=== PATIENT | female | born 1955 | race Caucasian/White ===

== ENCOUNTER → 2023-04-25 | Outpatient (CLI) | payer MEDICARE, SELFPAY | END | disposition home or self-care (01) | PROVIDERS: Visit Provider Student in an Organized Health Care Education/Training Program | DX: L97.512 Non-pressure chronic ulcer of other part of right foot with fat layer exposed (principal); L03.115 Cellulitis of right lower limb | CPT/HCPCS: 87070; 87077; 87186; 87205 ==

== ENCOUNTER 2023-06-22 15:02 | Inpatient (IN) | payer MEDICARE, SELFPAY ==
[2023-06-22 15:44] VITALS: BP 158/79; PULSE 65; RESP 16; TEMP 36.3; O2SAT 99; BMI 45.2
[2023-06-22 15:57] VITALS: O2SAT 99
--- NOTE | 2023-06-22 16:08 | HP.PCM_ITS ---
HPI - General General Date of Admission: 06/22/23 Date of Service: 06/22/23 Chief Complaint: Here for rehabilitation. HPI Narrative TONG PHIPPS, is a 67 Female who presents with followin05/02/2023 - 05/18/2023 Hospitalized for right diabetic foot osteomyelitis, right transmetatarsal amputation, MSSA treated with Vancomycin IV, Ceftriaxone IV, discharged on Keflex. 05/18/2023 - 06/08/2023 Rehab at [facility], then discharged home. 06/20/2023 Admit to [facility]. Worsening weakness, family unable to care for at home. More confused, feels loopy. Recent Shingles diagnosis, on treatment with Valtrex, Tramadol. Urinalysis negative, covid/flu/rsv negative. Blood sugar 650, CT brain negative. PT/OT for debility. Hold Tramadol. Control blood sugar with insulin. LR iv for acute kidney injury, metabolic acidosis. Cycle troponin for elevated troponin. 06/20/2023 Podiatry sharply debrided right foot ulcer. 06/20/2023 Right flank shingles treated with Valtrex. IV antibiotics for urinary tract infection. Increase Lasix for edema. 06/21/2023 Finish Valtrex, Lidoderm gel for shingles, neuralgia. PT/OT SNF. 06/22/2023 Admit to TCU with debility, here for rehabilitation, strengthening, wound care, prior to discharge home with . [facility] Medical History (Updated 06/22/23 @ 16:[address] Juan Casanoav MD) Bilateral carotid artery stenosis Chronic heart failure with preserved ejection fraction (HFpEF) Chronic kidney disease, stage 3a Coronary artery disease Debility Elevated troponin Encephalopathy Herpes zoster Hyperlipidemia Hypertension Morbid obesity Overactive bladder Stroke Ulcer of right foot due to type 2 diabetes mellitus 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 Urinary tract infection Weakness Home Medications albuterol sulfate 90 mcg/actuation aerosol inhaler (ProAir HFA) 2 inh inhalation Q4H PRN wheezing/shortness of breath 06/22/23 [History Last Taken Unknown] aspirin 81 mg chewable tablet 2 tab PO DAILY blood thinner 06/22/23 [History Last Taken Unknown] atorvastatin 80 mg tablet 80 mg PO QHS cholesterol 06/22/23 [History Last Taken Unknown] cholecalciferol (vitamin D3) 50 mcg (2,000 unit) capsule 2,000 unit PO DAILY supplement 06/22/23 [History Last Taken Unknown] clopidogrel 75 mg tablet 75 mg PO DAILY blood thinner 06/22/23 [History Last Taken Unknown] ferrous sulfate 325 mg (65 mg iron) tablet (Feosol) 325 mg PO DAILY supplement 06/22/23 [History Last Taken Unknown] furosemide 40 mg tablet 60 mg PO DAILY fluid pill 06/22/23 [History Last Taken Unknown] hydrocortisone 2.5 % topical cream applic topical BID itching 06/22/23 [History Last Taken Unknown] insulin glargine 100 unit/mL (3 mL) subcutaneous pen (Lantus Solostar U-100 Insulin) 36 unit subcut QHS diabetes 06/22/23 [History Last Taken Unknown] insulin lispro 100 unit/mL subcutaneous pen 12 unit subcut .AC diabetes 06/22/23 [History Last Taken Unknown] metoprolol succinate 25 mg tablet,extended release 24 hr 25 mg PO DAILY BP/pulse 06/22/23 [History Last Taken Unknown] multivitamin (Daily Multi-Vitamin tablet) 1 tab PO DAILY supplement 06/22/23 [History Last Taken Unknown] nitrofurantoin monohydrate/macrocrystals 100 mg capsule 100 mg PO BID antibiotic 06/22/23 [History Last Taken Unknown] nitroglycerin 0.4 mg sublingual tablet 0.4 mg sublingual Q5M chest pain 06/22/23 [History Last Taken Unknown] ondansetron 4 mg disintegrating tablet 4 mg PO Q6H PRN nausea 06/22/23 [History Last Taken Unknown] oxybutynin chloride 5 mg tablet,extended release 24 hr 5 mg PO DAILY bladder 06/22/23 [History Last Taken Unknown] pantoprazole 40 mg tablet,delayed release 40 mg PO DAILY reflux 06/22/23 [History Last Taken Unknown] ranolazine 1,000 mg tablet,extended release,12 hr 1,000 mg PO Q12H angina 06/22/23 [History Last Taken Unknown] sertraline 100 mg tablet 100 mg PO DAILY mood 06/22/23 [History Last Taken Unknown] valacyclovir 1 gram tablet 1,000 mg PO Q12H shingles 06/22/23 [History Last Taken Unknown] Family History (Updated 06/22/23 @ 16:[address] Juan Casanova MD) Mother CVA (cerebral vascular accident) Hyperlipidemia Glaucoma Father CAD (coronary artery disease) Hypertension Hyperlipidemia Renal artery stenosis Aortic aneurysm Brother Glaucoma Daughter Psoriasis Surgical History (Updated 06/22/23 @ 16:[address] Juan Casanova MD) History of bilateral cataract extraction History of cholecystectomy History of coronary artery bypass graft History of coronary artery stent placement History of dental surgery History of hernia surgery History of hysterectomy Social History (Updated 06/22/23 @ 16:[address] Juan Casanova MD) household members: spouse Smoking Status: Former smoker alcohol intake: never substance use type: does not use ROS Constitutional Constitutional: Denies chills, fever(s) or weight gain ENT HEENT: Denies headache(s), nasal congestion or nasal discharge Cardiovascular Cardiovascular: Denies chest pain or palpitations Respiratory/Chest Respiratory/Chest: Denies cough, excessive phlegm production or shortness of breath with exertion Gastrointestinal Gastrointestinal: Denies abdominal pain, nausea or vomiting Genitourinary Genitourinary: Denies dysuria Musculoskeletal Musculoskeletal: Denies joint pain or joint swelling Integumentary Integumentary: Denies rash or wounds Neurologic Neurologic: Denies focal weakness, numbness or tingling Psychiatric Psychiatric: Denies anxiety, auditory hallucinations, depression, homicidal ideation or suicidal ideation Physical Exam Const alert General Appearance: cooperative HEENT normocephalic Eyes PERRL and EOMs intact bilaterally Neck supple, no JVD and no carotid bruits Resp normal respiratory effort, normal air movement and clear to auscultation bilaterally Cardio regular rate and regular rhythm GI normal to inspection, nondistended, normoactive bowel sounds, non-tender and non-distended Extremity normal capillary refill Extremity Narrative: Right foot dressed. General Extremity: Negative for edema Skin no rashes or lesions noted Skin Narrative: Healing vesicular rash right flank/right lower abdomen. 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 * Debility - PT/OT. * Pain - Tylenol 1000mg q6 prn pain (1-10). * Bowel - senna/colace 1 tablet bid, Magnesium citrate 300ml daily prn. * Adult immunization - Administer pneumonia vaccine, covid vaccine, flu vaccine as appropriate. * DVT prophylaxis - Hold, on dual antiplatelet therapy. * Shortness of breath - Albuterol 2 puffs q4 prn. * Stroke - Aspirin 81mg daily, Plavix 75mg daily. * Hyperlipidemia - Atorvastatin 80mg qhs. * Vitamin D deficiency - D3 50mcg daily. * Coronary artery disease - Metoprolol succinate 25mg daily, Ranexa 1000mg q12, Plavix 75mg daily, Aspirin 81mg daily, NTG 0.4mg sl q5m prn. * Iron deficiency anemia - Ferrous sulfate 325mg daily. * HFpEF - Metoprolol succinate 25mg daily, Furosemide 60mg daily. * Rash - HC 2.5% topical bid. * Diabetes Mellitus II - Glargine 36 units qhs, Lispro 12 units tidac. * Nutrition - MVI daily. * Urinary tract infection - Nitrofurantoin 100mg bid thru 06/23/2023. * Depression - Sertraline 100mg daily, stable chronic senior living use, GDR not recommended. * Overactive bladder - Tolterodine 2mg daily. * Herpes Zoster - Valtrex 1000mg q12 thru today. * Right diabetic foot wound - Consult wound nurse.
[2023-06-22 16:13] VITALS: BMI 45.3
[2023-06-22 17:46] LABS: Bedside Glucose 94 mg/dL (74-106)
[2023-06-22 22:02] LABS: Bedside Glucose 148 mg/dL (74-106)
[2023-06-22] MEDS: Ranolazine 500 MG Tablet 1000 MG PO (22:08)
[2023-06-22] MEDS: Nitrofurantoin Macrocrystals 100 MG Capsule PO (22:08)
[2023-06-22] MEDS: Atorvastatin Calcium 80 MG Tablet PO (22:10)
[2023-06-22] MEDS: Acyclovir 200 MG Capsule 400 MG PO (22:10)
[2023-06-22] MEDS: Senna/Docusate Sodium 1 Tablet PO (22:11)
[2023-06-23 06:54] LABS: Bedside Glucose 141 mg/dL (74-106)
[2023-06-23 08:29] LABS: Absolute Lymphocyte Count 1.07 X10^3/uL (0.83-4.51); Basophil# 0.04 X10^3/uL; Basophil% 0.7 % (0-1); Eosinophil# 0.33 X10^3/uL; Eosinophils% 5.6 % (0-5); Hematocrit 31.7 % (37-47); Lymphocyte # 1.07 X10^3/ul (0.83-4.51); Mean Corp Hgb Conc 31.5 g/dL (32-36); Mean Corpuscular Hgb 29.6 pg (27.0-32.0); Mean Corpuscular Volume 93.8 fL (81-99); Mean Platelet Vol. 11.9 fl (6.2-12.0); Monocyte# 0.49 X10^3/uL; Monocyte% 8.3 % (0-10); NRBC Flagged by Analyzer 0 % (0-5); Neutrophil # 3.98 X10^3/uL (2.7-7.7); Neutrophil % 67.1 % (47-70); Platelet Count 159 K/mm3 (150-450); RBC Distribution Width CV 16.2 % (11.6-14.6); Red Blood Count 3.38 M/mm3 (4.2-5.4); White Blood Count 5.9 K/mm3 (4.4-11.0)
[2023-06-23] MEDS: Ferrous Sulfate 325 MG Tablet PO (08:45)
[2023-06-23] MEDS: Aspirin 81 MG TAB.CHEW PO (08:45)
[2023-06-23] MEDS: Multivitamins,Therapeutic Tablet 1 TABLET PO (08:46)
[2023-06-23] MEDS: Tolterodine Tartrate 2 MG CAP.SA PO (08:46)
[2023-06-23] MEDS: Hydrocortisone 2.5% Crm 1 APPLIC TOPICAL (08:46)
[2023-06-23] MEDS: Juven (unflavored) Packet 1 PACKET PO (08:46)
[2023-06-23] MEDS: Furosemide 40 MG Tablet 60 MG PO (08:47)
[2023-06-23] MEDS: Nitrofurantoin Macrocrystals 100 MG Capsule PO ×2 (08:48→21:58)
[2023-06-23] MEDS: Clopidogrel Bisulfate 75 MG Tablet PO (08:49)
[2023-06-23] MEDS: Ranolazine 500 MG Tablet 1000 MG PO ×2 (08:49→21:58)
[2023-06-23] MEDS: Pantoprazole Sodium 40 MG Tablet PO (08:49)
[2023-06-23] MEDS: Senna/Docusate Sodium 1 Tablet PO ×2 (08:49→21:58)
[2023-06-23] MEDS: Cholecalciferol (VIT D3) 25 MCG TABLET (1,000 UNITS) 50 MCG PO (08:50)
[2023-06-23 08:51] VITALS: BP 143/67; PULSE 68
[2023-06-23] MEDS: Sertraline 100 MG Tablet PO (08:51)
[2023-06-23] MEDS: Acyclovir 200 MG Capsule 400 MG PO ×2 (08:51→21:58)
[2023-06-23] MEDS: Metoprolol(XL)Succ 25 MG Tablet PO (08:51)
[2023-06-23 08:56] LABS: Anion Gap 4 (5-15); BUN 27 mg/dL (7-18); BUN/Creat Ratio 15.9 RATIO (10-20); Calcium,Total 8.7 mg/dL (8.5-10.1); Chloride 111 mmol/L (98-107); EST Glomerular Filtration Rate 32 mL/min (>60); Est Glom Filt Rate - Afr Amer 39 mL/min (>60); Estimated Creatinine Clearance 39.47 ml/min; Glucose 171 mg/dL (74-106); Potassium 4.1 mmol/L (3.5-5.1); Sodium Level 139 mmol/L (136-145)
--- NOTE | 2023-06-23 08:59 | NURSING ---
Shortly after taking morning medications pt. vomited. Visible pills in emesis.
[2023-06-23] MEDS: Insulin Lispro 100 UNIT/ML INSULN.PEN 12 UNIT SC ×3 (09:29→16:36)
[2023-06-23] MEDS: Tuberculin,Purif.prot.deriv. 50 TU/ML Vial 0.100000000000000006 ML ID (10:59)
[2023-06-23 11:28] LABS: Bedside Glucose 213 mg/dL (74-106)
[2023-06-23 13:29] VITALS: BP 134/65; PULSE 69; RESP 18; TEMP 36.6; O2SAT 98
[2023-06-23 16:46] LABS: Bedside Glucose 179 mg/dL (74-106)
[2023-06-23 20:25] VITALS: PULSE 66; RESP 16; O2SAT 97
[2023-06-23 21:32] LABS: Bedside Glucose 215 mg/dL (74-106)
[2023-06-23] MEDS: Insulin Glargine-YFGN 100 UNIT/ML Pen 36 UNIT SC (21:57)
[2023-06-23] MEDS: Atorvastatin Calcium 80 MG Tablet PO (21:58)
[2023-06-24] MEDS: Acetaminophen 500 MG Tablet 1000 MG PO ×2 (00:29→23:32)
[2023-06-24 05:10] LABS: Hematocrit 34.8 % (37-47); Hemoglobin 10.5 g/dL (12.0-15.0)
[2023-06-24 05:42] LABS: Anion Gap 5 (5-15); BUN 31 mg/dL (7-18); BUN/Creat Ratio 18.6 RATIO (10-20); Calcium,Total 8.7 mg/dL (8.5-10.1); Chloride 108 mmol/L (98-107); Creatinine, Serum 1.67 mg/dL (0.55-1.02); EST Glomerular Filtration Rate 33 mL/min (>60); Est Glom Filt Rate - Afr Amer 39 mL/min (>60); Estimated Creatinine Clearance 40.18 ml/min; Glucose 232 mg/dL (74-106); Potassium 4.2 mmol/L (3.5-5.1); Sodium Level 132 mmol/L (136-145)
[2023-06-24 06:31] LABS: Bedside Glucose 239 mg/dL (74-106)
[2023-06-24] MEDS: Insulin Lispro 100 UNIT/ML INSULN.PEN 12 UNIT SC ×3 (08:55→17:45)
[2023-06-24] MEDS: Pantoprazole Sodium 40 MG Tablet PO (08:55)
[2023-06-24] MEDS: Furosemide 40 MG Tablet 60 MG PO (08:55)
[2023-06-24] MEDS: Ranolazine 500 MG Tablet 1000 MG PO ×2 (08:56→23:32)
[2023-06-24] MEDS: Cholecalciferol (VIT D3) 25 MCG TABLET (1,000 UNITS) 50 MCG PO (08:56)
[2023-06-24] MEDS: Aspirin 81 MG TAB.CHEW PO (08:56)
[2023-06-24] MEDS: Sertraline 100 MG Tablet PO (08:56)
[2023-06-24] MEDS: Clopidogrel Bisulfate 75 MG Tablet PO (08:56)
[2023-06-24 08:57] VITALS: PULSE 88
[2023-06-24] MEDS: Multivitamins,Therapeutic Tablet 1 TABLET PO (08:57)
[2023-06-24] MEDS: Juven (unflavored) Packet 1 PACKET PO ×2 (08:57→17:43)
[2023-06-24] MEDS: Metoprolol(XL)Succ 25 MG Tablet PO (08:57)
[2023-06-24] MEDS: Ferrous Sulfate 325 MG Tablet PO (08:57)
[2023-06-24] MEDS: Tolterodine Tartrate 2 MG CAP.SA PO (08:58)
[2023-06-24] MEDS: Senna/Docusate Sodium 1 Tablet PO ×2 (08:58→23:32)
[2023-06-24 11:24] VITALS: BP 148/57; PULSE 63; RESP 17; TEMP 36.6; O2SAT 98
[2023-06-24 11:30] LABS: Bedside Glucose 240 mg/dL (74-106)
[2023-06-24 11:35] LABS: Osmolality, Serum 309 mOsm/KG (280-301)
[2023-06-24] MEDS: Hydrocortisone 2.5% Crm 1 APPLIC TOPICAL ×2 (12:08→23:30)
[2023-06-24] MEDS: Ondansetron ODT 4 MG Tablet PO (14:35)
[2023-06-24 17:59] LABS: Bedside Glucose 266 mg/dL (74-106)
[2023-06-24 21:27] LABS: Bedside Glucose 264 mg/dL (74-106)
[2023-06-24] MEDS: Insulin Glargine-YFGN 100 UNIT/ML Pen 36 UNIT SC (23:30)
[2023-06-24] MEDS: Atorvastatin Calcium 80 MG Tablet PO (23:32)
[2023-06-24 23:59] VITALS: PULSE 72; RESP 16; O2SAT 97
[2023-06-25 01:31] LABS: Urine Sodium 77 mmol/L (Not Establ.)
[2023-06-25 01:38] LABS: Osmolality, Urine 339 mOsm/KG
[2023-06-25 06:26] LABS: Hematocrit 31.4 % (37-47)
[2023-06-25 06:44] LABS: Bedside Glucose 213 mg/dL (74-106)
[2023-06-25 07:05] LABS: Anion Gap 5 (5-15); BUN 40 mg/dL (7-18); BUN/Creat Ratio 22.2 RATIO (10-20); Calcium,Total 9.3 mg/dL (8.5-10.1); Chloride 108 mmol/L (98-107); EST Glomerular Filtration Rate 30 mL/min (>60); Est Glom Filt Rate - Afr Amer 36 mL/min (>60); Estimated Creatinine Clearance 37.27 ml/min; Glucose 254 mg/dL (74-106); Potassium 4.2 mmol/L (3.5-5.1); Sodium Level 136 mmol/L (136-145)
[2023-06-25] MEDS: Juven (unflavored) Packet 1 PACKET PO ×2 (08:02→18:19)
[2023-06-25] MEDS: Insulin Lispro 100 UNIT/ML INSULN.PEN 12 UNIT SC ×2 (08:02→11:52)
[2023-06-25] MEDS: Multivitamins,Therapeutic Tablet 1 TABLET PO (08:05)
[2023-06-25] MEDS: Aspirin 81 MG TAB.CHEW PO (08:05)
[2023-06-25] MEDS: Ferrous Sulfate 325 MG Tablet PO (08:05)
[2023-06-25 08:06] VITALS: PULSE 76
[2023-06-25] MEDS: Pantoprazole Sodium 40 MG Tablet PO (08:06)
[2023-06-25] MEDS: Cholecalciferol (VIT D3) 25 MCG TABLET (1,000 UNITS) 50 MCG PO (08:06)
[2023-06-25] MEDS: Metoprolol(XL)Succ 25 MG Tablet PO (08:06)
[2023-06-25] MEDS: Tolterodine Tartrate 2 MG CAP.SA PO (08:06)
[2023-06-25] MEDS: Senna/Docusate Sodium 1 Tablet PO ×2 (08:06→22:22)
[2023-06-25] MEDS: Ranolazine 500 MG Tablet 1000 MG PO ×2 (08:06→22:21)
[2023-06-25] MEDS: Sertraline 100 MG Tablet PO (08:07)
[2023-06-25] MEDS: Clopidogrel Bisulfate 75 MG Tablet PO (08:07)
[2023-06-25] MEDS: Furosemide 40 MG Tablet 60 MG PO (08:07)
[2023-06-25] MEDS: Hydrocortisone 2.5% Crm 1 APPLIC TOPICAL ×2 (08:10→22:18)
--- NOTE | 2023-06-25 09:40 | CASEMGMT ---
TCU Social Work Admit Note: SW met w/pt to complete initial assessment. SW introduced self and role. SW verified and updated contacts, added daughter and corrected phone number. Pt confirmed full code status w/SW. Educated pt to Medicare benefit, explained first insurance review will be 06/26/23, educated her that continued stay not guaranteed. SW explained once we know how long insurance authorizes, will let her know, pt states understanding. Pt's goal is to return home w/ and continuation of [facility] for PT/OT. Pt may be interested in completing LW/POA while here. SW will continue to follow along for any social service/discharge planning needs. ANGEL Mays
[2023-06-25 10:00] VITALS: PULSE 70; RESP 16; O2SAT 98
--- NOTE | 2023-06-25 10:32 | WOUNDNOTE ---
wound photo: right foot
--- NOTE | 2023-06-25 10:32 | WOUNDNOTE ---
wound photo: left heel
--- NOTE | 2023-06-25 10:52 | PCM.PN.DRR ---
Documented by User: Torsten Gomes 06/25/23 11:24 TCU RX Drug Regimen Review Subjective/Objective Subjective/Objective: Subjective: TCU admission note. 67 year old female with below past medical history hospitalized for weakness, encephalopathy secondary to urinary tract infection, herpes zoster, admitted to TCU with debility, here for rehabilitation, strengthening, prior to discharge home with . Objective: Allergies cefaclor [From Ceclor] Allergy (Unknown, Verified 06/22/23 16:43) Other patient unsure SPEEDY Inhibitors Allergy (Verified 06/22/23 16:43) Other patient unsure Beta-Blockers (Beta-Adrenergic Bloc Allergy (Verified 06/22/23 16:43) Other patient unsure ciprofloxacin Allergy (Verified 06/22/23 16:43) hives clindamycin Allergy (Verified 06/22/23 16:43) Rash isosorbide [From Imdur] Allergy (Verified 06/22/23 16:43) Other patient unsure Penicillins Allergy (Verified 06/22/23 16:43) Rash Current Medications Generic Name Dose Route Start Last Admin Trade Name Freq PRN Reason Stop Dose Admin Acetaminophen 1,000 mg 06/24/23 00:19 06/24/23 23:32 Acetaminophen 500 Mg Tablet PO 1,000 mg Q6H PRN PRN Administration Pain Score 1-10 Albuterol Sulfate 2 puff 06/22/23 16:59 Albuterol Ih (6.7 Gm) 1 Puff Inhaler INHALATION Q4H PRN wheezing/shortness of breath Aspirin 81 mg 06/23/23 08:00 06/25/23 08:05 Aspirin 81 Mg Tab.Chew PO 81 mg DAILYCM SAIGE Administration Atorvastatin Calcium 80 mg 06/22/23 22:00 06/24/23 23:32 Atorvastatin Calcium 80 Mg Tablet PO 80 mg QHS SAIGE Administration Cholecalciferol 50 mcg 06/23/23 10:00 06/25/23 08:06 Cholecalciferol (Vit D3) 25 Mcg Tablet (1,000 Units) PO 50 mcg DAILY SAIGE Administration Clopidogrel Bisulfate 75 mg 06/23/23 10:00 06/25/23 08:07 Clopidogrel Bisulfate 75 Mg Tablet PO 75 mg DAILY SAIGE Administration Ferrous Sulfate 325 mg 06/23/23 08:00 06/25/23 08:05 Ferrous Sulfate 325 Mg Tablet PO 325 mg DAILYCM SAIGE Administration Furosemide 60 mg 06/23/23 10:00 06/25/23 08:07 Furosemide 40 Mg Tablet PO 60 mg DAILY [facility] Administration Protocol Hydrocortisone 1 applic 06/22/23 22:00 06/25/23 08:10 Hydrocortisone 2.5% Crm TOPICAL 1 applic BID [facility] Administration Protocol Insulin Glargine 36 unit 06/22/23 22:00 06/24/23 23:30 Insulin Glargine-Yfgn 100 Unit/Ml Pen SC 36 unit QHS SAIGE Administration Insulin Human Lispro 12 unit 06/22/23 16:45 06/25/23 08:02 Insulin Lispro 100 Unit/Ml Insuln.Pen SC 12 unit TIDAC [facility] Administration L-Arginine/L-Glutamine/Calcium HMB 1 packet 06/23/23 08:00 06/25/23 08:02 Adryan (Unflavored) Packet PO 1 packet BIDCM [facility] Administration Magnesium Citrate 300 ml 06/22/23 16:36 Magnesium Citrate 300 Ml PO DAILY PRN CONSTIPATION Metoprolol Succinate 25 mg 06/23/23 10:00 06/25/23 08:06 Metoprolol(Xl)Succ 25 Mg Tablet PO 25 mg DAILY [facility] Administration Protocol Multivitamins 1 tablet 06/23/23 08:00 06/25/23 08:05 Multivitamins,Therapeutic Tablet PO 1 tablet DAILYCM [facility] Administration Nitroglycerin 0.4 mg 06/22/23 17:00 Nitroglycerin (Inpatient Use) 0.4 Mg Tab.Subl SL Q5M PRN CARDIAC/CHEST PAIN Ondansetron HCl 4 mg 06/22/23 16:00 06/24/23 14:35 Ondansetron Odt 4 Mg Tablet PO 4 mg Q6H PRN Administration nausea Pantoprazole Sodium 40 mg 06/23/23 10:00 06/25/23 08:06 Pantoprazole Sodium 40 Mg Tablet PO 40 mg DAILY [facility] Administration Ranolazine 1,000 mg 06/22/23 22:00 06/25/23 08:06 Ranolazine 500 Mg Tablet PO 1,000 mg Q12 SAIGE Administration Senna/Docusate Sodium 1 tablet 06/22/23 22:00 06/25/23 08:06 Senna/Docusate Sodium 1 Tablet PO 1 tablet BID SAIGE Administration Sertraline HCl 100 mg 06/23/23 10:00 06/25/23 08:07 Sertraline 100 Mg Tablet PO 100 mg DAILY SAIGE Administration Sodium Chloride 10 - 40 ml 06/22/23 16:00 0.9% Saline Lock 10 Ml Syringe IV UD PRN SALINE FLUSH Tolterodine Tartrate 2 mg 06/23/23 10:00 06/25/23 08:06 Tolterodine Tartrate 2 Mg Cap.Sa PO 2 mg DAILY SAIEG Administration Tuberculin PPD 0.1 ml 06/30/23 10:00 Tuberculin,Purif.Prot.Deriv. 50 Tu/Ml Vial ID 06/30/23 10:01 X1 ONE Problem List (Updated 06/22/23 @ 16:[address] Juan Casanova MD) Overactive bladder (Acute) Hyperlipidemia (Acute) Hypertension (Chronic) Chronic heart failure with preserved ejection fraction (HFpEF) (Acute) Chronic kidney disease, stage 3a (Chronic) Bilateral carotid artery stenosis (Acute) Morbid obesity (Acute) Stroke (Acute) Coronary artery disease (Acute) 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 (Acute) Urinary tract infection (Acute) Ulcer of right foot due to type 2 diabetes mellitus (Acute) Elevated troponin (Acute) Herpes zoster (Acute) Weakness (Acute) Encephalopathy (Acute) Debility (Acute) Vital Signs Temp Pulse Resp BP Pulse Ox O2 Del Method 97.9 F 76 16 148/57 H 97 Room Air 06/24/23 11:24 06/25/23 08:06 06/24/23 23:59 06/24/23 11:24 06/24/23 23:59 06/24/23 23:59 Oxygen Delivery Method Room Air Weight: 116.029 kg Body Mass Index (BMI) 45.3 Sodium 136 mmol/L (136-145) 06/25/23 05:30 Potassium 4.2 mmol/L (3.5-5.1) 06/25/23 05:30 Chloride 108 mmol/L (98-107) H 06/25/23 05:30 Carbon Dioxide 23.0 mmol/L (21.0-32.0) 06/25/23 05:30 Anion Gap 5 (5-15) 06/25/23 05:30 BUN 40 mg/dL (7-18) H 06/25/23 05:30 Creatinine 1.80 mg/dL (0.55-1.02) H 06/25/23 05:30 Est GFR (MDRD) Af Amer 36 mL/min (>60) L 06/25/23 05:30 Est GFR (MDRD) Non-Af 30 mL/min (>60) L 06/25/23 05:30 BUN/Creatinine Ratio 22.2 RATIO (10-20) H 06/25/23 05:30 Glucose 254 mg/dL (74-106) H 06/25/23 05:30 Assessment/Plan: 1. Pain: acetaminophen 1000 mg PO Q6H PRN pain. The patient has required 2 doses of PRN acetaminophen so far this admission. Please continue to monitor PRN acetaminophen administration, pain levels, and LFTs (no recent LFTs documented). 2. Bowel: senna/docusate 1 tablet PO BID, magnesium citrate 300 mL PO daily PRN constipation. The patient has not required any PRN doses of magnesium citrate, and the patient does not have a documented bowel movement so far this admission. Please continue to monitor for bowel movements, for PRN medication usage, for constipation and diarrhea. As the patient has not had a bowel movement so far this admission please consider administering magnesium citrate. 3. Shortness of breath: albuterol inhaler 2 puffs every 4 hours as needed for wheezing or shortness of breath. The patient has not required any PRN doses of albuterol so far this admission. Please continue to monitor for shortness of breath, PRN albuterol usage, and for palpitations with albuterol administration. 4. History of stroke: aspirin 81 mg PO daily, clopidogrel 75 mg PO daily. Please continue to monitor for s/s of stroke/stroke-like symptoms, for bleeding/excessive bruising, hemoglobin levels (Hgb = 10.0 g/dL on 06/25/23), platelet count (plt = 159 K/mm3 on 06/23/23), and for GI distress with aspirin administration. 5. Hyperlipidemia/HFpEF/CAD: aspirin 81 mg PO daily, atorvastatin 80 mg PO QHS, clopidogrel 75 mg PO daily, furosemide 60 mg PO daily, metoprolol succinate 25 mg PO daily, ranolazine 1000 mg PO Q12, nitroglycerin 0.4 mg SL Q5M PRN chest pain. Please continue to monitor for chest pain, shortness of breath, lower extremity edema, for bleeding/excessive bruising, for GI distress with aspirin administration, lipid levels (no recent lipid levels documented), LFTs (no recent LFTs documented), for myalgias, renal function (serum creatinine = 1.80 mg/dL with creatinine clearance ~ 37 mL/min on 06/25/23), sodium levels (Na - 136 mmol/L on 06/25/23), potassium levels (K = 4.2 mmol/L on 06/25/23), calcium levels (Ca = 9.3 mg/dL on 06/25/23), for s/s of dehydration, blood pressures (recent range = 134-158/57-79 mmHg), heart rates (recent range = 63-88 beats/min), and for fatigue. As the patient does not have recent lipid levels documented please consider ordering a lipid panel if clinically indicated. The patient's blood pressures have all been elevated while she has been admitted and she has a reported allergy to SPEEDY-inhibitors. As such please consider starting the patient on losartan 25 mg PO daily to help with blood pressures as well as for some cardiac benefit. 6. Diabetes Mellitus II: insulin glargine 36 units QHS, insulin lispro 12 units TID before meals. Please continue to monitor blood glucose levels (recent range = 94-266 mg/dL) as well as hemoglobin A1C levels (no recent hemoglobin A1C documented). As the patient's blood glucose levels over the past 2 days have been highly elevated please consider increasing her insulin glargine to 40 units QHS, and her insulin lispro to 13 units TID before meals. 7. Iron deficiency anemia: ferrous sulfate 325 mg PO daily with a meal. Please continue to monitor hemoglobin levels (Hgb =10 g/dL on 06/25/23) and iron levels (no recent iron levels documented), as well as for GI distress with iron administration. Please consider ordering iron levels to assess repletion status if clinically indicated. 8. Nausea: ondansetron 4 mg PO Q6H PRN nausea. The patient has used 1 PRN dose of ondansetron so far this admission. Please continue to monitor for PRN medication usage, for nausea, for constipation and for headache. 9. GI distress/GERD: pantoprazole 40 mg PO daily. Please continue to monitor for GI distress/GERD as well as for diarrhea that could indicate clostridium difficile infection, and s/s of bone resorption such as fractures. 10. Vitamin D deficiency: cholecalciferol 50 mcg PO daily. Please continue to monitor for s/s of vitamin D deficiency, as well as vitamin D levels (no recent vitamin D levels documented). Please consider ordering a vitamin D level to assess repletion status if clinically indicated. 11. Rash: hydrocortisone 2.5% 1 application topically BID. Please continue to monitor for resolution of rash, and for application site burning/irritation. 12. Nutrition: multivitamin Po daily, Adryan 1 packet PO BID with meals. Please continue to monitor nutritional status and for GI distress with multivitamin administration. 13. Overactive bladder: tolterodine 2 mg PO daily. Please continue to monitor for bladder spasms, for dry mouth, headache, and constipation. Assessment/Plan for indications treated with psychotropic medications: 1. Depression: sertraline 100 mg PO daily. Please see provider note regarding stable chronic long-term therapy GDR not recommended. Please continue to monitor for depression, for SI, sodium levels (Na - 136 mmol/L on 06/25/23), for s/s of serotonin syndrome, and for diarrhea. Medical chart and medication regimen reviewed. The following medication irregularities or issues were identified: 1. Hyperlipidemia/HFpEF/CAD: aspirin 81 mg PO daily, atorvastatin 80 mg PO QHS, clopidogrel 75 mg PO daily, furosemide 60 mg PO daily, metoprolol succinate 25 mg PO daily, ranolazine 1000 mg PO Q12, nitroglycerin 0.4 mg SL Q5M PRN chest pain. As the patient does not have recent lipid levels documented please consider ordering a lipid panel if clinically indicated. The patient's blood pressures have all been elevated while she has been admitted and she has a reported allergy to SPEEDY-inhibitors. As such please consider starting the patient on losartan 25 mg PO daily to help with blood pressures as well as for some cardiac benefit. 2. Diabetes Mellitus II: insulin glargine 36 units QHS, insulin lispro 12 units TID before meals. As the patient's blood glucose levels over the past 2 days have been highly elevated please consider increasing her insulin glargine to 40 units QHS, and her insulin lispro to 13 units TID before meals. 3. Iron deficiency anemia: ferrous sulfate 325 mg PO daily with a meal. Please consider ordering iron levels to assess repletion status if clinically indicated. 4. Vitamin D deficiency: cholecalciferol 50 mcg PO daily. Please consider ordering a vitamin D level to assess repletion status if clinically indicated. Date Date of Note:: 06/25/23 Documented by User: Dr. Juan Casanova MD 06/25/23 13:02 TCU RX Drug Regimen Review Provider Comments Provider responsibility Provider Comments to Recommendations by Pharmacy: Agree
--- NOTE | 2023-06-25 11:38 | NURSING ---
Patient c/o blurred vision. Upon assessment patient was a&ox3, no changes noted to speech and extremity strength. Patient denies any other symptoms. BS: 202, BP 125/69 HR: 67, RR:16, T:97.6, 97% room air. Patient noted to have hx of stroke, bilateral carotid stenosis. No abnormalities noted. States that eyesight has actually progressively been worsening overtime vs drastic acute change.
[2023-06-25 11:45] LABS: Bedside Glucose 202 mg/dL (74-106)
--- NOTE | 2023-06-25 12:13 | NURSING ---
Head Of Physics Note; Activity Asset: Abisai Tomlin is independent in her choice of daily activities. 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 She has a computer and smartphone she uses for games, and the internet. When not in therapy she will read her book, magazines, watch voodoo tv, work on word search puzzles and visit w/family and friends. Staff will remind her of weekly activities and respect her right to say no.
[2023-06-25 15:19] VITALS: BP 125/69; PULSE 67; RESP 16; TEMP 36.4; O2SAT 97
[2023-06-25] MEDS: Insulin Lispro 100 UNIT/ML INSULN.PEN 13 UNIT SC (18:18)
[2023-06-25 21:55] LABS: Bedside Glucose 205 mg/dL (74-106)
[2023-06-25 22:07] LABS: Bedside Glucose 188 mg/dL (74-106)
[2023-06-25] MEDS: Atorvastatin Calcium 80 MG Tablet PO (22:21)
[2023-06-25] MEDS: Insulin Glargine-YFGN 100 UNIT/ML Pen 40 UNIT SC (22:24)
[2023-06-25] MEDS: Acetaminophen 500 MG Tablet 1000 MG PO (22:26)
--- NOTE | 2023-06-26 03:13 | NURSING ---
ORTHOPEDIC PODIATRIST entered the room and noted patient to be sitting on side of bed. She stated that she was trying to get a drink of water. ORTHOPEDIC PODIATRIST reminded patient to use call light if needing assistance. Will continue to monitor.
[2023-06-26 06:01] LABS: Hematocrit 32.2 % (37-47); Hemoglobin 10.4 g/dL (12.0-15.0)
[2023-06-26] MEDS: Acetaminophen 500 MG Tablet 1000 MG PO ×2 (06:20→12:31)
[2023-06-26 06:25] LABS: Anion Gap 5 (5-15); BUN 43 mg/dL (7-18); BUN/Creat Ratio 23.9 RATIO (10-20); Calcium,Total 9.1 mg/dL (8.5-10.1); Chloride 104 mmol/L (98-107); EST Glomerular Filtration Rate 30 mL/min (>60); Est Glom Filt Rate - Afr Amer 36 mL/min (>60); Estimated Creatinine Clearance 37.27 ml/min; Glucose 153 mg/dL (74-106); Iron 41 ug/dL (50-170); Potassium 4.1 mmol/L (3.5-5.1); Sodium Level 134 mmol/L (136-145)
[2023-06-26 06:57] LABS: Bedside Glucose 141 mg/dL (74-106)
[2023-06-26] MEDS: Insulin Lispro 100 UNIT/ML INSULN.PEN 13 UNIT SC ×3 (08:19→17:52)
[2023-06-26] MEDS: Ferrous Sulfate 325 MG Tablet PO (08:20)
[2023-06-26] MEDS: Aspirin 81 MG TAB.CHEW PO (08:20)
[2023-06-26] MEDS: Tolterodine Tartrate 2 MG CAP.SA PO (08:21)
[2023-06-26] MEDS: Multivitamins,Therapeutic Tablet 1 TABLET PO (08:21)
[2023-06-26] MEDS: Losartan Potassium 25 MG Tablet PO (08:21)
[2023-06-26] MEDS: Hydrocortisone 2.5% Crm 1 APPLIC TOPICAL (08:22)
[2023-06-26] MEDS: Furosemide 40 MG Tablet 60 MG PO (08:23)
[2023-06-26] MEDS: Clopidogrel Bisulfate 75 MG Tablet PO (08:23)
[2023-06-26] MEDS: Sertraline 100 MG Tablet PO (08:24)
[2023-06-26] MEDS: Cholecalciferol (VIT D3) 25 MCG TABLET (1,000 UNITS) 50 MCG PO (08:24)
[2023-06-26] MEDS: Senna/Docusate Sodium 1 Tablet PO ×2 (08:24→21:47)
[2023-06-26] MEDS: Ranolazine 500 MG Tablet 1000 MG PO ×2 (08:24→21:47)
[2023-06-26] MEDS: Pantoprazole Sodium 40 MG Tablet PO (08:24)
[2023-06-26 08:28] VITALS: BP 125/50; PULSE 74
[2023-06-26] MEDS: Metoprolol(XL)Succ 25 MG Tablet PO (08:28)
[2023-06-26 09:29] LABS: Vitamin D,25 Hydroxy 39.7 ng/mL
[2023-06-26 10:37] VITALS: BP 153/64; PULSE 72; RESP 16; TEMP 36.8; O2SAT 98
--- NOTE | 2023-06-26 10:41 | NURSING ---
Discussed patient's podiatry appt scheduled for Sunday (06/29/23). She hoped to go by car but per therapy it wouldn't be a safe and feasible option d/t her mobility. Per patient she can't afford WC transport. Called podiatry office to discuss with them. Left VM, await return call.
[2023-06-26 12:10] LABS: Bedside Glucose 230 mg/dL (74-106)
[2023-06-26 16:00] VITALS: BMI 43.6
[2023-06-26 16:44] LABS: Bedside Glucose 213 mg/dL (74-106)
[2023-06-26] MEDS: Juven (unflavored) Packet 1 PACKET PO (17:52)
[2023-06-26 21:31] LABS: Bedside Glucose 132 mg/dL (74-106)
[2023-06-26] MEDS: Atorvastatin Calcium 80 MG Tablet PO (21:47)
[2023-06-27 06:41] LABS: Anion Gap 5 (5-15); BUN 50 mg/dL (7-18); BUN/Creat Ratio 23.7 RATIO (10-20); Calcium,Total 8.9 mg/dL (8.5-10.1); Chloride 106 mmol/L (98-107); Creatinine, Serum 2.11 mg/dL (0.55-1.02); EST Glomerular Filtration Rate 25 mL/min (>60); Est Glom Filt Rate - Afr Amer 30 mL/min (>60); Estimated Creatinine Clearance 31.07 ml/min; Glucose 144 mg/dL (74-106); Potassium 4.6 mmol/L (3.5-5.1); Sodium Level 132 mmol/L (136-145)
[2023-06-27 06:48] LABS: Bedside Glucose 157 mg/dL (74-106)
[2023-06-27] MEDS: Insulin Lispro 100 UNIT/ML INSULN.PEN 13 UNIT SC ×3 (08:32→17:36)
[2023-06-27] MEDS: Multivitamins,Therapeutic Tablet 1 TABLET PO (08:34)
[2023-06-27] MEDS: Aspirin 81 MG TAB.CHEW PO (08:34)
[2023-06-27] MEDS: Losartan Potassium 25 MG Tablet PO (08:34)
[2023-06-27] MEDS: Hydrocortisone 2.5% Crm 1 APPLIC TOPICAL ×2 (08:35→22:01)
[2023-06-27] MEDS: Tolterodine Tartrate 2 MG CAP.SA PO (08:35)
[2023-06-27] MEDS: Ranolazine 500 MG Tablet 1000 MG PO ×2 (08:37→22:00)
[2023-06-27] MEDS: Clopidogrel Bisulfate 75 MG Tablet PO (08:37)
[2023-06-27] MEDS: Pantoprazole Sodium 40 MG Tablet PO (08:37)
[2023-06-27 08:38] VITALS: BP 138/64; PULSE 68
[2023-06-27] MEDS: Metoprolol(XL)Succ 25 MG Tablet PO (08:38)
[2023-06-27] MEDS: Sertraline 100 MG Tablet PO (08:40)
[2023-06-27] MEDS: Cholecalciferol (VIT D3) 25 MCG TABLET (1,000 UNITS) 50 MCG PO (08:40)
[2023-06-27] MEDS: Furosemide 20 MG Tablet PO (10:30)
--- NOTE | 2023-06-27 10:48 | CASEMGMT ---
Addendum entered by Evelia Whitney 06/27/23 12:05: [facility] is not available for transport. SW left VM with and provided estimated pricing if transport is scheduled through [facility] and to contact nurse's station with preference. Original Note: Social Work IDT met with patient and for care plan meeting. Discussed patient's progress in PT/OT/SN. Educated to [facility] with NRD / and continued stay is not guaranteed with each review. Pt's goal is to return home with closer to [place]. Discussed possibly needing an alternative DC plan as pt is currently x2 assist. Pt has f/u appt with surgeon on 06/29. Scheduled a car tx with with therapy to determine transport for appt. expressed concern with finances for transport. SW offered to schedule with [facility] w/c transport, if available - at least can provide pricing to . appreciative. SW inquired about advanced directives. Pt requested to complete, naming and dtr as HCPOA. SW to complete prior to DC. SW updated INSURANCE COUNSELOR for scheduling. SW will continue to follow for DC planning. Evelia Whitney, GALI WOOTENW
[2023-06-27 11:34] LABS: Bedside Glucose 307 mg/dL (74-106)
[2023-06-27 15:28] VITALS: BP 118/44; PULSE 62; RESP 18; TEMP 36.8; O2SAT 96
[2023-06-27 16:36] LABS: Bedside Glucose 303 mg/dL (74-106)
[2023-06-27] MEDS: Juven (unflavored) Packet 1 PACKET PO (17:35)
[2023-06-27 21:41] LABS: Bedside Glucose 254 mg/dL (74-106)
[2023-06-27] MEDS: Insulin Glargine-YFGN 100 UNIT/ML Pen 40 UNIT SC (22:00)
[2023-06-27] MEDS: Senna/Docusate Sodium 1 Tablet PO (22:00)
[2023-06-27] MEDS: Atorvastatin Calcium 80 MG Tablet PO (22:01)
[2023-06-28 05:58] LABS: Hematocrit 32.9 % (37-47); Hemoglobin 10.5 g/dL (12.0-15.0)
[2023-06-28 06:11] LABS: Anion Gap 5 (5-15); BUN 51 mg/dL (7-18); BUN/Creat Ratio 25.4 RATIO (10-20); Chloride 106 mmol/L (98-107); Creatinine, Serum 2.01 mg/dL (0.55-1.02); EST Glomerular Filtration Rate 26 mL/min (>60); Est Glom Filt Rate - Afr Amer 32 mL/min (>60); Estimated Creatinine Clearance 32.62 ml/min; Glucose 247 mg/dL (74-106); Potassium 4.5 mmol/L (3.5-5.1); Sodium Level 134 mmol/L (136-145)
[2023-06-28 06:18] LABS: Bedside Glucose 242 mg/dL (74-106)
[2023-06-28] MEDS: Aspirin 81 MG TAB.CHEW PO (08:22)
[2023-06-28] MEDS: Multivitamins,Therapeutic Tablet 1 TABLET PO (08:23)
[2023-06-28] MEDS: Ferrous Sulfate 325 MG Tablet PO (08:23)
[2023-06-28] MEDS: Juven (unflavored) Packet 1 PACKET PO ×2 (08:23→17:20)
[2023-06-28] MEDS: Insulin Lispro 100 UNIT/ML INSULN.PEN 13 UNIT SC ×3 (08:37→17:19)
[2023-06-28] MEDS: Losartan Potassium 25 MG Tablet PO (10:48)
[2023-06-28] MEDS: Tolterodine Tartrate 2 MG CAP.SA PO (10:48)
[2023-06-28] MEDS: Clopidogrel Bisulfate 75 MG Tablet PO (10:49)
[2023-06-28] MEDS: Pantoprazole Sodium 40 MG Tablet PO (10:49)
[2023-06-28] MEDS: Furosemide 20 MG Tablet PO (10:49)
[2023-06-28] MEDS: Ranolazine 500 MG Tablet 1000 MG PO ×2 (10:49→21:50)
[2023-06-28 10:50] VITALS: PULSE 66
[2023-06-28] MEDS: Metoprolol(XL)Succ 25 MG Tablet PO (10:50)
[2023-06-28] MEDS: Cholecalciferol (VIT D3) 25 MCG TABLET (1,000 UNITS) 50 MCG PO (10:51)
[2023-06-28] MEDS: Sertraline 100 MG Tablet PO (10:51)
[2023-06-28 11:11] LABS: Bedside Glucose 372 mg/dL (74-106)
[2023-06-28] MEDS: Hydrocortisone 2.5% Crm 1 APPLIC TOPICAL ×2 (11:20→21:48)
[2023-06-28 12:17] VITALS: BP 132/45; PULSE 69; RESP 16; TEMP 36.9; O2SAT 96
--- NOTE | 2023-06-28 13:38 | MDS.RN ---
Pain interview for MDS completed.
--- NOTE | 2023-06-28 15:24 | CHAPLAIN ---
Type of Pastoral Visit _x__ Initial Visit ___ Follow-up Visit ___ On-call Visit ___ General Patient Visit ___ Spiritual Assessment ___ Family Conference ___ Bereavement ___ Rapid Response ___ Code Blue ___ Other (describe below) Pastoral Care Referral From _x__ Patient ___ Family ___ Nurse ___ Physician ___ Vascular Tech ___ Plumbing Installer ___ Other (describe below) Sacrament/Intervention _x__ Active listening ___ Anointing ___ Quaker ___ Bereavement ___ Communion _x__ Amira exploration ___ _x__ Life review _x__ Prayer ___ Reconciliation ___ Sacrament of Sick ___ Supportive presence ___ Wedding ___ Other (describe below) Pastoral Comments patient is welcoming and admits at the beginning that her issue is being so very tired and wanting to sleep; pt also indicates her goal is to get home soon; pt states that at first she was upset or even angry at having to be in the TCU but decided to do whatever they asked and now has seen how nice the people are and how good this has been for me ; pt talks about her and his support; pt is talkative about 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
[2023-06-28 17:07] LABS: Bedside Glucose 345 mg/dL (74-106)
[2023-06-28 21:39] LABS: Bedside Glucose 318 mg/dL (74-106)
[2023-06-28] MEDS: Insulin Glargine-YFGN 100 UNIT/ML Pen 40 UNIT SC (21:49)
[2023-06-28] MEDS: Atorvastatin Calcium 80 MG Tablet PO (21:50)
[2023-06-29 06:29] LABS: Anion Gap 7 (5-15); BUN 60 mg/dL (7-18); BUN/Creat Ratio 28.2 RATIO (10-20); Calcium,Total 8.8 mg/dL (8.5-10.1); Chloride 107 mmol/L (98-107); Creatinine, Serum 2.13 mg/dL (0.55-1.02); EST Glomerular Filtration Rate 25 mL/min (>60); Est Glom Filt Rate - Afr Amer 30 mL/min (>60); Estimated Creatinine Clearance 30.78 ml/min; Glucose 258 mg/dL (74-106); Potassium 4.5 mmol/L (3.5-5.1); Sodium Level 136 mmol/L (136-145)
[2023-06-29 07:02] LABS: Bedside Glucose 234 mg/dL (74-106)
[2023-06-29] MEDS: Aspirin 81 MG TAB.CHEW PO (08:02)
[2023-06-29] MEDS: Tolterodine Tartrate 2 MG CAP.SA PO (08:02)
[2023-06-29] MEDS: Ferrous Sulfate 325 MG Tablet PO (08:02)
[2023-06-29] MEDS: Losartan Potassium 25 MG Tablet PO (08:02)
[2023-06-29] MEDS: Multivitamins,Therapeutic Tablet 1 TABLET PO (08:02)
[2023-06-29] MEDS: Hydrocortisone 2.5% Crm 1 APPLIC TOPICAL ×2 (08:02→22:36)
[2023-06-29] MEDS: Furosemide 20 MG Tablet PO (08:03)
[2023-06-29] MEDS: Clopidogrel Bisulfate 75 MG Tablet PO (08:03)
[2023-06-29] MEDS: Ranolazine 500 MG Tablet 1000 MG PO ×2 (08:03→22:36)
[2023-06-29] MEDS: Pantoprazole Sodium 40 MG Tablet PO (08:03)
[2023-06-29] MEDS: Senna/Docusate Sodium 1 Tablet PO (08:04)
[2023-06-29] MEDS: Cholecalciferol (VIT D3) 25 MCG TABLET (1,000 UNITS) 50 MCG PO (08:06)
[2023-06-29] MEDS: Sertraline 100 MG Tablet PO (08:07)
[2023-06-29] MEDS: Insulin Lispro 100 UNIT/ML INSULN.PEN 13 UNIT SC ×2 (08:08→14:34)
--- NOTE | 2023-06-29 08:41 | NURSING ---
Crystal Cutter Note; MDS for 06/29/2023 Complete
--- NOTE | 2023-06-29 13:10 | NURSING ---
Return from wound clinic. New boot to left foot. To wear boots to bilateral feet at all times or offload heels in bed. New dressing orders placed in [facility]. F/U made for Jul 13, 2023
[2023-06-29 13:34] LABS: Bedside Glucose 301 mg/dL (74-106)
[2023-06-29 14:04] VITALS: BP 126/55; PULSE 71; RESP 18; TEMP 36.3; O2SAT 99
--- NOTE | 2023-06-29 14:24 | CASEMGMT ---
Social Work BIMS () and PHQ-2 () complete for MDS assessment. Evelia Whitney MSW FARM APPRAISER
--- NOTE | 2023-06-29 16:30 | CASEMGMT ---
Social Work Completed advanced directives with pt naming as primary and dtr as secondary. Original and copies provided to pt. Copies placed on chart. Evelia Whitney, ARTIFICIAL FLOWER MAKER PERSON INVESTIGATOR
[2023-06-29 16:43] LABS: Bedside Glucose 409 mg/dL (74-106)
[2023-06-29] MEDS: Juven (unflavored) Packet 1 PACKET PO (18:14)
[2023-06-29] MEDS: Insulin Lispro 100 UNIT/ML INSULN.PEN 17 UNIT SC (18:14)
[2023-06-29 20:20] VITALS: PULSE 66; O2SAT 98
[2023-06-29 21:52] LABS: Bedside Glucose 324 mg/dL (74-106)
[2023-06-29] MEDS: Atorvastatin Calcium 80 MG Tablet PO (22:36)
[2023-06-29] MEDS: Insulin Glargine-YFGN 100 UNIT/ML Pen 50 UNIT SC (22:39)
[2023-06-30] MEDS: Acetaminophen 500 MG Tablet 1000 MG PO (00:43)
[2023-06-30 06:40] LABS: Bedside Glucose 192 mg/dL (74-106)
[2023-06-30 07:03] LABS: Bedside Glucose 213 mg/dL (74-106)
[2023-06-30] MEDS: Insulin Lispro 100 UNIT/ML INSULN.PEN 17 UNIT SC ×3 (08:00→17:36)
[2023-06-30] MEDS: Ferrous Sulfate 325 MG Tablet PO (08:03)
[2023-06-30] MEDS: Aspirin 81 MG TAB.CHEW PO (08:03)
[2023-06-30] MEDS: Multivitamins,Therapeutic Tablet 1 TABLET PO (08:05)
[2023-06-30] MEDS: Losartan Potassium 25 MG Tablet PO (08:05)
[2023-06-30] MEDS: Tolterodine Tartrate 2 MG CAP.SA PO (08:06)
[2023-06-30] MEDS: Furosemide 20 MG Tablet PO (08:06)
[2023-06-30] MEDS: Pantoprazole Sodium 40 MG Tablet PO (08:07)
[2023-06-30] MEDS: Clopidogrel Bisulfate 75 MG Tablet PO (08:07)
[2023-06-30 08:08] VITALS: BP 136/70; PULSE 73
[2023-06-30] MEDS: Senna/Docusate Sodium 1 Tablet PO ×2 (08:08→22:07)
[2023-06-30] MEDS: Metoprolol(XL)Succ 25 MG Tablet PO (08:08)
[2023-06-30] MEDS: Ranolazine 500 MG Tablet 1000 MG PO ×2 (08:08→22:07)
[2023-06-30] MEDS: Cholecalciferol (VIT D3) 25 MCG TABLET (1,000 UNITS) 50 MCG PO (08:09)
[2023-06-30] MEDS: Sertraline 100 MG Tablet PO (08:09)
[2023-06-30 08:15] VITALS: BP 136/70; PULSE 73
[2023-06-30 08:16] LABS: Absolute Lymphocyte Count 1.11 X10^3/uL (0.83-4.51); Absolute Neutrophil Count 4.6 X10^3/uL (2.0-7.7); Basophil# 0.04 X10^3/uL; Basophil% 0.6 % (0-1); Eosinophils% 7.2 % (0-5); Hematocrit 30.7 % (37-47); Hemoglobin 9.7 g/dL (12.0-15.0); Lymphocyte # 1.11 X10^3/ul (0.83-4.51); Lymphocyte % 15.9 % (19-41); Mean Corp Hgb Conc 31.6 g/dL (32-36); Mean Corpuscular Hgb 29.5 pg (27.0-32.0); Mean Corpuscular Volume 93.3 fL (81-99); Mean Platelet Vol. 12.1 fl (6.2-12.0); Monocyte# 0.68 X10^3/uL; Monocyte% 9.7 % (0-10); NRBC Flagged by Analyzer 0 % (0-5); Neutrophil # 4.63 X10^3/uL (2.7-7.7); Neutrophil % 66.2 % (47-70); Platelet Count 233 K/mm3 (150-450); RBC Distribution Width CV 15.7 % (11.6-14.6); RBC Distribution Width SD 53.8 fl (35.1-43.9); Red Blood Count 3.29 M/mm3 (4.2-5.4)
[2023-06-30 08:27] LABS: Anion Gap 5 (5-15); BUN 56 mg/dL (7-18); BUN/Creat Ratio 29.6 RATIO (10-20); Calcium,Total 8.8 mg/dL (8.5-10.1); Chloride 112 mmol/L (98-107); Creatinine, Serum 1.89 mg/dL (0.55-1.02); EST Glomerular Filtration Rate 28 mL/min (>60); Est Glom Filt Rate - Afr Amer 34 mL/min (>60); Estimated Creatinine Clearance 34.69 ml/min; Glucose 231 mg/dL (74-106); Potassium 4.4 mmol/L (3.5-5.1); Sodium Level 138 mmol/L (136-145)
[2023-06-30] MEDS: Tuberculin,Purif.prot.deriv. 50 TU/ML Vial 0.100000000000000006 ML ID (11:42)
[2023-06-30 12:01] LABS: Bedside Glucose 176 mg/dL (74-106)
[2023-06-30 13:15] VITALS: PULSE 70; RESP 18; O2SAT 97
[2023-06-30 13:18] LABS: Anion Gap 4 (5-15); BUN 54 mg/dL (7-18); BUN/Creat Ratio 29.3 RATIO (10-20); Calcium,Total 8.8 mg/dL (8.5-10.1); Chloride 111 mmol/L (98-107); Creatinine, Serum 1.84 mg/dL (0.55-1.02); EST Glomerular Filtration Rate 29 mL/min (>60); Est Glom Filt Rate - Afr Amer 35 mL/min (>60); Estimated Creatinine Clearance 35.63 ml/min; Glucose 251 mg/dL (74-106); Potassium 4.5 mmol/L (3.5-5.1); Sodium Level 137 mmol/L (136-145)
[2023-06-30 15:33] VITALS: BP 134/51; PULSE 68; RESP 16; TEMP 36.2; O2SAT 96
[2023-06-30 17:28] LABS: Bedside Glucose 177 mg/dL (74-106)
[2023-06-30] MEDS: Juven (unflavored) Packet 1 PACKET PO (17:38)
[2023-06-30 21:35] LABS: Bedside Glucose 142 mg/dL (74-106)
[2023-06-30] MEDS: Insulin Glargine-YFGN 100 UNIT/ML Pen 50 UNIT SC (22:08)
[2023-06-30] MEDS: Atorvastatin Calcium 80 MG Tablet PO (22:08)
[2023-06-30] MEDS: Hydrocortisone 2.5% Crm 1 APPLIC TOPICAL (22:09)
[2023-06-30] MEDS: Nystatin Powder 15gm Bottle 1 APPLIC TOPICAL (22:12)
[2023-06-30] MEDS: Menthol/Lanolin/Calamine/Znox 113 GM Tube 1 APPLIC TOPICAL (22:12)
[2023-07-01 06:11] LABS: Anion Gap 6 (5-15); BUN 57 mg/dL (7-18); BUN/Creat Ratio 31.1 RATIO (10-20); Calcium,Total 8.8 mg/dL (8.5-10.1); Chloride 111 mmol/L (98-107); Creatinine, Serum 1.83 mg/dL (0.55-1.02); EST Glomerular Filtration Rate 29 mL/min (>60); Est Glom Filt Rate - Afr Amer 35 mL/min (>60); Estimated Creatinine Clearance 35.83 ml/min; Glucose 194 mg/dL (74-106); Potassium 4.5 mmol/L (3.5-5.1); Sodium Level 140 mmol/L (136-145)
[2023-07-01 06:48] LABS: Bedside Glucose 212 mg/dL (74-106)
[2023-07-01] MEDS: Insulin Lispro 100 UNIT/ML INSULN.PEN 17 UNIT SC ×3 (07:55→17:32)
[2023-07-01] MEDS: Aspirin 81 MG TAB.CHEW PO (07:56)
[2023-07-01] MEDS: Multivitamins,Therapeutic Tablet 1 TABLET PO (07:57)
[2023-07-01] MEDS: Ferrous Sulfate 325 MG Tablet PO (07:57)
[2023-07-01] MEDS: Tolterodine Tartrate 2 MG CAP.SA PO (07:59)
[2023-07-01] MEDS: Losartan Potassium 25 MG Tablet PO (07:59)
[2023-07-01] MEDS: Menthol/Lanolin/Calamine/Znox 113 GM Tube 1 APPLIC TOPICAL ×2 (07:59→21:51)
[2023-07-01] MEDS: Furosemide 20 MG Tablet PO (08:00)
[2023-07-01] MEDS: Clopidogrel Bisulfate 75 MG Tablet PO (08:01)
[2023-07-01] MEDS: Nystatin Powder 15gm Bottle 1 APPLIC TOPICAL ×2 (08:01→21:52)
[2023-07-01 08:02] VITALS: BP 144/54; PULSE 70
[2023-07-01] MEDS: Ranolazine 500 MG Tablet 1000 MG PO ×2 (08:02→21:54)
[2023-07-01] MEDS: Senna/Docusate Sodium 1 Tablet PO ×2 (08:02→21:55)
[2023-07-01] MEDS: Metoprolol(XL)Succ 25 MG Tablet PO (08:02)
[2023-07-01] MEDS: Pantoprazole Sodium 40 MG Tablet PO (08:02)
[2023-07-01] MEDS: Cholecalciferol (VIT D3) 25 MCG TABLET (1,000 UNITS) 50 MCG PO (08:03)
[2023-07-01] MEDS: Sertraline 100 MG Tablet PO (08:04)
[2023-07-01 08:08] VITALS: BP 144/54; PULSE 70
[2023-07-01 11:53] LABS: Bedside Glucose 194 mg/dL (74-106)
[2023-07-01 14:43] VITALS: BP 129/64; PULSE 65; RESP 16; TEMP 36.3; O2SAT 99
[2023-07-01] MEDS: Juven (unflavored) Packet 1 PACKET PO (16:36)
[2023-07-01 16:42] LABS: Bedside Glucose 153 mg/dL (74-106)
[2023-07-01 21:49] LABS: Bedside Glucose 77 mg/dL (74-106)
[2023-07-01] MEDS: Atorvastatin Calcium 80 MG Tablet PO (21:54)
[2023-07-01 22:04] VITALS: BP 139/58; PULSE 67
[2023-07-02 06:11] LABS: Hematocrit 32.1 % (37-47)
[2023-07-02 06:26] LABS: Bedside Glucose 188 mg/dL (74-106)
[2023-07-02] MEDS: Insulin Lispro 100 UNIT/ML INSULN.PEN 17 UNIT SC ×3 (09:15→17:53)
[2023-07-02 09:16] VITALS: BP 108/48; PULSE 69
[2023-07-02] MEDS: Aspirin 81 MG TAB.CHEW PO (09:16)
[2023-07-02] MEDS: Sertraline 100 MG Tablet PO (09:16)
[2023-07-02] MEDS: Ranolazine 500 MG Tablet 1000 MG PO ×2 (09:16→22:46)
[2023-07-02] MEDS: Metoprolol(XL)Succ 25 MG Tablet PO (09:16)
[2023-07-02] MEDS: Multivitamins,Therapeutic Tablet 1 TABLET PO (09:17)
[2023-07-02] MEDS: Tolterodine Tartrate 2 MG CAP.SA PO (09:17)
[2023-07-02] MEDS: Clopidogrel Bisulfate 75 MG Tablet PO (09:18)
[2023-07-02] MEDS: Pantoprazole Sodium 40 MG Tablet PO (09:18)
[2023-07-02] MEDS: Furosemide 20 MG Tablet PO (09:18)
[2023-07-02] MEDS: Cholecalciferol (VIT D3) 25 MCG TABLET (1,000 UNITS) 50 MCG PO (09:18)
[2023-07-02] MEDS: Losartan Potassium 25 MG Tablet PO (09:18)
[2023-07-02] MEDS: Iron Polysaccharide Complex 150 MG CAPSULE PO (09:19)
[2023-07-02] MEDS: Ascorbic Acid 500 MG Tablet PO (09:19)
[2023-07-02] MEDS: Menthol/Lanolin/Calamine/Znox 113 GM Tube 1 APPLIC TOPICAL ×2 (09:22→22:44)
[2023-07-02] MEDS: Nystatin Powder 15gm Bottle 1 APPLIC TOPICAL ×2 (09:22→22:45)
[2023-07-02 09:25] VITALS: BP 108/48; PULSE 69; RESP 16; O2SAT 97
--- NOTE | 2023-07-02 11:06 | WOUNDNOTE ---
wound photo: left heel
--- NOTE | 2023-07-02 11:06 | WOUNDNOTE ---
wound photo: right foot
[2023-07-02 11:27] LABS: Bedside Glucose 269 mg/dL (74-106)
[2023-07-02 13:27] VITALS: TEMP 36.2
[2023-07-02 16:45] LABS: Bedside Glucose 257 mg/dL (74-106)
[2023-07-02] MEDS: Juven (unflavored) Packet 1 PACKET PO (17:53)
--- NOTE | 2023-07-02 19:30 | NURSING ---
Pt had multiple loose bowel movements this morning, resolved by afternoon. Occult stool positive. Dr Casanova entered new order for consult with television parts tester. Pt in agreement, refuses offer to call/update family.
[2023-07-02 21:33] LABS: Bedside Glucose 213 mg/dL (74-106)
[2023-07-02 22:30] VITALS: O2SAT 99
[2023-07-02] MEDS: Atorvastatin Calcium 80 MG Tablet PO (22:45)
[2023-07-02] MEDS: Acetaminophen 500 MG Tablet 1000 MG PO (22:50)
[2023-07-02] MEDS: Insulin Glargine-YFGN 100 UNIT/ML Pen 50 UNIT SC (23:00)
[2023-07-03 01:46] LABS: Bedside Glucose 139 mg/dL (74-106)
[2023-07-03 02:50] VITALS: BP 123/54; PULSE 66; RESP 18; TEMP 36.5; O2SAT 98
--- NOTE | 2023-07-03 03:19 | NURSING ---
Pt woke up at 0245 and requested to speak to this nurse. Pt stated she felt off and that she was having burning/difficulty with urination. BS and Vitals taken and WNL. Strong smelling, dark urine noted upon brief change. Written communication left for Dr. Casanova. Pt repositioned and denies need for further intervention at this time.
[2023-07-03 06:19] LABS: Bedside Glucose 145 mg/dL (74-106)
[2023-07-03 07:48] LABS: Mucous, Urine 0 SEEN /hpf (<or=2+); Squamous Epithelial Cells - UA 0 SEEN /hpf (5-10)
[2023-07-03] MEDS: Insulin Lispro 100 UNIT/ML INSULN.PEN 17 UNIT SC ×3 (08:25→16:27)
[2023-07-03] MEDS: Multivitamins,Therapeutic Tablet 1 TABLET PO (08:26)
[2023-07-03] MEDS: Losartan Potassium 25 MG Tablet PO (08:26)
[2023-07-03] MEDS: Tolterodine Tartrate 2 MG CAP.SA PO (08:26)
[2023-07-03] MEDS: Iron Polysaccharide Complex 150 MG CAPSULE PO (08:26)
[2023-07-03] MEDS: Aspirin 81 MG TAB.CHEW PO (08:26)
[2023-07-03] MEDS: Clopidogrel Bisulfate 75 MG Tablet PO (08:27)
[2023-07-03] MEDS: Pantoprazole Sodium 40 MG Tablet PO (08:27)
[2023-07-03] MEDS: Furosemide 20 MG Tablet PO (08:27)
[2023-07-03] MEDS: Ranolazine 500 MG Tablet 1000 MG PO ×2 (08:28→22:11)
[2023-07-03] MEDS: Cholecalciferol (VIT D3) 25 MCG TABLET (1,000 UNITS) 50 MCG PO (08:28)
[2023-07-03] MEDS: Sertraline 100 MG Tablet PO (08:28)
[2023-07-03] MEDS: Ascorbic Acid 500 MG Tablet PO (08:28)
[2023-07-03 08:36] VITALS: BP 117/48; PULSE 65
[2023-07-03] MEDS: Metoprolol(XL)Succ 25 MG Tablet PO (08:36)
[2023-07-03] MEDS: Nystatin Powder 15gm Bottle 1 APPLIC TOPICAL ×2 (08:37→22:13)
[2023-07-03] MEDS: Menthol/Lanolin/Calamine/Znox 113 GM Tube 1 APPLIC TOPICAL ×2 (08:38→22:13)
--- NOTE | 2023-07-03 08:46 | NURSING ---
Discussed eye appt with patient yesterday (07/02/23). She has an eye doctor that she's seen before and wants to set an appt up with them after DC. She declined to have nurse set up appt for her.
[2023-07-03 08:53] LABS: Color, Urine Yellow (Yellow); Glucose, Dipstick Normal (Normal); Ketone-Dipstick Negative (Negative); Leukocyte Esterase-Dipstick 500 /ul (Negative); Nitrite-Dipstick Negative (Negative); Occult Blood-Urine 250 /ul (Negative); Protein-Dipstick 100 mg/dl (Negative); Specific Gravity, Urine 1.015 (1.002-1.030); Urine Bilirubin Dipstick Negative (Negative); Urine Clarity Sl. Cloudy (Clear); Urine Urobilinogen Normal (Normal)
[2023-07-03 09:29] LABS: Red Blood Cells-Urine 5-10 SEEN /hpf (0-5); White Blood Cells 5-10 SEEN /hpf (0-5)
[2023-07-03 09:30] LABS: Bacteria 2+ /hpf (None Seen)
[2023-07-03 11:13] LABS: Bedside Glucose 227 mg/dL (74-106)
[2023-07-03 13:08] VITALS: BP 156/72; PULSE 63; RESP 16; TEMP 36.7; O2SAT 100
--- NOTE | 2023-07-03 14:37 | PCM.CONS.R ---
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 Patient was discharged from [facility] to [facility] rehab, admitted back to [facility] for weakness and unable to take care of herself at home. She is now receiving therapy in TCU. Nephrology consulted as patient has a history of CKD. She has been seen by Dr. Null in [place] office, last seen November 2021. She has chronic kidney disease stage III/IV secondary to diabetic nephropathy, baseline creatinine had been around 1.8- 2mg/dL. In November 2021 patient's creatinine was 2.33 mg/dL with estimated GFR 23 ml/min. Reviewing serum creatinine trends during this hospitalization, patient's creatinine has been around her baseline. Last labs obtained on July 01, 2023 creatinine 1.83 mg/dL, at baseline. Overall renal function is stable, patient is nonoliguric, volume status appears near euvolemic, there is no acute indication for renal placement therapy. Potassium and acid-base are acceptable. Overall blood pressures are relatively stable, patient is on Toprol, losartan and furosemide. Will continue these medications as ordered. Patient does not need daily labs. We will continue to follow patient along with you. We will also arrange for CKD follow-up at time of discharge. 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 Nephrology consulted as patient has history of CKD. Patient has been seen by Dr. Null in [facility] office for CKD. She was last seen in November 2021. Patient reports appetite has been good. She denies any nausea, vomiting or diarrhea. Reports feeling better overall. [facility] Medical History (Updated 07/03/23 @ 14:42 by Germania Phillips, HAM-C) Bilateral carotid artery stenosis Chronic heart failure with preserved ejection fraction (HFpEF) Chronic kidney disease, stage 3a Coronary artery disease Debility Elevated troponin Encephalopathy Herpes zoster Hyperlipidemia Hypertension Morbid obesity Overactive bladder Stroke Ulcer of right foot due to type 2 diabetes mellitus 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 Urinary tract infection Weakness Home Medications albuterol sulfate 90 mcg/actuation aerosol inhaler (ProAir HFA) 2 inh inhalation Q4H PRN wheezing/shortness of breath 06/22/23 [History Last Taken Unknown] aspirin 81 mg chewable tablet 2 tab PO DAILY blood thinner 06/22/23 [History Last Taken Unknown] atorvastatin 80 mg tablet 80 mg PO QHS cholesterol 06/22/23 [History Last Taken Unknown] cholecalciferol (vitamin D3) 50 mcg (2,000 unit) capsule 2,000 unit PO DAILY supplement 06/22/23 [History Last Taken Unknown] clopidogrel 75 mg tablet 75 mg PO DAILY blood thinner 06/22/23 [History Last Taken Unknown] ferrous sulfate 325 mg (65 mg iron) tablet (Feosol) 325 mg PO DAILY supplement 06/22/23 [History Last Taken Unknown] furosemide 40 mg tablet 60 mg PO DAILY fluid pill 06/22/23 [History Last Taken Unknown] hydrocortisone 2.5 % topical cream applic topical BID itching 06/22/23 [History Last Taken Unknown] insulin glargine 100 unit/mL (3 mL) subcutaneous pen (Lantus Solostar U-100 Insulin) 36 unit subcut QHS diabetes 06/22/23 [History Last Taken Unknown] insulin lispro 100 unit/mL subcutaneous pen 12 unit subcut .AC diabetes 06/22/23 [History Last Taken Unknown] metoprolol succinate 25 mg tablet,extended release 24 hr 25 mg PO DAILY BP/pulse 06/22/23 [History Last Taken Unknown] multivitamin (Daily Multi-Vitamin tablet) 1 tab PO DAILY supplement 06/22/23 [History Last Taken Unknown] nitrofurantoin monohydrate/macrocrystals 100 mg capsule 100 mg PO BID antibiotic 06/22/23 [History Last Taken Unknown] nitroglycerin 0.4 mg sublingual tablet 0.4 mg sublingual Q5M chest pain 06/22/23 [History Last Taken Unknown] ondansetron 4 mg disintegrating tablet 4 mg PO Q6H PRN nausea 06/22/23 [History Last Taken Unknown] oxybutynin chloride 5 mg tablet,extended release 24 hr 5 mg PO DAILY bladder 06/22/23 [History Last Taken Unknown] pantoprazole 40 mg tablet,delayed release 40 mg PO DAILY reflux 06/22/23 [History Last Taken Unknown] ranolazine 1,000 mg tablet,extended release,12 hr 1,000 mg PO Q12H angina 06/22/23 [History Last Taken Unknown] sertraline 100 mg tablet 100 mg PO DAILY mood 06/22/23 [History Last Taken Unknown] valacyclovir 1 gram tablet 1,000 mg PO Q12H shingles 06/22/23 [History Last Taken Unknown] Allergy/AdvReac Type Severity Reaction Status Date / Time cefaclor [From Ceclor] Allergy Unknown Other Verified 06/22/23 16:43 SPEEDY Inhibitors Allergy Other Verified 06/22/23 16:43 Beta-Blockers Allergy Other Verified 06/22/23 16:43 (Beta-Adrenergic Bloc ciprofloxacin Allergy hives Verified 06/22/23 16:43 clindamycin Allergy Rash Verified 06/22/23 16:43 isosorbide [From Imdur] Allergy Other Verified 06/22/23 16:43 Penicillins Allergy Rash Verified 06/22/23 16:43 Family History (Updated 06/22/23 @ 16:[address] Juan Casanova MD) Mother CVA (cerebral vascular accident) Hyperlipidemia Glaucoma Father CAD (coronary artery disease) Hypertension Hyperlipidemia Renal artery stenosis Aortic aneurysm Brother Glaucoma Daughter Psoriasis Surgical History (Updated 06/22/23 @ 16:[address] Juan Casanova MD) History of bilateral cataract extraction History of cholecystectomy History of coronary artery bypass graft History of coronary artery stent placement History of dental surgery History of hernia surgery History of hysterectomy Social History (Updated 06/22/23 @ 16:[address] Juan Casanova MD) household members: spouse Smoking Status: Former smoker alcohol intake: never substance use type: does not use ROS ROS Narrative As in HPI and past medical history Physical Exam Narrative Alert and orient x 3, no apparent distress S1, S2, RRR Lung sounds clear anteriorly and posteriorly. No wheezes rhonchi rales noted Abdomen soft, nontender, positive bowel sounds No pitting edema noted bilateral lower legs. Dressings clean, dry and intact both feet Lab / Micro Data 07/02/23 05:26 07/01/23 05:03 Labs: Laboratory Results - last 24 hr 07/02/23 16:09: POC Glucose 257 H 07/02/23 21:02: POC Glucose 213 H 07/03/23 01:25: POC Glucose 139 H 07/03/23 02:55: Urine Color Yellow, Urine Clarity Sl. Cloudy, Urine pH 9.0, Ur Specific [place] 1.015, Urine Protein 100 H, Urine Glucose (UA) Normal, Urine Ketones Negative, Urine Occult Blood 250 H, Urine Nitrite Negative, Urine Bilirubin Negative, Urine Urobilinogen Normal, Ur Leukocyte Esterase 500 H, Urine RBC 5-10 SEEN, Urine WBC 5-10 SEEN, Ur Squamous Epith Cells 0 SEEN, Urine Bacteria 2+, Urine Mucus 0 SEEN 07/03/23 05:57: POC Glucose 145 H 07/03/23 10:46: POC Glucose 227 H Micro: Microbiology 07/02/23 12:20 Stool Stool Occult Blood (ERVIN) - Final Occult Blood Positive
[2023-07-03] MEDS: Juven (unflavored) Packet 1 PACKET PO (16:27)
[2023-07-03 16:32] VITALS: BMI 42.9
[2023-07-03 16:50] LABS: Bedside Glucose 111 mg/dL (74-106)
--- NOTE | 2023-07-03 18:21 | NURSING ---
To receive EGD on 07/04/23 at 0530. Patient aware and is to be NPO at midnight.
--- NOTE | 2023-07-03 21:39 | CON.PCM.GI_ITS ---
HPI Consult Data Date of Consult: 07/03/23 HPI Narrative Reason for Consultation: Anemia HPI Narrative: TONG PHIPPS, is a67 F with past medical history significant for diabetes mellitus type 2, CKD stage III, hypertension who [facility] after hospitalized from [facility] for right diabetic nelly t osteomyelitis status post right transmetatarsal amputation. She has a history of bilateral carotid stenosis and CAD on aspirin and Plavix. I was consulted to see her due to worsening anemia. She has never had an upper endoscopy. She has had a colonoscopy as of 2 years ago and she said it was normal. She has been having some worsening diarrhea over the last 3 days. [facility] Medical History (Updated 07/03/23 @ 14:42 by YUE Franco) Bilateral carotid artery stenosis Chronic heart failure with preserved ejection fraction (HFpEF) Chronic kidney disease, stage 3a Coronary artery disease Debility Elevated troponin Encephalopathy Herpes zoster Hyperlipidemia Hypertension Morbid obesity Overactive bladder Stroke Ulcer of right foot due to type 2 diabetes mellitus Uncontrolled diabetes mellitus type 2 with atherosclerosis of arteries of extre mities Urinary tract infection Weakness Home Medications albuterol sulfate 90 mcg/actuation aerosol inhaler (ProAir HFA) 2 inh inhalation Q4H PRN wheezing/shortness of breath 06/22/23 [History Last Taken Unknown] aspirin 81 mg chewable tablet 2 tab PO DAILY blood thinner 06/22/23 [History Last Taken Unknown] atorvastatin 80 mg tablet 80 mg PO QHS cholesterol 06/22/23 [History Last Taken Unknown] cholecalciferol (vitamin D3) 50 mcg (2,000 unit) capsule 2,000 unit PO DAILY supplement 06/22/23 [History Last Taken Unknown] clopidogrel 75 mg tablet 75 mg PO DAILY blood thinner 06/22/23 [History Last Taken Unknown] ferrous sulfate 325 mg (65 mg iron) tablet (Feosol) 325 mg PO DAILY supplement 06/22/23 [History Last Taken Unknown] furosemide 40 mg tablet 60 mg PO DAILY fluid pill 06/22/23 [History Last Taken Unknown] hydrocortisone 2.5 % topical cream applic topical BID itching 06/22/23 [History Last Taken Unknown] insulin glargine 100 unit/mL (3 mL) subcutaneous pen (Lantus Solostar U-100 Insulin) 36 unit subcut QHS diabetes 06/22/23 [History Last Taken Unknown] insulin lispro 100 unit/mL subcutaneous pen 12 unit subcut .AC diabetes 06/22/23 [History Last Taken Unknown] metoprolol succinate 25 mg tablet,extended release 24 hr 25 mg PO DAILY BP/pulse 06/22/23 [History Last Taken Unknown] multivitamin (Daily Multi-Vitamin tablet) 1 tab PO DAILY supplement 06/22/23 [History Last Taken Unknown] nitrofurantoin monohydrate/macrocrystals 100 mg capsule 100 mg PO BID antibiotic 06/22/23 [History Last Taken Unknown] nitroglycerin 0.4 mg sublingual tablet 0.4 mg sublingual Q5M chest pain 06/22/23 [History Last Taken Unknown] ondansetron 4 mg disintegrating tablet 4 mg PO Q6H PRN nausea 06/22/23 [History Last Taken Unknown] oxybutynin chloride 5 mg tablet,extended release 24 hr 5 mg PO DAILY bladder 06/22/23 [History Last Taken Unknown] pantoprazole 40 mg tablet,delayed release 40 mg PO DAILY reflux 06/22/23 [History Last Taken Unknown] ranolazine 1,000 mg tablet,extended release,12 hr 1,000 mg PO Q12H angina 06/22/23 [History Last Taken Unknown] sertraline 100 mg tablet 100 mg PO DAILY mood 06/22/23 [History Last Taken Unknown] valacyclovir 1 gram tablet 1,000 mg PO Q12H shingles 06/22/23 [History Last Taken Unknown] Allergy/AdvReac Type Severity Reaction Status Date / Time cefaclor [From Ceclor] Allergy Unknown Other Verified 06/22/23 16:43 SPEEDY Inhibitors Allergy Other Verified 06/22/23 16:43 Beta-Blockers Allergy Other Verified 06/22/23 16:43 (Beta-Adrenergic Bloc ciprofloxacin Allergy hives Verified 06/22/23 16:43 clindamycin Allergy Rash Verified 06/22/23 16:43 isosorbide [From Imdur] Allergy Other Verified 06/22/23 16:43 Penicillins Allergy Rash Verified 06/22/23 16:43 Family History (Updated 06/22/23 @ 16:[address] Juan Casanova MD) MotherCVA (cerebral vascular accident) Hyperlipidemia GlaucomaFather CAD (coronary artery disease) Hypertension Hyperlipidemia Renal artery stenosis Aortic aneurysmBrother GlaucomaDaughter Psoriasis Surgical History (Updated 06/22/23 @ 16:[address] Juan Casanova MD) History of bilateral cataract extraction History of cholecystectomy History of coronary artery bypass graft History of coronary artery stent placement History of dental surgery History of hernia surgery History of hysterectomy Social History (Updated 06/22/23 @ 16:[address] Juan Casanova MD) household members: spouse Smoking Status: Former smoker alcohol intake: never substance use type: does not use ROS ROS Narrative As in HPI and past medical history Physical Exam Narrative Alert and orient x 3, no apparent distress S1, S2, RRR Lung sounds clear anteriorly and posteriorly. No wheezes rhonchi rales noted Abdomen soft, nontender, positive bowel sounds No pitting edema noted bilateral lower legs. Dressings clean, dry and intact both feet Lab / Micro Data 07/02/23 05:26 07/01/23 05:03 Labs: Laboratory Results - last 24 hr 07/02/23 16:09: POC Glucose 257 H 07/02/23 21:02: POC Glucose 213 H 07/03/23 01:25: POC Glucose 139 H 07/03/23 02:55: Urine Color Yellow, Urine Clarity Sl. Cloudy, Urine pH 9.0, Ur Specific [place] 1.015, Urine Protein 100 H, Urine Glucose (UA) Normal, Urine Ketones Negative, Urine Occult Blood 250 H, Urine Nitrite Negative, Urine Bili pope Negative, Urine Urobilinogen Normal, Ur Leukocyte Esterase 500 H, Urine RBC 5-10 SEEN, Urine WBC 5-10 SEEN, Ur Squamous Epith Cells 0 SEEN, Urine Bacteria 2+, Urine Mucus 0 SEEN 07/03/23 05:57: POC Glucose 145 H 07/03/23 10:46: POC Glucose 227 H Assessment & Plan Assessment/Plan (1) Anemia: (2) Diarrhea: PLAN: Plan 67-year-old with past medical history of CAD, CVA with bilateral carotid stenosis, CKD with worsening iron deficiency anemia on dual antiplatelet ther apy. Differential diagnosis does include peptic ulcer disease, Dhaval's erosions, angiodysplasia, H. pylori associated disease. She should undergo an upper endoscopy to evaluate upper GI tract and if negative she will need to have a colonoscopy. She should also have her stool checked for enteric pathogens because she has been having diarrhea along with C. difficile and stool culture. She was explained alternatives, risk, benefits including not withstanding bleeding, infection, sepsis, perforation, need for return to . She will have an ASA of 3. [facility] Medical History (Updated 07/04/23 @ 07:[address] Villalba Friend, DO) Bilateral carotid artery stenosis Chronic heart failure with preserved ejection fraction (HFpEF) Chronic kidney disease, stage 3a Coronary artery disease Debility Elevated troponin Encephalopathy Herpes zoster Hyperlipidemia Hypertension Morbid obesity Overactive bladder Stroke Ulcer of right foot due to type 2 diabetes mellitus 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 Urinary tract infection Weakness Home Medications albuterol sulfate 90 mcg/actuation aerosol inhaler (ProAir HFA) 2 inh inhalation Q4H PRN wheezing/shortness of breath 06/22/23 [History Last Taken Unknown] aspirin 81 mg chewable tablet 2 tab PO DAILY blood thinner 06/22/23 [History Last Taken 07/03/23] atorvastatin 80 mg tablet 80 mg PO QHS cholesterol 06/22/23 [History Last Taken Unknown] cholecalciferol (vitamin D3) 50 mcg (2,000 unit) capsule 2,000 unit PO DAILY supplement 06/22/23 [History Last Taken Unknown] clopidogrel 75 mg tablet 75 mg PO DAILY blood thinner 06/22/23 [History Last Taken 07/03/23] ferrous sulfate 325 mg (65 mg iron) tablet (Feosol) 325 mg PO DAILY supplement 06/22/23 [History Last Taken Unknown] furosemide 40 mg tablet 60 mg PO DAILY fluid pill 06/22/23 [History Last Taken Unknown] hydrocortisone 2.5 % topical cream 1 applic topical BID itching 06/22/23 [History Last Taken Unknown] insulin glargine 100 unit/mL (3 mL) subcutaneous pen (Lantus Solostar U-100 Insulin) 36 unit subcut QHS diabetes 06/22/23 [History Last Taken Unknown] insulin lispro 100 unit/mL subcutaneous pen 12 unit subcut .AC diabetes 06/22/23 [History Last Taken Unknown] metoprolol succinate 25 mg tablet,extended release 24 hr 25 mg PO DAILY BP/pulse 06/22/23 [History Last Taken Unknown] multivitamin (Daily Multi-Vitamin tablet) 1 tab PO DAILY supplement 06/22/23 [History Last Taken Unknown] nitrofurantoin monohydrate/macrocrystals 100 mg capsule 100 mg PO BID antibiotic 06/22/23 [History Last Taken Unknown] nitroglycerin 0.4 mg sublingual tablet 0.4 mg sublingual Q5M chest pain 06/22/23 [History Last Taken Unknown] ondansetron 4 mg disintegrating tablet 4 mg PO Q6H PRN nausea 06/22/23 [History Last Taken Unknown] oxybutynin chloride 5 mg tablet,extended release 24 hr 5 mg PO DAILY bladder 06/22/23 [History Last Taken Unknown] pantoprazole 40 mg tablet,delayed release 40 mg PO DAILY reflux 06/22/23 [History Last Taken Unknown] ranolazine 1,000 mg tablet,extended release,12 hr 1,000 mg PO Q12H angina 06/22/23 [History Last Taken Unknown] sertraline 100 mg tablet 100 mg PO DAILY mood 06/22/23 [History Last Taken U nknown] valacyclovir 1 gram tablet 1,000 mg PO Q12H shingles 06/22/23 [History Last Taken Unknown] Allergy/AdvReac Type Severity Reaction Status Date / Time cefaclor [From Ceclor] Allergy Unknown Other Verified 07/04/23 05:41 SPEEDY Inhibitors Allergy Other Verified 07/04/23 05:41 Beta-Blockers Allergy Other Verified 07/04/23 05:41 (Beta-Adrenergic Bloc ciprofloxacin Allergy hives Verified 07/04/23 05:41 clindamycin Allergy Rash Verified 07/04/23 05:41 isosorbide [From Imdur] Allergy Other Verified 07/04/23 05:41 Penicillins Allergy Rash Verified 07/04/23 05:41 Family History (Updated 06/22/23 @ 16:[address] Juan Casanova MD) Mother CVA (cerebral vascular accident) Hyperlipidemia Glaucoma Father CAD (coronary artery disease) Hypertension Hyperlipidemia Renal artery stenosis Aortic aneurysm Brother Glaucoma Daughter Psoriasis Surgical History History of bilateral cataract extraction History of cholecystectomy History of coronary artery bypass graft History of coronary artery stent placement History of dental surgery History of hernia surgery History of hysterectomy Social History (Updated 06/22/23 @ 16:[address] Juan Casanova MD) household members: spouse Smoking Status: Former smoker alcohol intake: never substance use type: does not use Lab / Micro Data 07/04/23 05:16 07/01/23 05:03 Labs: Laboratory Results - last 24 hr 07/03/23 21:21: POC Glucose 120 H 07/04/23 05:08: POC Glucose 78 07/04/23 05:16: Hgb 10.2 L, Hct 32.3 L 07/04/23 11:26: POC Glucose 174 H 07/04/23 16:30: POC Glucose 105 Micro: Microbiology 07/03/23 02:55 Urine, Catheterized Urine Culture - Preliminary Gram negative michel Charges/Coding Visit Charges Inpatient E&M: 17731 SNF Init L2
[2023-07-03 21:59] LABS: Bedside Glucose 120 mg/dL (74-106)
[2023-07-03] MEDS: Atorvastatin Calcium 80 MG Tablet PO (22:12)
[2023-07-03] MEDS: Insulin Glargine-YFGN 100 UNIT/ML Pen 25 UNIT SC (22:21)
[2023-07-03 22:53] VITALS: O2SAT 97
[2023-07-04 05:30] LABS: Bedside Glucose 78 mg/dL (74-106)
--- NOTE | 2023-07-04 05:30 | NURSING ---
Pt left the floor at [address] See
[2023-07-04 05:58] LABS: Hematocrit 32.3 % (37-47); Hemoglobin 10.2 g/dL (12.0-15.0)
[2023-07-04] MEDS: Menthol/Lanolin/Calamine/Znox 113 GM Tube 1 APPLIC TOPICAL ×2 (08:59→22:22)
[2023-07-04] MEDS: Aspirin 81 MG TAB.CHEW PO (09:09)
[2023-07-04] MEDS: Tolterodine Tartrate 2 MG CAP.SA PO (09:10)
[2023-07-04] MEDS: Multivitamins,Therapeutic Tablet 1 TABLET PO (09:10)
[2023-07-04] MEDS: Losartan Potassium 25 MG Tablet PO (09:10)
[2023-07-04] MEDS: Furosemide 20 MG Tablet PO (09:11)
[2023-07-04] MEDS: Pantoprazole Sodium 40 MG Tablet PO (09:11)
[2023-07-04] MEDS: Iron Polysaccharide Complex 150 MG CAPSULE PO (09:11)
[2023-07-04] MEDS: Clopidogrel Bisulfate 75 MG Tablet PO (09:11)
[2023-07-04 09:12] VITALS: BP 151/53; PULSE 65
[2023-07-04] MEDS: Metoprolol(XL)Succ 25 MG Tablet PO (09:12)
[2023-07-04] MEDS: Cholecalciferol (VIT D3) 25 MCG TABLET (1,000 UNITS) 50 MCG PO (09:12)
[2023-07-04] MEDS: Ranolazine 500 MG Tablet 1000 MG PO ×2 (09:12→22:17)
[2023-07-04] MEDS: Ascorbic Acid 500 MG Tablet PO (09:12)
[2023-07-04] MEDS: Sertraline 100 MG Tablet PO (09:13)
[2023-07-04] MEDS: Nystatin Powder 15gm Bottle 1 APPLIC TOPICAL ×2 (09:15→22:22)
[2023-07-04 09:20] VITALS: BP 151/53; PULSE 65
[2023-07-04 11:46] LABS: Bedside Glucose 174 mg/dL (74-106)
[2023-07-04] MEDS: Smz/Tmp Ds Tablet 1 TABLET PO (11:53)
[2023-07-04] MEDS: Insulin Lispro 100 UNIT/ML INSULN.PEN 17 UNIT SC ×2 (11:54→18:10)
[2023-07-04] MEDS: Ondansetron ODT 4 MG Tablet PO (13:46)
[2023-07-04 13:50] VITALS: PULSE 69; RESP 18; O2SAT 97
--- NOTE | 2023-07-04 13:54 | NURSING ---
PT THREW UP A LITTLE OF HER LUNCH. PRN ZOFRAN GIVEN. WILL CONTINUE TO MONITOR.
[2023-07-04 16:00] VITALS: BP 150/60; PULSE 68; RESP 16; TEMP 36.4; O2SAT 96
[2023-07-04 17:13] LABS: Bedside Glucose 105 mg/dL (74-106)
[2023-07-04] MEDS: Juven (unflavored) Packet 1 PACKET PO (18:02)
[2023-07-04] MEDS: Smz/Tmp Ds Tablet 0.5 TABLET PO (18:02)
[2023-07-04 22:01] LABS: Bedside Glucose 134 mg/dL (74-106)
[2023-07-04] MEDS: Insulin Glargine-YFGN 100 UNIT/ML Pen 50 UNIT SC (22:17)
[2023-07-04] MEDS: Atorvastatin Calcium 80 MG Tablet PO (22:17)
[2023-07-04] MEDS: Senna/Docusate Sodium 1 Tablet PO (22:17)
[2023-07-05 06:44] LABS: Bedside Glucose 94 mg/dL (74-106)
[2023-07-05] MEDS: Aspirin 81 MG TAB.CHEW PO (07:52)
[2023-07-05] MEDS: Smz/Tmp Ds Tablet 0.5 TABLET PO ×2 (07:52→17:46)
[2023-07-05] MEDS: Multivitamins,Therapeutic Tablet 1 TABLET PO (07:54)
[2023-07-05] MEDS: Ranolazine 500 MG Tablet 1000 MG PO ×2 (08:07→22:09)
[2023-07-05] MEDS: Insulin Lispro 100 UNIT/ML INSULN.PEN 17 UNIT SC ×2 (08:08→17:44)
[2023-07-05] MEDS: Cholecalciferol (VIT D3) 25 MCG TABLET (1,000 UNITS) 50 MCG PO (08:09)
[2023-07-05] MEDS: Losartan Potassium 25 MG Tablet PO (08:09)
[2023-07-05] MEDS: Sertraline 100 MG Tablet PO (08:09)
[2023-07-05] MEDS: Tolterodine Tartrate 2 MG CAP.SA PO (08:09)
[2023-07-05 08:10] VITALS: BP 114/45; PULSE 67
[2023-07-05] MEDS: Senna/Docusate Sodium 1 Tablet PO ×2 (08:10→22:09)
[2023-07-05] MEDS: Clopidogrel Bisulfate 75 MG Tablet PO (08:10)
[2023-07-05] MEDS: Furosemide 20 MG Tablet PO (08:10)
[2023-07-05] MEDS: Metoprolol(XL)Succ 25 MG Tablet PO (08:10)
[2023-07-05] MEDS: Pantoprazole Sodium 40 MG Tablet PO (08:10)
[2023-07-05] MEDS: Ascorbic Acid 500 MG Tablet PO (08:10)
[2023-07-05] MEDS: Menthol/Lanolin/Calamine/Znox 113 GM Tube 1 APPLIC TOPICAL ×2 (08:11→22:15)
[2023-07-05] MEDS: Iron Polysaccharide Complex 150 MG CAPSULE PO (08:11)
[2023-07-05] MEDS: Nystatin Powder 15gm Bottle 1 APPLIC TOPICAL ×2 (08:12→22:15)
[2023-07-05 08:19] VITALS: BP 114/45; PULSE 67
--- NOTE | 2023-07-05 10:06 | NURSING ---
No bowel movement for 2 days, updated Dr. See. Order to DC stool samples. Per lab they already sent out calprotectin and O&P, other tests DC'd. Enteric precautions dc'd.
[2023-07-05 11:10] LABS: Bedside Glucose 78 mg/dL (74-106)
--- NOTE | 2023-07-05 11:41 | NURSING ---
PT BLOOD SUGAR 78. ASYSTEMATIC ,PT ASKED FOR YU GAN STATED SHE FELT FINE. RECHECKED PT IN 45 MINS AND BLOOD SUGAR 56. PT ASYSTEMATIC,OJ AND ICE CREAM GIVEN. WILL CONTINUE TO MONITOR.
[2023-07-05 11:53] LABS: Bedside Glucose 56 mg/dL (74-106)
[2023-07-05 12:54] VITALS: BP 141/56; PULSE 66; RESP 16; TEMP 36.3; O2SAT 99
[2023-07-05 13:05] LABS: Bedside Glucose 102 mg/dL (74-106)
[2023-07-05 16:32] LABS: Bedside Glucose 239 mg/dL (74-106)
[2023-07-05] MEDS: Juven (unflavored) Packet 1 PACKET PO (17:46)
[2023-07-05 22:04] LABS: Bedside Glucose 334 mg/dL (74-106)
[2023-07-05] MEDS: Hydrocortisone 2.5% Crm 1 APPLIC TOPICAL (22:09)
[2023-07-05] MEDS: Insulin Glargine-YFGN 100 UNIT/ML Pen 50 UNIT SC (22:09)
[2023-07-05] MEDS: Atorvastatin Calcium 80 MG Tablet PO (22:09)
[2023-07-06 06:07] LABS: Hematocrit 30.4 % (37-47); Hemoglobin 9.7 g/dL (12.0-15.0)
[2023-07-06 07:39] LABS: Bedside Glucose 200 mg/dL (74-106)
[2023-07-06] MEDS: Insulin Lispro 100 UNIT/ML INSULN.PEN 17 UNIT SC ×3 (07:50→17:38)
[2023-07-06] MEDS: Smz/Tmp Ds Tablet 0.5 TABLET PO ×2 (10:20→17:29)
[2023-07-06] MEDS: Aspirin 81 MG TAB.CHEW PO (10:20)
[2023-07-06] MEDS: Multivitamins,Therapeutic Tablet 1 TABLET PO (10:21)
[2023-07-06] MEDS: Iron Polysaccharide Complex 150 MG CAPSULE PO (10:22)
[2023-07-06] MEDS: Tolterodine Tartrate 2 MG CAP.SA PO (10:22)
[2023-07-06] MEDS: Furosemide 20 MG Tablet PO (10:23)
[2023-07-06] MEDS: Losartan Potassium 25 MG Tablet PO (10:25)
[2023-07-06] MEDS: Ranolazine 500 MG Tablet 1000 MG PO ×2 (10:25→23:38)
[2023-07-06] MEDS: Clopidogrel Bisulfate 75 MG Tablet PO (10:25)
[2023-07-06] MEDS: Pantoprazole Sodium 40 MG Tablet PO (10:25)
[2023-07-06 10:26] VITALS: BP 130/54; PULSE 66
[2023-07-06] MEDS: Senna/Docusate Sodium 1 Tablet PO ×2 (10:26→23:38)
[2023-07-06] MEDS: Ascorbic Acid 500 MG Tablet PO (10:26)
[2023-07-06] MEDS: Cholecalciferol (VIT D3) 25 MCG TABLET (1,000 UNITS) 50 MCG PO (10:26)
[2023-07-06] MEDS: Metoprolol(XL)Succ 25 MG Tablet PO (10:26)
[2023-07-06] MEDS: Sertraline 100 MG Tablet PO (10:26)
[2023-07-06] MEDS: Nystatin Powder 15gm Bottle 1 APPLIC TOPICAL ×2 (10:27→23:37)
[2023-07-06] MEDS: Menthol/Lanolin/Calamine/Znox 113 GM Tube 1 APPLIC TOPICAL ×2 (10:27→23:41)
[2023-07-06 11:52] LABS: Bedside Glucose 180 mg/dL (74-106)
[2023-07-06 15:46] VITALS: BP 136/54; PULSE 65; RESP 16; TEMP 36.4; O2SAT 96
[2023-07-06] MEDS: Juven (unflavored) Packet 1 PACKET PO (17:29)
[2023-07-06 17:31] LABS: Bedside Glucose 115 mg/dL (74-106)
[2023-07-06 21:59] LABS: Bedside Glucose 87 mg/dL (74-106)
[2023-07-06 23:03] LABS: Bedside Glucose 94 mg/dL (74-106)
[2023-07-06] MEDS: Insulin Glargine-YFGN 100 UNIT/ML Pen 50 UNIT SC (23:37)
[2023-07-06] MEDS: Atorvastatin Calcium 80 MG Tablet PO (23:38)
[2023-07-07 06:17] LABS: Bedside Glucose 103 mg/dL (74-106)
[2023-07-07 07:30] LABS: Absolute Lymphocyte Count 1.39 X10^3/uL (0.83-4.51); Absolute Neutrophil Count 4.2 X10^3/uL (2.0-7.7); Basophil# 0.04 X10^3/uL; Basophil% 0.6 % (0-1); Eosinophil# 0.72 X10^3/uL; Eosinophils% 10.6 % (0-5); Hematocrit 32.1 % (37-47); Hemoglobin 10.2 g/dL (12.0-15.0); Lymphocyte # 1.39 X10^3/ul (0.83-4.51); Lymphocyte % 20.4 % (19-41); Mean Corp Hgb Conc 31.8 g/dL (32-36); Mean Corpuscular Hgb 29.8 pg (27.0-32.0); Mean Corpuscular Volume 93.9 fL (81-99); Mean Platelet Vol. 11.9 fl (6.2-12.0); Monocyte# 0.49 X10^3/uL; Monocyte% 7.2 % (0-10); NRBC Flagged by Analyzer 0 % (0-5); Neutrophil # 4.16 X10^3/uL (2.7-7.7); Neutrophil % 60.9 % (47-70); Platelet Count 192 K/mm3 (150-450); RBC Distribution Width CV 15.4 % (11.6-14.6); RBC Distribution Width SD 53.6 fl (35.1-43.9); Red Blood Count 3.42 M/mm3 (4.2-5.4); White Blood Count 6.8 K/mm3 (4.4-11.0)
[2023-07-07 08:07] LABS: Anion Gap 4 (5-15); BUN 71 mg/dL (7-18); BUN/Creat Ratio 31.7 RATIO (10-20); Calcium,Total 8.8 mg/dL (8.5-10.1); Chloride 114 mmol/L (98-107); Creatinine, Serum 2.24 mg/dL (0.55-1.02); EST Glomerular Filtration Rate 23 mL/min (>60); Est Glom Filt Rate - Afr Amer 28 mL/min (>60); Glucose 108 mg/dL (74-106); Potassium 4.6 mmol/L (3.5-5.1); Sodium Level 139 mmol/L (136-145)
[2023-07-07] MEDS: Insulin Lispro 100 UNIT/ML INSULN.PEN 17 UNIT SC ×3 (08:24→18:00)
[2023-07-07] MEDS: Iron Polysaccharide Complex 150 MG CAPSULE PO (08:26)
[2023-07-07] MEDS: Pantoprazole Sodium 40 MG Tablet PO (08:26)
[2023-07-07] MEDS: Smz/Tmp Ds Tablet 0.5 TABLET PO ×2 (08:26→18:02)
[2023-07-07] MEDS: Tolterodine Tartrate 2 MG CAP.SA PO (08:26)
[2023-07-07] MEDS: Aspirin 81 MG TAB.CHEW PO (08:27)
[2023-07-07] MEDS: Ascorbic Acid 500 MG Tablet PO (08:27)
[2023-07-07] MEDS: Furosemide 20 MG Tablet PO (08:27)
[2023-07-07] MEDS: Cholecalciferol (VIT D3) 25 MCG TABLET (1,000 UNITS) 50 MCG PO (08:27)
[2023-07-07 08:28] VITALS: BP 152/53; PULSE 66
[2023-07-07] MEDS: Losartan Potassium 25 MG Tablet PO (08:28)
[2023-07-07] MEDS: Metoprolol(XL)Succ 25 MG Tablet PO (08:28)
[2023-07-07] MEDS: Ranolazine 500 MG Tablet 1000 MG PO ×2 (08:28→21:08)
[2023-07-07] MEDS: Clopidogrel Bisulfate 75 MG Tablet PO (08:28)
[2023-07-07] MEDS: Multivitamins,Therapeutic Tablet 1 TABLET PO (08:29)
[2023-07-07] MEDS: Sertraline 100 MG Tablet PO (08:29)
[2023-07-07] MEDS: Nystatin Powder 15gm Bottle 1 APPLIC TOPICAL ×2 (08:31→21:12)
[2023-07-07] MEDS: Menthol/Lanolin/Calamine/Znox 113 GM Tube 1 APPLIC TOPICAL ×2 (08:33→21:11)
[2023-07-07 12:03] LABS: Bedside Glucose 98 mg/dL (74-106)
[2023-07-07 15:33] VITALS: BP 137/60; PULSE 56; RESP 16; TEMP 36.8; O2SAT 99
[2023-07-07 16:43] LABS: Bedside Glucose 141 mg/dL (74-106)
[2023-07-07] MEDS: Juven (unflavored) Packet 1 PACKET PO (18:01)
[2023-07-07] MEDS: Insulin Glargine-YFGN 100 UNIT/ML Pen 50 UNIT SC (21:06)
[2023-07-07] MEDS: Senna/Docusate Sodium 1 Tablet PO (21:08)
[2023-07-07] MEDS: Atorvastatin Calcium 80 MG Tablet PO (21:08)
[2023-07-07] MEDS: Magnesium Citrate 300 ML PO (21:09)
[2023-07-07 21:30] LABS: Bedside Glucose 155 mg/dL (74-106)
[2023-07-08 06:47] LABS: Bedside Glucose 112 mg/dL (74-106)
[2023-07-08 07:11] LABS: Absolute Lymphocyte Count 1.25 X10^3/uL (0.83-4.51); Absolute Neutrophil Count 4.4 X10^3/uL (2.0-7.7); Basophil# 0.04 X10^3/uL; Basophil% 0.6 % (0-1); Eosinophil# 0.72 X10^3/uL; Eosinophils% 10.3 % (0-5); Hematocrit 30.8 % (37-47); Hemoglobin 9.7 g/dL (12.0-15.0); Lymphocyte # 1.25 X10^3/ul (0.83-4.51); Lymphocyte % 17.9 % (19-41); Mean Corp Hgb Conc 31.5 g/dL (32-36); Mean Corpuscular Hgb 29.7 pg (27.0-32.0); Mean Corpuscular Volume 94.2 fL (81-99); Mean Platelet Vol. 11.7 fl (6.2-12.0); Monocyte# 0.51 X10^3/uL; Monocyte% 7.3 % (0-10); NRBC Flagged by Analyzer 0 % (0-5); Neutrophil # 4.44 X10^3/uL (2.7-7.7); Neutrophil % 63.8 % (47-70); Platelet Count 179 K/mm3 (150-450); RBC Distribution Width CV 15.1 % (11.6-14.6); RBC Distribution Width SD 52.3 fl (35.1-43.9); Red Blood Count 3.27 M/mm3 (4.2-5.4)
[2023-07-08 07:51] LABS: Anion Gap 4 (5-15); BUN 70 mg/dL (7-18); Calcium,Total 8.6 mg/dL (8.5-10.1); Chloride 114 mmol/L (98-107); Creatinine, Serum 2.12 mg/dL (0.55-1.02); EST Glomerular Filtration Rate 25 mL/min (>60); Est Glom Filt Rate - Afr Amer 30 mL/min (>60); Estimated Creatinine Clearance 30.64 ml/min; Glucose 128 mg/dL (74-106); Potassium 4.8 mmol/L (3.5-5.1); Sodium Level 140 mmol/L (136-145)
[2023-07-08 08:03] VITALS: BP 156/77; PULSE 67; RESP 18; O2SAT 97
[2023-07-08] MEDS: Pantoprazole Sodium 40 MG Tablet PO (08:04)
[2023-07-08] MEDS: Cholecalciferol (VIT D3) 25 MCG TABLET (1,000 UNITS) 50 MCG PO (08:04)
[2023-07-08] MEDS: Tolterodine Tartrate 2 MG CAP.SA PO (08:05)
[2023-07-08] MEDS: Clopidogrel Bisulfate 75 MG Tablet PO (08:05)
[2023-07-08] MEDS: Senna/Docusate Sodium 1 Tablet PO ×2 (08:05→22:16)
[2023-07-08] MEDS: Sertraline 100 MG Tablet PO (08:05)
[2023-07-08] MEDS: Losartan Potassium 25 MG Tablet PO (08:05)
[2023-07-08 08:06] VITALS: PULSE 67
[2023-07-08] MEDS: Ranolazine 500 MG Tablet 1000 MG PO ×2 (08:06→22:15)
[2023-07-08] MEDS: Smz/Tmp Ds Tablet 0.5 TABLET PO ×2 (08:06→17:37)
[2023-07-08] MEDS: Multivitamins,Therapeutic Tablet 1 TABLET PO (08:06)
[2023-07-08] MEDS: Aspirin 81 MG TAB.CHEW PO (08:06)
[2023-07-08] MEDS: Metoprolol(XL)Succ 25 MG Tablet PO (08:06)
[2023-07-08] MEDS: Ascorbic Acid 500 MG Tablet PO (08:06)
[2023-07-08] MEDS: Furosemide 20 MG Tablet PO (08:07)
[2023-07-08] MEDS: Iron Polysaccharide Complex 150 MG CAPSULE PO (08:07)
[2023-07-08] MEDS: Nystatin Powder 15gm Bottle 1 APPLIC TOPICAL ×2 (08:08→22:16)
[2023-07-08] MEDS: Insulin Lispro 100 UNIT/ML INSULN.PEN 17 UNIT SC ×2 (08:08→12:40)
[2023-07-08] MEDS: Menthol/Lanolin/Calamine/Znox 113 GM Tube 1 APPLIC TOPICAL ×2 (08:11→22:16)
[2023-07-08 11:45] LABS: Bedside Glucose 130 mg/dL (74-106)
--- NOTE | 2023-07-08 11:56 | NURSING ---
Addendum entered by Merlyn Harman 07/08/23 15:27: Pt continues with no bowel movement, did pass gas while using bathroom. Continues with bowel sounds normoactive x4 quadrants, no abd distension or pain. Pt denies nausea. Called and updated Dr Casanova, received order for soap suds enema. Original Note: Pt on day 5 with no bowel movement. Was given PRN mag citrate last evening, refused after drinking ~1/2 of medication. Bowel sounds normoactive x4 quadrants. Abdomen soft, rounded, no abdominal distension noted. Pt refused mag citrate this morning, but did accept prune juice with lunch.
[2023-07-08 14:38] VITALS: BP 107/51; PULSE 67; RESP 18; TEMP 36.9; O2SAT 99
--- NOTE | 2023-07-08 15:16 | NURSING ---
Addendum entered by Merlyn Harman 07/08/23 16:56: Wound dressings soiled when using toilet. Re-applied new dressings. Original Note: Wound dressings to bilateral feet changed. No signs of infection noted. Pt denies pain.
[2023-07-08 17:23] LABS: Bedside Glucose 63 mg/dL (74-106)
[2023-07-08] MEDS: Juven (unflavored) Packet 1 PACKET PO (17:37)
--- NOTE | 2023-07-08 17:52 | NURSING ---
Addendum entered by Merlyn Harman 07/08/23 18:54: FSBS 118. Continues asymptomatic. Pt refusing evening Humalog. Original Note: ~1645 LITIGATOR reports pt was shaky while ambulating into chair, FSBS 52; after drinking 6oz OJ and eating crackers, FSBS 54. I went in to assess pt and change dressings, pt asymptomatic, denies feelings of shakiness and weakness. Speech clear, baseline. Pt ate peanut butter and more crackers. FSBS 63 @1705. Visitor at bedside. FSBS 86 @1730. Continues asymptomatic, is currently eating supper.
[2023-07-08 17:59] LABS: Bedside Glucose 87 mg/dL (74-106)
[2023-07-08 18:33] LABS: Bedside Glucose 52 mg/dL (74-106)
[2023-07-08 18:33] LABS: Bedside Glucose 54 mg/dL (74-106)
[2023-07-08 19:09] LABS: Bedside Glucose 118 mg/dL (74-106)
[2023-07-08 21:47] LABS: Bedside Glucose 166 mg/dL (74-106)
[2023-07-08] MEDS: Insulin Glargine-YFGN 100 UNIT/ML Pen 50 UNIT SC (22:13)
[2023-07-08] MEDS: Atorvastatin Calcium 80 MG Tablet PO (22:15)
[2023-07-09 06:41] LABS: Bedside Glucose 280 mg/dL (74-106)
--- NOTE | 2023-07-09 07:40 | NURSING ---
Spoke w/ Dr. Casanova via phone to update pt would like Miralax ordered daily PRN. New order received and read back for Miralax 17 gm daily PRN constipation.
[2023-07-09] MEDS: Insulin Lispro 100 UNIT/ML INSULN.PEN 17 UNIT SC ×2 (08:25→12:27)
[2023-07-09] MEDS: Smz/Tmp Ds Tablet 0.5 TABLET PO ×2 (08:26→17:49)
[2023-07-09] MEDS: Aspirin 81 MG TAB.CHEW PO (08:26)
[2023-07-09] MEDS: Senna/Docusate Sodium 1 Tablet PO ×2 (08:27→22:07)
[2023-07-09] MEDS: Ascorbic Acid 500 MG Tablet PO (08:28)
[2023-07-09] MEDS: Cholecalciferol (VIT D3) 25 MCG TABLET (1,000 UNITS) 50 MCG PO (08:28)
[2023-07-09] MEDS: Sertraline 100 MG Tablet PO (08:28)
[2023-07-09 08:30] VITALS: BP 172/65; PULSE 70
[2023-07-09] MEDS: Metoprolol(XL)Succ 25 MG Tablet PO (08:30)
[2023-07-09] MEDS: Multivitamins,Therapeutic Tablet 1 TABLET PO (08:36)
[2023-07-09] MEDS: Menthol/Lanolin/Calamine/Znox 113 GM Tube 1 APPLIC TOPICAL ×2 (08:37→22:11)
[2023-07-09] MEDS: Nystatin Powder 15gm Bottle 1 APPLIC TOPICAL ×2 (08:37→22:11)
[2023-07-09] MEDS: Iron Polysaccharide Complex 150 MG CAPSULE PO (08:39)
[2023-07-09] MEDS: Tolterodine Tartrate 2 MG CAP.SA PO (08:39)
[2023-07-09] MEDS: Losartan Potassium 25 MG Tablet PO (08:39)
[2023-07-09] MEDS: Furosemide 20 MG Tablet PO (08:40)
[2023-07-09] MEDS: Pantoprazole Sodium 40 MG Tablet PO (08:40)
[2023-07-09] MEDS: Clopidogrel Bisulfate 75 MG Tablet PO (08:40)
[2023-07-09] MEDS: Ranolazine 500 MG Tablet 1000 MG PO ×2 (08:40→22:07)
[2023-07-09 12:15] LABS: Bedside Glucose 147 mg/dL (74-106)
--- NOTE | 2023-07-09 14:00 | WOUNDNOTE ---
wound photo: left heel
[2023-07-09 16:00] VITALS: BP 124/59; PULSE 65; RESP 16; TEMP 36.4; O2SAT 98
[2023-07-09 17:28] LABS: Bedside Glucose 71 mg/dL (74-106)
--- NOTE | 2023-07-09 17:41 | NURSING ---
BS 71 prior to dinner. Patient asymptomatic. Chocolate pudding provided and patient denies further needs. Humalog to be held with dinner.
[2023-07-09] MEDS: Juven (unflavored) Packet 1 PACKET PO (17:50)
[2023-07-09 19:57] LABS: Bedside Glucose 171 mg/dL (74-106)
[2023-07-09 21:39] LABS: Bedside Glucose 181 mg/dL (74-106)
[2023-07-09] MEDS: Atorvastatin Calcium 80 MG Tablet PO (22:07)
[2023-07-09] MEDS: Insulin Glargine-YFGN 100 UNIT/ML Pen 50 UNIT SC (22:07)
[2023-07-10 06:05] LABS: Bedside Glucose 154 mg/dL (74-106)
[2023-07-10 07:00] VITALS: BP 149/56; PULSE 56; RESP 20; TEMP 36.3; O2SAT 98
[2023-07-10] MEDS: Ondansetron ODT 4 MG Tablet PO (07:05)
[2023-07-10 11:14] LABS: Bedside Glucose 244 mg/dL (74-106)
[2023-07-10] MEDS: Aspirin 81 MG TAB.CHEW PO (11:17)
[2023-07-10] MEDS: Multivitamins,Therapeutic Tablet 1 TABLET PO (11:18)
[2023-07-10] MEDS: Losartan Potassium 25 MG Tablet PO (11:18)
[2023-07-10] MEDS: Furosemide 20 MG Tablet PO (11:19)
[2023-07-10] MEDS: Iron Polysaccharide Complex 150 MG CAPSULE PO (11:19)
[2023-07-10] MEDS: Tolterodine Tartrate 2 MG CAP.SA PO (11:19)
[2023-07-10] MEDS: Clopidogrel Bisulfate 75 MG Tablet PO (11:20)
[2023-07-10] MEDS: Ranolazine 500 MG Tablet 1000 MG PO ×2 (11:20→22:30)
[2023-07-10] MEDS: Senna/Docusate Sodium 1 Tablet PO ×2 (11:20→22:30)
[2023-07-10] MEDS: Pantoprazole Sodium 40 MG Tablet PO (11:20)
[2023-07-10 11:21] VITALS: BP 129/52; PULSE 77
[2023-07-10] MEDS: Cholecalciferol (VIT D3) 25 MCG TABLET (1,000 UNITS) 50 MCG PO (11:21)
[2023-07-10] MEDS: Metoprolol(XL)Succ 25 MG Tablet PO (11:21)
[2023-07-10] MEDS: Ascorbic Acid 500 MG Tablet PO (11:21)
[2023-07-10] MEDS: Sertraline 100 MG Tablet PO (11:22)
[2023-07-10] MEDS: Nystatin Powder 15gm Bottle 1 APPLIC TOPICAL ×2 (11:25→22:30)
[2023-07-10] MEDS: Menthol/Lanolin/Calamine/Znox 113 GM Tube 1 APPLIC TOPICAL ×2 (11:25→22:33)
[2023-07-10 11:29] VITALS: BMI 43.2
[2023-07-10 11:45] VITALS: BP 129/52; PULSE 55; RESP 16; TEMP 36.8; O2SAT 98
[2023-07-10] MEDS: Insulin Lispro 100 UNIT/ML INSULN.PEN 17 UNIT SC ×2 (11:52→17:09)
--- NOTE | 2023-07-10 15:40 | CASEMGMT ---
Addendum entered by Evelia Whitney 07/11/23 10:36: Received return phone call from . SW educated to insurance NRD 07/13 and requesting DC plans in place. Pt is needing assistance with ADLs and wound care. Offered to attend therapy and nursing training to ensure he can provide care needed for homegoing. agreed. SW verbally updated OT and Charge nurse on coordinating training with . Will continue to follow. Original Note: Social Work SW left VM with to review DC plans and pt's LOC. SW attempted to pt with pt, but unsuccessful. Will continue to attempt. Evelia Whitney, [employer] SALES PROJECT COORDINATOR
[2023-07-10 16:50] LABS: Bedside Glucose 165 mg/dL (74-106)
[2023-07-10] MEDS: Acetaminophen 500 MG Tablet 1000 MG PO (17:11)
[2023-07-10] MEDS: Juven (unflavored) Packet 1 PACKET PO (17:12)
--- NOTE | 2023-07-10 20:59 | NURSING ---
Patient rang call light, stating her blood sugar is low. When checked, glucometer result was 44. [place] juice, thanh doons and chocolate ice cream given. Will recheck.
[2023-07-10 21:28] LABS: Bedside Glucose 44 mg/dL (74-106)
[2023-07-10] MEDS: Atorvastatin Calcium 80 MG Tablet PO (22:30)
[2023-07-10 22:32] LABS: Bedside Glucose 90 mg/dL (74-106)
--- NOTE | 2023-07-10 22:47 | NURSING ---
Patient's blood sugar up to 90, glargine administered.
--- NOTE | 2023-07-10 22:49 | NURSING ---
Patient's blood sugar up to 90. Insulin glargine held at this time. Will recheck.
[2023-07-11 00:06] LABS: Calprotectin, Stool 95 ug/g (0-120)
[2023-07-11 06:07] LABS: Bedside Glucose 141 mg/dL (74-106)
[2023-07-11 08:12] VITALS: BP 150/62; PULSE 68; RESP 12; TEMP 36.4; O2SAT 97
[2023-07-11] MEDS: Insulin Lispro 100 UNIT/ML INSULN.PEN 17 UNIT SC ×2 (08:16→12:05)
[2023-07-11] MEDS: Aspirin 81 MG TAB.CHEW PO (08:23)
[2023-07-11] MEDS: Multivitamins,Therapeutic Tablet 1 TABLET PO (08:24)
[2023-07-11] MEDS: Menthol/Lanolin/Calamine/Znox 113 GM Tube 1 APPLIC TOPICAL ×2 (08:24→21:38)
[2023-07-11] MEDS: Losartan Potassium 25 MG Tablet PO (08:25)
[2023-07-11] MEDS: Tolterodine Tartrate 2 MG CAP.SA PO (08:26)
[2023-07-11] MEDS: Clopidogrel Bisulfate 75 MG Tablet PO (08:26)
[2023-07-11] MEDS: Iron Polysaccharide Complex 150 MG CAPSULE PO (08:27)
[2023-07-11] MEDS: Furosemide 20 MG Tablet PO (08:28)
[2023-07-11] MEDS: Nystatin Powder 15gm Bottle 1 APPLIC TOPICAL ×2 (08:29→21:38)
[2023-07-11] MEDS: Pantoprazole Sodium 40 MG Tablet PO (08:30)
[2023-07-11] MEDS: Ranolazine 500 MG Tablet 1000 MG PO ×2 (08:30→21:32)
[2023-07-11 08:31] VITALS: BP 150/62; PULSE 68
[2023-07-11] MEDS: Senna/Docusate Sodium 1 Tablet PO ×2 (08:31→21:32)
[2023-07-11] MEDS: Metoprolol(XL)Succ 25 MG Tablet PO (08:31)
[2023-07-11] MEDS: Cholecalciferol (VIT D3) 25 MCG TABLET (1,000 UNITS) 50 MCG PO (08:32)
[2023-07-11] MEDS: Ascorbic Acid 500 MG Tablet PO (08:32)
[2023-07-11] MEDS: Sertraline 100 MG Tablet PO (08:33)
[2023-07-11 09:45] LABS: Color, Urine Yellow (Yellow); Glucose, Dipstick Normal (Normal); Ketone-Dipstick Negative (Negative); Leukocyte Esterase-Dipstick 500 /ul (Negative); Nitrite-Dipstick Positive (Negative); Occult Blood-Urine 50 /ul (Negative); Protein-Dipstick 100 mg/dl (Negative); Urine Bilirubin Dipstick Negative (Negative); Urine Clarity Cloudy (Clear); Urine Urobilinogen Normal (Normal)
[2023-07-11 09:59] LABS: White Blood Cells 10-25 SEEN /hpf (0-5)
[2023-07-11 10:00] VITALS: PULSE 68; RESP 12; O2SAT 97
[2023-07-11 10:00] LABS: Bacteria 4+ /hpf (None Seen); Mucous, Urine 1+ /hpf (<or=2+); Red Blood Cells-Urine 0-5 SEEN /hpf (0-5); Squamous Epithelial Cells - UA 0-5 SEEN /hpf (5-10)
[2023-07-11 11:17] LABS: Bedside Glucose 168 mg/dL (74-106)
--- NOTE | 2023-07-11 11:41 | NURSING ---
THERAPY AND PT CAME TO THIS NURSE AND STATED THAT PT LOST HER BALANCE IN THERAPY BUT DID NOT FALL. BUT PT DID TURN HER RT FOOT/ANKLE SIDE WAYS. PT STATED THAT IT WAS FINE AND DID NOT HURT. WILL CONTINUE TO MONITOR. RN AWARE
--- NOTE | 2023-07-11 14:14 | NURSING ---
LETYRN/WOUND NURSE IN TO CHANGED PT DRESSINGS.
[2023-07-11 16:00] VITALS: PULSE 65; RESP 18; O2SAT 98
[2023-07-11 16:26] LABS: Bedside Glucose 85 mg/dL (74-106)
[2023-07-11] MEDS: Juven (unflavored) Packet 1 PACKET PO (18:07)
[2023-07-11 18:22] LABS: Bedside Glucose 95 mg/dL (74-106)
[2023-07-11] MEDS: Ceftriaxone 1 GM/50 ML BAG IV (19:43)
[2023-07-11] MEDS: Insulin Glargine-YFGN 100 UNIT/ML Pen 40 UNIT SC (21:32)
[2023-07-11] MEDS: Atorvastatin Calcium 80 MG Tablet PO (21:32)
[2023-07-11 21:44] LABS: Bedside Glucose 168 mg/dL (74-106)
[2023-07-12] MEDS: Ondansetron ODT 4 MG Tablet PO ×2 (04:10→10:24)
[2023-07-12 04:23] LABS: Bedside Glucose 211 mg/dL (74-106)
[2023-07-12 05:49] VITALS: PULSE 66; RESP 16; O2SAT 96
[2023-07-12 06:18] LABS: Bedside Glucose 226 mg/dL (74-106)
[2023-07-12] MEDS: Insulin Lispro 100 UNIT/ML INSULN.PEN 17 UNIT SC ×3 (08:27→17:38)
[2023-07-12] MEDS: Losartan Potassium 25 MG Tablet PO (08:32)
[2023-07-12] MEDS: Aspirin 81 MG TAB.CHEW PO (08:32)
[2023-07-12] MEDS: Multivitamins,Therapeutic Tablet 1 TABLET PO (08:32)
[2023-07-12] MEDS: Pantoprazole Sodium 40 MG Tablet PO (08:33)
[2023-07-12] MEDS: Furosemide 20 MG Tablet PO (08:33)
[2023-07-12] MEDS: Tolterodine Tartrate 2 MG CAP.SA PO (08:33)
[2023-07-12] MEDS: Iron Polysaccharide Complex 150 MG CAPSULE PO (08:33)
[2023-07-12] MEDS: Clopidogrel Bisulfate 75 MG Tablet PO (08:33)
[2023-07-12 08:34] VITALS: BP 134/42; PULSE 56
[2023-07-12] MEDS: Metoprolol(XL)Succ 25 MG Tablet PO (08:34)
[2023-07-12] MEDS: Ascorbic Acid 500 MG Tablet PO (08:34)
[2023-07-12] MEDS: Sertraline 100 MG Tablet PO (08:34)
[2023-07-12] MEDS: Cholecalciferol (VIT D3) 25 MCG TABLET (1,000 UNITS) 50 MCG PO (08:34)
[2023-07-12] MEDS: Ranolazine 500 MG Tablet 1000 MG PO ×2 (08:35→22:01)
[2023-07-12] MEDS: Senna/Docusate Sodium 1 Tablet PO ×2 (08:35→22:02)
[2023-07-12] MEDS: Menthol/Lanolin/Calamine/Znox 113 GM Tube 1 APPLIC TOPICAL ×2 (08:39→22:05)
[2023-07-12] MEDS: Nystatin Powder 15gm Bottle 1 APPLIC TOPICAL ×2 (08:40→22:06)
[2023-07-12 08:43] VITALS: BP 134/42; PULSE 56
--- NOTE | 2023-07-12 09:30 | NURSING ---
PT POSITIVE FOR UTI, ROCEPHIN IV ORDERED PER .
--- NOTE | 2023-07-12 09:52 | NURSING ---
Patient started on IV rocephin 07/11/23 for UTI.
[2023-07-12] MEDS: 0.9% Saline Lock 10 ML Syringe IV (10:29)
[2023-07-12] MEDS: Ceftriaxone 1 GM/50 ML BAG IV (10:33)
--- NOTE | 2023-07-12 11:34 | NURSING ---
PT COMPLAINED OF NOT FEELING WELL,NAUSEATED AND EYES BLURRY. VITALS AND BLOOD SUGAR CHECKED. PRN ZOFRAN GIVEN. PT PUT TO BED. WILL CONTINUE TO MONITOR. RN AWARE
[2023-07-12 11:37] VITALS: BP 140/53; PULSE 65; RESP 16; TEMP 36.6; O2SAT 99
[2023-07-12 11:37] LABS: Bedside Glucose 210 mg/dL (74-106)
--- NOTE | 2023-07-12 11:49 | PCM.PN.REN ---
Subjective Subjective Resting in bed. No complaints. States good appetite. Objective Data Objective Data Vital Signs: Vital Signs Temp Pulse Resp BP Pulse Ox O2 Del Method 97.8 F 65 16 140/53 H 99 Room Air 07/12/23 11:37 07/12/23 11:37 07/12/23 11:37 07/12/23 11:37 07/12/23 11:37 07/12/23 11:37 Oxygen Delivery Method Room Air Weight: 110.858 kg Body Mass Index (BMI) 43.2 Intake & Output: Intake and Output for Last 24 Hours 07/10/23 07/11/23 07/12/23 23:59 23:59 23:59 Intake Total 480 / 480 650 / 650 290 / 290 Output Total 450 / 450 Balance 480 / 480 200 / 200 290 / 290 Lab / Micro Data 07/08/23 05:48 07/08/23 05:48 Labs: Laboratory Results - last 24 hr 07/11/23 16:01: POC Glucose 85 07/11/23 18:04: POC Glucose 95 07/11/23 21:24: POC Glucose 168 H 07/12/23 04:06: POC Glucose 211 H 07/12/23 05:51: POC Glucose 226 H 07/12/23 11:16: POC Glucose 210 H Micro: Microbiology 07/11/23 09:25 Urine Catheter - Catheter Urine Culture - Preliminary Gram negative michel 07/02/23 12:20 Stool Ova and Parasites - Final 07/03/23 02:55 Urine, Catheterized Urine Culture - Final Proteus mirabilis 07/02/23 12:20 Stool Stool Occult Blood (ERVIN) - Final Occult Blood Positive 07/02/23 06:56 Nasal Secretion SARS-CoV-2 Antigen (Rapid) - Final 06/28/23 05:28 Nasal Secretion SARS-CoV-2 Antigen (Rapid) - Final 06/25/23 05:18 Nasal Secretion SARS-CoV-2 Antigen (Rapid) - Final Physical Exam Narrative Alert and orient x 3, no apparent distress S1, S2, RRR Lung sounds clear anteriorly and posteriorly. Abdomen soft, nontender, positive bowel sounds No pitting edema noted bilateral lower legs. 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 Patient was discharged from [facility] to [facility] rehab, admitted back to [facility] for weakness and unable to take care of herself at home. She is now receiving therapy in TCU. Nephrology consulted as patient has a history of CKD. - History of CKD stage III/IV; Patient has been seen by Dr. Null in [place] office, last seen November 2021. She has chronic kidney disease stage III/IV secondary to diabetic nephropathy, baseline creatinine had been around 1.8- 2mg/dL. In November 2021 patient's creatinine was 2.33 mg/dL with estimated GFR 23 ml/min. Serum creatinine trends during this hospitalization have been around her baseline. Last labs SCr 2.12mg/dL. Overall renal function is stable, patient is nonoliguric, volume status appears near euvolemic, potassium and acid-base are acceptable. Overall blood pressures are relatively stable, patient is on Toprol, losartan and furosemide. Will continue these medications as ordered. Patient does not need daily labs. We will arrange for CKD follow-up at time of discharge.
[2023-07-12 13:46] VITALS: TEMP 36.6; O2SAT 99
--- NOTE | 2023-07-12 16:13 | CASEMGMT ---
Social Work BIMS () and PHQ-2 () completed for MDS assessment. Evelia Whitney MSW [employer]OTE RU[employer] RAILS DEVELOPER
[2023-07-12 16:32] LABS: Bedside Glucose 167 mg/dL (74-106)
[2023-07-12] MEDS: Juven (unflavored) Packet 1 PACKET PO (16:47)
[2023-07-12 21:56] LABS: Bedside Glucose 153 mg/dL (74-106)
[2023-07-12] MEDS: Insulin Glargine-YFGN 100 UNIT/ML Pen 40 UNIT SC (22:01)
[2023-07-12] MEDS: Atorvastatin Calcium 80 MG Tablet PO (22:02)
[2023-07-13 06:40] LABS: Bedside Glucose 186 mg/dL (74-106)
[2023-07-13] MEDS: Insulin Lispro 100 UNIT/ML INSULN.PEN 17 UNIT SC ×3 (09:40→18:19)
[2023-07-13 09:41] VITALS: BP 130/85; PULSE 86
[2023-07-13] MEDS: Sertraline 100 MG Tablet PO (09:41)
[2023-07-13] MEDS: Tolterodine Tartrate 2 MG CAP.SA PO (09:41)
[2023-07-13] MEDS: Clopidogrel Bisulfate 75 MG Tablet PO (09:41)
[2023-07-13] MEDS: Aspirin 81 MG TAB.CHEW PO (09:41)
[2023-07-13] MEDS: Ascorbic Acid 500 MG Tablet PO (09:41)
[2023-07-13] MEDS: Iron Polysaccharide Complex 150 MG CAPSULE PO (09:41)
[2023-07-13] MEDS: Metoprolol(XL)Succ 25 MG Tablet PO (09:41)
[2023-07-13] MEDS: Cholecalciferol (VIT D3) 25 MCG TABLET (1,000 UNITS) 50 MCG PO (09:41)
[2023-07-13] MEDS: Ranolazine 500 MG Tablet 1000 MG PO ×2 (09:41→21:58)
[2023-07-13] MEDS: Furosemide 20 MG Tablet PO (09:41)
[2023-07-13] MEDS: Losartan Potassium 25 MG Tablet PO (09:42)
[2023-07-13] MEDS: Pantoprazole Sodium 40 MG Tablet PO (09:42)
[2023-07-13] MEDS: Multivitamins,Therapeutic Tablet 1 TABLET PO (09:42)
[2023-07-13] MEDS: Senna/Docusate Sodium 1 Tablet PO ×2 (09:42→21:58)
[2023-07-13] MEDS: Menthol/Lanolin/Calamine/Znox 113 GM Tube 1 APPLIC TOPICAL ×2 (09:48→22:04)
--- NOTE | 2023-07-13 09:48 | NURSING ---
at this time Patient left with for appointment
[2023-07-13] MEDS: Ceftriaxone 1 GM/50 ML BAG IV (14:28)
[2023-07-13] MEDS: Polyethylene Glycol 3350 17 GM PACKET PO (14:35)
[2023-07-13 14:54] LABS: Bedside Glucose 207 mg/dL (74-106)
[2023-07-13 15:43] VITALS: BP 121/59; PULSE 68; RESP 16; TEMP 36.4; O2SAT 98
[2023-07-13] MEDS: Juven (unflavored) Packet 1 PACKET PO (16:31)
[2023-07-13 16:44] LABS: Bedside Glucose 239 mg/dL (74-106)
[2023-07-13 21:32] LABS: Bedside Glucose 163 mg/dL (74-106)
[2023-07-13] MEDS: Atorvastatin Calcium 80 MG Tablet PO (21:58)
[2023-07-13] MEDS: Insulin Glargine-YFGN 100 UNIT/ML Pen 40 UNIT SC (21:58)
[2023-07-13] MEDS: Nystatin Powder 15gm Bottle 1 APPLIC TOPICAL (22:04)
[2023-07-14 06:27] LABS: Bedside Glucose 183 mg/dL (74-106)
[2023-07-14] MEDS: Insulin Lispro 100 UNIT/ML INSULN.PEN 17 UNIT SC ×3 (07:59→18:10)
[2023-07-14] MEDS: Aspirin 81 MG TAB.CHEW PO (08:00)
[2023-07-14] MEDS: Multivitamins,Therapeutic Tablet 1 TABLET PO (08:00)
[2023-07-14 08:10] LABS: Absolute Neutrophil Count 3.8 X10^3/uL (2.0-7.7); Basophil# 0.03 X10^3/uL; Basophil% 0.5 % (0-1); Eosinophil# 0.57 X10^3/uL; Eosinophils% 9.2 % (0-5); Hemoglobin 9.9 g/dL (12.0-15.0); Mean Corp Hgb Conc 30.9 g/dL (32-36); Mean Corpuscular Hgb 29.1 pg (27.0-32.0); Mean Corpuscular Volume 94.1 fL (81-99); Mean Platelet Vol. 12.2 fl (6.2-12.0); Monocyte# 0.51 X10^3/uL; Monocyte% 8.3 % (0-10); NRBC Flagged by Analyzer 0 % (0-5); Neutrophil # 3.75 X10^3/uL (2.7-7.7); Neutrophil % 60.7 % (47-70); Platelet Count 182 K/mm3 (150-450); RBC Distribution Width CV 14.7 % (11.6-14.6); RBC Distribution Width SD 50.7 fl (35.1-43.9); White Blood Count 6.2 K/mm3 (4.4-11.0)
[2023-07-14 08:30] LABS: Anion Gap 3 (5-15); BUN 70 mg/dL (7-18); BUN/Creat Ratio 35.5 RATIO (10-20); Calcium,Total 9.3 mg/dL (8.5-10.1); Chloride 114 mmol/L (98-107); Creatinine, Serum 1.97 mg/dL (0.55-1.02); EST Glomerular Filtration Rate 27 mL/min (>60); Est Glom Filt Rate - Afr Amer 33 mL/min (>60); Estimated Creatinine Clearance 33.15 ml/min; Glucose 213 mg/dL (74-106); Potassium 5.2 mmol/L (3.5-5.1); Sodium Level 138 mmol/L (136-145)
[2023-07-14] MEDS: Losartan Potassium 25 MG Tablet PO (09:23)
[2023-07-14] MEDS: Sertraline 100 MG Tablet PO (09:23)
[2023-07-14] MEDS: Furosemide 20 MG Tablet PO (09:23)
[2023-07-14] MEDS: Ranolazine 500 MG Tablet 1000 MG PO ×2 (09:24→22:44)
[2023-07-14] MEDS: Ascorbic Acid 500 MG Tablet PO (09:24)
[2023-07-14] MEDS: Iron Polysaccharide Complex 150 MG CAPSULE PO (09:25)
[2023-07-14] MEDS: Cholecalciferol (VIT D3) 25 MCG TABLET (1,000 UNITS) 50 MCG PO (09:25)
[2023-07-14] MEDS: Senna/Docusate Sodium 1 Tablet PO ×2 (09:25→22:44)
[2023-07-14] MEDS: Clopidogrel Bisulfate 75 MG Tablet PO (09:25)
[2023-07-14] MEDS: Pantoprazole Sodium 40 MG Tablet PO (09:26)
[2023-07-14] MEDS: Tolterodine Tartrate 2 MG CAP.SA PO (09:26)
[2023-07-14 10:50] VITALS: PULSE 60; RESP 16
[2023-07-14] MEDS: Ceftriaxone 1 GM/50 ML BAG IV (11:12)
[2023-07-14] MEDS: Nystatin Powder 15gm Bottle 1 APPLIC TOPICAL ×2 (11:15→22:47)
[2023-07-14 11:21] LABS: Bedside Glucose 372 mg/dL (74-106)
[2023-07-14 11:27] VITALS: BP 155/55; PULSE 60
[2023-07-14] MEDS: Metoprolol(XL)Succ 25 MG Tablet PO (11:27)
[2023-07-14] MEDS: Menthol/Lanolin/Calamine/Znox 113 GM Tube 1 APPLIC TOPICAL ×2 (12:11→22:42)
[2023-07-14] MEDS: Sodium Polystyrene Sulfonate 15 GM/60 ML UDC 30 GM PO (12:16)
[2023-07-14 13:38] VITALS: BP 119/69; PULSE 60; RESP 18; TEMP 36.6; O2SAT 95
[2023-07-14 16:30] LABS: Bedside Glucose 309 mg/dL (74-106)
[2023-07-14] MEDS: Juven (unflavored) Packet 1 PACKET PO (18:11)
[2023-07-14 21:45] LABS: Bedside Glucose 160 mg/dL (74-106)
[2023-07-14] MEDS: Insulin Glargine-YFGN 100 UNIT/ML Pen 40 UNIT SC (22:42)
[2023-07-14] MEDS: Atorvastatin Calcium 80 MG Tablet PO (22:45)
[2023-07-14 22:50] VITALS: BP 128/58; PULSE 64
--- NOTE | 2023-07-14 22:50 | NURSING ---
Given one cup of chocolate ice cream for hs snack per pt request.
[2023-07-15 06:17] LABS: Bedside Glucose 107 mg/dL (74-106)
[2023-07-15 07:03] LABS: Anion Gap 4 (5-15); BUN 73 mg/dL (7-18); BUN/Creat Ratio 43.5 RATIO (10-20); Calcium,Total 8.7 mg/dL (8.5-10.1); Chloride 114 mmol/L (98-107); Creatinine, Serum 1.68 mg/dL (0.55-1.02); EST Glomerular Filtration Rate 32 mL/min (>60); Est Glom Filt Rate - Afr Amer 39 mL/min (>60); Estimated Creatinine Clearance 38.88 ml/min; Glucose 124 mg/dL (74-106); Potassium 4.5 mmol/L (3.5-5.1); Sodium Level 138 mmol/L (136-145)
[2023-07-15] MEDS: Insulin Lispro 100 UNIT/ML INSULN.PEN 17 UNIT SC ×3 (08:18→17:13)
[2023-07-15] MEDS: Menthol/Lanolin/Calamine/Znox 113 GM Tube 1 APPLIC TOPICAL ×2 (08:19→22:34)
[2023-07-15 08:23] VITALS: BP 121/51; PULSE 62
[2023-07-15] MEDS: Sertraline 100 MG Tablet PO (08:23)
[2023-07-15] MEDS: Multivitamins,Therapeutic Tablet 1 TABLET PO (08:23)
[2023-07-15] MEDS: Losartan Potassium 25 MG Tablet PO (08:23)
[2023-07-15] MEDS: Senna/Docusate Sodium 1 Tablet PO ×2 (08:23→22:35)
[2023-07-15] MEDS: Clopidogrel Bisulfate 75 MG Tablet PO (08:23)
[2023-07-15] MEDS: Metoprolol(XL)Succ 25 MG Tablet PO (08:23)
[2023-07-15] MEDS: Tolterodine Tartrate 2 MG CAP.SA PO (08:23)
[2023-07-15] MEDS: Pantoprazole Sodium 40 MG Tablet PO (08:24)
[2023-07-15] MEDS: Ranolazine 500 MG Tablet 1000 MG PO ×2 (08:24→22:35)
[2023-07-15] MEDS: Aspirin 81 MG TAB.CHEW PO (08:24)
[2023-07-15] MEDS: Iron Polysaccharide Complex 150 MG CAPSULE PO (08:24)
[2023-07-15] MEDS: Furosemide 20 MG Tablet PO (08:24)
[2023-07-15] MEDS: Cholecalciferol (VIT D3) 25 MCG TABLET (1,000 UNITS) 50 MCG PO (08:24)
[2023-07-15] MEDS: Ceftriaxone 1 GM/50 ML BAG IV (10:58)
[2023-07-15] MEDS: Nystatin Powder 15gm Bottle 1 APPLIC TOPICAL ×2 (10:58→22:35)
[2023-07-15 11:18] LABS: Bedside Glucose 161 mg/dL (74-106)
[2023-07-15] MEDS: Ascorbic Acid 500 MG Tablet PO (11:55)
[2023-07-15 13:47] VITALS: BP 146/51; PULSE 65; RESP 16; TEMP 36.4; O2SAT 98
[2023-07-15 17:01] LABS: Bedside Glucose 151 mg/dL (74-106)
[2023-07-15] MEDS: Juven (unflavored) Packet 1 PACKET PO (17:14)
[2023-07-15 21:37] LABS: Bedside Glucose 86 mg/dL (74-106)
[2023-07-15] MEDS: Atorvastatin Calcium 80 MG Tablet PO (22:34)
[2023-07-16 06:10] LABS: Bedside Glucose 166 mg/dL (74-106)
[2023-07-16] MEDS: Multivitamins,Therapeutic Tablet 1 TABLET PO (07:51)
[2023-07-16] MEDS: Aspirin 81 MG TAB.CHEW PO (07:51)
[2023-07-16] MEDS: Insulin Lispro 100 UNIT/ML INSULN.PEN 17 UNIT SC ×3 (07:52→17:05)
[2023-07-16] MEDS: Ceftriaxone 1 GM/50 ML BAG IV (09:31)
[2023-07-16] MEDS: Losartan Potassium 25 MG Tablet PO (09:35)
[2023-07-16] MEDS: Iron Polysaccharide Complex 150 MG CAPSULE PO (09:36)
[2023-07-16] MEDS: Tolterodine Tartrate 2 MG CAP.SA PO (09:36)
[2023-07-16] MEDS: Furosemide 20 MG Tablet PO (09:36)
[2023-07-16] MEDS: Clopidogrel Bisulfate 75 MG Tablet PO (09:36)
[2023-07-16] MEDS: Pantoprazole Sodium 40 MG Tablet PO (09:37)
[2023-07-16] MEDS: Ranolazine 500 MG Tablet 1000 MG PO ×2 (09:37→20:00)
[2023-07-16] MEDS: Senna/Docusate Sodium 1 Tablet PO ×2 (09:37→20:01)
[2023-07-16] MEDS: Ascorbic Acid 500 MG Tablet PO (09:37)
[2023-07-16] MEDS: Cholecalciferol (VIT D3) 25 MCG TABLET (1,000 UNITS) 50 MCG PO (09:38)
[2023-07-16] MEDS: Sertraline 100 MG Tablet PO (09:38)
[2023-07-16 09:40] VITALS: PULSE 69
[2023-07-16] MEDS: Metoprolol(XL)Succ 25 MG Tablet PO (09:40)
[2023-07-16] MEDS: Menthol/Lanolin/Calamine/Znox 113 GM Tube 1 APPLIC TOPICAL ×2 (09:41→20:01)
[2023-07-16] MEDS: Nystatin Powder 15gm Bottle 1 APPLIC TOPICAL ×2 (09:41→20:01)
[2023-07-16 09:55] VITALS: PULSE 69
[2023-07-16 11:30] LABS: Bedside Glucose 166 mg/dL (74-106)
--- NOTE | 2023-07-16 12:07 | WOUNDNOTE ---
wound photo: left heel
--- NOTE | 2023-07-16 12:08 | WOUNDNOTE ---
wound photo: right foot
[2023-07-16 13:42] VITALS: BP 159/64; PULSE 67; RESP 16; TEMP 36.7; O2SAT 99
[2023-07-16] MEDS: Juven (unflavored) Packet 1 PACKET PO (17:07)
[2023-07-16 17:31] LABS: Bedside Glucose 193 mg/dL (74-106)
[2023-07-16] MEDS: Atorvastatin Calcium 80 MG Tablet PO (20:00)
[2023-07-16 21:32] LABS: Bedside Glucose 132 mg/dL (74-106)
[2023-07-16] MEDS: Insulin Glargine-YFGN 100 UNIT/ML Pen 40 UNIT SC (21:34)
[2023-07-17 06:20] LABS: Bedside Glucose 123 mg/dL (74-106)
[2023-07-17] MEDS: Insulin Lispro 100 UNIT/ML INSULN.PEN 17 UNIT SC ×3 (07:43→16:59)
[2023-07-17] MEDS: Menthol/Lanolin/Calamine/Znox 113 GM Tube 1 APPLIC TOPICAL ×2 (07:46→21:53)
[2023-07-17] MEDS: Multivitamins,Therapeutic Tablet 1 TABLET PO (07:46)
[2023-07-17] MEDS: Aspirin 81 MG TAB.CHEW PO (07:46)
[2023-07-17] MEDS: Tolterodine Tartrate 2 MG CAP.SA PO (07:48)
[2023-07-17] MEDS: Iron Polysaccharide Complex 150 MG CAPSULE PO (07:48)
[2023-07-17] MEDS: Losartan Potassium 25 MG Tablet PO (07:48)
[2023-07-17] MEDS: Furosemide 20 MG Tablet PO (07:48)
[2023-07-17] MEDS: Nystatin Powder 15gm Bottle 1 APPLIC TOPICAL ×2 (07:49→21:53)
[2023-07-17] MEDS: Pantoprazole Sodium 40 MG Tablet PO (07:50)
[2023-07-17] MEDS: Ranolazine 500 MG Tablet 1000 MG PO ×2 (07:50→21:53)
[2023-07-17] MEDS: Clopidogrel Bisulfate 75 MG Tablet PO (07:50)
[2023-07-17] MEDS: Senna/Docusate Sodium 1 Tablet PO ×2 (07:50→21:53)
[2023-07-17 07:51] VITALS: BP 183/78; PULSE 71
[2023-07-17] MEDS: Sertraline 100 MG Tablet PO (07:51)
[2023-07-17] MEDS: Ascorbic Acid 500 MG Tablet PO (07:51)
[2023-07-17] MEDS: Cholecalciferol (VIT D3) 25 MCG TABLET (1,000 UNITS) 50 MCG PO (07:51)
[2023-07-17] MEDS: Metoprolol(XL)Succ 25 MG Tablet PO (07:51)
[2023-07-17 09:41] VITALS: BMI 42.6
[2023-07-17] MEDS: Ceftriaxone 1 GM/50 ML BAG IV (10:31)
--- NOTE | 2023-07-17 10:48 | PN.TCU_ITS ---
Subjective Subjective Resident seen, examined for regulatory visit. She appears well, feels well, only issue is blood pressure is high. Objective Data Objective Data Vital Signs: Vital Signs Temp Pulse Resp BP Pulse Ox O2 Del Method 98.0 F 71 16 183/78 H 99 Room Air 07/16/23 13:42 07/17/23 07:51 07/16/23 13:42 07/17/23 07:51 07/16/23 13:42 07/16/23 13:42 Oxygen Delivery Method Room Air Weight: 109.225 kg Body Mass Index (BMI) 42.6 Intake & Output: Intake and Output for Last 24 Hours 07/15/23 07/16/23 07/17/23 23:59 23:59 23:59 Intake Total 770 / 770 710 / 710 240 / 240 Balance 770 / 770 710 / 710 240 / 240 Lab / Micro Data Attestation: I reviewed the patient's lab results. 07/14/23 07:20 07/15/23 05:25 Labs: Laboratory Results - last 24 hr 07/16/23 11:07: POC Glucose 166 H 07/16/23 17:04: POC Glucose 193 H 07/16/23 20:44: POC Glucose 132 H 07/17/23 06:01: POC Glucose 123 H Micro: Microbiology 07/11/23 09:25 Urine Catheter - Catheter Urine Culture - Final Proteus mirabilis 07/02/23 12:20 Stool Ova and Parasites - Final 07/03/23 02:55 Urine, Catheterized Urine Culture - Final Proteus mirabilis 07/02/23 12:20 Stool Stool Occult Blood (ERVIN) - Final Occult Blood Positive 07/02/23 06:56 Nasal Secretion SARS-CoV-2 Antigen (Rapid) - Final 06/28/23 05:28 Nasal Secretion SARS-CoV-2 Antigen (Rapid) - Final 06/25/23 05:18 Nasal Secretion SARS-CoV-2 Antigen (Rapid) - Final Physical Exam Const alert General Appearance: cooperative HEENT normocephalic Eyes PERRL and EOMs intact bilaterally Neck supple, no JVD and no carotid bruits Resp normal respiratory effort, normal air movement and clear to auscultation bilaterally Cardio regular rate and regular rhythm GI normal to inspection, nondistended, normoactive bowel sounds, non-tender and n on-distended Extremity normal capillary refill Extremity Narrative: Right foot dressed. General Extremity: Negative for edema Skin no rashes or lesions noted Skin Narrative: Healing vesicular rash right flank/right lower abdomen. 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 * Debility - PT/OT. * Pain - Tylenol 1000mg q6 prn pain (1-10). * Bowel - Miralax 17gm daily prn, senna/colace 1 tablet bid, Magnesium citrate 300ml daily prn. * Adult immunization - Administer pneumonia vaccine, covid vaccine, flu vaccine as appropriate. * DVT prophylaxis - Hold, on dual antiplatelet therapy. * Shortness of breath - Albuterol 2 puffs q4 prn. * Stroke - Aspirin 81mg daily, Plavix 75mg daily. * Hyperlipidemia - Atorvastatin 40mg qhs. * Vitamin D deficiency - D3 50mcg daily. * Coronary artery disease - Metoprolol succinate 25mg daily, Losartan 100mg daily, Ranexa 1000mg q12, Plavix 75mg daily, Aspirin 81mg daily, NTG 0.4mg sl q5m prn. * Iron deficiency anemia - Ferrex 150mg daily, Vitamin C 500mg daily. * HFpEF - Metoprolol succinate 25mg daily, Losartan 100mg daily, Furosemide 20mg daily. * HTN - Metoprolol succinate 25mg daily, Losartan 100mg daily, Furosemide 20mg daily. * Diabetes Mellitus II - Glargine 40 units qhs, Lispro 17 units tidac. * Nutrition - MVI daily. * Urinary tract infection - CTX 1gm iv q24 thru 07/18/2023. * Depression - Sertraline 100mg daily, stable chronic alf use, GDR not recommended. * Overactive bladder - Tolterodine 2mg daily. * Right diabetic foot wound - Consult wound nurse, Adryan 1 packet bidcm. * Skin irritation - Calmoseptine topical bid. * Tinea Corporis - Nystatin powder topical bid. * Nausea - Zofran odt 4mg q6 prn * GERD - Pantoprazole 40mg daily.
[2023-07-17] MEDS: Losartan Potassium 100 MG Tablet PO (11:03)
[2023-07-17 11:17] LABS: Bedside Glucose 298 mg/dL (74-106)
[2023-07-17 14:09] VITALS: BP 145/65; PULSE 59; RESP 17; TEMP 36.5; O2SAT 99
[2023-07-17] MEDS: Insulin Lispro 100 UNIT/ML INSULN.PEN 10 UNIT SC (17:03)
[2023-07-17 18:48] LABS: Bedside Glucose 434 mg/dL (74-106)
[2023-07-17 18:48] LABS: Bedside Glucose 391 mg/dL (74-106)
[2023-07-17 19:14] LABS: Bedside Glucose 419 mg/dL (74-106)
[2023-07-17 19:14] LABS: Bedside Glucose 431 mg/dL (74-106)
[2023-07-17 19:36] LABS: Bedside Glucose 363 mg/dL (74-106)
[2023-07-17 21:25] LABS: Bedside Glucose 321 mg/dL (74-106)
[2023-07-17 21:50] VITALS: PULSE 53; RESP 16
[2023-07-17] MEDS: Atorvastatin Calcium 80 MG Tablet PO (21:53)
[2023-07-17] MEDS: Insulin Glargine-YFGN 100 UNIT/ML Pen 40 UNIT SC (21:54)
--- NOTE | 2023-07-18 00:34 | NURSING ---
Patient put call light on, stated that she felt her blood sugar was dropping. Blood sugar was checked, result was 292. Will continue to monitor.
[2023-07-18 00:37] LABS: Bedside Glucose 292 mg/dL (74-106)
[2023-07-18] MEDS: Menthol/Lanolin/Calamine/Znox 113 GM Tube 1 APPLIC TOPICAL ×2 (08:19→21:57)
[2023-07-18] MEDS: Nystatin Powder 15gm Bottle 1 APPLIC TOPICAL ×2 (08:20→21:57)
[2023-07-18] MEDS: Multivitamins,Therapeutic Tablet 1 TABLET PO (08:22)
[2023-07-18] MEDS: Aspirin 81 MG TAB.CHEW PO (08:22)
[2023-07-18] MEDS: Pantoprazole Sodium 40 MG Tablet PO (08:23)
[2023-07-18] MEDS: Losartan Potassium 100 MG Tablet PO (08:23)
[2023-07-18] MEDS: Senna/Docusate Sodium 1 Tablet PO ×2 (08:23→21:55)
[2023-07-18] MEDS: Tolterodine Tartrate 2 MG CAP.SA PO (08:23)
[2023-07-18] MEDS: Iron Polysaccharide Complex 150 MG CAPSULE PO (08:23)
[2023-07-18 08:24] VITALS: BP 142/56; PULSE 66
[2023-07-18] MEDS: Sertraline 100 MG Tablet PO (08:24)
[2023-07-18] MEDS: Cholecalciferol (VIT D3) 25 MCG TABLET (1,000 UNITS) 50 MCG PO (08:24)
[2023-07-18] MEDS: Metoprolol(XL)Succ 25 MG Tablet PO (08:24)
[2023-07-18] MEDS: Clopidogrel Bisulfate 75 MG Tablet PO (08:24)
[2023-07-18] MEDS: Furosemide 20 MG Tablet PO (08:24)
[2023-07-18] MEDS: Ascorbic Acid 500 MG Tablet PO (08:24)
[2023-07-18] MEDS: Ranolazine 500 MG Tablet 1000 MG PO ×2 (08:25→21:55)
[2023-07-18] MEDS: Polyethylene Glycol 3350 17 GM PACKET PO (08:36)
[2023-07-18 08:39] VITALS: BP 142/56; PULSE 66
--- NOTE | 2023-07-18 08:40 | NURSING ---
Addendum entered by Kevin Hill 07/18/23 13:59: PT HAD POSITIVE RESULTS FROM MIRAL[facility]. Original Note: PRN MIRALAX GIVEN DUE TO NO BM IN 4 DAYS.
[2023-07-18] MEDS: Insulin Lispro 100 UNIT/ML INSULN.PEN 17 UNIT SC (08:42)
[2023-07-18] MEDS: 0.9% Saline Lock 10 ML Syringe IV (09:38)
[2023-07-18] MEDS: Ceftriaxone 1 GM/50 ML BAG IV (09:39)
[2023-07-18 09:45] LABS: Bedside Glucose 157 mg/dL (74-106)
[2023-07-18 10:00] VITALS: PULSE 65; RESP 18; O2SAT 97
[2023-07-18] MEDS: Insulin Lispro 100 UNIT/ML INSULN.PEN 20 UNIT SC (11:59)
[2023-07-18 12:13] LABS: Bedside Glucose 173 mg/dL (74-106)
[2023-07-18 12:31] VITALS: BP 104/60; PULSE 51; RESP 16; TEMP 36.9; O2SAT 98
--- NOTE | 2023-07-18 15:43 | CASEMGMT ---
Social Work Insurance issued LCD 07/19, DC 07/20. SW phoned to update. agreeable and will transport. SW spoke with pt and pt agreeable. SW confirmed pervious HHC is [facility]. Pt stated she was active with them prior to admission and requesting to use again. Confirmed no DME needs. RADHA sent referral to [facility] for PT/OT/SN via [facility]. Plan: DC home with 07/20, [facility] PT/OT/SN GALI Duran
--- NOTE | 2023-07-18 16:17 | CASEMGMT ---
Social Work BIMS () and PHQ-2 () completed for MDS assessment. Evelia Whitney MSW HYDROLOGIC ENGINEER
[2023-07-18 16:21] LABS: Bedside Glucose 96 mg/dL (74-106)
[2023-07-18] MEDS: Insulin Lispro 100 UNIT/ML INSULN.PEN 13 UNIT SC (18:12)
--- NOTE | 2023-07-18 18:24 | NURSING ---
LETYRN/WOUND NURSE DID PT ABISAI FEET DRESSINGS TODAY.
--- NOTE | 2023-07-18 19:22 | DS.PCM_ITS ---
Providers Date of Admission: 06/22/23 Primary Care Physician: Urmila Tong NP-C Consultations 06/25/23 07:32 Consult: Onc/Wound/public relations counselor Routine Comment: Comments:: R TMA, debridement 06/20/23 06/29/23 07:48 Consult: Nephrology Routine Consulting Provider: Collins Solis Reason for Consult: Acute on chronic kidney failure. EMERGENT Consult: No MD Notified: Yes Date Notified: 06/29/23 Time Notified: 07:48 Method of Notification: Verbal 07/02/23 17:20 Consult: Gastroenterology Routine Consulting Provider: [facility] Reason for Consult: Anemia, +stool guaiac. EMERGENT Consult: No MD Notified: Yes Date Notified: 07/02/23 Time Notified: 17:20 Method of Notification: Text Reason For Visit: GENERAL WEAKNESS, RECENT TNA RIGHT FOOT Diagnosis Discharge Diagnosis (1) Debility: Status: Acute Code(s): R53.81 - Other malaise (2) Encephalopathy: Status: Acute Code(s): G93.40 - Encephalopathy, unspecified (3) Weakness: Status: Acute Code(s): R53.1 - Weakness (4) Herpes zoster: Status: Acute Code(s): B02.9 - Zoster without complications (5) Elevated troponin: Status: Acute Code(s): R79.89 - Other specified abnormal findings of blood chemistry (6) Ulcer of right foot due to type 2 diabetes mellitus: Status: Acute Code(s): E11.621 - Type 2 diabetes mellitus with foot ulcer; L97.519 - Non-pressure chronic ulcer of other part of right foot with unspecified severity (7) Urinary tract infection: Status: Acute Code(s): N39.0 - Urinary tract infection, site not specified (8) 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: Status: Acute (9) Coronary artery disease: Status: Acute Code(s): I25.10 - Atherosclerotic heart disease of kaw coronary artery without angina pectoris (10) Stroke: Status: Acute Code(s): I63.9 - Cerebral infarction, unspecified (11) Morbid obesity: Status: Acute Code(s): E66.01 - Morbid (severe) obesity due to excess calories (12) Bilateral carotid artery stenosis: Status: Acute Code(s): I65.23 - Occlusion and stenosis of bilateral carotid arteries (13) Chronic kidney disease, stage 3a: Status: Chronic Code(s): N18.31 - Chronic kidney disease, stage 3a (14) Chronic heart failure with preserved ejection fraction (HFpEF): Status: Acute Code(s): I50.32 - Chronic diastolic (congestive) heart failure (15) Hypertension: Status: Chronic Code(s): I10 - Essential (primary) hypertension (16) Hyperlipidemia: Status: Acute Code(s): E78.5 - Hyperlipidemia, unspecified (17) Overactive bladder: Status: Acute Code(s): N32.81 - Overactive bladder Plan 67 year old female with below past medical history hospitalized for weakness, encephalopathy secondary to urinary tract infection, herpes zoster, admitted to TCU with debility, here for rehabilitation, strengthening, prior to discharge home with . * Debility - PT/OT. * Pain - Tylenol 1000mg q6 prn pain (1-10). * Bowel - Miralax 17gm daily prn, senna/colace 1 tablet bid, Magnesium citrate 300ml daily prn. * Adult immunization - Administer pneumonia vaccine, covid vaccine, flu vaccine as appropriate. * DVT prophylaxis - Hold, on dual antiplatelet therapy. * Shortness of breath - Albuterol 2 puffs q4 prn. * Stroke - Aspirin 81mg daily, Plavix 75mg daily. * Hyperlipidemia - Atorvastatin 40mg qhs. * Vitamin D deficiency - D3 50mcg daily. * Coronary artery disease - Metoprolol succinate 25mg daily, Losartan 100mg daily, Ranexa 1000mg q12, Plavix 75mg daily, Aspirin 81mg daily, NTG 0.4mg sl q5m prn. * Iron deficiency anemia - Ferrex 150mg daily, Vitamin C 500mg daily. * HFpEF - Metoprolol succinate 25mg daily, Losartan 100mg daily, Furosemide 20mg daily. * HTN - Metoprolol succinate 25mg daily, Losartan 100mg daily, Furosemide 20mg daily. * Diabetes Mellitus II - Glargine 40 units qhs, Lispro 17 units tidac. * Nutrition - MVI daily. * Urinary tract infection - CTX 1gm iv q24 thru 07/18/2023. * Depression - Sertraline 100mg daily, stable chronic nursing home use, GDR not recommended. * Overactive bladder - Tolterodine 2mg daily. * Right diabetic foot wound - Consult wound nurse, Adryan 1 packet bidcm. * Skin irritation - Calmoseptine topical bid. * Tinea Corporis - Nystatin powder topical bid. * Nausea - Zofran odt 4mg q6 prn * GERD - Pantoprazole 40mg daily. Medications at Discharge Home Medications albuterol sulfate 90 mcg/actuation aerosol inhaler (ProAir HFA) 2 inh inhalation Q4H PRN wheezing/shortness of breath 06/22/23 aspirin 81 mg chewable tablet 2 tab PO DAILY blood thinner 06/22/23 atorvastatin 80 mg tablet 80 mg PO QHS cholesterol 06/22/23 cholecalciferol (vitamin D3) 50 mcg (2,000 unit) capsule 2,000 unit PO DAILY supplement 06/22/23 clopidogrel 75 mg tablet 75 mg PO DAILY blood thinner 06/22/23 insulin glargine 100 unit/mL (3 mL) subcutaneous pen (Lantus Solostar U-100 Insulin) 36 unit subcut QHS diabetes 06/22/23 insulin lispro 100 unit/mL subcutaneous pen 12 unit subcut .AC diabetes 06/22/23 metoprolol succinate 25 mg tablet,extended release 24 hr 25 mg PO DAILY BP/pulse 06/22/23 multivitamin (Daily Multi-Vitamin tablet) 1 tab PO DAILY supplement 06/22/23 nitroglycerin 0.4 mg sublingual tablet 0.4 mg sublingual Q5M chest pain 06/22/23 oxybutynin chloride 5 mg tablet,extended release 24 hr 5 mg PO DAILY bladder 06/22/23 ranolazine 1,000 mg tablet,extended release,12 hr 1,000 mg PO Q12H angina 06/22/23 sertraline 100 mg tablet 100 mg PO DAILY mood 06/22/23 arginine 7 gram-glutam 7 gram-CaHMB 1.5 [id number]-min oral pwd pkt (Adryan (with collagen)) 1 packet PO BIDCM 30 days #60 ea 07/18/23 ascorbic acid (vitamin C) 500 mg tablet 500 mg PO 1000 30 days #30 tabs 07/18/23 furosemide 20 mg tablet 20 mg PO DAILY 30 days #30 tabs 07/18/23 losartan 100 mg tablet 100 mg PO DAILY 30 days #30 tabs 07/18/23 pantoprazole 40 mg tablet,delayed release 40 mg PO BID 30 days #60 tabs 07/18/23 polysaccharide iron complex 150 mg iron capsule (Ferrex) 150 mg PO DAILY 30 days #30 caps 07/18/23 Hospital Course Operations None Procedures EGD Summary of Care Provided Minutes Spent on Discharge: 35 Hospital Course: 67 year old female with below past medical history hospitalized for weakness, encephalopathy secondary to urinary tract infection, herpes zoster, admitted to TCU with debility, here for rehabilitation, strengthening, prior to discharge home with . 07/04/2023 Dr. See EGD: Impressions : - Normal esophagus. - Erythematous mucosa in the antrum. Biopsied. - Non-bleeding gastric ulcers with no stigmata of bleeding. - Non-bleeding duodenal ulcers with no stigmata of bleeding. Recommendations : - Return patient to referring hospital for ongoing care. - Resume previous diet. - Continue present medications. - Await pathology results. - Repeat upper endoscopy in 2 months for surveillance. - Use Protonix (pantoprazole) 40 mg PO BID. 07/11/2023 Urine culture Proteus Mirabilis, treated with Ceftriaxone 1gm iv q24 x 7 days due to antibiotic allergies, drug interactions. Discharge home with 07/21/2023, [facility] PT/OT/SN. Physical Exam Const alert General Appearance: cooperative HEENT normocephalic Eyes PERRL and EOMs intact bilaterally Neck supple, no JVD and no carotid bruits Resp normal respiratory effort, normal air movement and clear to auscultation bilaterally Cardio regular rate and regular rhythm GI normal to inspection, nondistended, normoactive bowel sounds, non-tender and non-distended Extremity normal capillary refill General Extremity: Negative for edema Skin no rashes or lesions noted General Skin Exam: no breakdown Psych affect normal Appearance: appropriate Weight / BMI Weight Weight: 109.225 kg Body Mass Index (BMI) 42.6 ABG / Lab / Microbiology Data 07/14/23 07:20 07/15/23 05:25 Laboratory: Laboratory Results - last 24 hr 07/17/23 19:18: POC Glucose 363 H 07/17/23 21:01: POC Glucose 321 H 07/18/23 00:17: POC Glucose 292 H 07/18/23 06:03: POC Glucose 157 H 07/18/23 10:49: POC Glucose 173 H 07/18/23 15:50: POC Glucose 96 Microbiology: Microbiology 07/11/23 09:25 Urine Catheter - Catheter Urine Culture - Final Proteus mirabilis 07/02/23 12:20 Stool Ova and Parasites - Final 07/03/23 02:55 Urine, Catheterized Urine Culture - Final Proteus mirabilis 07/02/23 12:20 Stool Stool Occult Blood (ERVIN) - Final Occult Blood Positive 07/02/23 06:56 Nasal Secretion SARS-CoV-2 Antigen (Rapid) - Final 06/28/23 05:28 Nasal Secretion SARS-CoV-2 Antigen (Rapid) - Final 06/25/23 05:18 Nasal Secretion SARS-CoV-2 Antigen (Rapid) - Final D/C Instructions Discharge Diet: No restrictions Discharge Activity: Return to Normal Activity, May Shower and Use Walker Weight Bearing Status: Weight bearing as tolerated Call your doctor if you observe: Fever of 101 or Higher, Inability to urinate, Inability to have a bowel movement, Shortness of breath, Dizziness, Fainting spells, Swelling in the ankles, Chest pain and Uncontrolled pain Additional Instructions: Discharge home with 07/21/2023, [facility] PT/OT/SN. Please Follow Up With: Angela Haddad DPM When: As scheduled. Meaningful Use Info Meaningful Use Diagnoses (Choose all that apply): None applicable Discharge Plan Admission Admit Date/Time: 06/22/23 15:02 Primary Reason for Your Visit: Debility. Attending Provider: Juan Casanova Chi Primary Care Provider: Urmila Tong NP Consulting Providers: Collins Solis Instructions Additional Instructions / Restrictions: Discharge home with 07/21/2023, [facility] PT/OT/SN. Discharge Orders/Prescriptions Prescriptions: New ascorbic acid (vitamin C) 500 mg Tablet 500 mg PO 1000 30 Days Qty: 30 0RF pantoprazole 40 mg Tablet,Delayed Release (Dr/Ec) 40 mg PO BID 30 Days Qty: 60 0RF furosemide 20 mg Tablet 20 mg PO DAILY 30 Days Qty: 30 0RF polysaccharide iron complex [Ferrex 150] 150 mg iron Capsule 150 mg PO DAILY 30 Days Qty: 30 0RF Adryan (with collagen) 7-7-1.5 gram Powder In Packet 1 packet PO BIDCM 30 Days Qty: 60 0RF losartan 100 mg Tablet 100 mg PO DAILY 30 Days Qty: 30 0RF Continued atorvastatin 80 mg tablet 80 mg PO QHS Patient Comments: TAKE 1 TABLET BY MOUTH EVERYDAY AT BEDTIME clopidogrel 75 mg tablet 75 mg PO DAILY Patient Comments: TAKE 1.5 TABLET BY MOUTH EVERY DAY insulin glargine [Lantus Solostar U-100 Insulin] 100 unit/mL (3 mL) insulin pen 36 unit SUBCUT QHS Patient Comments: INJECT 14 UNITS SUBCUTANEOUSLY TWO TIMES A DAY. insulin lispro 100 unit/mL insulin pen 12 unit SUBCUT .AC Patient Comments: INJECT 12 UNITS SUBCUTANEOUSLY THREE TIMES A DAY BEFORE MEALS. metoprolol succinate 25 mg tablet extended release 24 hr 25 mg PO DAILY Patient Comments: TAKE 1 TABLET BY MOUTH EVERY DAY oxybutynin chloride 5 mg tablet extended release 24hr 5 mg PO DAILY Patient Comments: TAKE 1 TABLET BY MOUTH EVERY DAY albuterol sulfate [ProAir HFA] 90 mcg/actuation HFA aerosol inhaler 2 inh inhalation Q4H PRN (Reason: wheezing/shortness of breath) aspirin 81 mg tablet,chewable 2 tab PO DAILY cholecalciferol (vitamin D3) 50 mcg (2,000 unit) capsule 2,000 unit PO DAILY multivitamin [Daily Multi-Vitamin] Tablet 1 tab PO DAILY nitroglycerin 0.4 mg tablet, sublingual 0.4 mg sublingual Q5M Rx Instructions: do not exceed 3 doses per episode ranolazine 1,000 mg tablet extended release 12 hr 1,000 mg PO Q12H sertraline 100 mg tablet 100 mg PO DAILY Patient Comments: TAKE 1 TABLET BY MOUTH EVERY DAY Discontinued furosemide 40 mg tablet 60 mg PO DAILY Patient Comments: TAKE 1 TABLET BY MOUTH EVERY DAY ondansetron 4 mg tablet,disintegrating 4 mg PO Q6H PRN (Reason: nausea) Patient Comments: TAKE 1 TABLET BY MOUTH EVERY 6 HOURS NEEDED FOR NAUSEA AND VOMITING FOR 7 DAYS pantoprazole 40 mg tablet,delayed release (DR/EC) 40 mg PO DAILY Patient Comments: TAKE 1 TABLET BY MOUTH EVERY DAY IN THE MORNING nitrofurantoin monohyd/m-cryst 100 mg capsule 100 mg PO BID Rx Instructions: must administer with a meal/food ferrous sulfate [Feosol] 325 mg (65 mg iron) tablet 325 mg PO DAILY hydrocortisone 2.5 % cream 1 applic TOPICAL BID Patient Comments: APPLY TO AFFECTED AREA TWICE A DAY valacyclovir 1 gram tablet 1,000 mg PO Q12H Patient Comments: TAKE 1 TABLET BY MOUTH THREE TIMES A DAY FOR 7 DAYS Referrals / Follow Up: Shayan Rubalcava [Other] (Cardiology Follow-up after DC from TCU) Barrington Guadalupe MD [Non-Staff] - 11/02/23 11:15 am (Endocrinology, need to schedule follow-up) Urmila Tong NP, OIL DRILLING ENGINEER-C [Primary Care Provider] - Disposition Disposition (needs filled in before D/C Order can be placed): Home Health Service
[2023-07-18 21:55] LABS: Bedside Glucose 50 mg/dL (74-106)
[2023-07-18 21:55] LABS: Bedside Glucose 66 mg/dL (74-106)
[2023-07-18] MEDS: Atorvastatin Calcium 80 MG Tablet PO (21:56)
[2023-07-18 22:15] LABS: Bedside Glucose 88 mg/dL (74-106)
[2023-07-19 00:22] LABS: Bedside Glucose 138 mg/dL (74-106)
[2023-07-19 06:19] LABS: Bedside Glucose 211 mg/dL (74-106)
[2023-07-19] MEDS: Insulin Lispro 100 UNIT/ML INSULN.PEN 13 UNIT SC ×3 (07:50→17:45)
[2023-07-19] MEDS: Multivitamins,Therapeutic Tablet 1 TABLET PO (07:51)
[2023-07-19] MEDS: Tolterodine Tartrate 2 MG CAP.SA PO (07:53)
[2023-07-19] MEDS: Iron Polysaccharide Complex 150 MG CAPSULE PO (07:53)
[2023-07-19] MEDS: Losartan Potassium 100 MG Tablet PO (07:53)
[2023-07-19 07:54] VITALS: BP 152/70; PULSE 69
[2023-07-19] MEDS: Senna/Docusate Sodium 1 Tablet PO ×2 (07:54→22:18)
[2023-07-19] MEDS: Pantoprazole Sodium 40 MG Tablet PO (07:54)
[2023-07-19] MEDS: Clopidogrel Bisulfate 75 MG Tablet PO (07:54)
[2023-07-19] MEDS: Metoprolol(XL)Succ 25 MG Tablet PO (07:54)
[2023-07-19] MEDS: Furosemide 20 MG Tablet PO (07:54)
[2023-07-19] MEDS: Ranolazine 500 MG Tablet 1000 MG PO ×2 (07:54→22:18)
[2023-07-19] MEDS: Sertraline 100 MG Tablet PO (07:55)
[2023-07-19] MEDS: Cholecalciferol (VIT D3) 25 MCG TABLET (1,000 UNITS) 50 MCG PO (07:55)
[2023-07-19] MEDS: Ascorbic Acid 500 MG Tablet PO (07:55)
[2023-07-19] MEDS: Menthol/Lanolin/Calamine/Znox 113 GM Tube 1 APPLIC TOPICAL ×2 (08:00→22:18)
[2023-07-19] MEDS: Nystatin Powder 15gm Bottle 1 APPLIC TOPICAL ×2 (08:00→22:19)
[2023-07-19] MEDS: Aspirin 81 MG TAB.CHEW PO (08:01)
[2023-07-19 08:07] VITALS: BP 152/70; PULSE 69
[2023-07-19] MEDS: 0.9% Saline Lock 10 ML Syringe IV (08:08)
--- NOTE | 2023-07-19 11:38 | MDS.RN ---
MDS pain interview completed.
[2023-07-19 12:16] LABS: Bedside Glucose 223 mg/dL (74-106)
[2023-07-19 15:56] VITALS: BP 139/62; PULSE 73; RESP 14; TEMP 36.3; O2SAT 100
[2023-07-19 17:10] LABS: Bedside Glucose 165 mg/dL (74-106)
[2023-07-19] MEDS: Juven (unflavored) Packet 1 PACKET PO (17:46)
[2023-07-19 20:10] VITALS: PULSE 70; RESP 16; O2SAT 98
[2023-07-19 21:33] LABS: Bedside Glucose 252 mg/dL (74-106)
[2023-07-19] MEDS: Atorvastatin Calcium 80 MG Tablet PO (22:18)
[2023-07-19] MEDS: Insulin Glargine-YFGN 100 UNIT/ML Pen 40 UNIT SC (22:18)
[2023-07-19 22:50] LABS: Bacteria 0 SEEN /hpf (None Seen); Color, Urine Yellow (Yellow); Glucose, Dipstick Normal (Normal); Ketone-Dipstick Negative (Negative); Leukocyte Esterase-Dipstick 25 /ul (Negative); Mucous, Urine 0 SEEN /hpf (<or=2+); Nitrite-Dipstick Negative (Negative); Occult Blood-Urine Negative /ul (Negative); Protein-Dipstick 100 mg/dl (Negative); Red Blood Cells-Urine 0 SEEN /hpf (0-5); Squamous Epithelial Cells - UA 0 SEEN /hpf (5-10); Urine Bilirubin Dipstick Negative (Negative); Urine Clarity Clear (Clear); Urine Urobilinogen Normal (Normal); White Blood Cells 0 SEEN /hpf (0-5)
--- NOTE | 2023-07-19 23:45 | NURSING ---
Pt c/o urinary discomfort this shift. Pt attempted to urinate in toilet but was unable to. This nurse collected UA C&S per order via straight cath, 1,100ml of urine drained from bladder. Pt states that she has been having retention and when she does go she still feels like she is not completely emptying her bladder. Q8H bladder scans initiated and written communication left for Dr. Casanova.
[2023-07-20 06:48] LABS: Bedside Glucose 365 mg/dL (74-106)
[2023-07-20] MEDS: Multivitamins,Therapeutic Tablet 1 TABLET PO (08:32)
[2023-07-20] MEDS: Juven (unflavored) Packet 1 PACKET PO ×2 (08:32→17:05)
[2023-07-20] MEDS: Aspirin 81 MG TAB.CHEW PO (08:33)
[2023-07-20] MEDS: Losartan Potassium 100 MG Tablet PO (08:33)
[2023-07-20] MEDS: Sertraline 100 MG Tablet PO (08:33)
[2023-07-20] MEDS: Ascorbic Acid 500 MG Tablet PO (08:33)
[2023-07-20] MEDS: Cholecalciferol (VIT D3) 25 MCG TABLET (1,000 UNITS) 50 MCG PO (08:33)
[2023-07-20] MEDS: Senna/Docusate Sodium 1 Tablet PO ×2 (08:34→22:36)
[2023-07-20] MEDS: Pantoprazole Sodium 40 MG Tablet PO (08:34)
[2023-07-20] MEDS: Furosemide 20 MG Tablet PO (08:34)
[2023-07-20] MEDS: Clopidogrel Bisulfate 75 MG Tablet PO (08:34)
[2023-07-20] MEDS: Nystatin Powder 15gm Bottle 1 APPLIC TOPICAL ×2 (08:34→22:31)
[2023-07-20] MEDS: Ranolazine 500 MG Tablet 1000 MG PO ×2 (08:34→22:35)
[2023-07-20] MEDS: Menthol/Lanolin/Calamine/Znox 113 GM Tube 1 APPLIC TOPICAL ×2 (08:35→22:32)
[2023-07-20] MEDS: Tolterodine Tartrate 2 MG CAP.SA PO (08:35)
[2023-07-20] MEDS: Iron Polysaccharide Complex 150 MG CAPSULE PO (08:35)
[2023-07-20] MEDS: Insulin Lispro 100 UNIT/ML INSULN.PEN 13 UNIT SC ×3 (08:35→17:06)
[2023-07-20] MEDS: Insulin Lispro 100 UNIT/ML INSULN.PEN SC ×2 (08:36→12:21)
[2023-07-20 08:40] VITALS: BP 137/69; PULSE 57
[2023-07-20] MEDS: Metoprolol(XL)Succ 25 MG Tablet PO (08:40)
[2023-07-20 11:07] LABS: Bedside Glucose 356 mg/dL (74-106)
[2023-07-20 13:28] VITALS: BP 129/52; PULSE 60; RESP 16; TEMP 36.1; O2SAT 96
--- NOTE | 2023-07-20 16:12 | CHAPLAIN ---
Type of Pastoral Visit ___ Initial Visit _x__ Follow-up Visit ___ On-call Visit ___ General Patient Visit ___ Spiritual Assessment ___ Family Conference ___ Bereavement ___ Rapid Response ___ Code Blue ___ Other (describe below) Pastoral Care Referral From _x__ Patient ___ Family ___ Nurse ___ Physician ___ Compliance Administrator ___ Stationary Steam Engineer ___ Other (describe below) Sacrament/Intervention _x__ Active listening ___ Anointing ___ Mandaeism ___ Bereavement ___ Communion _x__ Amira exploration ___ ___ Life review _x__ Prayer ___ Reconciliation ___ Sacrament of Sick _x__ Supportive presence ___ Wedding ___ Other (describe below) Pastoral Comments
[2023-07-20 17:04] LABS: Bedside Glucose 205 mg/dL (74-106)
[2023-07-20] MEDS: Tamsulosin HCl 0.4 MG Capsule 0.400000000000000022 MG PO (17:06)
[2023-07-20 21:50] LABS: Bedside Glucose 153 mg/dL (74-106)
[2023-07-20] MEDS: Atorvastatin Calcium 80 MG Tablet PO (22:35)
[2023-07-20] MEDS: Insulin Glargine-YFGN 100 UNIT/ML Pen 40 UNIT SC (22:37)
[2023-07-21 06:05] LABS: Bedside Glucose 225 mg/dL (74-106)
[2023-07-21 06:53] LABS: Absolute Lymphocyte Count 1.31 X10^3/uL (0.83-4.51); Absolute Neutrophil Count 3.9 X10^3/uL (2.0-7.7); Basophil# 0.03 X10^3/uL; Basophil% 0.5 % (0-1); Eosinophil# 0.53 X10^3/uL; Eosinophils% 8.4 % (0-5); Hematocrit 31.6 % (37-47); Hemoglobin 10.1 g/dL (12.0-15.0); Lymphocyte # 1.31 X10^3/ul (0.83-4.51); Lymphocyte % 20.8 % (19-41); Mean Corpuscular Hgb 29.8 pg (27.0-32.0); Mean Corpuscular Volume 93.2 fL (81-99); Mean Platelet Vol. 12.1 fl (6.2-12.0); Monocyte# 0.49 X10^3/uL; Monocyte% 7.8 % (0-10); NRBC Flagged by Analyzer 0 % (0-5); Neutrophil # 3.92 X10^3/uL (2.7-7.7); Neutrophil % 62.2 % (47-70); Platelet Count 165 K/mm3 (150-450); RBC Distribution Width CV 14.6 % (11.6-14.6); RBC Distribution Width SD 49.8 fl (35.1-43.9); Red Blood Count 3.39 M/mm3 (4.2-5.4); White Blood Count 6.3 K/mm3 (4.4-11.0)
[2023-07-21 07:08] LABS: Anion Gap 2 (5-15); BUN 71 mg/dL (7-18); Chloride 113 mmol/L (98-107); Creatinine, Serum 1.87 mg/dL (0.55-1.02); EST Glomerular Filtration Rate 29 mL/min (>60); Est Glom Filt Rate - Afr Amer 35 mL/min (>60); Estimated Creatinine Clearance 34.62 ml/min; Glucose 237 mg/dL (74-106); Potassium 5.2 mmol/L (3.5-5.1); Sodium Level 137 mmol/L (136-145)
[2023-07-21] MEDS: Insulin Lispro 100 UNIT/ML INSULN.PEN 13 UNIT SC (08:06)
[2023-07-21] MEDS: Aspirin 81 MG TAB.CHEW PO (08:09)
[2023-07-21] MEDS: Multivitamins,Therapeutic Tablet 1 TABLET PO (08:09)
[2023-07-21] MEDS: Menthol/Lanolin/Calamine/Znox 113 GM Tube 1 APPLIC TOPICAL (08:10)
[2023-07-21] MEDS: Losartan Potassium 100 MG Tablet PO (08:10)
[2023-07-21] MEDS: Clopidogrel Bisulfate 75 MG Tablet PO (08:11)
[2023-07-21] MEDS: Iron Polysaccharide Complex 150 MG CAPSULE PO (08:11)
[2023-07-21] MEDS: Tolterodine Tartrate 2 MG CAP.SA PO (08:11)
[2023-07-21] MEDS: Furosemide 20 MG Tablet PO (08:11)
[2023-07-21] MEDS: Pantoprazole Sodium 40 MG Tablet PO (08:12)
[2023-07-21] MEDS: Senna/Docusate Sodium 1 Tablet PO (08:12)
[2023-07-21] MEDS: Ranolazine 500 MG Tablet 1000 MG PO (08:12)
[2023-07-21 08:13] VITALS: BP 151/77; PULSE 68
[2023-07-21] MEDS: Ascorbic Acid 500 MG Tablet PO (08:13)
[2023-07-21] MEDS: Cholecalciferol (VIT D3) 25 MCG TABLET (1,000 UNITS) 50 MCG PO (08:13)
[2023-07-21] MEDS: Metoprolol(XL)Succ 25 MG Tablet PO (08:13)
[2023-07-21] MEDS: Sertraline 100 MG Tablet PO (08:14)
[2023-07-21] MEDS: Nystatin Powder 15gm Bottle 1 APPLIC TOPICAL (08:17)
[2023-07-21 08:20] VITALS: BP 151/77; PULSE 68; RESP 18; TEMP 36.8; O2SAT 97
[2023-07-21] MEDS: Sodium Polystyrene Sulfonate 15 GM/60 ML UDC 30 GM PO (11:06)
--- NOTE | 2023-07-21 11:08 | NURSING ---
PT REFUSED BELLE BAG CHANGED OUT TO LEG BAG. SENT LEG BAG WITH PT. RN AWARE
== END 2023-07-21 11:05 | disposition home health service (06) | DRG 690 ==
PROVIDERS: Internal Medicine Gastroenterology; Admitting Provider Family Medicine Geriatric Medicine; PCP Nurse Practitioner Family; Visit Provider Family Medicine Geriatric Medicine
DX: N39.0 Urinary tract infection, site not specified (principal); I13.0 Hypertensive heart and chronic kidney disease with heart failure and stage 1 through stage 4 chronic kidney disease, or unspecified chronic kidney disease; M86.8X7 Other osteomyelitis, ankle and foot; I50.32 Chronic diastolic (congestive) heart failure; Z68.42 Body mass index [BMI] 45.0-49.9, adult; L97.519 Non-pressure chronic ulcer of other part of right foot with unspecified severity; K26.9 Duodenal ulcer, unspecified as acute or chronic, without hemorrhage or perforation; E11.22 Type 2 diabetes mellitus with diabetic chronic kidney disease; E11.621 Type 2 diabetes mellitus with foot ulcer; N18.31 Chronic kidney disease, stage 3a; E66.01 Morbid (severe) obesity due to excess calories; Z89.431 Acquired absence of right foot; E11.69 Type 2 diabetes mellitus with other specified complication; Z79.4 Long term (current) use of insulin; D50.9 Iron deficiency anemia, unspecified; F32.A Depression, unspecified; E55.9 Vitamin D deficiency, unspecified; E78.5 Hyperlipidemia, unspecified; I25.10 Atherosclerotic heart disease of native coronary artery without angina pectoris; K21.9 Gastro-esophageal reflux disease without esophagitis; K25.9 Gastric ulcer, unspecified as acute or chronic, without hemorrhage or perforation; B95.61 Methicillin susceptible Staphylococcus aureus infection as the cause of diseases classified elsewhere; B02.9 Zoster without complications; Z95.5 Presence of coronary angioplasty implant and graft; Z87.891 Personal history of nicotine dependence; N32.81 Overactive bladder; Z95.1 Presence of aortocoronary bypass graft; Z79.82 Long term (current) use of aspirin; Z79.02 Long term (current) use of antithrombotics/antiplatelets; Z79.899 Other long term (current) drug therapy; B35.4 Tinea corporis; Z86.73 Personal history of transient ischemic attack (TIA), and cerebral infarction without residual deficits; R33.9 Retention of urine, unspecified; B96.4 Proteus (mirabilis) (morganii) as the cause of diseases classified elsewhere
CPT/HCPCS: 36415; 80048; 81001; 82274; 82306; 82962; 83540; 83930; 83935; 83993; 84300; 85014; 85018; 85025; 87077; 87086; 87088; 87177; 87186; 87209; 87811; 97110; 97116; 97162; 97166; 97530; 97535; 97802; A4216; J2405

== ENCOUNTER 2023-07-04 05:32 | Day surgery (SDC) | payer MEDICARE, SELFPAY ==
[2023-07-04] VITALS (8 sets, daily range): BP systolic 98–136; BP diastolic 26–56; PULSE 62–64; RESP 16–20; TEMP 36.2–36.5; O2SAT 95–97
[2023-07-04] MEDS: Lactated Ringers 1,000 ML 15 ML IV (06:30)
--- NOTE | 2023-07-04 06:35 | IMM_PTH ---
PATHOLOGY RESULTS PATIENT: TONG PHIPPS LOC: EN U#:[id number] AGE/SX: 67/F ROOM: RE07/04/[address]: Dr. Deejay See DO : 1955 BED: DIS: 07/04/2023 SPEC #: [id number] RECD: 07/04/23 12:09 STATUS: JOSE A GUMARO #: [id number] KHANH: 07/04/23 06:[address]: Deejay See DEPT: IMMUNOHISTOCHEMISTRY RECD BY: Chloe Palacios ENTERED: 07/04/23 12:09 SP TYPE: IMMUNO OTHR DR: Urmila Tong, STUDENT AFFAIRS DEAN-C Tissues: Stomach, NOS Procedures: H Pylori (initial) PHYSICIAN & INSTITUTION [place] [id number] SPECIMEN INFORMATION: Tissue Source: Gastric body Clinical Info: Anemia Specimen Number: [id number] CPT code: 52851 METHODOLOGY: Deparaffinized sections of prefer/formalin-fixed tissue or PAP/DQ stained slides are incubated with monoclonal/polyclonal antibodies/oligonucleotide probes. Localization is made via biotin free immunoperoxidase method. Appropriate controls are performed and reacted as expected. Results on target cell population are indicated in the following table: RESULTS: ANTIBODY / CLONE RESULT H Pylori (polyclonal) negative These tests were developed and their performance characteristics determined by [facility]. They may not have been cleared or approved by the U.S. Food and Drug Administration. The FDA has determined that such clearance or approval is not necessary. The above immunohistochemical/dualISH markers are ordered and reviewed by the Pathologist. INTERPRETATION: Gastric body, biopsy: Negative for Helicobacter pylori organisms. SJ:andrea 07/05/2023
--- NOTE | 2023-07-04 06:35 | EGD_PTH ---
PATHOLOGY RESULTS PATIENT: TONG PHIPPS LOC: EN U#:[id number] AGE/SX: 67/F ROOM: RE07/04/[address]: Dr. Deejay See DO : 1955 BED: DIS: 07/04/2023 SPEC #: [id number] RECD: 07/04/23 11:53 STATUS: JOSE A GUMARO #: [id number] KHANH: 07/04/23 06:[address]: Deejay See DEPT: SURGICAL PATHOLOGY RECD BY: Mikala Colin ENTERED: 07/04/23 11:53 SP TYPE: EGD BIOPSY OT DR: Urmila Tong, DOOR PULLER-C Tissues: Gastric mucous membrane Procedures: Surgery Specimen Level IV HEADER OPERATION: EGD with biopsy PRE-OP DIAGNOSIS: Anemia TISSUE SUBMITTED: Gastric body biopsy MICROSCOPIC DIAGNOSIS Gastric body, biopsy: Mild gastritis. See microscopic description and comment. IRISH:andrea 07/05/2023 COMMENT The results of immunohistochemistry for Helicobacter pylori will be reported separately ([id number]). MICROSCOPIC DESCRIPTION Slides are reviewed. The specimen shows fragments of gastric mucosa with chronic inflammatory cell infiltrates in the lamina propria consisting of lymphocytes and plasma cells, consistent with mild chronic gastritis. GROSS DESCRIPTION Received in fixative is one container labeled with the patient's name and designated gastric body biopsy. The specimen consists of multiple irregular fragments of light bruno soft tissue that in aggregate measure 1.0 x 0.3 x 0.1 cm. The specimen is totally submitted in one cassette. / SJ:rg 07/04/2023 TC:3 CPT: 06551
--- NOTE | 2023-07-04 07:00 | HP.PCM_ITS ---
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 She has a history of bilateral carotid stenosis and CAD on aspirin and Plavix. I was consulted to see her due to worsening anemia. She has never had an upper endoscopy. She has had a colonoscopy as of 2 years ago and she said it was normal. She has been having some worsening diarrhea over the last 3 days. [facility] Medical History (Updated 07/03/23 @ 14:42 by Germania Phillips, HAM-C) Bilateral carotid artery stenosis Chronic heart failure with preserved ejection fraction (HFpEF) Chronic kidney disease, stage 3a Coronary artery disease Debility Elevated troponin Encephalopathy Herpes zoster Hyperlipidemia Hypertension Morbid obesity Overactive bladder Stroke Ulcer of right foot due to type 2 diabetes mellitus 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 Urinary tract infection Weakness Home Medications albuterol sulfate 90 mcg/actuation aerosol inhaler (ProAir HFA) 2 inh inhalation Q4H PRN wheezing/shortness of breath 06/22/23 [History Last Taken Unknown] aspirin 81 mg chewable tablet 2 tab PO DAILY blood thinner 06/22/23 [History Last Taken Unknown] atorvastatin 80 mg tablet 80 mg PO QHS cholesterol 06/22/23 [History Last Taken Unknown] cholecalciferol (vitamin D3) 50 mcg (2,000 unit) capsule 2,000 unit PO DAILY supplement 06/22/23 [History Last Taken Unknown] clopidogrel 75 mg tablet 75 mg PO DAILY blood thinner 06/22/23 [History Last Taken Unknown] ferrous sulfate 325 mg (65 mg iron) tablet (Feosol) 325 mg PO DAILY supplement 06/22/23 [History Last Taken Unknown] furosemide 40 mg tablet 60 mg PO DAILY fluid pill 06/22/23 [History Last Taken Unknown] hydrocortisone 2.5 % topical cream applic topical BID itching 06/22/23 [History Last Taken Unknown] insulin glargine 100 unit/mL (3 mL) subcutaneous pen (Lantus Solostar U-100 Insulin) 36 unit subcut QHS diabetes 06/22/23 [History Last Taken Unknown] insulin lispro 100 unit/mL subcutaneous pen 12 unit subcut .AC diabetes 06/22/23 [History Last Taken Unknown] metoprolol succinate 25 mg tablet,extended release 24 hr 25 mg PO DAILY BP/pulse 06/22/23 [History Last Taken Unknown] multivitamin (Daily Multi-Vitamin tablet) 1 tab PO DAILY supplement 06/22/23 [History Last Taken Unknown] nitrofurantoin monohydrate/macrocrystals 100 mg capsule 100 mg PO BID antibiotic 06/22/23 [History Last Taken Unknown] nitroglycerin 0.4 mg sublingual tablet 0.4 mg sublingual Q5M chest pain 06/22/23 [History Last Taken Unknown] ondansetron 4 mg disintegrating tablet 4 mg PO Q6H PRN nausea 06/22/23 [History Last Taken Unknown] oxybutynin chloride 5 mg tablet,extended release 24 hr 5 mg PO DAILY bladder 06/22/23 [History Last Taken Unknown] pantoprazole 40 mg tablet,delayed release 40 mg PO DAILY reflux 06/22/23 [History Last Taken Unknown] ranolazine 1,000 mg tablet,extended release,12 hr 1,000 mg PO Q12H angina 06/22/23 [History Last Taken Unknown] sertraline 100 mg tablet 100 mg PO DAILY mood 06/22/23 [History Last Taken Unknown] valacyclovir 1 gram tablet 1,000 mg PO Q12H shingles 06/22/23 [History Last Taken Unknown] Allergy/AdvReac Type Severity Reaction Status Date / Time cefaclor [From Ceclor] Allergy Unknown Other Verified 06/22/23 16:43 SPEEDY Inhibitors Allergy Other Verified 06/22/23 16:43 Beta-Blockers Allergy Other Verified 06/22/23 16:43 (Beta-Adrenergic Bloc ciprofloxacin Allergy hives Verified 06/22/23 16:43 clindamycin Allergy Rash Verified 06/22/23 16:43 isosorbide [From Imdur] Allergy Other Verified 06/22/23 16:43 Penicillins Allergy Rash Verified 06/22/23 16:43 Family History (Updated 06/22/23 @ 16:[address] Juan Casanova MD) Mother CVA (cerebral vascular accident) Hyperlipidemia GlaucomaFather CAD (coronary artery disease) Hypertension Hyperlipidemia Renal artery stenosis Aortic aneurysmBrother GlaucomaDaughter Psoriasis Surgical History (Updated 06/22/23 @ 16:[address] Juan Casanova MD) History of bilateral cataract extraction History of cholecystectomy History of coronary artery bypass graft History of coronary artery stent placement History of dental surgery History of hernia surgery History of hysterectomy Social History (Updated 06/22/23 @ 16:[address] Juan Casanova MD) household members: spouse Smoking Status: Former smoker alcohol intake: never substance use type: does not use ROS ROS Narrative As in HPI and past medical history Physical Exam Narrative Alert and orient x 3, no apparent distress S1, S2, RRR Lung sounds clear anteriorly and posteriorly. No wheezes rhonchi rales noted Abdomen soft, nontender, positive bowel sounds No pitting edema noted bilateral lower legs. Dressings clean, dry and intact both feet Lab / Micro Data 07/02/23 05:26 07/01/23 05:03 Labs: Laboratory Results - last 24 hr 07/02/23 16:09: POC Glucose 257 H 07/02/23 21:02: POC Glucose 213 H 07/03/23 01:25: POC Glucose 139 H 07/03/23 02:55: Urine Color Yellow, Urine Clarity Sl. Cloudy, Urine pH 9.0, Ur Specific [place] 1.015, Urine Protein 100 H, Urine Glucose (UA) Normal, Urine Ketones Negative, Urine Occult Blood 250 H, Urine Nitrite Negative, Urine Bilirubin Negative, Urine Urobilinogen Normal, Ur Leukocyte Esterase 500 H, Urine RBC 5-10 SEEN, Urine WBC 5-10 SEEN, Ur Squamous Epith Cells 0 SEEN, Urine Bacteria 2+, Urine Mucus 0 SEEN 07/03/23 05:57: POC Glucose 145 H 07/03/23 10:46: POC Glucose 227 H Assessment & Plan Assessment/Plan (1) Anemia: (2) Diarrhea: PLAN: Plan 67-year-old with past medical history of CAD, CVA with bilateral carotid stenosis, CKD with worsening iron deficiency anemia on dual antiplatelet therapy. Differential diagnosis does include peptic ulcer disease, Dhaval's erosions, angiodysplasia, H. pylori associated disease. She should undergo an upper endoscopy to evaluate upper GI tract and if negative she will need to have a colonoscopy. She should also have her stool checked for enteric pathogens because she has been having diarrhea along with C. difficile and stool culture. She was explained alternatives, risk, benefits including not withstanding bleeding, infection, sepsis, perforation, need for return to . She will have an ASA of 3.
--- NOTE | 2023-07-04 07:00 | OP.EGD_ITS ---
Patient Name: Sada Khanna Procedure Date: 07/04/2023 6:21 AM Date of : 1955 Age: 67 Procedure: Upper GI endoscopy Indications: Iron deficiency anemia Providers: Deejay See DO Medicines: Monitored Anesthesia Care Patient Profile: This is a 67 year old female. Refer to note in patient chart for documentation of history and physical. Patient has symptoms of acute abdominal distention and acute nausea. Complications: No immediate complications. Procedure: Pre-Anesthesia Assessment: - Prior to the procedure, a History and Physical was performed, and patient medications and allergies were reviewed. The patient is competent. The risks and benefits of the procedure and the sedation options and risks were discussed with the patient. All questions were answered and informed consent was obtained. Patient identification and proposed procedure were verified by the physician in the pre-procedure area. Mental Status Examination: alert and oriented. Airway Examination: normal oropharyngeal airway and neck mobility. Respiratory Examination: clear to auscultation. CV Examination: normal. Prophylactic Antibiotics: The patient does not require prophylactic antibiotics. Prior Anticoagulants: The patient has taken no anticoagulant or antiplatelet agents. ASA Grade Assessment: II - A patient with mild systemic disease. After reviewing the risks and benefits, the patient was deemed in satisfactory condition to undergo the procedure. The anesthesia plan was to use monitored anesthesia care (MAC). Immediately prior to administration of medications, the patient was re-assessed for adequacy to receive sedatives. The heart rate, respiratory rate, oxygen saturations, blood pressure, adequacy of pulmonary ventilation, and response to care were monitored throughout the procedure. The physical status of the patient was re-assessed after the procedure. After obtaining informed consent, the endoscope was passed under direct vision. Throughout the procedure, the patient's blood pressure, pulse, and oxygen saturations were monitored continuously. The Endoscope was introduced through the mouth, and advanced to the second part of duodenum. The upper GI endoscopy was accomplished without difficulty. The patient tolerated the procedure well. Scope In: 6:50:05 AM Scope Out: 6:51:57 AM Total Procedure Duration Time 0 hours 1 minute 52 seconds Findings: The examined esophagus was normal. Patchy mildly erythematous mucosa without bleeding was found in the gastric antrum. Biopsies were taken with a cold forceps for histology. Verification of patient identification for the specimen was done. Estimated blood loss was minimal. Biopsies were taken with a cold forceps for Helicobacter pylori testing. Verification of patient identification for the specimen was done. Estimated blood loss was minimal. Few non-bleeding linear gastric ulcers with no stigmata of bleeding were found in the gastric body. The largest lesion was 5 mm in largest dimension. Few non-bleeding superficial duodenal ulcers with no stigmata of bleeding were found in the duodenal bulb. The largest lesion was 5 mm in largest dimension. Impression: - Normal esophagus. - Erythematous mucosa in the antrum. Biopsied. - Non-bleeding gastric ulcers with no stigmata of bleeding. - Non-bleeding duodenal ulcers with no stigmata of bleeding. Recommendation: - Return patient to referring hospital for ongoing care. - Resume previous diet. - Continue present medications. - Await pathology results. - Repeat upper endoscopy in 2 months for surveillance. - Use Protonix (pantoprazole) 40 mg PO BID. Procedure Code(s): --- Professional --- 19696, Esophagogastroduodenoscopy, flexible, transoral; with biopsy, single or multiple CPT copyright 2021 [employer]. All rights reserved. The codes documented in this report are preliminary and upon candy feeder review may be revised to meet current compliance requirements. Deejay See DO 07/04/2023 6:59:05 AM This report has been signed electronically. Number of Addenda: 0 Note Initiated On: 07/04/2023 6:21 AM
--- NOTE | 2023-07-04 07:00 | OP.CCLET_ITS ---
07/04/2023 Bam Ny Re : Upper GI endoscopy procedure for Sada Khanna Scott Tong This procedure was performed on Tuesday, July 04, 2023. My impressions and recommendations are as follows: Impressions : - Normal esophagus. - Erythematous mucosa in the antrum. Biopsied. - Non-bleeding gastric ulcers with no stigmata of bleeding. - Non-bleeding duodenal ulcers with no stigmata of bleeding. Recommendations : - Return patient to referring hospital for ongoing care. - Resume previous diet. - Continue present medications. - Await pathology results. - Repeat upper endoscopy in 2 months for surveillance. - Use Protonix (pantoprazole) 40 mg PO BID. My findings are described in the full procedure note, which is enclosed. If I can be of further assistance, please feel free to contact me at . Sincerely, Deejay See, 07/04/2023 6:59:05 AM This report has been signed electronically.
== END 2023-07-04 07:41 | disposition home or self-care (01) ==
LOC: EN 05:35 → AC 05:35
PROVIDERS: PCP Nurse Practitioner Family; Referring Provider Nurse Practitioner Family; Visit Provider Internal Medicine Gastroenterology
PROC: 0DJ08ZZ Inspection of Upper Intestinal Tract, Via Natural or Artificial Opening Endoscopic (ICD-10-PCS; CPT 43235; principal; 2023-07-04 06:30)
DX: K25.9 Gastric ulcer, unspecified as acute or chronic, without hemorrhage or perforation (principal); I13.0 Hypertensive heart and chronic kidney disease with heart failure and stage 1 through stage 4 chronic kidney disease, or unspecified chronic kidney disease; I50.32 Chronic diastolic (congestive) heart failure; E11.22 Type 2 diabetes mellitus with diabetic chronic kidney disease; N18.31 Chronic kidney disease, stage 3a; Z79.2 Long term (current) use of antibiotics; R19.7 Diarrhea, unspecified; Z87.891 Personal history of nicotine dependence; I25.10 Atherosclerotic heart disease of native coronary artery without angina pectoris; E78.5 Hyperlipidemia, unspecified; K26.9 Duodenal ulcer, unspecified as acute or chronic, without hemorrhage or perforation; Z82.3 Family history of stroke; D50.9 Iron deficiency anemia, unspecified; Z86.73 Personal history of transient ischemic attack (TIA), and cerebral infarction without residual deficits; Z79.82 Long term (current) use of aspirin; K29.70 Gastritis, unspecified, without bleeding
CPT/HCPCS: 43239; 88305; 88342; J7120

== ENCOUNTER 2023-08-29 14:34 | Inpatient (IN) | payer MEDICARE, SELFPAY ==
[2023-08-29 14:53] VITALS: BP 159/71; PULSE 56; RESP 16; TEMP 36.3; O2SAT 99; BMI 43.6
[2023-08-29 15:00] VITALS: BP 159/71; PULSE 56; RESP 16; TEMP 36.3; O2SAT 99
[2023-08-29 16:55] LABS: Bedside Glucose 174 mg/dL (74-106)
[2023-08-29] MEDS: Tamsulosin HCl 0.4 MG Capsule PO (17:32)
[2023-08-29] MEDS: Insulin Lispro 100 UNIT/ML INSULN.PEN 12 UNIT SC (17:36)
--- NOTE | 2023-08-29 19:03 | HP.PCM_ITS ---
HPI - General General Date of Admission: 08/29/23 Date of Service: 08/29/23 Chief Complaint: Here for rehabilitation, strengthening. HPI Narrative 08/23/2023 TONG PHIPPS, is a 67 Female who presents with followin08/23/2023 Admit to [facility]. Necrotic right heel with drainage, prior TMA area. Left heel wound, Admit for debridement/antibiotics. No fever, No chills, on Keflex per PCP. Right heel necrotic eschar. Right forefoot TMA purulent drainage, 1 cm area of erythema. Order MRI bilateral foot, consult Dr. Haddad. Vancomycin, Ceftriaxone IV. 08/24/2023 Dr. Haddad performed incision and drainage right heel, and left heel. Wound debridement. Wound VAC. NWB right foot, Partial WB left fore foot, offloading boots. 08/27/2023 Nephrology for IRENE on CKD stage 3, Stop Vancomycin, NS 500cc IV, Hold Furosemide. 08/27/2023 Vascular surgery recommended wound care, off loadking. Consider Angiogram, but recent IRENE. 08/27/2023 Diarrhea x 3, nausea, vomiting. Wound cultures grew staph aureus. Urine culture 50 to 100,000 Enterococcus Faecalis. Vancomycin, Ceftriaxone stopped, start Ancef. 08/28/2023 Nephrology recommended no more Vancomycin. Stop IV fluids, Hold diuretics, consider restart at discharge. Consider SGLT2i. 08/29/2023 Admit to TCU with debility, here for rehabilitation, strengthening, wound care, prior to discharge home with . [facility] Medical History Bilateral carotid artery stenosis Chronic heart failure with preserved ejection fraction (HFpEF) Chronic kidney disease, stage 3a Coronary artery disease Debility Elevated troponin Encephalopathy Herpes zoster Hyperlipidemia Hypertension Morbid obesity Overactive bladder Stroke Ulcer of right foot due to type 2 diabetes mellitus 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 Urinary tract infection Weakness Home Medications albuterol sulfate 90 mcg/actuation aerosol inhaler (ProAir HFA) 2 inh inhalation Q4H PRN wheezing/shortness of breath 06/22/23 [History Last Taken Unknown] aspirin 81 mg chewable tablet 1 tab PO DAILY blood thinner 06/22/23 [History Last Taken 08/29/23 09:10] atorvastatin 80 mg tablet 80 mg PO QHS cholesterol 06/22/23 [History Last Taken 08/28/23 21:10] cholecalciferol (vitamin D3) 50 mcg (2,000 unit) capsule 2,000 unit PO DAILY supplement 06/22/23 [History Last Taken Unknown] clopidogrel 75 mg tablet 75 mg PO DAILY blood thinner 06/22/23 [History Last Taken 07/03/23] insulin glargine 100 unit/mL (3 mL) subcutaneous pen (Lantus Solostar U-100 Insulin) 36 unit subcut QHS diabetes 06/22/23 [History Last Taken 08/29/23 09:50] insulin lispro 100 unit/mL subcutaneous pen 12 unit subcut .AC diabetes 06/22/23 [History Last Taken Unknown] metoprolol succinate 25 mg tablet,extended release 24 hr 25 mg PO DAILY BP/pulse 06/22/23 [History Last Taken 08/29/23 09:10] multivitamin (Daily Multi-Vitamin tablet) 1 tab PO DAILY supplement 06/22/23 [History Last Taken Unknown] nitroglycerin 0.4 mg sublingual tablet 0.4 mg sublingual Q5M chest pain 06/22/23 [History Last Taken Unknown] oxybutynin chloride 5 mg tablet,extended release 24 hr 5 mg PO DAILY bladder 06/22/23 [History Last Taken Unknown] ranolazine 1,000 mg tablet,extended release,12 hr 1,000 mg PO Q12H angina 06/22/23 [History Last Taken 08/29/23 09:10] sertraline 100 mg tablet 100 mg PO DAILY mood 06/22/23 [History Last Taken 08/29/23 09:10] arginine 7 gram-glutam 7 gram-CaHMB 1.5 [id number] oral pwd pkt (Adryan (with collagen)) 1 packet PO BIDCM 30 days #60 ea 07/18/23 [Rx Last Taken Unknown] ascorbic acid (vitamin C) 500 mg tablet 500 mg PO 1000 health maintenance 30 days #30 tabs 07/18/23 [Rx Last Taken 08/29/23 09:10] furosemide 20 mg tablet 20 mg PO DAILY swelling 30 days #30 tabs 07/18/23 [Rx Last Taken 08/25/23 09:30] losartan 100 mg tablet 100 mg PO DAILY 30 days #30 tabs 07/18/23 [Rx Last Taken Unknown] pantoprazole 40 mg tablet,delayed release 40 mg PO BID Stomach acid 30 days #60 tabs 07/18/23 [Rx Last Taken 08/29/23 09:10] polysaccharide iron complex 150 mg iron capsule (Ferrex) 150 mg PO DAILY 30 days #30 caps 07/18/23 [Rx Last Taken Unknown] tamsulosin 0.4 mg capsule 0.4 mg PO DAILY@1730 30 days #30 caps 07/20/23 [Rx Last Taken Unknown] ammonium lactate 12 % lotion (Skin Treatment) 1 applic topical BID PRN dry skin 08/29/23 [History Last Taken Unknown] cephalexin 500 mg capsule 500 mg PO Q8H wound 08/29/23 [History Last Taken 08/29/23 05:15] ferrous sulfate 325 mg (65 mg iron) tablet (Feosol) 325 mg PO QODAY Health maintenance 08/29/23 [History Last Taken 08/28/23 08:00] polyethylene glycol 3350 17 gram/dose oral powder (ClearLax) 17 g PO DAILY constipation 08/29/23 [History Last Taken Unknown] sodium bicarbonate 650 mg tablet 650 mg PO BID supplement 08/29/23 [History Last Taken 08/29/23 09:10] Allergy/AdvReac Type Severity Reaction Status Date / Time cefaclor [From Ceclor] Allergy Unknown Other Verified 07/04/23 05:41 SPEEDY Inhibitors Allergy Other Verified 07/04/23 05:41 Beta-Blockers Allergy Other Verified 07/04/23 05:41 (Beta-Adrenergic Bloc ciprofloxacin Allergy hives Verified 07/04/23 05:41 clindamycin Allergy Rash Verified 07/04/23 05:41 isosorbide [From Imdur] Allergy Other Verified 07/04/23 05:41 Penicillins Allergy Rash Verified 07/04/23 05:41 Family History Mother CVA (cerebral vascular accident) Hyperlipidemia Glaucoma Father CAD (coronary artery disease) Hypertension Hyperlipidemia Renal artery stenosis Aortic aneurysm Brother Glaucoma Daughter Psoriasis Surgical History History of bilateral cataract extraction History of cholecystectomy History of coronary artery bypass graft History of coronary artery stent placement History of dental surgery History of hernia surgery History of hysterectomy Social History household members: spouse Smoking Status: Former smoker alcohol intake: never substance use type: does not use ROS Constitutional Constitutional: Denies chills, fever(s) or weight gain ENT HEENT: Denies headache(s), nasal congestion or nasal discharge Cardiovascular Cardiovascular: Denies chest pain or palpitations Respiratory/Chest Respiratory/Chest: Denies cough, excessive phlegm production or shortness of breath with exertion Gastrointestinal Gastrointestinal: Denies abdominal pain, nausea or vomiting Genitourinary Genitourinary: Denies dysuria Musculoskeletal Musculoskeletal: Denies joint pain or joint swelling Integumentary Integumentary: Denies rash or wounds Neurologic Neurologic: Denies focal weakness, numbness or tingling Psychiatric Psychiatric: Denies anxiety, auditory hallucinations, depression, homicidal ideation or suicidal ideation Vital Signs Vital Signs Vital Signs: 08/29/23 14:53 08/29/23 14:53 08/29/23 15:00 Temperature 97.4 F L 97.4 F L Temperature Source Temporal Temporal Pulse Rate 56 L 56 L Pulse Rhythm Regular Pulse Strength Normal (2+) Respiratory Rate 16 16 16 Respiratory Effort Normal Non-Labored Respiratory Depth Normal Respiratory Pattern Normal Blood Pressure 159/71 H 159/71 H Blood Pressure Mean 100 100 Blood Pressure Source Monitor Monitor Blood Pressure Position Semi-Fowlers Semi-Fowlers Blood Pressure Location Right Arm Right Arm Pulse Ox 99 99 Oxygen Delivery Method Room Air Room Air Room Air Weight Weight: 111.782 kg Body Mass Index (BMI) 43.6 Physical Exam Const alert General Appearance: cooperative HEENT normocephalic Eyes PERRL and EOMs intact bilaterally Neck supple, no JVD and no carotid bruits Resp normal respiratory effort, normal air movement and clear to auscultation bilaterally Cardio regular rate and regular rhythm GI normal to inspection, nondistended, normoactive bowel sounds, non-tender and non-distended Extremity normal capillary refill Extremity Narrative: Bilateral feet dressed. General Extremity: Negative for edema Skin no rashes or lesions noted General Skin Exam: no breakdown Psych affect normal Appearance: appropriate Results Lab / Micro Data Labs: Laboratory Results - last 24 hr 08/29/23 16:10: POC Glucose 174 H Assessment & Plan Assessment/Plan (1) Debility: (2) Diabetic ulcer of both feet: (3) Cellulitis of both feet: (4) Stroke: (5) Hyperlipidemia: (6) Coronary artery disease: (7) (HFpEF) heart failure with preserved ejection fraction: (8) Diabetes mellitus: (9) Depression: (10) Overactive bladder: (11) Urinary retention: PLAN: Plan 67 year old female with below past medical history hospitalized for bilateral diabetic foot infection, underwent incision and drainage bilateral feet per Dr. Haddad 08/24/2023, complicated by IRENE, urinary retention, admitted to TCU with debility, here for rehabilitation, strengthening, wound care, prior to discharge home with . * Debility - PT/OT. * Pain - Tylenol 1000mg q6 prn pain (1-10). * Bowel - Miralax 17gm daily. * Adult immunization - Administer pneumonia vaccine, covid vaccine, flu vaccine as appropriate. * DVT prophylaxis - Hold, on dual antiplatelet therapy. * Shortness of breath - Albuterol 2 puffs q4h prn. * Dry skin - Ammonium lactate topical bid prn. * Iron deficiency anemia - Vitamin C 500mg daily, Ferrous sulfate 325mg every other day. * Stroke - Aspirin 81mg daily, Plavix 75mg daily. * Hyperlipidemia - Atorvastatin 80mg qhs. * S. Aureus cellulitis bilateral feet - Keflex 500mg q8 thru 09/07/2023, consult wound nurse. * Vitamin D deficiency - D3 50mcg daily. * HFpEF - Metoprolol succinate 25mg daily, Furosemide 20mg daily. * Diabetes Mellitus II - Glargine 36 untis daily, Lispro 12 units tidac. * Nutrition - MVI 1 tablet daily. * Coronary artery disease - Metoprolol succinate 25mg daily, Ranexa 1000mg bid, NTG 0.4mg sl q5m prn. * GERD - Pantoprazole 40mg bid. * Depression Sertraline 100mg daily, stable chronic mcfp use, GDR not recommended. * Metabolic acidosis - Sodium bicarb 650mg bid thru 09/08/2023. * Urinary retention - Tamsulosin 0.4mg daily, indwelling penaloza catheter, voiding trials in 3 days.
[2023-08-29] MEDS: Ranolazine 500 MG Tablet 1000 MG PO (21:30)
[2023-08-29] MEDS: Atorvastatin Calcium 80 MG Tablet PO (21:30)
[2023-08-29] MEDS: Cephalexin 500 MG Capsule PO (21:30)
[2023-08-29] MEDS: Pantoprazole Sodium 40 MG Tablet PO (21:30)
[2023-08-29] MEDS: Sodium Bicarbonate 650 MG Tablet PO (21:31)
[2023-08-29] MEDS: Acetaminophen 500 MG Tablet 1000 MG PO (22:18)
[2023-08-29 22:27] LABS: Bedside Glucose 158 mg/dL (74-106)
[2023-08-30] MEDS: Cephalexin 500 MG Capsule PO ×2 (05:18→21:42)
[2023-08-30 05:57] LABS: Absolute Lymphocyte Count 1.24 X10^3/uL (0.83-4.51); Absolute Neutrophil Count 6.2 X10^3/uL (2.0-7.7); Basophil# 0.04 X10^3/uL; Basophil% 0.5 % (0-1); Eosinophil# 0.52 X10^3/uL; Eosinophils% 6.2 % (0-5); Hematocrit 29.1 % (37-47); Hemoglobin 9.1 g/dL (12.0-15.0); Lymphocyte # 1.24 X10^3/ul (0.83-4.51); Lymphocyte % 14.7 % (19-41); Mean Corp Hgb Conc 31.3 g/dL (32-36); Mean Corpuscular Hgb 28.6 pg (27.0-32.0); Mean Corpuscular Volume 91.5 fL (81-99); Mean Platelet Vol. 11.7 fl (6.2-12.0); Monocyte# 0.44 X10^3/uL; Monocyte% 5.2 % (0-10); NRBC Flagged by Analyzer 0 % (0-5); Neutrophil # 6.18 X10^3/uL (2.7-7.7); Platelet Count 207 K/mm3 (150-450); RBC Distribution Width CV 13.7 % (11.6-14.6); RBC Distribution Width SD 45.7 fl (35.1-43.9); Red Blood Count 3.18 M/mm3 (4.2-5.4); White Blood Count 8.5 K/mm3 (4.4-11.0)
[2023-08-30 06:43] LABS: Bedside Glucose 123 mg/dL (74-106)
[2023-08-30 06:53] LABS: Anion Gap 2 (5-15); BUN 46 mg/dL (7-18); BUN/Creat Ratio 23.5 RATIO (10-20); Calcium,Total 8.8 mg/dL (8.5-10.1); Chloride 113 mmol/L (98-107); Creatinine, Serum 1.96 mg/dL (0.55-1.02); EST Glomerular Filtration Rate 27 mL/min (>60); Est Glom Filt Rate - Afr Amer 33 mL/min (>60); Estimated Creatinine Clearance 33.48 ml/min; Glucose 129 mg/dL (74-106); Potassium 4.3 mmol/L (3.5-5.1); Sodium Level 137 mmol/L (136-145)
[2023-08-30] MEDS: Insulin Lispro 100 UNIT/ML INSULN.PEN 12 UNIT SC ×3 (07:54→18:01)
[2023-08-30] MEDS: Aspirin 81 MG TAB.CHEW PO (09:29)
[2023-08-30] MEDS: Multivitamins,Therapeutic Tablet 1 TABLET PO (09:30)
[2023-08-30] MEDS: Ferrous Sulfate 325 MG Tablet PO (09:30)
[2023-08-30] MEDS: Ascorbic Acid 500 MG Tablet PO (09:32)
[2023-08-30] MEDS: Polyethylene Glycol 3350 17 GM PACKET PO (09:32)
[2023-08-30] MEDS: Clopidogrel Bisulfate 75 MG Tablet PO (09:32)
[2023-08-30] MEDS: Ranolazine 500 MG Tablet 1000 MG PO ×2 (09:32→21:43)
[2023-08-30] MEDS: Pantoprazole Sodium 40 MG Tablet PO ×2 (09:32→21:43)
[2023-08-30 09:34] VITALS: BP 135/54; PULSE 56
[2023-08-30] MEDS: Metoprolol(XL)Succ 25 MG Tablet PO (09:34)
[2023-08-30] MEDS: Sertraline 100 MG Tablet PO (09:34)
[2023-08-30] MEDS: Cholecalciferol (VIT D3) 25 MCG TABLET (1,000 UNITS) 50 MCG PO (09:34)
[2023-08-30] MEDS: Sodium Bicarbonate 650 MG Tablet PO ×2 (09:34→21:44)
[2023-08-30] MEDS: Insulin Glargine-YFGN 100 UNIT/ML Pen 36 UNIT SC (09:35)
[2023-08-30] MEDS: Furosemide 20 MG Tablet PO (09:35)
[2023-08-30 09:47] VITALS: BP 135/54; PULSE 56
[2023-08-30] MEDS: Nystatin Powder 15gm Bottle 1 APPLIC TOPICAL ×2 (10:19→21:39)
[2023-08-30 10:25] VITALS: PULSE 58; RESP 18; O2SAT 97
[2023-08-30] MEDS: Tuberculin,Purif.prot.deriv. 50 TU/ML Vial 0.1 ML ID (10:33)
--- NOTE | 2023-08-30 11:05 | WOUNDNOTE ---
wound photo: right heel
--- NOTE | 2023-08-30 11:06 | WOUNDNOTE ---
wound photo: right foot
--- NOTE | 2023-08-30 11:07 | WOUNDNOTE ---
wound photo: left heel
--- NOTE | 2023-08-30 11:22 | CON.PCM.RE_ITS ---
Assessment & Plan Assessment/Plan (1) CKD stage 3 due to type 2 diabetes mellitus: PLAN: Plan This is a 67-year-old female with past medical history significant for hypertension, type 2 diabetes mellitus, chronic kidney disease stage III/IV with baseline creatinine ranging around 1.8 to 2 mg/dL who was admitted to the rehab unit after recent hospitalization for necrotic right foot ulcer. Nephrology consulted as patient has history of CKD. Patient reports she was seen by nephrology when at [facility] for IRENE, never required renal placement therapy. During that hospitalization antibiotics were adjusted, vancomycin was eventually discontinued and diuretics adjusted as well. Patient also required IV fluids for short period of time. Today patient's creatinine is 1.96 mg/dL, bicarb and potassium are normal. Overall renal function is stable and at patient's baseline. Can continue on furosemide as ordered. Also discussed with patient importance of maintaining adequate fluid intake, no more than 2 L/day. Blood pressures acceptable. For antibiotics patient is on oral Keflex. Further orders forthcoming as hospitalization evolves, thank you for allowing us participate in the care of Mrs. Khanna. HPI Consult Data Date of Consult: 08/30/23 HPI Narrative HPI Narrative: TONG KHANNA, is a 67 F with past medical history significant for type 2 diabetes mellitus, hypertension, chronic kidney disease stage III/IV who follows with Dr. Null for management of CKD who was admitted to the rehab unit after recent hospitalization at [facility] for necrotic right heel underwent debridement with placement of wound VAC. Nephrology consulted as patient has history of CKD. Patient reports that she was followed by nephrology when at [facility], she did not require any hemodialysis. Patient had been receiving antibiotics: Vancomycin, ceftriaxone and Ancef. Apparently because of rising creatinine vancomycin was stopped. Patient reports her diuretic dose was cut back and even put on hold. Today patient denies any nausea, vomiting or diarrhea. Reports appetite is good. No further complaints. Patient does state she notes legs to be edematous but improved. [facility] Medical History Bilateral carotid artery stenosis Chronic heart failure with preserved ejection fraction (HFpEF) Chronic kidney disease, stage 3a Coronary artery disease Debility Elevated troponin Encephalopathy Herpes zoster Hyperlipidemia Hypertension Morbid obesity Overactive bladder Stroke Ulcer of right foot due to type 2 diabetes mellitus 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 Urinary tract infection Weakness Home Medications albuterol sulfate 90 mcg/actuation aerosol inhaler (ProAir HFA) 2 inh inhalation Q4H PRN wheezing/shortness of breath 06/22/23 [History Last Taken Unknown] aspirin 81 mg chewable tablet 1 tab PO DAILY blood thinner 06/22/23 [History Last Taken 08/29/23 09:10] atorvastatin 80 mg tablet 80 mg PO QHS cholesterol 06/22/23 [History Last Taken 08/28/23 21:10] cholecalciferol (vitamin D3) 50 mcg (2,000 unit) capsule 2,000 unit PO DAILY supplement 06/22/23 [History Last Taken Unknown] clopidogrel 75 mg tablet 75 mg PO DAILY blood thinner 06/22/23 [History Last Taken 07/03/23] insulin glargine 100 unit/mL (3 mL) subcutaneous pen (Lantus Solostar U-100 Insulin) 36 unit subcut QHS diabetes 06/22/23 [History Last Taken 08/29/23 09:50] insulin lispro 100 unit/mL subcutaneous pen 12 unit subcut .AC diabetes 06/22/23 [History Last Taken Unknown] metoprolol succinate 25 mg tablet,extended release 24 hr 25 mg PO DAILY BP/pulse 06/22/23 [History Last Taken 08/29/23 09:10] multivitamin (Daily Multi-Vitamin tablet) 1 tab PO DAILY supplement 06/22/23 [History Last Taken Unknown] nitroglycerin 0.4 mg sublingual tablet 0.4 mg sublingual Q5M chest pain 06/22/23 [History Last Taken Unknown] oxybutynin chloride 5 mg tablet,extended release 24 hr 5 mg PO DAILY bladder 06/22/23 [History Last Taken Unknown] ranolazine 1,000 mg tablet,extended release,12 hr 1,000 mg PO Q12H angina 06/22/23 [History Last Taken 08/29/23 09:10] sertraline 100 mg tablet 100 mg PO DAILY mood 06/22/23 [History Last Taken 08/29/23 09:10] arginine 7 gram-glutam 7 gram-CaHMB 1.5 [id number]-min oral pwd pkt (Adryan (with collagen)) 1 packet PO BIDCM 30 days #60 ea 07/18/23 [Rx Last Taken Unknown] ascorbic acid (vitamin C) 500 mg tablet 500 mg PO 1000 health maintenance 30 days #30 tabs 07/18/23 [Rx Last Taken 08/29/23 09:10] furosemide 20 mg tablet 20 mg PO DAILY swelling 30 days #30 tabs 07/18/23 [Rx Last Taken 08/25/23 09:30] losartan 100 mg tablet 100 mg PO DAILY 30 days #30 tabs 07/18/23 [Rx Last Taken Unknown] pantoprazole 40 mg tablet,delayed release 40 mg PO BID Stomach acid 30 days #60 tabs 07/18/23 [Rx Last Taken 08/29/23 09:10] polysaccharide iron complex 150 mg iron capsule (Ferrex) 150 mg PO DAILY 30 days #30 caps 07/18/23 [Rx Last Taken Unknown] tamsulosin 0.4 mg capsule 0.4 mg PO DAILY@1730 30 days #30 caps 07/20/23 [Rx Last Taken Unknown] ammonium lactate 12 % lotion (Skin Treatment) 1 applic topical BID PRN dry skin 08/29/23 [History Last Taken Unknown] cephalexin 500 mg capsule 500 mg PO Q8H wound 08/29/23 [History Last Taken 08/29/23 05:15] ferrous sulfate 325 mg (65 mg iron) tablet (Feosol) 325 mg PO QODAY Health maintenance 08/29/23 [History Last Taken 08/28/23 08:00] polyethylene glycol 3350 17 gram/dose oral powder (ClearLax) 17 g PO DAILY constipation 08/29/23 [History Last Taken Unknown] sodium bicarbonate 650 mg tablet 650 mg PO BID supplement 08/29/23 [History Last Taken 08/29/23 09:10] Allergy/AdvReac Type Severity Reaction Status Date / Time cefaclor [From Ceclor] Allergy Unknown Other Verified 07/04/23 05:41 SPEEDY Inhibitors Allergy Other Verified 07/04/23 05:41 Beta-Blockers Allergy Other Verified 07/04/23 05:41 (Beta-Adrenergic Bloc ciprofloxacin Allergy hives Verified 07/04/23 05:41 clindamycin Allergy Rash Verified 07/04/23 05:41 isosorbide [From Imdur] Allergy Other Verified 07/04/23 05:41 Penicillins Allergy Rash Verified 07/04/23 05:41 Family History Mother CVA (cerebral vascular accident) Hyperlipidemia Glaucoma Father CAD (coronary artery disease) Hypertension Hyperlipidemia Renal artery stenosis Aortic aneurysm Brother Glaucoma Daughter Psoriasis Surgical History History of bilateral cataract extraction History of cholecystectomy History of coronary artery bypass graft History of coronary artery stent placement History of dental surgery History of hernia surgery History of hysterectomy Social History household members: spouse Smoking Status: Former smoker alcohol intake: never substance use type: does not use ROS ROS Narrative Alert and orient x 3, no apparent distress S1, S2, RRR Lung sounds clear Abdomen soft, nontender +1 pitting edema bilateral legs. Dressing intact to right foot with wound VAC Lab / Micro Data 08/30/23 05:12 08/30/23 05:12 Labs: Laboratory Results - last 24 hr 08/29/23 16:10: POC Glucose 174 H 08/29/23 21:42: POC Glucose 158 H 08/30/23 05:12: WBC 8.5, RBC 3.18 L, Hgb 9.1 L, Hct 29.1 L, MCV 91.5, MCH 28.6, MCHC 31.3 L, RDW Std Deviation 45.7 H, RDW Coeff of Maciej 13.7, Plt Count 207, MPV 11.7, Immature Gran % (Auto) 0.400, Neut % (Auto) 73.0 H, Lymph % (Auto) 14.7 L, Tompkins % (Auto) 5.2, Eos % (Auto) 6.2 H, Baso % (Auto) 0.5, Absolute Neuts (auto) 6.2, Absolute Lymphs (auto) 1.24, Nucleated RBC % 0, Sodium 137, Potassium 4.3, Chloride 113 H, Carbon Dioxide 22.0, Anion Gap 2 L, BUN 46 H, Creatinine 1.96 H, Estim Creat Clear Calc 33.48, Est GFR (MDRD) Af Amer 33 L, Est GFR (MDRD) Non-Af 27 L, BUN/Creatinine Ratio 23.5 H, Glucose 129 H, Calcium 8.8 08/30/23 05:57: POC Glucose 123 H
[2023-08-30 11:32] LABS: Bedside Glucose 155 mg/dL (74-106)
--- NOTE | 2023-08-30 11:49 | PHA.CONS_ITS ---
Documented by User: Roxann Amato 08/30/23 12:13 TCU RX Drug Regimen Review Subjective/Objective Subjective/Objective: Subjective: TCU Admission. 67 YOF presented from outside hospital. Hospitalized for bilateral diabetic foot infection, underwent incision and drainage bilateral feet per Dr. Haddad 08/24/2023, complicated by IRENE, urinary retention. Admitted to TCU with debility for strengthening and rehabilitation. Objective: Allergies cefaclor [From Ceclor] Allergy (Unknown, Verified 07/04/23 05:41) Other patient unsure SPEEDY Inhibitors Allergy (Verified 07/04/23 05:41) Other patient unsure Beta-Blockers (Beta-Adrenergic Bloc Allergy (Verified 07/04/23 05:41) Other patient unsure ciprofloxacin Allergy (Verified 07/04/23 05:41) hives clindamycin Allergy (Verified 07/04/23 05:41) Rash isosorbide [From Imdur] Allergy (Verified 07/04/23 05:41) Other patient unsure Penicillins Allergy (Verified 07/04/23 05:41) Rash Current Medications Generic Name Dose Route Start Last Admin Trade Name Freq PRN Reason Stop Dose Admin Acetaminophen 1,000 mg 08/29/23 19:22 08/29/23 22:18 Acetaminophen 500 Mg Tablet PO 1,000 mg Q6H PRN PRN Administration Pain Score 1-10 Albuterol Sulfate 2 puff 08/29/23 15:37 Albuterol Ih (6.7 Gm) 1 Puff Inhaler INHALATION Q4H PRN wheezing/shortness of breath Ascorbic Acid 500 mg 08/30/23 10:00 08/30/23 09:32 Ascorbic Acid 500 Mg Tablet PO 500 mg DAILY SAIGE Administration Aspirin 81 mg 08/30/23 08:00 08/30/23 09:29 Aspirin 81 Mg Tab.Chew PO 81 mg DAILYCM SAIGE Administration Atorvastatin Calcium 80 mg 08/29/23 22:00 08/29/23 21:30 Atorvastatin Calcium 80 Mg Tablet PO 80 mg QHS SAIGE Administration Calamine/Phenol 1 applic 08/30/23 10:00 Menthol/Lanolin/Calamine/Znox 113 Gm Tube TOPICAL BID [facility] Protocol Cephalexin 500 mg 08/30/23 22:00 Cephalexin 500 Mg Capsule PO 09/07/23 22:01 Q12 [facility] Cholecalciferol 50 mcg 08/30/23 10:00 08/30/23 09:34 Cholecalciferol (Vit D3) 25 Mcg Tablet (1,000 Units) PO 50 mcg DAILY SAIGE Administration Clopidogrel Bisulfate 75 mg 08/30/23 10:00 08/30/23 09:32 Clopidogrel Bisulfate 75 Mg Tablet PO 75 mg DAILY SAIGE Administration Ferrous Sulfate 325 mg 08/30/23 08:00 08/30/23 09:30 Ferrous Sulfate 325 Mg Tablet PO 325 mg QODAY@0800 SAIGE Administration Furosemide 20 mg 08/30/23 10:00 08/30/23 09:35 Furosemide 20 Mg Tablet PO 20 mg DAILY SAIGE Administration Protocol Insulin Glargine 36 unit 08/30/23 10:00 08/30/23 09:35 Insulin Glargine-Yfgn 100 Unit/Ml Pen SC 36 unit DAILY SAIGE Administration Insulin Human Lispro 12 unit 08/29/23 16:45 08/30/23 07:54 Insulin Lispro 100 Unit/Ml Insuln.Pen SC 12 u TIDAC [facility] Administration Lactic Acid 1 applic 08/29/23 15:26 Ammonium Lactate 225 Gm Bottle TOPICAL BID PRN dry skin Protocol Metoprolol Succinate 25 mg 08/30/23 10:00 08/30/23 09:34 Metoprolol(Xl)Succ 25 Mg Tablet PO 25 mg DAILY SAIGE Administration Protocol Multivitamins 1 tablet 08/30/23 08:00 08/30/23 09:30 Multivitamins,Therapeutic Tablet PO 1 tablet DAILYCM SAIGE Administration Nitroglycerin 0.4 mg 08/29/23 15:41 Nitroglycerin (Inpatient Use) 0.4 Mg Tab.Subl SL Q5M PRN CARDIAC/CHEST PAIN Nystatin 1 applic 08/30/23 10:00 08/30/23 10:19 Nystatin Powder 15gm Bottle TOPICAL 1 applic BID SAIGE Administration Protocol Pantoprazole Sodium 40 mg 08/29/23 22:00 08/30/23 09:32 Pantoprazole Sodium 40 Mg Tablet PO 40 mg BID SAIGE Administration Polyethylene Glycol 17 gm 08/30/23 10:00 08/30/23 09:32 Polyethylene Glycol 3350 17 Gm Packet PO 17 gm DAILY SAIGE Administration Ranolazine 1,000 mg 08/29/23 22:00 08/30/23 09:32 Ranolazine 500 Mg Tablet PO 1,000 mg BID SAIGE Administration Sertraline HCl 100 mg 08/30/23 10:00 08/30/23 09:34 Sertraline 100 Mg Tablet PO 100 mg DAILY SAIGE Administration Sodium Bicarbonate 650 mg 08/29/23 22:00 08/30/23 09:34 Sodium Bicarbonate 650 Mg Tablet PO 09/08/23 22:01 650 mg BID SAIGE Administration Tamsulosin HCl 0.4 mg 08/29/23 17:30 08/29/23 17:32 Tamsulosin Hcl 0.4 Mg Capsule PO 0.4 mg DAILY@1730 SAIGE Administration Tuberculin PPD 0.1 ml 09/06/23 10:00 Tuberculin,Purif.Prot.Deriv. 50 Tu/Ml Vial ID 09/06/23 10:01 X1 ONE Problem List CKD stage 3 due to type 2 diabetes mellitus (Chronic) Urinary retention (Acute) Depression (Acute) Diabetes mellitus (Acute) (HFpEF) heart failure with preserved ejection fraction (Acute) Cellulitis of both feet (Acute) Diabetic ulcer of both feet (Acute) Overactive bladder (Acute) Hyperlipidemia (Acute) Stroke (Acute) Coronary artery disease (Acute) Debility (Acute) Vital Signs Temp Pulse Resp BP Pulse Ox O2 Del Method 97.4 F L 56 L 16 135/54 H 99 Room Air 08/29/23 15:00 08/30/23 09:47 08/29/23 15:00 08/30/23 09:47 08/29/23 15:00 08/29/23 15:00 Oxygen Delivery Method Room Air Weight: 111.782 kg Body Mass Index (BMI) 43.6 Sodium 137 mmol/L (136-145) 08/30/23 05:12 Potassium 4.3 mmol/L (3.5-5.1) 08/30/23 05:12 Chloride 113 mmol/L (98-107) H 08/30/23 05:12 Carbon Dioxide 22.0 mmol/L (21.0-32.0) 08/30/23 05:12 Anion Gap 2 (5-15) L 08/30/23 05:12 BUN 46 mg/dL (7-18) H 08/30/23 05:12 Creatinine 1.96 mg/dL (0.55-1.02) H 08/30/23 05:12 Est GFR (MDRD) Af Amer 33 mL/min (>60) L 08/30/23 05:12 Est GFR (MDRD) Non-Af 27 mL/min (>60) L 08/30/23 05:12 BUN/Creatinine Ratio 23.5 RATIO (10-20) H 08/30/23 05:12 Glucose 129 mg/dL (74-106) H 08/30/23 05:12 Assessment/Plan: 1. Pain: acetaminophen 1000mg PO Q6H PRN pain 1-10. Resident has had 1 dose so far for pain of 8 in the heel. Please continue to monitor for increased pain and PRN usage. 2. Bowel: Miralax 17 gm PO daily. Please continue to monitor for constipation and diarrhea. No documented bowel movements at this time. 3. S. aureus cellulitis (bilateral feet): cephalexin 500mg PO Q12 thru 09/07/23. Frequency changed due to CrCl of 33 mL/min, max dose is 1000mg/day. Please continue to monitor for S/S of infection, diarrhea and renal function. 4. HFpEF/CAD: metoprolol succinate 25mg PO daily, ranolazine 1000mg PO BID, furosemide 20mg PO daily and nitroglycerin 0.4mg SL Q5M PRN chest pain. No PRN doses of nitroglycerin have been given. Please continue to monitor BP (last 135/54), HR (last 56), chest pain, renal function, potassium (last 4.3mmol/L), PRN usage and swelling. Please consider adding hold parameters for metoprolol succinate if clinically appropriate as the last few HR have been 56. Thanks. 5. Stroke: aspirin 81mg PO daily and clopidogrel 75mg PO daily. Please continue to monitor for S/S of bleeding/stroke and hemoglobin (last 9.1g/dL). 6. Diabetes mellitus II: insulin glargine 36units SC daily and insulin lispro 12 units SC TIDAC. Please consider ordering a hemoglobin A1c as there is no level in the chart. Thanks. Please continue to monitor glucose (last 123 mg/dL) and S/S of hypoglycemia. 7. Iron deficiency anemia: ascorbic acid 500mg PO daily and ferrous sulfate 325mg PO every other day. Please continue to monitor hemoglobin, constipation and dark stools. 8. Hyperlipidemia: atorvastatin 80mg PO QHS. Please consider ordering a lipid panel and LFTs as there are no levels in the chart. Thanks. Please continue to monitor for muscle pain. 9. GERD: pantoprazole 40mg PO BID. Please continue to monitor for S/S of GERD and diarrhea (BEERs medication). 10. Metabolic acidosis: sodium bicarbonate 650mg PO BID thru 09/08/23. Please continue to monitor sodium and CO2 (last 22mmol/L). 11. Urinary retention: tamsulosin 0.4mg PO daily. Please continue to monitor for urinary retention and BP. 12. Shortness of breath: albuterol MDI 2puffs Q4H PRN shortness of breath. Resident has not used any doses. Please continue to monitor for SOB and PRN usage. 13. Vitamin D deficiency/nutrition: cholecalciferol 50mcg PO daily and multivitamin 1T PO dailycm. Please continue to monitor vitamin D levels (last ). 14. Dry skin: ammonium lactate BID PRN dry skin. None given yet. Please continue to monitor for dry skin. Assessment/Plan for indications treated with psychotropic medications: 1. Depression: sertraline 100mg PO daily. Please see physician note regarding GDR. Please continue to monitor for suicidal ideation (black box warning), falls/fractures (BEERs medication), GI side effects and sodium (last 137mmol/L). Medical chart and medication regimen reviewed. The following medication irregularities or issues were identified: 1. Metoprolol succinate 25mg PO daily. Please consider adding hold parameters for metoprolol succinate if clinically appropriate as the last few HR have been 56. Thanks. 2. Insulin glargine 36units SC daily and insulin lispro 12 units SC TIDAC. Please consider ordering a hemoglobin A1c as there is no level in the chart. Thanks. 3. Atorvastatin 80mg PO QHS. Please consider ordering a lipid panel and LFTs as there are no levels in the chart. Thanks. Date Date of Note:: 08/30/23 Documented by User: Dr. Juan Casanova MD 08/30/23 13:14 TCU RX Drug Regimen Review Provider Comments Provider responsibility Provider Comments to Recommendations by Pharmacy: Agree
--- NOTE | 2023-08-30 12:50 | NURSING ---
LETYRN/WOUND NURSE INTO SEE PT. WOUND VAC APPLIED ON RT HEEL AT 150. CHANGE M/W/F. LT HEEL DRESSING CHANGE DAILY AND PRN. SEE ORDERS.
--- NOTE | 2023-08-30 13:29 | NURSING ---
KISHOR SETHI,CRACKER AND COOKIE MACHINE OPERATOR IN TO SEE PT TODAY.
--- NOTE | 2023-08-30 13:38 | NURSING ---
PT HAS FINE CRACKLES TO POST LOWER LEFT AND MID /AND LOWER RT. I.S. GIVEN AND EDUCATED PT. PT IN NO DISTRESS OR COUGHING. WILL CONTINUE TO MONITOR.
[2023-08-30 14:41] VITALS: BP 143/48; PULSE 55; RESP 16; TEMP 36.3; O2SAT 95
[2023-08-30 15:03] VITALS: BP 109/61; PULSE 55
[2023-08-30 16:41] LABS: Bedside Glucose 143 mg/dL (74-106)
[2023-08-30] MEDS: Menthol/Lanolin/Calamine/Znox 113 GM Tube 1 APPLIC TOPICAL ×2 (17:27→21:39)
[2023-08-30] MEDS: Tamsulosin HCl 0.4 MG Capsule PO (17:29)
[2023-08-30] MEDS: Atorvastatin Calcium 80 MG Tablet PO (21:43)
[2023-08-30 22:15] LABS: Bedside Glucose 173 mg/dL (74-106)
[2023-08-31 05:32] LABS: Cholesterol 123 mg/dL (200); High Density Lipoprotein 29 mg/dL; Triglycerides 80 mg/dL; Very Low Density Lipoprotein 16 mg/dL (5-40)
[2023-08-31 06:28] LABS: Bedside Glucose 130 mg/dL (74-106)
[2023-08-31 08:15] LABS: Hemoglobin A1c 8.8 % (3.8-5.6)
[2023-08-31] MEDS: Multivitamins,Therapeutic Tablet 1 TABLET PO (08:16)
[2023-08-31] MEDS: Polyethylene Glycol 3350 17 GM PACKET PO (08:16)
[2023-08-31] MEDS: Aspirin 81 MG TAB.CHEW PO (08:16)
[2023-08-31] MEDS: Insulin Lispro 100 UNIT/ML INSULN.PEN 12 UNIT SC ×3 (08:19→17:32)
[2023-08-31] MEDS: Insulin Glargine-YFGN 100 UNIT/ML Pen 36 UNIT SC (08:20)
[2023-08-31] MEDS: Menthol/Lanolin/Calamine/Znox 113 GM Tube 1 APPLIC TOPICAL ×2 (08:23→22:20)
[2023-08-31] MEDS: Ascorbic Acid 500 MG Tablet PO (08:24)
[2023-08-31] MEDS: Cholecalciferol (VIT D3) 25 MCG TABLET (1,000 UNITS) 50 MCG PO (08:24)
[2023-08-31] MEDS: Nystatin Powder 15gm Bottle 1 APPLIC TOPICAL ×2 (08:24→22:21)
[2023-08-31] MEDS: Sertraline 100 MG Tablet PO (08:24)
[2023-08-31] MEDS: Furosemide 20 MG Tablet PO (08:25)
[2023-08-31] MEDS: Clopidogrel Bisulfate 75 MG Tablet PO (08:25)
[2023-08-31] MEDS: Sodium Bicarbonate 650 MG Tablet PO ×2 (08:25→22:21)
[2023-08-31] MEDS: Ranolazine 500 MG Tablet 1000 MG PO ×2 (08:25→22:21)
[2023-08-31] MEDS: Pantoprazole Sodium 40 MG Tablet PO ×2 (08:25→22:21)
[2023-08-31] MEDS: Cephalexin 500 MG Capsule PO ×2 (08:25→22:20)
[2023-08-31 08:28] VITALS: PULSE 77
[2023-08-31] MEDS: Metoprolol(XL)Succ 25 MG Tablet PO (08:28)
--- NOTE | 2023-08-31 10:58 | NURSING ---
Case Aide Note; Activity Asset: Abisai Tomlin has returned to [facility] for continued therapy and remains independent in her choice of daily activities. 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 She has a computer and smartphone she uses for games, and the internet. When not in therapy she will read her book, magazines, watch bapt[employer] tv, work on word search puzzles colors and visit w/family and friends. Staff will remind her of weekly activities and respect her right to say no.
[2023-08-31 11:25] LABS: Bedside Glucose 174 mg/dL (74-106)
[2023-08-31 12:50] VITALS: BP 146/49; PULSE 51; RESP 16; TEMP 36.4; O2SAT 94
--- NOTE | 2023-08-31 16:25 | CASEMGMT ---
Social Work SW met with patient to complete initial intake assessment. SW introduced self and role. Patient has previously stayed on TCU. Patient verified demographics and family contact information. Patient informed SW that on prior discharge she obtain wound care and therapy via [facility]. Patient confirmed code status: Full Code. Patient informed SW that she has Advanced Directive- , Nnamdi Khanna is her decision maker in emergency. Patient has copy of advanced directive in chart. SW educated patient on [facility] insurance coverage and next review date of 09/09 and continued stay is not guaranteed with each review. Patient goal is to return home with with assistance. Patient inquired about Medicaid. Patient and SW completed [employer] application for potential Medicaid. SW submitted referral for [employer]. SW will continue to follow for discharge planning. JOSE Zeng
[2023-08-31 16:43] LABS: Bedside Glucose 136 mg/dL (74-106)
[2023-08-31] MEDS: Tamsulosin HCl 0.4 MG Capsule PO (17:36)
[2023-08-31] MEDS: Juven (unflavored) Packet 1 PACKET PO (17:38)
[2023-08-31 20:15] VITALS: PULSE 70; O2SAT 98
[2023-08-31] MEDS: Atorvastatin Calcium 80 MG Tablet PO (22:21)
[2023-08-31] MEDS: Acetaminophen 500 MG Tablet 1000 MG PO (22:21)
[2023-08-31 23:42] LABS: Bedside Glucose 186 mg/dL (74-106)
[2023-09-01 06:35] LABS: Bedside Glucose 102 mg/dL (74-106)
[2023-09-01] MEDS: Nystatin Powder 15gm Bottle 1 APPLIC TOPICAL ×2 (07:53→20:46)
[2023-09-01] MEDS: Polyethylene Glycol 3350 17 GM PACKET PO (07:55)
--- NOTE | 2023-09-01 07:59 | NURSING ---
BELLE D/C THIS MORNING AT 0745 PER ORDER.
--- NOTE | 2023-09-01 08:15 | NURSING ---
PT THREW UP PARTIAL BREAKFAST. PT STATED SHE FEELS FINE AND ABOUT ONCE A WEEK SHE DOES THIS WHEN SHE COUGHS REAL HARD AND EATS TO FAST. WILL CONTINUE TO MONITOR.
[2023-09-01] MEDS: Insulin Glargine-YFGN 100 UNIT/ML Pen 36 UNIT SC (10:06)
[2023-09-01] MEDS: Furosemide 20 MG Tablet PO (10:23)
[2023-09-01] MEDS: Pantoprazole Sodium 40 MG Tablet PO ×2 (10:24→20:49)
[2023-09-01] MEDS: Cephalexin 500 MG Capsule PO ×2 (10:24→20:48)
[2023-09-01] MEDS: Aspirin 81 MG TAB.CHEW PO (10:25)
[2023-09-01] MEDS: Ferrous Sulfate 325 MG Tablet PO (10:25)
[2023-09-01] MEDS: Ascorbic Acid 500 MG Tablet PO (10:25)
[2023-09-01] MEDS: Multivitamins,Therapeutic Tablet 1 TABLET PO (10:26)
[2023-09-01] MEDS: Clopidogrel Bisulfate 75 MG Tablet PO (10:26)
[2023-09-01] MEDS: Sodium Bicarbonate 650 MG Tablet PO ×2 (10:26→20:49)
[2023-09-01 10:27] VITALS: BP 146/56; PULSE 54
[2023-09-01] MEDS: Ranolazine 500 MG Tablet 1000 MG PO ×2 (10:27→20:49)
[2023-09-01] MEDS: Metoprolol(XL)Succ 25 MG Tablet PO (10:27)
[2023-09-01] MEDS: Sertraline 100 MG Tablet PO (10:28)
[2023-09-01] MEDS: Cholecalciferol (VIT D3) 25 MCG TABLET (1,000 UNITS) 50 MCG PO (10:28)
[2023-09-01] MEDS: Menthol/Lanolin/Calamine/Znox 113 GM Tube 1 APPLIC TOPICAL ×2 (10:31→20:46)
[2023-09-01 10:35] VITALS: BP 146/56; PULSE 54
[2023-09-01 10:40] VITALS: PULSE 54; RESP 18; O2SAT 98
[2023-09-01 12:11] LABS: Bedside Glucose 233 mg/dL (74-106)
[2023-09-01 12:11] LABS: Bedside Glucose 171 mg/dL (74-106)
[2023-09-01] MEDS: Insulin Lispro 100 UNIT/ML INSULN.PEN 12 UNIT SC ×2 (12:44→17:25)
--- NOTE | 2023-09-01 15:17 | NURSING ---
PT VOIDED,BLADDER SCANNED FOR 390. STRAIGHT CATHED FOR 450. PT TOLERATED WELL. WILL CONTINUE TO MONITOR.
[2023-09-01 15:58] VITALS: BP 176/63; PULSE 61; RESP 16; TEMP 36.2; O2SAT 97
[2023-09-01] MEDS: Tamsulosin HCl 0.4 MG Capsule PO (17:31)
[2023-09-01] MEDS: Juven (unflavored) Packet 1 PACKET PO (17:31)
[2023-09-01 17:42] LABS: Bedside Glucose 240 mg/dL (74-106)
[2023-09-01] MEDS: Atorvastatin Calcium 80 MG Tablet PO (20:48)
[2023-09-01 22:15] LABS: Bedside Glucose 171 mg/dL (74-106)
[2023-09-02 06:39] LABS: Bedside Glucose 127 mg/dL (74-106)
--- NOTE | 2023-09-02 07:02 | NURSING ---
PT. BLADDER SCAN 628CC, STRAIGHT CATH 600CC, THIS IS #2 STRAIGHT CATH.
[2023-09-02] MEDS: Nystatin Powder 15gm Bottle 1 APPLIC TOPICAL ×2 (07:52→21:29)
[2023-09-02] MEDS: Menthol/Lanolin/Calamine/Znox 113 GM Tube 1 APPLIC TOPICAL ×2 (07:52→21:28)
[2023-09-02] MEDS: Insulin Lispro 100 UNIT/ML INSULN.PEN 12 UNIT SC ×3 (07:54→17:37)
[2023-09-02] MEDS: Aspirin 81 MG TAB.CHEW PO (07:56)
[2023-09-02] MEDS: Multivitamins,Therapeutic Tablet 1 TABLET PO (07:56)
[2023-09-02 07:57] VITALS: BP 153/57; PULSE 58
[2023-09-02] MEDS: Metoprolol(XL)Succ 25 MG Tablet PO (07:57)
[2023-09-02] MEDS: Pantoprazole Sodium 40 MG Tablet PO ×2 (07:57→21:31)
[2023-09-02] MEDS: Sodium Bicarbonate 650 MG Tablet PO ×2 (07:58→21:33)
[2023-09-02] MEDS: Cephalexin 500 MG Capsule PO ×2 (07:59→21:30)
[2023-09-02] MEDS: Ranolazine 500 MG Tablet 1000 MG PO ×2 (07:59→21:32)
[2023-09-02 08:04] VITALS: BP 153/57; PULSE 58
[2023-09-02] MEDS: Ascorbic Acid 500 MG Tablet PO (09:38)
[2023-09-02] MEDS: Clopidogrel Bisulfate 75 MG Tablet PO (09:38)
[2023-09-02] MEDS: Cholecalciferol (VIT D3) 25 MCG TABLET (1,000 UNITS) 50 MCG PO (09:38)
[2023-09-02] MEDS: Furosemide 20 MG Tablet PO (09:38)
[2023-09-02] MEDS: Polyethylene Glycol 3350 17 GM PACKET PO (09:38)
[2023-09-02] MEDS: Sertraline 100 MG Tablet PO (09:38)
[2023-09-02] MEDS: Insulin Glargine-YFGN 100 UNIT/ML Pen 36 UNIT SC (09:39)
[2023-09-02] MEDS: proCHLORPERazine 5 MG Tablet 10 MG PO (10:01)
[2023-09-02 10:16] LABS: Bedside Glucose 129 mg/dL (74-106)
[2023-09-02 11:37] LABS: Bedside Glucose 120 mg/dL (74-106)
--- NOTE | 2023-09-02 12:55 | RAD_ITS ---
STUDY: X-RAY CHEST REASON FOR EXAM: Female, 67 years old. crackles TECHNIQUE: PA and lateral views of the chest. COMPARISON: None. FINDINGS: Status post median sternotomy. The lungs are clear and expanded. There is no demonstrated pleural abnormality. There is moderate cardiac enlargement. Normal mediastinum and win. Normal visualized pulmonary arteries. Normal visualized aortic arch and descending thoracic aorta. Normal visualized thoracic spine. Normal visualized ribs, clavicles, and shoulders. There is no demonstrated abnormality of the visualized soft tissue structures of the upper abdomen. RAD/Chest PA and Lateral IMPRESSION: No active disease. Cardiomegaly. Electronically Signed: Barrington Poole MD at 13:12 EDT ,
--- NOTE | 2023-09-02 14:38 | NURSING ---
CHEST X-RAY DONE DUE TO FINE CRACKLES TO POST LOWER LOBES AND MID RT LOBE. PT NAUSEATED AFTER BREAKFAST,PRN COMPAZINE GIVEN.
[2023-09-02 16:00] VITALS: BP 135/57; PULSE 51; RESP 16; TEMP 36.2; O2SAT 98
--- NOTE | 2023-09-02 16:21 | NURSING ---
PT COULD NOT VOID. BLADDER SCANNED FOR 3RD TIME. SCANNED FOR 494. 16 FR.BELLE REPLACED,450CC OUT, TEA COLOR/CLEAR URINE. PT TOLERATED WELL.
[2023-09-02 17:11] LABS: Bedside Glucose 108 mg/dL (74-106)
[2023-09-02] MEDS: Juven (unflavored) Packet 1 PACKET PO (17:31)
[2023-09-02] MEDS: Tamsulosin HCl 0.4 MG Capsule PO (17:31)
[2023-09-02] MEDS: Atorvastatin Calcium 80 MG Tablet PO (21:31)
[2023-09-02 22:00] VITALS: PULSE 68; RESP 18; O2SAT 97
[2023-09-02 22:09] LABS: Bedside Glucose 207 mg/dL (74-106)
[2023-09-02] MEDS: Acetaminophen 500 MG Tablet 1000 MG PO (22:10)
[2023-09-03 06:19] LABS: Bedside Glucose 77 mg/dL (74-106)
[2023-09-03 06:19] LABS: Bedside Glucose 67 mg/dL (74-106)
[2023-09-03] MEDS: Furosemide 20 MG Tablet PO (09:55)
[2023-09-03] MEDS: Sertraline 100 MG Tablet PO (09:55)
[2023-09-03] MEDS: Cholecalciferol (VIT D3) 25 MCG TABLET (1,000 UNITS) 50 MCG PO (09:55)
[2023-09-03 10:00] VITALS: PULSE 49; RESP 16; O2SAT 98
[2023-09-03] MEDS: Ascorbic Acid 500 MG Tablet PO (10:00)
[2023-09-03] MEDS: Sodium Bicarbonate 650 MG Tablet PO ×2 (10:00→21:42)
[2023-09-03] MEDS: Ranolazine 500 MG Tablet 1000 MG PO ×2 (10:00→21:42)
[2023-09-03] MEDS: Aspirin 81 MG TAB.CHEW PO (10:00)
[2023-09-03] MEDS: Ferrous Sulfate 325 MG Tablet PO (10:00)
[2023-09-03] MEDS: Multivitamins,Therapeutic Tablet 1 TABLET PO (10:00)
[2023-09-03] MEDS: Cephalexin 500 MG Capsule PO ×2 (10:00→21:42)
[2023-09-03] MEDS: Polyethylene Glycol 3350 17 GM PACKET PO (10:01)
[2023-09-03] MEDS: Clopidogrel Bisulfate 75 MG Tablet PO (10:01)
[2023-09-03] MEDS: Nystatin Powder 15gm Bottle 1 APPLIC TOPICAL ×2 (10:01→21:42)
[2023-09-03] MEDS: Pantoprazole Sodium 40 MG Tablet PO ×2 (10:01→21:42)
[2023-09-03] MEDS: Insulin Glargine-YFGN 100 UNIT/ML Pen 25 UNIT SC (10:08)
[2023-09-03] MEDS: Menthol/Lanolin/Calamine/Znox 113 GM Tube 1 APPLIC TOPICAL ×2 (10:10→21:42)
[2023-09-03 10:11] VITALS: BP 125/62; PULSE 49
--- NOTE | 2023-09-03 10:23 | WOUNDNOTE ---
wound photo: left heel
--- NOTE | 2023-09-03 10:24 | WOUNDNOTE ---
wound photo: right heel
[2023-09-03 10:34] LABS: Bedside Glucose 140 mg/dL (74-106)
[2023-09-03 11:12] LABS: Bedside Glucose 131 mg/dL (74-106)
[2023-09-03] MEDS: Insulin Lispro 100 UNIT/ML INSULN.PEN 8 UNIT SC ×2 (12:03→17:16)
[2023-09-03 14:01] VITALS: BP 150/64; PULSE 49; RESP 16; TEMP 36.6; O2SAT 99
[2023-09-03 15:30] LABS: Bedside Glucose 149 mg/dL (74-106)
[2023-09-03 16:58] LABS: Bedside Glucose 144 mg/dL (74-106)
[2023-09-03] MEDS: Juven (unflavored) Packet 1 PACKET PO (17:16)
[2023-09-03] MEDS: Tamsulosin HCl 0.4 MG Capsule PO (17:16)
[2023-09-03] MEDS: Atorvastatin Calcium 80 MG Tablet PO (21:42)
[2023-09-04 07:55] LABS: Bedside Glucose 70 mg/dL (74-106)
[2023-09-04] MEDS: Multivitamins,Therapeutic Tablet 1 TABLET PO (08:57)
[2023-09-04] MEDS: Furosemide 20 MG Tablet PO (08:57)
[2023-09-04] MEDS: Aspirin 81 MG TAB.CHEW PO (08:57)
[2023-09-04] MEDS: Cephalexin 500 MG Capsule PO ×2 (08:57→20:48)
[2023-09-04] MEDS: Polyethylene Glycol 3350 17 GM PACKET PO (08:57)
[2023-09-04] MEDS: Pantoprazole Sodium 40 MG Tablet PO ×2 (08:57→20:48)
[2023-09-04] MEDS: Clopidogrel Bisulfate 75 MG Tablet PO (08:57)
[2023-09-04] MEDS: Ranolazine 500 MG Tablet 1000 MG PO ×2 (08:57→20:48)
[2023-09-04] MEDS: Sodium Bicarbonate 650 MG Tablet PO ×2 (08:58→20:48)
[2023-09-04] MEDS: Sertraline 100 MG Tablet PO (08:58)
[2023-09-04] MEDS: Cholecalciferol (VIT D3) 25 MCG TABLET (1,000 UNITS) 50 MCG PO (08:58)
[2023-09-04] MEDS: Ascorbic Acid 500 MG Tablet PO (08:58)
[2023-09-04] MEDS: Insulin Lispro 100 UNIT/ML INSULN.PEN 8 UNIT SC ×3 (08:59→16:44)
[2023-09-04] MEDS: Insulin Glargine-YFGN 100 UNIT/ML Pen 25 UNIT SC (09:00)
[2023-09-04 09:02] VITALS: BP 124/46; PULSE 54
[2023-09-04] MEDS: Menthol/Lanolin/Calamine/Znox 113 GM Tube 1 APPLIC TOPICAL ×2 (09:02→20:52)
[2023-09-04] MEDS: Nystatin Powder 15gm Bottle 1 APPLIC TOPICAL ×2 (09:03→20:52)
[2023-09-04 09:10] LABS: Bedside Glucose 179 mg/dL (74-106)
--- NOTE | 2023-09-04 10:36 | PN.RENAL_ITS ---
Subjective Subjective Sitting in chair, denies any complaints. She states she has good appetite. Objective Data Objective Data Vital Signs: Vital Signs Temp Pulse Resp BP Pulse Ox O2 Del Method 97.8 F 54 L 16 124/46 H 99 Room Air 09/03/23 14:01 09/04/23 09:02 09/03/23 14:01 09/04/23 09:02 09/03/23 14:01 09/03/23 14:01 Oxygen Delivery Method Room Air Weight: 111.782 kg Body Mass Index (BMI) 43.6 Intake & Output: Intake and Output for Last 24 Hours 09/02/23 09/03/23 09/04/23 23:59 23:59 23:59 Intake Total 720 / 720 480 / 480 360 / 360 Output Total 450 / 450 2800 / 2800 1500 / 1500 Balance 270 / 270 -2320 / -2320 -1140 / -1140 Lab / Micro Data 08/30/23 05:12 08/30/23 05:12 Labs: Laboratory Results - last 24 hr 09/03/23 10:44: POC Glucose 131 H 09/03/23 15:12: POC Glucose 149 H 09/03/23 16:37: POC Glucose 144 H 09/04/23 07:36: POC Glucose 70 L 09/04/23 08:53: POC Glucose 179 H Physical Exam Narrative Alert and oriented x 3, no apparent distress S1, S2, RRR Lung sounds clear anteriorly and posteriorly Abdomen soft, rounded Trace nonpitting edema bilateral lower legs. Dressing clean dry and intact to right foot. Wound VAC to right foot Indwelling Rick catheter with clear yellow urine in bag Assessment & Plan Assessment/Plan (1) CKD stage 3 due to type 2 diabetes mellitus: PLAN: Plan This is a 67-year-old female with past medical history significant for hyp ertension, type 2 diabetes mellitus, chronic kidney disease stage III/IV with baseline creatinine ranging around 1.8 to 2 mg/dL who was admitted to the rehab unit after recent hospitalization for necrotic right foot ulcer. Nephrology consulted as patient has history of CKD. 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 Potassium and bicarb normal. Patient has good urine output. Can continue on furosemide as ordered (patient reports this is also her home dose). Will continue to monitor renal function. She does not need daily labs for us. Blood pressures acceptable. For antibiotics patient is on oral Keflex. Patient now has Rick secondary to urinary retention.
[2023-09-04] MEDS: Acetaminophen 500 MG Tablet 1000 MG PO (11:00)
[2023-09-04 11:13] LABS: Bedside Glucose 194 mg/dL (74-106)
[2023-09-04 11:35] VITALS: BMI 43.0
[2023-09-04 13:08] VITALS: BP 131/55; PULSE 57; RESP 16; TEMP 36.1; O2SAT 99
--- NOTE | 2023-09-04 15:34 | CHAPLAIN ---
Type of Pastoral Visit _x__ Initial Visit ___ Follow-up Visit ___ On-call Visit ___ General Patient Visit ___ Spiritual Assessment ___ Family Conference ___ Bereavement ___ Rapid Response ___ Code Blue ___ Other (describe below) Pastoral Care Referral From _x__ Patient ___ Family ___ Nurse ___ Physician ___ Job Change Crew Member ___ Trimmer Meat ___ Other (describe below) Sacrament/Intervention _x__ Active listening ___ Anointing ___ Gnosticist ___ Bereavement ___ Communion _x__ Amira exploration ___ ___ Life review _x__ Prayer ___ Reconciliation ___ Sacrament of Sick ___ Supportive presence ___ Wedding ___ Other (describe below) Pastoral Comments patient remembers and had asked for a visit from this relationship assoc; pt was admitted before in TCU; pt had specific questions for the relationship assoc 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
[2023-09-04] MEDS: Tamsulosin HCl 0.4 MG Capsule PO (16:43)
[2023-09-04] MEDS: Juven (unflavored) Packet 1 PACKET PO (16:43)
[2023-09-04 17:13] LABS: Bedside Glucose 96 mg/dL (74-106)
[2023-09-04] MEDS: Atorvastatin Calcium 80 MG Tablet PO (20:49)
[2023-09-04 21:44] LABS: Bedside Glucose 168 mg/dL (74-106)
[2023-09-05 06:29] LABS: Bedside Glucose 144 mg/dL (74-106)
[2023-09-05] MEDS: Insulin Lispro 100 UNIT/ML INSULN.PEN 8 UNIT SC ×3 (07:50→17:24)
[2023-09-05] MEDS: Ferrous Sulfate 325 MG Tablet PO (07:52)
[2023-09-05] MEDS: Aspirin 81 MG TAB.CHEW PO (07:52)
[2023-09-05 07:53] VITALS: BP 171/70; PULSE 68
[2023-09-05] MEDS: Metoprolol(XL)Succ 25 MG Tablet PO (07:53)
[2023-09-05] MEDS: Menthol/Lanolin/Calamine/Znox 113 GM Tube 1 APPLIC TOPICAL ×2 (07:53→20:33)
[2023-09-05] MEDS: Multivitamins,Therapeutic Tablet 1 TABLET PO (07:53)
[2023-09-05] MEDS: Pantoprazole Sodium 40 MG Tablet PO ×2 (07:54→20:32)
[2023-09-05 07:57] VITALS: BP 171/70; PULSE 68
--- NOTE | 2023-09-05 08:52 | NURSING ---
Gambling Monitor Note, MDS for 09/05/2023 Complete
[2023-09-05] MEDS: Insulin Glargine-YFGN 100 UNIT/ML Pen 25 UNIT SC (10:20)
--- NOTE | 2023-09-05 10:20 | CASEMGMT ---
Social Work SW met with pt and completed MDS interviews. BIMS PHQ2 10 Pt stated she does feel lonely/isolated often due to her medical situation and being in hospital/facility. She stated she is starting to feel better though. SW provided support and will continue to follow. Merly PARRA
[2023-09-05] MEDS: Cephalexin 500 MG Capsule PO ×2 (10:22→20:32)
[2023-09-05] MEDS: Furosemide 20 MG Tablet PO (10:22)
[2023-09-05] MEDS: Polyethylene Glycol 3350 17 GM PACKET PO (10:23)
[2023-09-05] MEDS: Ranolazine 500 MG Tablet 1000 MG PO ×2 (10:23→20:32)
[2023-09-05] MEDS: Cholecalciferol (VIT D3) 25 MCG TABLET (1,000 UNITS) 50 MCG PO (10:24)
[2023-09-05] MEDS: Sodium Bicarbonate 650 MG Tablet PO ×2 (10:24→20:32)
[2023-09-05] MEDS: Clopidogrel Bisulfate 75 MG Tablet PO (10:24)
[2023-09-05] MEDS: Sertraline 100 MG Tablet PO (10:24)
[2023-09-05] MEDS: Ascorbic Acid 500 MG Tablet PO (10:24)
[2023-09-05] MEDS: Acetaminophen 500 MG Tablet 1000 MG PO (10:26)
[2023-09-05] MEDS: Nystatin Powder 15gm Bottle 1 APPLIC TOPICAL ×2 (10:33→20:33)
[2023-09-05 10:35] VITALS: BP 135/52; PULSE 56
[2023-09-05 11:53] LABS: Bedside Glucose 161 mg/dL (74-106)
--- NOTE | 2023-09-05 12:00 | CASEMGMT ---
Social Work IDT met withpatient and for care plan meeting. Discussed patient's progres in PT/OT/SN. Pt is making progress but does continue to have weight bearing restrictions. She is also receiving wound care. Educated to [facility] insurance benefits with NRD of 09/10/23. Pt's goal is to return home with and home healthcare. Discussed an alternative plan in case patient still has weight bearing restrictions at time of DC and not able to provide needed care with transfers. SW discussed option on short term chcf placement. Pt is concerned about finances. Referral has been made to [facility] [employer], SW will follow up with this as pt stated she has not heard from anyone. SW did leave a voicemail for [facility] to call SW back with update. SW will continue to follow and assist with DC planning. Merly PARRA
[2023-09-05 12:43] VITALS: BP 131/54; PULSE 57; RESP 18; TEMP 36.2; O2SAT 98
[2023-09-05 13:10] VITALS: PULSE 55; RESP 18; O2SAT 96
--- NOTE | 2023-09-05 15:11 | CASEMGMT ---
Social Work SW spoke with [employer]. She will be visiting patient to get information and will submit medicaid application. AIDA Bravo
--- NOTE | 2023-09-05 15:23 | CASEMGMT ---
Social Work SW spoke with Fidel Porter from [facility] who stated after review, [facility] does not feel pt is appropriate for AL and needs are too high. Ena stated she did speak with the daughter. AIDA Bravo
[2023-09-05 16:35] LABS: Bedside Glucose 126 mg/dL (74-106)
[2023-09-05] MEDS: Juven (unflavored) Packet 1 PACKET PO (17:02)
[2023-09-05] MEDS: Tamsulosin HCl 0.4 MG Capsule PO (17:02)
[2023-09-05] MEDS: Atorvastatin Calcium 80 MG Tablet PO (20:32)
[2023-09-05 22:00] LABS: Bedside Glucose 244 mg/dL (74-106)
[2023-09-06 05:49] LABS: Absolute Lymphocyte Count 1.18 X10^3/uL (0.83-4.51); Absolute Neutrophil Count 4.8 X10^3/uL (2.0-7.7); Basophil# 0.03 X10^3/uL; Basophil% 0.4 % (0-1); Eosinophil# 0.38 X10^3/uL; Eosinophils% 5.5 % (0-5); Hematocrit 30.2 % (37-47); Hemoglobin 9.7 g/dL (12.0-15.0); Lymphocyte # 1.18 X10^3/ul (0.83-4.51); Mean Corp Hgb Conc 32.1 g/dL (32-36); Mean Corpuscular Hgb 29.4 pg (27.0-32.0); Mean Corpuscular Volume 91.5 fL (81-99); Mean Platelet Vol. 12.6 fl (6.2-12.0); Monocyte# 0.56 X10^3/uL; NRBC Flagged by Analyzer 0 % (0-5); Neutrophil # 4.79 X10^3/uL (2.7-7.7); Neutrophil % 68.8 % (47-70); Platelet Count 162 K/mm3 (150-450); RBC Distribution Width CV 14.9 % (11.6-14.6); RBC Distribution Width SD 50.1 fl (35.1-43.9)
[2023-09-06 06:10] LABS: Bedside Glucose 190 mg/dL (74-106)
[2023-09-06 06:28] LABS: Anion Gap 3 (5-15); BUN 55 mg/dL (7-18); BUN/Creat Ratio 27.1 RATIO (10-20); Calcium,Total 8.6 mg/dL (8.5-10.1); Chloride 111 mmol/L (98-107); Creatinine, Serum 2.03 mg/dL (0.55-1.02); EST Glomerular Filtration Rate 26 mL/min (>60); Est Glom Filt Rate - Afr Amer 31 mL/min (>60); Estimated Creatinine Clearance 32.08 ml/min; Glucose 208 mg/dL (74-106); Potassium 4.6 mmol/L (3.5-5.1); Sodium Level 138 mmol/L (136-145)
[2023-09-06] MEDS: Multivitamins,Therapeutic Tablet 1 TABLET PO (08:04)
[2023-09-06] MEDS: Aspirin 81 MG TAB.CHEW PO (08:05)
[2023-09-06] MEDS: Menthol/Lanolin/Calamine/Znox 113 GM Tube 1 APPLIC TOPICAL ×2 (08:05→21:35)
[2023-09-06] MEDS: Nystatin Powder 15gm Bottle 1 APPLIC TOPICAL ×2 (08:06→21:35)
[2023-09-06] MEDS: Polyethylene Glycol 3350 17 GM PACKET PO (08:07)
[2023-09-06] MEDS: Pantoprazole Sodium 40 MG Tablet PO ×2 (08:08→21:35)
[2023-09-06] MEDS: Juven (unflavored) Packet 1 PACKET PO ×2 (08:08→17:08)
[2023-09-06 08:09] VITALS: BP 149/51; PULSE 63
[2023-09-06] MEDS: Metoprolol(XL)Succ 25 MG Tablet PO (08:09)
[2023-09-06] MEDS: Insulin Lispro 100 UNIT/ML INSULN.PEN 8 UNIT SC ×3 (08:09→18:11)
[2023-09-06 08:13] VITALS: BP 149/51; PULSE 63
[2023-09-06] MEDS: Furosemide 20 MG Tablet PO (09:48)
[2023-09-06] MEDS: Clopidogrel Bisulfate 75 MG Tablet PO (09:48)
[2023-09-06] MEDS: Sodium Bicarbonate 650 MG Tablet PO ×2 (09:48→21:35)
[2023-09-06] MEDS: Ranolazine 500 MG Tablet 1000 MG PO ×2 (09:48→21:35)
[2023-09-06] MEDS: Cephalexin 500 MG Capsule PO ×2 (09:48→21:35)
[2023-09-06] MEDS: Cholecalciferol (VIT D3) 25 MCG TABLET (1,000 UNITS) 50 MCG PO (09:48)
[2023-09-06] MEDS: Sertraline 100 MG Tablet PO (09:49)
[2023-09-06] MEDS: Ascorbic Acid 500 MG Tablet PO (09:49)
[2023-09-06] MEDS: Insulin Glargine-YFGN 100 UNIT/ML Pen 25 UNIT SC (09:51)
--- NOTE | 2023-09-06 11:07 | US_ITS ---
INDICATION: UTI EXAMINATION: Ultrasound US Kidney(s) complete (eg, kidneys and bladder) TECHNIQUE: Gordillo scale and color doppler images were obtained of the kidneys. COMPARISON: None. FINDINGS: RIGHT KIDNEY: 11.8 x 5.1 x 4.5 cm. Lobulated renal cortex without focal thinning or scarring. Normal cortical echogenicity. There is no hydronephrosis. No shadowing calculus, focal lesion or perinephric collection is demonstrated. LEFT KIDNEY: 12.1 x 6.5 x 5.7 cm. Lobulated renal cortex without focal thinning or scarring. Normal cortical echogenicity. There is no hydronephrosis. No shadowing calculus, focal lesion or perinephric collection is demonstrated. URINARY BLADDER: Rick catheter completely decompresses the bladder, limiting evaluation. US/Kidney and Bladder IMPRESSION: No hydronephrosis or evidence of obstructive uropathy. Lobulated bilateral renal cortex without focal cortical thinning or scarring. Rick catheter completely decompresses the bladder. Electronically Signed: Weston Bennett MD at 23:53 EDT ,
--- NOTE | 2023-09-06 11:11 | NURSING ---
NEW ORDER FROM FOR RENAL ULTRA SOUND FOR UTI. RN AWARE
[2023-09-06] MEDS: Tuberculin,Purif.prot.deriv. 50 TU/ML Vial 0.1 ML ID (11:44)
[2023-09-06 13:16] VITALS: BP 140/49; PULSE 54; RESP 18; TEMP 36.3; O2SAT 99
[2023-09-06 13:51] LABS: Bedside Glucose 244 mg/dL (74-106)
[2023-09-06 17:07] LABS: Bedside Glucose 133 mg/dL (74-106)
[2023-09-06] MEDS: Tamsulosin HCl 0.4 MG Capsule PO (17:09)
[2023-09-06 20:40] VITALS: PULSE 59; O2SAT 96
[2023-09-06] MEDS: Atorvastatin Calcium 80 MG Tablet PO (21:35)
[2023-09-06 22:26] LABS: Bedside Glucose 188 mg/dL (74-106)
[2023-09-07 00:43] LABS: Bedside Glucose 201 mg/dL (74-106)
[2023-09-07 06:12] LABS: Bedside Glucose 133 mg/dL (74-106)
[2023-09-07] MEDS: Insulin Lispro 100 UNIT/ML INSULN.PEN 8 UNIT SC ×3 (07:36→17:24)
[2023-09-07] MEDS: Aspirin 81 MG TAB.CHEW PO (07:38)
[2023-09-07] MEDS: Juven (unflavored) Packet 1 PACKET PO ×2 (07:38→17:24)
[2023-09-07] MEDS: Insulin Glargine-YFGN 100 UNIT/ML Pen 25 UNIT SC (07:38)
[2023-09-07] MEDS: Ferrous Sulfate 325 MG Tablet PO (07:38)
[2023-09-07] MEDS: Polyethylene Glycol 3350 17 GM PACKET PO (07:39)
[2023-09-07] MEDS: Cephalexin 500 MG Capsule PO ×2 (07:39→22:03)
[2023-09-07] MEDS: Nystatin Powder 15gm Bottle 1 APPLIC TOPICAL ×2 (07:39→22:03)
[2023-09-07] MEDS: Multivitamins,Therapeutic Tablet 1 TABLET PO (07:39)
[2023-09-07] MEDS: Menthol/Lanolin/Calamine/Znox 113 GM Tube 1 APPLIC TOPICAL ×2 (07:39→22:01)
[2023-09-07] MEDS: Furosemide 20 MG Tablet PO (07:39)
[2023-09-07 07:40] VITALS: BP 152/56; PULSE 51
[2023-09-07] MEDS: Ascorbic Acid 500 MG Tablet PO (07:40)
[2023-09-07] MEDS: Cholecalciferol (VIT D3) 25 MCG TABLET (1,000 UNITS) 50 MCG PO (07:40)
[2023-09-07] MEDS: Sodium Bicarbonate 650 MG Tablet PO ×2 (07:40→22:02)
[2023-09-07] MEDS: Ranolazine 500 MG Tablet 1000 MG PO ×2 (07:40→22:01)
[2023-09-07] MEDS: Metoprolol(XL)Succ 25 MG Tablet PO (07:40)
[2023-09-07] MEDS: Sertraline 100 MG Tablet PO (07:40)
[2023-09-07] MEDS: Pantoprazole Sodium 40 MG Tablet PO ×2 (07:40→22:01)
[2023-09-07] MEDS: Clopidogrel Bisulfate 75 MG Tablet PO (07:40)
--- NOTE | 2023-09-07 08:56 | NURSING ---
Spoke with Erica at Dr. Fritz's office, updated that renal US completed. Results faxed to #[phone].
[2023-09-07 10:00] VITALS: O2SAT 98
[2023-09-07 11:18] LABS: Bedside Glucose 128 mg/dL (74-106)
[2023-09-07 15:58] VITALS: BP 154/54; PULSE 49; RESP 14; TEMP 35.3; O2SAT 99
[2023-09-07] MEDS: Tamsulosin HCl 0.4 MG Capsule PO (17:23)
[2023-09-07 17:30] LABS: Bedside Glucose 181 mg/dL (74-106)
[2023-09-07 21:42] LABS: Bedside Glucose 185 mg/dL (74-106)
[2023-09-07] MEDS: Atorvastatin Calcium 80 MG Tablet PO (22:02)
[2023-09-08 06:50] LABS: Bedside Glucose 99 mg/dL (74-106)
[2023-09-08] MEDS: Multivitamins,Therapeutic Tablet 1 TABLET PO (08:25)
[2023-09-08] MEDS: Juven (unflavored) Packet 1 PACKET PO ×2 (08:25→18:17)
[2023-09-08] MEDS: Clopidogrel Bisulfate 75 MG Tablet PO (08:27)
[2023-09-08] MEDS: Furosemide 20 MG Tablet PO (08:27)
[2023-09-08] MEDS: Ascorbic Acid 500 MG Tablet PO (08:28)
[2023-09-08] MEDS: Sertraline 100 MG Tablet PO (08:28)
[2023-09-08] MEDS: Ranolazine 500 MG Tablet 1000 MG PO ×2 (08:28→22:21)
[2023-09-08] MEDS: Cholecalciferol (VIT D3) 25 MCG TABLET (1,000 UNITS) 50 MCG PO (08:28)
[2023-09-08] MEDS: Aspirin 81 MG TAB.CHEW PO (08:28)
[2023-09-08] MEDS: Pantoprazole Sodium 40 MG Tablet PO ×2 (08:29→22:21)
[2023-09-08] MEDS: Polyethylene Glycol 3350 17 GM PACKET PO (08:29)
[2023-09-08] MEDS: Insulin Glargine-YFGN 100 UNIT/ML Pen 25 UNIT SC (08:30)
[2023-09-08] MEDS: Insulin Lispro 100 UNIT/ML INSULN.PEN 8 UNIT SC ×3 (08:30→18:23)
[2023-09-08] MEDS: Sodium Bicarbonate 650 MG Tablet PO ×2 (08:36→22:21)
[2023-09-08 09:30] VITALS: PULSE 53; RESP 18; TEMP 36.7; O2SAT 97
[2023-09-08] MEDS: Nystatin Powder 15gm Bottle 1 APPLIC TOPICAL ×2 (10:48→22:23)
[2023-09-08] MEDS: Menthol/Lanolin/Calamine/Znox 113 GM Tube 1 APPLIC TOPICAL ×2 (10:48→22:22)
[2023-09-08 10:50] VITALS: BP 153/47; PULSE 51; RESP 18
[2023-09-08 11:27] LABS: Bedside Glucose 136 mg/dL (74-106)
[2023-09-08 11:28] VITALS: PULSE 51
[2023-09-08] MEDS: Metoprolol(XL)Succ 25 MG Tablet PO (11:28)
[2023-09-08 15:14] VITALS: BP 150/46; PULSE 54; RESP 16; TEMP 36.7; O2SAT 97
[2023-09-08 16:35] LABS: Bedside Glucose 143 mg/dL (74-106)
[2023-09-08 16:43] VITALS: BMI 43.4
[2023-09-08] MEDS: Tamsulosin HCl 0.4 MG Capsule PO (18:18)
[2023-09-08 21:26] LABS: Bedside Glucose 156 mg/dL (74-106)
[2023-09-08] MEDS: Atorvastatin Calcium 80 MG Tablet PO (22:21)
[2023-09-09 06:19] LABS: Bedside Glucose 160 mg/dL (74-106)
[2023-09-09] MEDS: Insulin Lispro 100 UNIT/ML INSULN.PEN 8 UNIT SC ×3 (06:43→17:48)
[2023-09-09 08:06] VITALS: BP 112/47; PULSE 54; RESP 17; TEMP 36.8; O2SAT 97
[2023-09-09] MEDS: Ferrous Sulfate 325 MG Tablet PO (08:15)
[2023-09-09] MEDS: Juven (unflavored) Packet 1 PACKET PO ×2 (08:15→17:48)
[2023-09-09] MEDS: Aspirin 81 MG TAB.CHEW PO (08:15)
[2023-09-09] MEDS: Menthol/Lanolin/Calamine/Znox 113 GM Tube 1 APPLIC TOPICAL ×2 (08:16→20:57)
[2023-09-09] MEDS: Multivitamins,Therapeutic Tablet 1 TABLET PO (08:16)
[2023-09-09] MEDS: Nystatin Powder 15gm Bottle 1 APPLIC TOPICAL ×2 (08:17→20:58)
[2023-09-09] MEDS: Furosemide 20 MG Tablet PO (08:17)
[2023-09-09 08:18] VITALS: PULSE 54
[2023-09-09] MEDS: Ranolazine 500 MG Tablet 1000 MG PO ×2 (08:18→20:57)
[2023-09-09] MEDS: Clopidogrel Bisulfate 75 MG Tablet PO (08:18)
[2023-09-09] MEDS: Pantoprazole Sodium 40 MG Tablet PO ×2 (08:18→20:57)
[2023-09-09] MEDS: Metoprolol(XL)Succ 25 MG Tablet PO (08:18)
[2023-09-09] MEDS: Ascorbic Acid 500 MG Tablet PO (08:19)
[2023-09-09] MEDS: Cholecalciferol (VIT D3) 25 MCG TABLET (1,000 UNITS) 50 MCG PO (08:19)
[2023-09-09] MEDS: Sertraline 100 MG Tablet PO (08:19)
[2023-09-09] MEDS: Insulin Glargine-YFGN 100 UNIT/ML Pen 25 UNIT SC (10:36)
[2023-09-09 11:28] LABS: Bedside Glucose 240 mg/dL (74-106)
--- NOTE | 2023-09-09 14:00 | NURSING ---
Patient called out to nurse and states she doesn't feel well. Patient diaphoretic, warm to touch. Does not appear pale or clammy. Patient denies chest pain or shortness of breath. Patient can not describe how she is feeling other than not well. Vital signs check. BP: 150/69 T: 98.5 HR: 54 SpO2: 94% on RA RR 16. BGT: 281. Room does feel warm. Nurse adjusted thermostat. Will continue to monitor.
[2023-09-09 14:15] LABS: Bedside Glucose 281 mg/dL (74-106)
[2023-09-09 16:56] LABS: Bedside Glucose 246 mg/dL (74-106)
[2023-09-09] MEDS: Tamsulosin HCl 0.4 MG Capsule PO (17:48)
[2023-09-09] MEDS: Atorvastatin Calcium 80 MG Tablet PO (20:57)
[2023-09-09 21:27] LABS: Bedside Glucose 248 mg/dL (74-106)
[2023-09-10 06:36] LABS: Bedside Glucose 256 mg/dL (74-106)
[2023-09-10] MEDS: Insulin Lispro 100 UNIT/ML INSULN.PEN 10 UNIT SC ×3 (08:03→17:30)
[2023-09-10] MEDS: Nystatin Powder 15gm Bottle 1 APPLIC TOPICAL ×2 (08:05→20:06)
[2023-09-10] MEDS: Menthol/Lanolin/Calamine/Znox 113 GM Tube 1 APPLIC TOPICAL ×2 (08:05→20:05)
[2023-09-10] MEDS: Aspirin 81 MG TAB.CHEW PO (08:06)
[2023-09-10] MEDS: Multivitamins,Therapeutic Tablet 1 TABLET PO (08:07)
[2023-09-10] MEDS: Pantoprazole Sodium 40 MG Tablet PO ×2 (08:08→20:04)
[2023-09-10 08:11] VITALS: BP 117/40; PULSE 63
[2023-09-10] MEDS: Metoprolol(XL)Succ 25 MG Tablet PO (08:11)
[2023-09-10] MEDS: Polyethylene Glycol 3350 17 GM PACKET PO (08:12)
[2023-09-10 08:18] VITALS: BP 117/40; PULSE 63
[2023-09-10] MEDS: Ranolazine 500 MG Tablet 1000 MG PO ×2 (09:07→20:04)
[2023-09-10] MEDS: Clopidogrel Bisulfate 75 MG Tablet PO (09:07)
[2023-09-10] MEDS: Furosemide 20 MG Tablet PO (09:07)
[2023-09-10] MEDS: Cholecalciferol (VIT D3) 25 MCG TABLET (1,000 UNITS) 50 MCG PO (09:08)
[2023-09-10] MEDS: Sertraline 100 MG Tablet PO (09:08)
[2023-09-10] MEDS: Ascorbic Acid 500 MG Tablet PO (09:08)
[2023-09-10] MEDS: Insulin Glargine-YFGN 100 UNIT/ML Pen 25 UNIT SC (09:10)
[2023-09-10] MEDS: COVID VAC 23-24(12UP)(ANDU)/PF 50 MCG/0.5 ML SYRINGE IM (10:38)
--- NOTE | 2023-09-10 10:42 | NURSING ---
COVID VACCINE SPIKEVAX 23-24 GIVEN IN RT DELTOID. PT TOLERATED WELL.WILL CONTINUE TO MONITOR.
[2023-09-10 11:25] LABS: Bedside Glucose 303 mg/dL (74-106)
[2023-09-10 13:23] VITALS: BP 130/55; PULSE 49; RESP 16; TEMP 36.4; O2SAT 96
--- NOTE | 2023-09-10 14:31 | WOUNDNOTE ---
wound photo: right heel
--- NOTE | 2023-09-10 14:32 | WOUNDNOTE ---
wound photo: right foot
--- NOTE | 2023-09-10 14:33 | WOUNDNOTE ---
wound photo: left heel
[2023-09-10 16:51] LABS: Bedside Glucose 299 mg/dL (74-106)
[2023-09-10] MEDS: Juven (unflavored) Packet 1 PACKET PO (17:24)
[2023-09-10] MEDS: Tamsulosin HCl 0.4 MG Capsule PO (17:25)
[2023-09-10] MEDS: Atorvastatin Calcium 80 MG Tablet PO (20:05)
[2023-09-10 21:33] LABS: Bedside Glucose 281 mg/dL (74-106)
[2023-09-11 06:36] LABS: Bedside Glucose 259 mg/dL (74-106)
[2023-09-11] MEDS: Aspirin 81 MG TAB.CHEW PO (09:10)
[2023-09-11] MEDS: Multivitamins,Therapeutic Tablet 1 TABLET PO (09:10)
[2023-09-11] MEDS: Ferrous Sulfate 325 MG Tablet PO (09:10)
[2023-09-11] MEDS: Nystatin Powder 15gm Bottle 1 APPLIC TOPICAL ×2 (09:11→22:00)
[2023-09-11] MEDS: Menthol/Lanolin/Calamine/Znox 113 GM Tube 1 APPLIC TOPICAL ×2 (09:12→21:59)
[2023-09-11] MEDS: Insulin Glargine-YFGN 100 UNIT/ML Pen 30 UNIT SC (09:12)
[2023-09-11 09:13] VITALS: BP 144/55; PULSE 60
[2023-09-11] MEDS: Furosemide 20 MG Tablet PO (09:13)
[2023-09-11] MEDS: Ranolazine 500 MG Tablet 1000 MG PO ×2 (09:13→22:01)
[2023-09-11] MEDS: Pantoprazole Sodium 40 MG Tablet PO ×2 (09:13→22:00)
[2023-09-11] MEDS: Metoprolol(XL)Succ 25 MG Tablet PO (09:13)
[2023-09-11] MEDS: Polyethylene Glycol 3350 17 GM PACKET PO (09:13)
[2023-09-11] MEDS: Clopidogrel Bisulfate 75 MG Tablet PO (09:13)
[2023-09-11] MEDS: Insulin Lispro 100 UNIT/ML INSULN.PEN 15 UNIT SC ×3 (09:14→17:26)
[2023-09-11] MEDS: Cholecalciferol (VIT D3) 25 MCG TABLET (1,000 UNITS) 50 MCG PO (09:14)
[2023-09-11] MEDS: Ascorbic Acid 500 MG Tablet PO (09:14)
[2023-09-11] MEDS: Sertraline 100 MG Tablet PO (09:14)
--- NOTE | 2023-09-11 09:49 | MDS.RN ---
Information for the MDS was obtained from review of the clinical record, interview of resident, staff, and direct observation of resident?s care.
[2023-09-11 11:06] LABS: Bedside Glucose 303 mg/dL (74-106)
[2023-09-11 11:16] VITALS: BMI 42.6
[2023-09-11 13:51] VITALS: BP 128/56; PULSE 50; RESP 18; TEMP 36.4; O2SAT 97
[2023-09-11 17:24] LABS: Bedside Glucose 309 mg/dL (74-106)
[2023-09-11] MEDS: Tamsulosin HCl 0.4 MG Capsule PO (17:26)
[2023-09-11] MEDS: Juven (unflavored) Packet 1 PACKET PO (17:26)
[2023-09-11 21:52] LABS: Bedside Glucose 216 mg/dL (74-106)
[2023-09-11] MEDS: Atorvastatin Calcium 80 MG Tablet PO (22:01)
[2023-09-12 06:11] LABS: Bedside Glucose 134 mg/dL (74-106)
[2023-09-12] MEDS: Insulin Lispro 100 UNIT/ML INSULN.PEN 15 UNIT SC ×2 (08:29→11:54)
[2023-09-12] MEDS: Aspirin 81 MG TAB.CHEW PO (08:29)
[2023-09-12] MEDS: Pantoprazole Sodium 40 MG Tablet PO ×2 (08:30→22:38)
[2023-09-12] MEDS: Clopidogrel Bisulfate 75 MG Tablet PO (08:30)
[2023-09-12] MEDS: Polyethylene Glycol 3350 17 GM PACKET PO (08:30)
[2023-09-12] MEDS: Furosemide 20 MG Tablet PO (08:30)
[2023-09-12] MEDS: Ranolazine 500 MG Tablet 1000 MG PO ×2 (08:30→22:38)
[2023-09-12] MEDS: Multivitamins,Therapeutic Tablet 1 TABLET PO (08:30)
[2023-09-12] MEDS: Juven (unflavored) Packet 1 PACKET PO (08:30)
[2023-09-12] MEDS: Cholecalciferol (VIT D3) 25 MCG TABLET (1,000 UNITS) 50 MCG PO (08:31)
[2023-09-12] MEDS: Ascorbic Acid 500 MG Tablet PO (08:31)
[2023-09-12] MEDS: Sertraline 100 MG Tablet PO (08:31)
[2023-09-12] MEDS: Insulin Glargine-YFGN 100 UNIT/ML Pen 30 UNIT SC (08:32)
[2023-09-12 08:34] VITALS: BP 154/59; PULSE 52
[2023-09-12] MEDS: Metoprolol(XL)Succ 25 MG Tablet PO (08:34)
[2023-09-12] MEDS: Nystatin Powder 15gm Bottle 1 APPLIC TOPICAL ×2 (08:42→22:39)
[2023-09-12] MEDS: Menthol/Lanolin/Calamine/Znox 113 GM Tube 1 APPLIC TOPICAL ×2 (08:43→22:39)
[2023-09-12 11:13] LABS: Bedside Glucose 154 mg/dL (74-106)
[2023-09-12 11:58] VITALS: BP 141/59; PULSE 52; RESP 16; TEMP 36.1; O2SAT 99
[2023-09-12 16:54] LABS: Bedside Glucose 148 mg/dL (74-106)
[2023-09-12] MEDS: Tamsulosin HCl 0.4 MG Capsule PO (17:53)
[2023-09-12] MEDS: proCHLORPERazine 5 MG Tablet 10 MG PO (17:53)
[2023-09-12 21:18] LABS: Bedside Glucose 169 mg/dL (74-106)
[2023-09-12] MEDS: Atorvastatin Calcium 80 MG Tablet PO (22:38)
[2023-09-12] MEDS: Acetaminophen 500 MG Tablet 1000 MG PO (22:39)
[2023-09-12 22:45] VITALS: PULSE 58; O2SAT 97
[2023-09-13 05:37] LABS: Absolute Lymphocyte Count 0.99 X10^3/uL (0.83-4.51); Absolute Neutrophil Count 2.1 X10^3/uL (2.0-7.7); Basophil# 0.02 X10^3/uL; Basophil% 0.5 % (0-1); Eosinophil# 0.53 X10^3/uL; Eosinophils% 12.7 % (0-5); Hematocrit 27.9 % (37-47); Lymphocyte # 0.99 X10^3/ul (0.83-4.51); Lymphocyte % 23.8 % (19-41); Mean Corp Hgb Conc 32.3 g/dL (32-36); Mean Corpuscular Hgb 29.5 pg (27.0-32.0); Mean Corpuscular Volume 91.5 fL (81-99); Monocyte# 0.48 X10^3/uL; Monocyte% 11.5 % (0-10); NRBC Flagged by Analyzer 0 % (0-5); Neutrophil # 2.13 X10^3/uL (2.7-7.7); Neutrophil % 51.3 % (47-70); Platelet Count 126 K/mm3 (150-450); RBC Distribution Width CV 15.3 % (11.6-14.6); RBC Distribution Width SD 50.3 fl (35.1-43.9); Red Blood Count 3.05 M/mm3 (4.2-5.4); White Blood Count 4.2 K/mm3 (4.4-11.0)
[2023-09-13 06:06] LABS: Anion Gap 4 (5-15); BUN 62 mg/dL (7-18); BUN/Creat Ratio 31.6 RATIO (10-20); Calcium,Total 8.4 mg/dL (8.5-10.1); Chloride 113 mmol/L (98-107); Creatinine, Serum 1.96 mg/dL (0.55-1.02); EST Glomerular Filtration Rate 27 mL/min (>60); Est Glom Filt Rate - Afr Amer 33 mL/min (>60); Estimated Creatinine Clearance 33.03 ml/min; Glucose 102 mg/dL (74-106); Potassium 4.3 mmol/L (3.5-5.1); Sodium Level 140 mmol/L (136-145)
[2023-09-13 06:21] LABS: Bedside Glucose 77 mg/dL (74-106)
[2023-09-13] MEDS: Insulin Lispro 100 UNIT/ML INSULN.PEN 15 UNIT SC ×2 (07:58→17:41)
[2023-09-13] MEDS: Aspirin 81 MG TAB.CHEW PO (08:00)
[2023-09-13] MEDS: Ferrous Sulfate 325 MG Tablet PO (08:00)
[2023-09-13] MEDS: Nystatin Powder 15gm Bottle 1 APPLIC TOPICAL ×2 (08:01→20:17)
[2023-09-13] MEDS: Multivitamins,Therapeutic Tablet 1 TABLET PO (08:01)
[2023-09-13] MEDS: Menthol/Lanolin/Calamine/Znox 113 GM Tube 1 APPLIC TOPICAL ×2 (08:01→20:17)
[2023-09-13] MEDS: Pantoprazole Sodium 40 MG Tablet PO ×2 (08:02→20:16)
[2023-09-13] MEDS: Furosemide 20 MG Tablet PO (08:02)
[2023-09-13] MEDS: Cholecalciferol (VIT D3) 25 MCG TABLET (1,000 UNITS) 50 MCG PO (08:02)
[2023-09-13 08:03] VITALS: BP 145/50; PULSE 55
[2023-09-13] MEDS: Metoprolol(XL)Succ 25 MG Tablet PO (08:03)
[2023-09-13] MEDS: Ascorbic Acid 500 MG Tablet PO (08:03)
[2023-09-13] MEDS: Ranolazine 500 MG Tablet 1000 MG PO ×2 (08:03→20:16)
[2023-09-13] MEDS: Clopidogrel Bisulfate 75 MG Tablet PO (08:04)
[2023-09-13] MEDS: Sertraline 100 MG Tablet PO (08:04)
[2023-09-13 08:10] LABS: Bedside Glucose 93 mg/dL (74-106)
[2023-09-13 08:11] VITALS: BP 145/50; PULSE 55
--- NOTE | 2023-09-13 09:15 | NURSING ---
PHYSICIANS PICKED UP PT AT 0845 FOR APPOINTMENT WITH .
[2023-09-13 12:29] LABS: Bedside Glucose 61 mg/dL (74-106)
--- NOTE | 2023-09-13 12:51 | NURSING ---
PT RETURNED TO FLOOR BY COT FROM APPOINTMENT AT 1200. SEE NEW ORDERS.
[2023-09-13] MEDS: Polyethylene Glycol 3350 17 GM PACKET PO (12:54)
[2023-09-13 12:57] LABS: Bedside Glucose 69 mg/dL (74-106)
--- NOTE | 2023-09-13 12:58 | NURSING ---
PT BLOOD SUGAR 61. HELD LUNCH TIME HUMALOG, GAVE LUNCH, OJ AND COOKIES GIVEN. WILL CONTINUE TO MONITOR. RN AWARE
[2023-09-13] MEDS: Insulin Glargine-YFGN 100 UNIT/ML Pen 30 UNIT SC (13:49)
[2023-09-13 13:57] LABS: Bedside Glucose 136 mg/dL (74-106)
[2023-09-13 15:03] VITALS: PULSE 61; RESP 18; O2SAT 97
[2023-09-13 15:08] VITALS: BP 147/93; PULSE 51; RESP 20; TEMP 36.2; O2SAT 99
--- NOTE | 2023-09-13 15:16 | WOUNDNOTE ---
wound photo: right foot
--- NOTE | 2023-09-13 15:16 | WOUNDNOTE ---
wound photo: right heel
--- NOTE | 2023-09-13 15:17 | WOUNDNOTE ---
wound photo: left heel
--- NOTE | 2023-09-13 16:38 | CASEMGMT ---
Social Work SW met with patient at bedside to discuss transition of care plans. Patient informed SW that she has been contemplating transition of care plans. Patient informed SW that she her goal is to return home with and home health care with additional private duty support. The patient informed SW that she would like someone to come to the home once or twice a week to assist with cleaning. Patient informed SW that her obtained training to assist with bathing support. Patient informed SW that she completed application via [employer]. The patient is unaware of application status at this time. SW discussed alternative care plans with patient. The patient informed SW that long term care pharmacist care may be a possibility, but she is concerned about finances. Patient informed SW that she will be contacting her to discuss plan of care. [facility] to discuss [facility] applications status. SW spoke with Latisha from [facility] who confirmed that the patient's application is pending review. Patient case #[id number] SW will continue to follow to assist with discharge plans JOSE Zeng
[2023-09-13 16:56] LABS: Bedside Glucose 219 mg/dL (74-106)
[2023-09-13] MEDS: Tamsulosin HCl 0.4 MG Capsule PO (17:26)
[2023-09-13] MEDS: Juven (unflavored) Packet 1 PACKET PO (17:26)
[2023-09-13] MEDS: Atorvastatin Calcium 80 MG Tablet PO (20:16)
[2023-09-13 21:29] LABS: Bedside Glucose 254 mg/dL (74-106)
[2023-09-14] MEDS: Acetaminophen 500 MG Tablet 1000 MG PO (01:10)
[2023-09-14 06:26] LABS: Bedside Glucose 169 mg/dL (74-106)
[2023-09-14] MEDS: Insulin Lispro 100 UNIT/ML INSULN.PEN 7 UNIT SC ×3 (07:37→16:48)
[2023-09-14] MEDS: Insulin Glargine-YFGN 100 UNIT/ML Pen 20 UNIT SC (09:04)
[2023-09-14] MEDS: Polyethylene Glycol 3350 17 GM PACKET PO (09:04)
[2023-09-14] MEDS: Multivitamins,Therapeutic Tablet 1 TABLET PO (09:05)
[2023-09-14] MEDS: Menthol/Lanolin/Calamine/Znox 113 GM Tube 1 APPLIC TOPICAL ×2 (09:05→23:48)
[2023-09-14] MEDS: Aspirin 81 MG TAB.CHEW PO (09:05)
[2023-09-14] MEDS: Nystatin Powder 15gm Bottle 1 APPLIC TOPICAL ×2 (09:06→23:48)
[2023-09-14] MEDS: Pantoprazole Sodium 40 MG Tablet PO ×2 (09:06→23:48)
[2023-09-14] MEDS: Clopidogrel Bisulfate 75 MG Tablet PO (09:06)
[2023-09-14] MEDS: Ascorbic Acid 500 MG Tablet PO (09:07)
[2023-09-14] MEDS: Ranolazine 500 MG Tablet 1000 MG PO ×2 (09:07→23:48)
[2023-09-14] MEDS: Sertraline 100 MG Tablet PO (09:07)
[2023-09-14] MEDS: Cholecalciferol (VIT D3) 25 MCG TABLET (1,000 UNITS) 50 MCG PO (09:07)
[2023-09-14] MEDS: Furosemide 20 MG Tablet PO (10:54)
[2023-09-14 11:50] LABS: Bedside Glucose 217 mg/dL (74-106)
[2023-09-14 15:58] VITALS: BP 106/79; PULSE 52; RESP 16; TEMP 36.4; O2SAT 98
[2023-09-14] MEDS: Juven (unflavored) Packet 1 PACKET PO (16:48)
[2023-09-14] MEDS: Tamsulosin HCl 0.4 MG Capsule PO (16:48)
[2023-09-14 17:46] LABS: Bedside Glucose 173 mg/dL (74-106)
[2023-09-14 22:04] LABS: Bedside Glucose 203 mg/dL (74-106)
[2023-09-14] MEDS: Atorvastatin Calcium 80 MG Tablet PO (23:48)
[2023-09-15 06:28] LABS: Bedside Glucose 151 mg/dL (74-106)
[2023-09-15 09:43] VITALS: BP 152/53; PULSE 54; RESP 18; TEMP 36.3; O2SAT 98
[2023-09-15] MEDS: Menthol/Lanolin/Calamine/Znox 113 GM Tube 1 APPLIC TOPICAL ×2 (09:45→22:25)
[2023-09-15] MEDS: Juven (unflavored) Packet 1 PACKET PO ×2 (09:48→18:00)
[2023-09-15] MEDS: Polyethylene Glycol 3350 17 GM PACKET PO (09:49)
[2023-09-15 09:50] VITALS: PULSE 54
[2023-09-15] MEDS: Clopidogrel Bisulfate 75 MG Tablet PO (09:50)
[2023-09-15] MEDS: Pantoprazole Sodium 40 MG Tablet PO ×2 (09:50→22:25)
[2023-09-15] MEDS: Sertraline 100 MG Tablet PO (09:50)
[2023-09-15] MEDS: Multivitamins,Therapeutic Tablet 1 TABLET PO (09:50)
[2023-09-15] MEDS: Furosemide 20 MG Tablet PO (09:50)
[2023-09-15] MEDS: Ranolazine 500 MG Tablet 1000 MG PO ×2 (09:50→22:25)
[2023-09-15] MEDS: Metoprolol(XL)Succ 25 MG Tablet PO (09:50)
[2023-09-15] MEDS: Ascorbic Acid 500 MG Tablet PO (09:51)
[2023-09-15] MEDS: Aspirin 81 MG TAB.CHEW PO (09:51)
[2023-09-15] MEDS: Ferrous Sulfate 325 MG Tablet PO (09:51)
[2023-09-15] MEDS: Cholecalciferol (VIT D3) 25 MCG TABLET (1,000 UNITS) 50 MCG PO (09:51)
[2023-09-15] MEDS: Nystatin Powder 15gm Bottle 1 APPLIC TOPICAL ×2 (09:52→22:25)
[2023-09-15] MEDS: Insulin Glargine-YFGN 100 UNIT/ML Pen 20 UNIT SC (09:56)
[2023-09-15] MEDS: Insulin Lispro 100 UNIT/ML INSULN.PEN 7 UNIT SC ×3 (09:57→17:59)
[2023-09-15 10:00] VITALS: PULSE 54
[2023-09-15 11:11] LABS: Bedside Glucose 254 mg/dL (74-106)
[2023-09-15 16:22] LABS: Bedside Glucose 288 mg/dL (74-106)
[2023-09-15] MEDS: Tamsulosin HCl 0.4 MG Capsule PO (17:59)
[2023-09-15 21:11] LABS: Bedside Glucose 294 mg/dL (74-106)
[2023-09-15] MEDS: Atorvastatin Calcium 80 MG Tablet PO (22:25)
[2023-09-16 06:34] LABS: Bedside Glucose 197 mg/dL (74-106)
[2023-09-16] MEDS: Insulin Lispro 100 UNIT/ML INSULN.PEN 7 UNIT SC (08:58)
[2023-09-16] MEDS: Clopidogrel Bisulfate 75 MG Tablet PO (09:00)
[2023-09-16] MEDS: Juven (unflavored) Packet 1 PACKET PO ×2 (09:00→17:57)
[2023-09-16] MEDS: Cholecalciferol (VIT D3) 25 MCG TABLET (1,000 UNITS) 50 MCG PO (09:00)
[2023-09-16] MEDS: Ranolazine 500 MG Tablet 1000 MG PO ×2 (09:00→21:17)
[2023-09-16] MEDS: Aspirin 81 MG TAB.CHEW PO (09:00)
[2023-09-16] MEDS: Ascorbic Acid 500 MG Tablet PO (09:00)
[2023-09-16] MEDS: Sertraline 100 MG Tablet PO (09:01)
[2023-09-16] MEDS: Pantoprazole Sodium 40 MG Tablet PO ×2 (09:01→21:18)
[2023-09-16] MEDS: Insulin Glargine-YFGN 100 UNIT/ML Pen 20 UNIT SC (09:02)
[2023-09-16] MEDS: Furosemide 20 MG Tablet PO (09:02)
[2023-09-16] MEDS: Polyethylene Glycol 3350 17 GM PACKET PO (09:02)
[2023-09-16] MEDS: Multivitamins,Therapeutic Tablet 1 TABLET PO (09:03)
[2023-09-16 09:04] VITALS: BP 134/28; PULSE 58
[2023-09-16] MEDS: Metoprolol(XL)Succ 25 MG Tablet PO (09:04)
[2023-09-16] MEDS: Nystatin Powder 15gm Bottle 1 APPLIC TOPICAL ×2 (09:09→21:18)
[2023-09-16] MEDS: Menthol/Lanolin/Calamine/Znox 113 GM Tube 1 APPLIC TOPICAL ×2 (09:10→21:18)
[2023-09-16 10:00] VITALS: BP 138/38; PULSE 58; RESP 18
[2023-09-16 11:19] LABS: Bedside Glucose 269 mg/dL (74-106)
[2023-09-16] MEDS: Insulin Lispro 100 UNIT/ML INSULN.PEN 9 UNIT SC ×2 (12:52→17:56)
[2023-09-16 15:57] VITALS: TEMP 36.1; O2SAT 98
[2023-09-16 16:45] LABS: Bedside Glucose 270 mg/dL (74-106)
[2023-09-16] MEDS: Tamsulosin HCl 0.4 MG Capsule PO (17:58)
[2023-09-16 20:00] VITALS: PULSE 52; O2SAT 99
[2023-09-16] MEDS: Atorvastatin Calcium 80 MG Tablet PO (21:18)
[2023-09-16 21:30] LABS: Bedside Glucose 285 mg/dL (74-106)
[2023-09-17 06:20] LABS: Bedside Glucose 207 mg/dL (74-106)
[2023-09-17] MEDS: Aspirin 81 MG TAB.CHEW PO (07:51)
[2023-09-17] MEDS: Ferrous Sulfate 325 MG Tablet PO (07:52)
[2023-09-17] MEDS: Juven (unflavored) Packet 1 PACKET PO ×2 (07:52→17:42)
[2023-09-17] MEDS: Multivitamins,Therapeutic Tablet 1 TABLET PO (07:53)
[2023-09-17] MEDS: Furosemide 20 MG Tablet PO (07:53)
[2023-09-17] MEDS: Insulin Glargine-YFGN 100 UNIT/ML Pen 25 UNIT SC (07:53)
[2023-09-17] MEDS: Polyethylene Glycol 3350 17 GM PACKET PO (07:54)
[2023-09-17] MEDS: Clopidogrel Bisulfate 75 MG Tablet PO (07:54)
[2023-09-17] MEDS: Ranolazine 500 MG Tablet 1000 MG PO ×2 (07:54→20:26)
[2023-09-17] MEDS: Pantoprazole Sodium 40 MG Tablet PO ×2 (07:54→20:27)
[2023-09-17] MEDS: Ascorbic Acid 500 MG Tablet PO (07:55)
[2023-09-17] MEDS: Insulin Lispro 100 UNIT/ML INSULN.PEN 10 UNIT SC ×3 (07:56→17:42)
[2023-09-17] MEDS: Cholecalciferol (VIT D3) 25 MCG TABLET (1,000 UNITS) 50 MCG PO (07:56)
[2023-09-17] MEDS: Sertraline 100 MG Tablet PO (07:56)
[2023-09-17 07:59] VITALS: BP 153/54; PULSE 54
[2023-09-17] MEDS: Metoprolol(XL)Succ 25 MG Tablet PO (07:59)
[2023-09-17] MEDS: Nystatin Powder 15gm Bottle 1 APPLIC TOPICAL ×2 (08:05→20:25)
[2023-09-17] MEDS: Menthol/Lanolin/Calamine/Znox 113 GM Tube 1 APPLIC TOPICAL ×2 (08:06→20:24)
[2023-09-17 11:33] LABS: Bedside Glucose 217 mg/dL (74-106)
[2023-09-17 12:48] VITALS: BP 141/53; PULSE 50; RESP 16; TEMP 36.1; O2SAT 97
--- NOTE | 2023-09-17 15:22 | WOUNDNOTE ---
wound photo: left heel
--- NOTE | 2023-09-17 15:23 | WOUNDNOTE ---
wound photo: right foot
[2023-09-17 16:47] LABS: Bedside Glucose 200 mg/dL (74-106)
[2023-09-17] MEDS: Tamsulosin HCl 0.4 MG Capsule PO (17:43)
[2023-09-17] MEDS: Atorvastatin Calcium 80 MG Tablet PO (20:25)
[2023-09-17 21:36] LABS: Bedside Glucose 164 mg/dL (74-106)
[2023-09-18 06:34] LABS: Bedside Glucose 125 mg/dL (74-106)
[2023-09-18] MEDS: Juven (unflavored) Packet 1 PACKET PO ×2 (07:58→17:20)
[2023-09-18] MEDS: Cholecalciferol (VIT D3) 25 MCG TABLET (1,000 UNITS) 50 MCG PO (07:58)
[2023-09-18 07:59] VITALS: BP 139/50; PULSE 51
[2023-09-18] MEDS: Sertraline 100 MG Tablet PO (07:59)
[2023-09-18] MEDS: Furosemide 20 MG Tablet PO (07:59)
[2023-09-18] MEDS: Metoprolol(XL)Succ 25 MG Tablet PO (07:59)
[2023-09-18] MEDS: Clopidogrel Bisulfate 75 MG Tablet PO (07:59)
[2023-09-18] MEDS: Ranolazine 500 MG Tablet 1000 MG PO ×2 (07:59→19:51)
[2023-09-18] MEDS: Aspirin 81 MG TAB.CHEW PO (07:59)
[2023-09-18] MEDS: Pantoprazole Sodium 40 MG Tablet PO ×2 (08:00→19:51)
[2023-09-18] MEDS: Ascorbic Acid 500 MG Tablet PO (08:00)
[2023-09-18] MEDS: Nystatin Powder 15gm Bottle 1 APPLIC TOPICAL ×2 (08:00→19:49)
[2023-09-18] MEDS: Multivitamins,Therapeutic Tablet 1 TABLET PO (08:00)
[2023-09-18] MEDS: Menthol/Lanolin/Calamine/Znox 113 GM Tube 1 APPLIC TOPICAL ×2 (08:00→19:48)
[2023-09-18] MEDS: Polyethylene Glycol 3350 17 GM PACKET PO (08:00)
[2023-09-18] MEDS: Insulin Glargine-YFGN 100 UNIT/ML Pen 25 UNIT SC (08:03)
[2023-09-18] MEDS: Insulin Lispro 100 UNIT/ML INSULN.PEN 10 UNIT SC ×3 (08:04→17:20)
[2023-09-18 08:14] VITALS: BP 139/50; PULSE 51; RESP 16; TEMP 36.2; O2SAT 97
[2023-09-18 08:25] VITALS: BP 106/51; PULSE 93; RESP 18; TEMP 36.3; O2SAT 95
[2023-09-18 09:58] VITALS: BMI 42.2
[2023-09-18 11:14] LABS: Bedside Glucose 202 mg/dL (74-106)
--- NOTE | 2023-09-18 11:16 | PCM.PN.REN ---
Subjective Subjective Sitting in recliner chair, legs elevated. Denies any complaints. States denies any worsening edema, denies shortness of breath. Objective Data Objective Data Vital Signs: Vital Signs Temp Pulse Resp BP Pulse Ox O2 Del Method 97.4 F L 93 18 106/51 L 95 Room Air 09/18/23 08:25 09/18/23 08:25 09/18/23 08:25 09/18/23 08:25 09/18/23 08:25 09/18/23 08:25 Oxygen Delivery Method Room Air Weight: 108.046 kg Body Mass Index (BMI) 42.2 Intake & Output: Intake and Output for Last 24 Hours 09/16/23 09/17/23 09/18/23 23:59 23:59 23:59 Intake Total 465 / 465 465 / 465 360 / 360 Output Total 1475 / 1475 1475 / 1475 1300 / 1300 Balance -1010 / -1010 -1010 / -1010 -940 / -940 Lab / Micro Data 09/13/23 05:12 09/13/23 05:12 Labs: Laboratory Results - last 24 hr 09/17/23 11:10: POC Glucose 217 H 09/17/23 16:27: POC Glucose 200 H 09/17/23 21:14: POC Glucose 164 H 09/18/23 05:59: POC Glucose 125 H 09/18/23 10:52: POC Glucose 202 H Physical Exam Narrative Alert and oriented x 3, no apparent distress S1, S2, RRR Lung sounds clear anteriorly and posteriorly Abdomen soft, rounded Trace nonpitting edema bilateral lower legs. Dressing clean dry and intact to right foot. Wound VAC to right foot Indwelling Rick catheter with clear yellow urine in bag Assessment & Plan Assessment/Plan (1) CKD stage 3 due to type 2 diabetes mellitus: PLAN: Plan This is a 67-year-old female with past medical history significant for hypertension, type 2 diabetes mellitus, chronic kidney disease stage III/IV with baseline creatinine ranging around 1.8 to 2 mg/dL who was admitted to the rehab unit after recent hospitalization for necrotic right foot ulcer. Nephrology consulted as patient has history of CKD. 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 Potassium and bicarb normal. Patient has good urine output. Can continue on furosemide as ordered (patient reports this is her home dose). Weight down about 3kg since admission. Patient does not need frequent labs for us. Last SCr 1.96mg/dL, at baseline. Blood pressures acceptable. Patient has Rick secondary to urinary retention. At time of discharge will arrange for follow-up.
--- NOTE | 2023-09-18 14:04 | CASEMGMT ---
Social Work SW met with patient at bedside to discuss care level of care required 2 person assist and additional skilled services for care. Patient informed SW that she would like to reach out to the VA to assist with spousal support from [facility] for additional in home support. Patient informed SW that she has spoken with her daughter to obtain in home assistance. Patient informed SW that she is not agreeable to termite renewal inspector care placement. Patient informed SW that she is unable to afford termite renewal inspector care in home. Patient informed SW that she would like to discharge home with assistance from family and home health care services. Patient informed SW that she will look into private duty support for days that her daughter cannot be in the home. Patient informed SW that she will utilize wheelchair in the home. Patient informed SW that she is concerned about what is going on with the penaloza and medical care updates. Patient e-mailed RADHA VA application for in home care Plan A: Home with home health care Plan B: VA assistance for home health care and personal lines underwriter Plan C: Medicaid application for termite renewal inspector care JOSE Zeng
[2023-09-18] MEDS: Tamsulosin HCl 0.4 MG Capsule PO (17:20)
[2023-09-18 17:35] LABS: Bedside Glucose 233 mg/dL (74-106)
[2023-09-18] MEDS: Atorvastatin Calcium 80 MG Tablet PO (19:50)
[2023-09-18 22:03] LABS: Bedside Glucose 204 mg/dL (74-106)
[2023-09-19 06:15] LABS: Bedside Glucose 136 mg/dL (74-106)
[2023-09-19] MEDS: Insulin Lispro 100 UNIT/ML INSULN.PEN 10 UNIT SC ×3 (07:46→17:27)
[2023-09-19] MEDS: Aspirin 81 MG TAB.CHEW PO (07:48)
[2023-09-19] MEDS: Juven (unflavored) Packet 1 PACKET PO ×2 (07:48→17:24)
[2023-09-19] MEDS: Multivitamins,Therapeutic Tablet 1 TABLET PO (07:48)
[2023-09-19] MEDS: Nystatin Powder 15gm Bottle 1 APPLIC TOPICAL ×2 (07:49→20:14)
[2023-09-19] MEDS: Ferrous Sulfate 325 MG Tablet PO (07:49)
[2023-09-19] MEDS: Menthol/Lanolin/Calamine/Znox 113 GM Tube 1 APPLIC TOPICAL ×2 (07:49→20:14)
[2023-09-19 07:50] VITALS: BP 147/62; PULSE 55
[2023-09-19] MEDS: Metoprolol(XL)Succ 25 MG Tablet PO (07:50)
[2023-09-19 07:57] VITALS: BP 147/62; PULSE 55
[2023-09-19] MEDS: Insulin Glargine-YFGN 100 UNIT/ML Pen 25 UNIT SC (10:16)
[2023-09-19] MEDS: Pantoprazole Sodium 40 MG Tablet PO ×2 (10:18→20:13)
[2023-09-19] MEDS: Polyethylene Glycol 3350 17 GM PACKET PO (10:18)
[2023-09-19] MEDS: Clopidogrel Bisulfate 75 MG Tablet PO (10:18)
[2023-09-19] MEDS: Furosemide 20 MG Tablet PO (10:18)
[2023-09-19] MEDS: Sertraline 100 MG Tablet PO (10:19)
[2023-09-19] MEDS: Ranolazine 500 MG Tablet 1000 MG PO ×2 (10:19→20:13)
[2023-09-19] MEDS: Ascorbic Acid 500 MG Tablet PO (10:19)
[2023-09-19] MEDS: Cholecalciferol (VIT D3) 25 MCG TABLET (1,000 UNITS) 50 MCG PO (10:19)
[2023-09-19 10:30] VITALS: PULSE 50; RESP 18; O2SAT 99
[2023-09-19 11:33] LABS: Bedside Glucose 158 mg/dL (74-106)
--- NOTE | 2023-09-19 13:53 | CASEMGMT ---
Social Work SW met with patient in activities room to follow up regarding VA homebound aid application. SW inquired about husbands VA connection to fax documents to the VA. Patient informed SW that she is unsure which VA the patient is service connected to. Patient informed SW that she will contact her to discuss. SW provided patient with a copy of completed VA form for homebound coding specialist home health. Patient informed SW that she would like alf care, but she is financially unable to pursue LTC. [facility] [phone] is following patient discharge plans from TCU. SW attempted to contact [facility] Agency for Aging; no answer. RADHA submitted online referral for [facility] Agency for Aging and Disability JOSE Zeng
--- NOTE | 2023-09-19 14:02 | WOUNDNOTE ---
wound photo: right heel
[2023-09-19 16:00] VITALS: BP 152/53; PULSE 50; RESP 14; TEMP 36.7; O2SAT 97
[2023-09-19 17:23] LABS: Bedside Glucose 208 mg/dL (74-106)
[2023-09-19] MEDS: Tamsulosin HCl 0.4 MG Capsule PO (17:24)
--- NOTE | 2023-09-19 17:49 | CASEMGMT ---
Social Work RADHA received update from [facility] Medicare insurance Notice of Medicare Non-Coverage effective discontinuation of current [facility] service: 09/22/2023; anticipated discharge 09/23/2023 SW met with patient at bedside to inform patient of NOMNC and Medicare Rights of [employer] appeal [phone]. Patient informed SW that she does not agree with current notification of Medicare non-coverage. Patient informed SW that she will initiate an appeal. SW educated the patient of the [employer] appeal process. Patient provided signature and verbal understanding of NOMNC and appeal. SW provided patient with a copy of NOMNC at bedside. Physician was notified of delivery of NOMNC. Patient will require group home care assistance in home. Patient was provided resources for private duty care, completed VA home bound application for to submit at his local VA, and home health care. Discharge: Home with home health care PT/OT/SN/CLEANER LABORATORY EQUIPMENT/JOSE Lott
[2023-09-19] MEDS: Atorvastatin Calcium 80 MG Tablet PO (20:14)
--- NOTE | 2023-09-19 20:55 | DS.PCM_ITS ---
Providers Date of Admission: 08/29/23 Primary Care Physician: RAHEL NyC Consultations 08/29/23 15:14 Consult: Onc/Wound/wildland fire fighter Routine Comment: Reason for Consult:: Wounds to bilateral heels 08/30/23 07:38 Consult: Nephrology Routine Consulting Provider: Collins Solis Reason for Consult: IRENE. EMERGENT Consult: No MD Notified: Yes Date Notified: 08/30/23 Time Notified: 07:38 Method of Notification: Answering Service Reason For Visit: GANGRENE, R HEEL ULCER, L HEEL ULCER, CELLULITIS Diagnosis Discharge Diagnosis (1) CKD stage 3 due to type 2 diabetes mellitus: Status: Chronic Code(s): E11.22 - Type 2 diabetes mellitus with diabetic chronic kidney disease; N18.30 - Chronic kidney disease, stage 3 unspecified Plan 67 year old female with below past medical history hospitalized for bilateral diabetic foot infection, underwent incision and drainage bilateral feet per Dr. Haddad 08/24/2023, complicated by IRENE, urinary retention, admitted to TCU with juan j morales, here for rehabilitation, strengthening, wound care, prior to discharge home with . * Debility - PT/OT. * Pain - Tylenol 1000mg q6 prn pain (1-10). * Bowel - Miralax 17gm daily. * Adult immunization - Administer pneumonia vaccine, covid vaccine, flu vaccine as appropriate. * DVT prophylaxis - Hold, on dual antiplatelet therapy. * Shortness of breath - Albuterol 2 puffs q4h prn. * Dry skin - Ammonium lactate topical bid prn. * Iron deficiency anemia - Vitamin C 500mg daily, Ferrous sulfate 325mg every other day. * Stroke - Aspirin 81mg daily, Plavix 75mg daily. * Hyperlipidemia - Atorvastatin 80mg qhs. * S. Aureus cellulitis bilateral feet - Keflex 500mg q8 thru 09/07/2023, consult wound nurse. * Vitamin D deficiency - D3 50mcg daily. * HFpEF - Metoprolol succinate 25mg daily, Furosemide 20mg daily. * Diabetes Mellitus II - Glargine 36 untis daily, Lispro 12 units tidac. * Nutrition - MVI 1 tablet daily. * Coronary artery disease - Metoprolol succinate 25mg daily, Ranexa 1000mg bid, NTG 0.4mg sl q5m prn. * GERD - Pantoprazole 40mg bid. * Depression Sertraline 100mg daily, stable chronic [facility] use, GDR not recommended. * Metabolic acidosis - Sodium bicarb 650mg bid thru 09/08/2023. * Urinary retention - Tamsulosin 0.4mg daily, indwelling penaloza catheter, voiding trials in 3 days. Medications at Discharge Home Medications albuterol sulfate 90 mcg/actuation aerosol inhaler (ProAir HFA) 2 inh inhalation Q4H PRN wheezing/shortness of breath 06/22/23 aspirin 81 mg chewable tablet 1 tab PO DAILY blood thinner 06/22/23 atorvastatin 80 mg tablet 80 mg PO QHS cholesterol 06/22/23 cholecalciferol (vitamin D3) 50 mcg (2,000 unit) capsule 2,000 unit PO DAILY supplement 06/22/23 clopidogrel 75 mg tablet 75 mg PO DAILY blood thinner 06/22/23 metoprolol succinate 25 mg tablet,extended release 24 hr 25 mg PO DAILY BP/pulse 06/22/23 multivitamin (Daily Multi-Vitamin tablet) 1 tab PO DAILY supplement 06/22/23 nitroglycerin 0.4 mg sublingual tablet 0.4 mg sublingual Q5M chest pain 06/22/23 ranolazine 1,000 mg tablet,extended release,12 hr 1,000 mg PO Q12H angina 06/22/23 sertraline 100 mg tablet 100 mg PO DAILY mood 06/22/23 ascorbic acid (vitamin C) 500 mg tablet 500 mg PO 1000 health maintenance 30 day s #30 tabs 07/18/23 furosemide 20 mg tablet 20 mg PO DAILY swelling 30 days #30 tabs 07/18/23 pantoprazole 40 mg tablet,delayed release 40 mg PO BID Stomach acid 30 days #60 tabs 07/18/23 ferrous sulfate 325 mg (65 mg iron) tablet (Feosol) 325 mg PO QODAY Health maintenance 08/29/23 polyethylene glycol 3350 17 gram/dose oral powder (ClearLax) 17 g PO DAILY constipation 08/29/23 acetaminophen 500 mg tablet 1,000 mg (2 x 500 mg) PO Q6H PRN PRN Pain Score 1-10 #0 tabs 09/19/23 arginine 7 gram-glutam 7 gram-CaHMB 1.5 [id number]-min oral pwd pkt (Adryan (with collagen)) 1 packet PO BIDCM 30 days #60 ea 09/19/23 insulin glargine-yfgn 100 unit/mL (3 mL) subcutaneous pen 25 unit (0.25 mL) s ubcut DAILY #0 mL 09/19/23 insulin lispro 100 unit/mL subcutaneous pen (Humalog KwikPen (U-100) Insulin) 10 unit (0.1 mL) subcut TIDAC #0 mL 09/19/23 tamsulosin 0.4 mg capsule 0.4 mg PO DAILY@1730 30 days #30 caps 09/19/23 Hospital Course Operations None Procedures None Summary of Care Provided Minutes Spent on Discharge: 35 Hospital Course: 67 year old female with below past medical history hospitalized for bilateral diabetic foot infection, underwent incision and drainage bilateral feet per Dr. Haddad 08/24/2023, complicated by IRENE, urinary retention, admitted to TCU with debility, here for rehabilitation, strengthening, wound care, prior to discharge home with . Discharge home with 09/23/2023, [facility] PT/OT/SN/MERLOS/HEALTH INFORMATION CODER, pending appeal. Physical Exam Narrative Alert and oriented x 3, no apparent distress S1, S2, RRR Lung sounds clear anteriorly and posteriorly Abdomen soft, rounded Trace nonpitting edema bilateral lower legs. Dressing clean dry and intact to right foot. Wound VAC to right foot Indwelling Epnaloza catheter with clear yellow urine in bag Const alert General Appearance: cooperative HEENT normocephalic Eyes PERRL and EOMs intact bilaterally Neck supple, no JVD and no carotid bruits Resp normal respiratory effort, normal air movement and clear to auscultation bilaterally Cardio regular rate and regular rhythm GI normal to inspection, nondistended, normoactive bowel sounds, non-tender and non-distended Extremity normal capillary refill General Extremity: Negative for edema Skin Wound Narrative: As above. Psych affect normal Appearance: appropriate Weight / BMI Weight Weight: 108.046 kg Body Mass Index (BMI) 42.2 ABG / Lab / Microbiology Data 09/13/23 05:12 09/13/23 05:12 Laboratory: Laboratory Results - last 24 hr 09/18/23 21:42: POC Glucose 204 H 09/19/23 05:54: POC Glucose 136 H 09/19/23 11:16: POC Glucose 158 H 09/19/23 16:41: POC Glucose 208 H D/C Instructions Discharge Diet: No restrictions Discharge Activity: Return to Normal Activity, May Shower and Use Walker Weight Bearing Status: Partial weight bearing (Right lower extremity.) and Toe touch weight bearing (Left lower extremity.) Call your doctor if you observe: Fever of 101 or Higher, Inability to urinate, Inability to have a bowel movement, Shortness of breath, Dizziness, Fainting spells, Swelling in the ankles, Chest pain and Uncontrolled pain Additional Instructions: Discharge home with 09/23/2023, [facility] PT/OT/SN/MERLOS/HEALTH INFORMATION CODER, pending appeal. Please Follow Up With: Angela Haddad DPM When: As scheduled. Meaningful Use Info Meaningful Use Meaningful Use Diagnoses (Choose all that apply): None applicable Ischemic Stroke Statin Dosing Therapy Reference: STATIN DOSE THERAPY REFERENCE: * Patients > 75 years receive moderate or high dose statin therapy. * Patients 75 years or YOUNGER should receive HIGH intensity statin dose unless contraindicated. You will be required to document reason for non-treatment if statin daily dose does not meet guidelines. HIGH DOSE STATIN THERAPY DAILY Atorvastatin > than or = to 40 mg Rosuvastatin > than or = to 20 mg Amlodipine + Atorvastatin > than or = to 2.5/40 mg Ezetimibe + Simvastatin 10/80 mg Simvastatin 80mg Discharge Plan Admission Admit Date/Time: 08/29/23 14:34 Primary Reason for Your Visit: Debility. Attending Provider: Juan Casanova Chi Primary Care Provider: Urmila Tong NP Consulting Providers: Collins Solis Instructions Additional Instructions / Restrictions: Discharge home with 09/23/2023, [facility] PT/OT/SN/MERLOS/HEALTH INFORMATION CODER, pending appeal. Discharge Orders/Prescriptions Prescriptions: New insulin glargine-yfgn 100 unit/mL (3 mL) Insulin Pen 25 unit subcut DAILY Qty: 0 0RF acetaminophen 500 mg Tablet 1,000 mg PO Q6H PRN PRN (Reason: Pain Score 1-10) Qty: 0 0RF insulin lispro [Humalog KwikPen Insulin] 100 unit/mL Insulin Pen 10 unit subcut TIDAC Qty: 0 0RF Adryan (with collagen) 7-7-1.5 gram Powder In Packet 1 packet PO BIDCM 30 Days Qty: 60 0RF tamsulosin 0.4 mg Capsule 0.4 mg PO DAILY@1730 30 Days Qty: 30 0RF Continued atorvastatin 80 mg tablet 80 mg PO QHS Patient Comments: TAKE 1 TABLET BY MOUTH EVERYDAY AT BEDTIME clopidogrel 75 mg tablet 75 mg PO DAILY metoprolol succinate 25 mg tablet extended release 24 hr 25 mg PO DAILY Patient Comments: TAKE 1 TABLET BY MOUTH EVERY DAY albuterol sulfate [ProAir HFA] 90 mcg/actuation HFA aerosol inhaler 2 inh inhalation Q4H PRN (Reason: wheezing/shortness of breath) aspirin 81 mg tablet,chewable 1 tab PO DAILY cholecalciferol (vitamin D3) 50 mcg (2,000 unit) capsule 2,000 unit PO DAILY multivitamin [Daily Multi-Vitamin] Tablet 1 tab PO DAILY nitroglycerin 0.4 mg tablet, sublingual 0.4 mg sublingual Q5M Rx Instructions: do not exceed 3 doses per episode ranolazine 1,000 mg tablet extended release 12 hr 1,000 mg PO Q12H sertraline 100 mg tablet 100 mg PO DAILY Patient Comments: TAKE 1 TABLET BY MOUTH EVERY DAY ascorbic acid (vitamin C) 500 mg Tablet 500 mg PO 1000 30 Days Qty: 30 0RF pantoprazole 40 mg Tablet,Delayed Release (Dr/Ec) 40 mg PO BID 30 Days Qty: 60 0RF furosemide 20 mg Tablet 20 mg PO DAILY 30 Days Qty: 30 0RF polyethylene glycol 3350 [ClearLax] 17 gram/dose powder 17 g PO DAILY ferrous sulfate [Feosol] 325 mg (65 mg iron) tablet 325 mg PO QODAY Discontinued insulin glargine [Lantus Solostar U-100 Insulin] 100 unit/mL (3 mL) insulin pen 36 unit SUBCUT QHS Patient Comments: INJECT 14 UNITS SUBCUTANEOUSLY TWO TIMES A DAY. insulin lispro 100 unit/mL insulin pen 12 unit SUBCUT . Patient Comments: INJECT 12 UNITS SUBCUTANEOUSLY THREE TIMES A DAY BEFORE MEALS. oxybutynin chloride 5 mg tablet extended release 24hr 5 mg PO DAILY Patient Comments: TAKE 1 TABLET BY MOUTH EVERY DAY polysaccharide iron complex [Ferrex 150] 150 mg iron Capsule 150 mg PO DAILY 30 Days Qty: 30 0RF Adryan (with collagen) 7-7-1.5 gram Powder In Packet 1 packet PO BIDCM 30 Days Qty: 60 0RF losartan 100 mg Tablet 100 mg PO DAILY 30 Days Qty: 30 0RF tamsulosin 0.4 mg Capsule 0.4 mg PO DAILY@1730 30 Days Qty: 30 0RF ammonium lactate [Skin Treatment] 12 % lotion 1 applic topical BID PRN (Reason: dry skin) cephalexin 500 mg capsule 500 mg PO Q8H sodium bicarbonate 650 mg tablet 650 mg PO BID Referrals / Follow Up: Urmila Tong TRAVEL MED SURG RN, TRAVEL MED SURG RN-C [Primary Care Provider] - Disposition Disposition (needs filled in before D/C Order can be placed): Home Health Se rvice
[2023-09-19 21:56] LABS: Bedside Glucose 279 mg/dL (74-106)
[2023-09-20 05:58] LABS: Absolute Lymphocyte Count 1.09 X10^3/uL (0.83-4.51); Absolute Neutrophil Count 3.7 X10^3/uL (2.0-7.7); Basophil# 0.01 X10^3/uL; Basophil% 0.2 % (0-1); Eosinophil# 0.54 X10^3/uL; Eosinophils% 9.3 % (0-5); Hematocrit 29.2 % (37-47); Hemoglobin 9.3 g/dL (12.0-15.0); Lymphocyte # 1.09 X10^3/ul (0.83-4.51); Lymphocyte % 18.7 % (19-41); Mean Corp Hgb Conc 31.8 g/dL (32-36); Mean Corpuscular Hgb 29.5 pg (27.0-32.0); Mean Corpuscular Volume 92.7 fL (81-99); Mean Platelet Vol. 12.9 fl (6.2-12.0); Monocyte# 0.49 X10^3/uL; Monocyte% 8.4 % (0-10); NRBC Flagged by Analyzer 0 % (0-5); Neutrophil # 3.67 X10^3/uL (2.7-7.7); Neutrophil % 63.1 % (47-70); Platelet Count 123 K/mm3 (150-450); RBC Distribution Width CV 15.2 % (11.6-14.6); RBC Distribution Width SD 51.8 fl (35.1-43.9); Red Blood Count 3.15 M/mm3 (4.2-5.4); White Blood Count 5.8 K/mm3 (4.4-11.0)
[2023-09-20 06:24] LABS: Anion Gap 5 (5-15); BUN 67 mg/dL (7-18); BUN/Creat Ratio 33.3 RATIO (10-20); Calcium,Total 8.9 mg/dL (8.5-10.1); Chloride 112 mmol/L (98-107); Creatinine, Serum 2.01 mg/dL (0.55-1.02); EST Glomerular Filtration Rate 26 mL/min (>60); Est Glom Filt Rate - Afr Amer 32 mL/min (>60); Estimated Creatinine Clearance 32.01 ml/min; Glucose 245 mg/dL (74-106); Potassium 4.7 mmol/L (3.5-5.1); Sodium Level 138 mmol/L (136-145)
[2023-09-20 06:31] LABS: Bedside Glucose 213 mg/dL (74-106)
[2023-09-20 08:06] VITALS: BP 123/33; PULSE 55; RESP 16; O2SAT 97
[2023-09-20 08:07] VITALS: PULSE 55
[2023-09-20] MEDS: Ascorbic Acid 500 MG Tablet PO (08:07)
[2023-09-20] MEDS: Pantoprazole Sodium 40 MG Tablet PO ×2 (08:07→21:28)
[2023-09-20] MEDS: Metoprolol(XL)Succ 25 MG Tablet PO (08:07)
[2023-09-20] MEDS: Ranolazine 500 MG Tablet 1000 MG PO ×2 (08:07→21:28)
[2023-09-20] MEDS: Cholecalciferol (VIT D3) 25 MCG TABLET (1,000 UNITS) 50 MCG PO (08:07)
[2023-09-20] MEDS: Menthol/Lanolin/Calamine/Znox 113 GM Tube 1 APPLIC TOPICAL ×2 (08:08→21:26)
[2023-09-20] MEDS: Aspirin 81 MG TAB.CHEW PO (08:08)
[2023-09-20] MEDS: Furosemide 20 MG Tablet PO (08:08)
[2023-09-20] MEDS: Multivitamins,Therapeutic Tablet 1 TABLET PO (08:08)
[2023-09-20] MEDS: Polyethylene Glycol 3350 17 GM PACKET PO (08:08)
[2023-09-20] MEDS: Juven (unflavored) Packet 1 PACKET PO ×2 (08:08→17:34)
[2023-09-20] MEDS: Sertraline 100 MG Tablet PO (08:08)
[2023-09-20] MEDS: Clopidogrel Bisulfate 75 MG Tablet PO (08:08)
[2023-09-20] MEDS: Insulin Lispro 100 UNIT/ML INSULN.PEN 10 UNIT SC ×4 (08:13→17:35)
[2023-09-20] MEDS: Nystatin Powder 15gm Bottle 1 APPLIC TOPICAL ×2 (08:14→21:26)
--- NOTE | 2023-09-20 08:37 | CASEMGMT ---
Social Work SW met with patient at bedside to determine, if she has initiated appeal. Patient informed SW that [employer] was closed after 5PM; unable to leave a voicemail. Patient informed RADHA that she anticipates calling ER[facility]Y at 9am on 09/20/2023. JOSE Zeng
[2023-09-20] MEDS: Insulin Glargine-YFGN 100 UNIT/ML Pen 25 UNIT SC (11:27)
[2023-09-20 12:14] LABS: Bedside Glucose 447 mg/dL (74-106)
--- NOTE | 2023-09-20 12:31 | CASEMGMT ---
Social Work SW met with patient and to discuss discharge recommendation. Patient's informed RADHA that there are limitations to finances at this time. SW reviewed resources provided to patient for private duty care, [facility] Agency on Aging & Disability, and home health care. SW inquired about the patient's 's service connection to MD. Patient's informed RADHA that he is a , but he is not currently utilizing any services at the [facility]. SW informed patient's that MD process for approval of services may take time due to review, but patient's assume responsibility to submit application. SW reviewed home health care services with patient and . Patient's confirmed that daughter will assist. Patient's expressed concerns for patient's penaloza to determine length of need. Patient's would like to receive training for penaloza care. Bedside RN was present at bedside and notified of concerns. Patient has initiated [employer] insurance Appeal. JOSE Zeng
[2023-09-20 12:47] LABS: Bedside Glucose 430 mg/dL (74-106)
--- NOTE | 2023-09-20 13:15 | NURSING ---
Addendum entered by Merlyn Harman 09/20/23 17:39: Pt continues asymptomatic, FSBS before supper 266. Updated pt on Dr Casanova giving okay to remove penaloza and begin void trials. Pt has been sitting up in wheelchair/recliner this afternoon and states that she wants to wait until 'later to remove. Offered multiple times to remove this afternoon, pt continues with statement she will wait until this evening/in bed to remove penaloza Original Note: Pt's FSBS 447 ~1130, asymptomatic. Administered scheduled 1145 Humalog and scheduled daily Glargine(pt had refused earlier this AM). Rechecked FSBS, 430, continues asymptomatic. Called and notified Dr. Casanova, who gave order for one-time dose of Humalog 10units. Pt's was present at bedside earlier today and agitated regarding pt d/c home with penaloza. Requests that pt begin void trials. Dr. Casanova gave order to begin void trials.
[2023-09-20 13:42] VITALS: TEMP 36.8
[2023-09-20 16:58] LABS: Bedside Glucose 266 mg/dL (74-106)
[2023-09-20] MEDS: Tamsulosin HCl 0.4 MG Capsule PO (17:35)
[2023-09-20 20:00] VITALS: PULSE 53; O2SAT 98
--- NOTE | 2023-09-20 20:17 | NURSING ---
Rick cath removed at 1944 per MD order, PT. tolerated well, Bladder scan orders in place, PT. encouraged to use call light to let staff know when she needs to void,
[2023-09-20] MEDS: Atorvastatin Calcium 80 MG Tablet PO (21:27)
[2023-09-20 21:54] LABS: Bedside Glucose 248 mg/dL (74-106)
[2023-09-21 06:29] LABS: Bedside Glucose 147 mg/dL (74-106)
[2023-09-21] MEDS: proCHLORPERazine 5 MG Tablet 10 MG PO (06:49)
--- NOTE | 2023-09-21 06:52 | NURSING ---
PT with small liquid emesis, PT states it was caused by coughing, PRN Compazine given per request for nausea from coughing,
[2023-09-21] MEDS: Aspirin 81 MG TAB.CHEW PO (07:47)
[2023-09-21] MEDS: Menthol/Lanolin/Calamine/Znox 113 GM Tube 1 APPLIC TOPICAL ×2 (07:49→22:46)
[2023-09-21] MEDS: Multivitamins,Therapeutic Tablet 1 TABLET PO (07:49)
[2023-09-21] MEDS: Juven (unflavored) Packet 1 PACKET PO ×2 (07:49→17:44)
[2023-09-21] MEDS: Ferrous Sulfate 325 MG Tablet PO (07:49)
[2023-09-21] MEDS: Pantoprazole Sodium 40 MG Tablet PO ×2 (07:50→22:46)
[2023-09-21] MEDS: Nystatin Powder 15gm Bottle 1 APPLIC TOPICAL ×2 (07:50→22:46)
[2023-09-21] MEDS: Insulin Lispro 100 UNIT/ML INSULN.PEN 12 UNIT SC ×3 (07:51→17:48)
--- NOTE | 2023-09-21 08:53 | CASEMGMT ---
Social Work SW reviewed patient's [employer] appeal for . [employer] appeal is currently under clinical review. Patient to remain on TCU pending Medicare appeal determination. Social will continue to monitor status of Medicare Appeal. JOSE Zeng
--- NOTE | 2023-09-21 08:59 | MDS.RN ---
MDS pain interview complete.
[2023-09-21] MEDS: Insulin Glargine-YFGN 100 UNIT/ML Pen 27 UNIT SC (10:14)
[2023-09-21 10:17] VITALS: BP 139/47; PULSE 50
[2023-09-21] MEDS: Polyethylene Glycol 3350 17 GM PACKET PO (10:17)
[2023-09-21] MEDS: Metoprolol(XL)Succ 25 MG Tablet PO (10:17)
[2023-09-21] MEDS: Furosemide 20 MG Tablet PO (10:17)
[2023-09-21] MEDS: Sertraline 100 MG Tablet PO (10:18)
[2023-09-21] MEDS: Ranolazine 500 MG Tablet 1000 MG PO ×2 (10:18→22:46)
[2023-09-21] MEDS: Ascorbic Acid 500 MG Tablet PO (10:18)
[2023-09-21] MEDS: Clopidogrel Bisulfate 75 MG Tablet PO (10:18)
[2023-09-21] MEDS: Cholecalciferol (VIT D3) 25 MCG TABLET (1,000 UNITS) 50 MCG PO (10:18)
[2023-09-21 10:24] VITALS: BP 139/47; PULSE 50
--- NOTE | 2023-09-21 10:57 | NURSING ---
BLADDER SCANNED FOR 633 AT 1030. STRAIGHT CATHED FOR 600. CONTINUE VOIDING TRAILS.
[2023-09-21 11:05] VITALS: PULSE 50; RESP 18; O2SAT 98
--- NOTE | 2023-09-21 11:21 | CASEMGMT ---
Social Work SW met with patient at bedside to discuss discharge plans. Patient informed SW that she previously had [facility] health. Patient is agreeable to PT/OT/SN/GRINDER GEAR/PERSONAL VEHICLE ADVISOR services via home health. Patient is hoping [employer] Appeal determination would be in her favor. [facility] [employer] appeal is currently in outcome notification status. JOSE Zeng
[2023-09-21 11:36] LABS: Bedside Glucose 254 mg/dL (74-106)
--- NOTE | 2023-09-21 13:04 | NS ---
melva Browng, called this RD - concerns w/ bld gluc increased and asked if diet could be adjusted to help w/ glycemic control. Spoke w/ res who reports that she thinks that she is getting too much food and is agreeable to diet change to include 1600 brianne instead of Consistent CHO. Will change order and monitor for improvement in glucose control.
--- NOTE | 2023-09-21 14:23 | CASEMGMT ---
Addendum entered by Steph Gaitan 09/21/23 15:44: SW received a call from assistant pastry chef Mitzi informing SW that wound vac approval has not been determined. Mitzi informed SW that wound vac may not be approved and delivered until Sunday. Patient may need to remain hospitalized until Home Wound vac is approved and delivered Original Note: Social Work SW received [employer] Medicare Appeal determination: [place] Agrees with termination of SNF services- Beneficiary Liability Starts on 09/23/2023 Patient was previously open to [facility] Care. [facility] is able to accept for resumption of care. RADHA submitted orders via [employer]. Patient to discharge on 09/23/2023 with [facility] SN/PT/OT/WATERPROOF BAG CUTTING MACHINE OPERATOR/BIBLE READER; Wound Vac Patient informed RADHA that her will provide transportation at discharge. JOSE Zeng
[2023-09-21 15:29] VITALS: BP 158/60; PULSE 51; RESP 18; TEMP 36.3; O2SAT 98
--- NOTE | 2023-09-21 15:35 | WOUNDNOTE ---
Home VAC not approved yet. notified RADHA Soares. pt may not be able to discharge until Sunday.
[2023-09-21 16:51] LABS: Bedside Glucose 147 mg/dL (74-106)
[2023-09-21] MEDS: Tamsulosin HCl 0.4 MG Capsule PO (17:44)
--- NOTE | 2023-09-21 18:59 | NURSING ---
PT INCONTINENT,BLADDER SCANNED FOR 461. STRAIGHT CATHED FOR 500. THIS WAS PT 2ND STRAIGHT CATH. CONTINUE VOIDING TRAILS.
[2023-09-21 21:40] LABS: Bedside Glucose 156 mg/dL (74-106)
[2023-09-21] MEDS: Atorvastatin Calcium 80 MG Tablet PO (22:46)
[2023-09-22 07:05] LABS: Bedside Glucose 145 mg/dL (74-106)
[2023-09-22 09:06] VITALS: BP 144/44; PULSE 53; RESP 16; TEMP 36.2; O2SAT 97
[2023-09-22] MEDS: Aspirin 81 MG TAB.CHEW PO (09:08)
[2023-09-22] MEDS: Insulin Lispro 100 UNIT/ML INSULN.PEN 12 UNIT SC ×3 (09:08→18:00)
[2023-09-22 09:09] VITALS: PULSE 53
[2023-09-22] MEDS: Multivitamins,Therapeutic Tablet 1 TABLET PO (09:09)
[2023-09-22] MEDS: Clopidogrel Bisulfate 75 MG Tablet PO (09:09)
[2023-09-22] MEDS: Ascorbic Acid 500 MG Tablet PO (09:09)
[2023-09-22] MEDS: Metoprolol(XL)Succ 25 MG Tablet PO (09:09)
[2023-09-22] MEDS: Pantoprazole Sodium 40 MG Tablet PO ×2 (09:09→20:53)
[2023-09-22] MEDS: Furosemide 20 MG Tablet PO (09:09)
[2023-09-22] MEDS: Cholecalciferol (VIT D3) 25 MCG TABLET (1,000 UNITS) 50 MCG PO (09:10)
[2023-09-22] MEDS: Ranolazine 500 MG Tablet 1000 MG PO ×2 (09:10→20:54)
[2023-09-22] MEDS: Sertraline 100 MG Tablet PO (09:10)
[2023-09-22] MEDS: Polyethylene Glycol 3350 17 GM PACKET PO (09:11)
[2023-09-22] MEDS: Insulin Glargine-YFGN 100 UNIT/ML Pen 27 UNIT SC (09:11)
[2023-09-22] MEDS: Nystatin Powder 15gm Bottle 1 APPLIC TOPICAL ×2 (09:13→20:52)
[2023-09-22] MEDS: Menthol/Lanolin/Calamine/Znox 113 GM Tube 1 APPLIC TOPICAL ×2 (09:13→20:51)
[2023-09-22] MEDS: Juven (unflavored) Packet 1 PACKET PO ×2 (09:13→18:00)
[2023-09-22 12:55] LABS: Bedside Glucose 243 mg/dL (74-106)
[2023-09-22 15:43] VITALS: PULSE 52; RESP 16; O2SAT 99
[2023-09-22 17:12] LABS: Bedside Glucose 171 mg/dL (74-106)
[2023-09-22] MEDS: Tamsulosin HCl 0.4 MG Capsule PO (18:00)
[2023-09-22] MEDS: Atorvastatin Calcium 80 MG Tablet PO (20:53)
[2023-09-22 21:50] LABS: Bedside Glucose 129 mg/dL (74-106)
--- NOTE | 2023-09-23 03:10 | NURSING ---
PT bladder scanned for 592, voided small amount, post void bladder scan 361, this was 3rd failed voiding trial, PT was asked about penaloza cath, PT. responded I would rather have a penaloza cath than get a UTI, they make me crazy. PT. agreeable to have penaloza cath placed, 16FR penaloza cath with 10cc balloon inserted, PT. tolerated well, immediate return of straw yellow urine, PT was asked about penaloza care. PT. responded I had a penaloza cath the last time I left the hospital and feel comfortable with it. PT. to D/C home today.
[2023-09-23 06:12] LABS: Bedside Glucose 79 mg/dL (74-106)
[2023-09-23] MEDS: Insulin Lispro 100 UNIT/ML INSULN.PEN 12 UNIT SC (08:49)
[2023-09-23 08:55] LABS: Bedside Glucose 163 mg/dL (74-106)
[2023-09-23] MEDS: Aspirin 81 MG TAB.CHEW PO (08:57)
[2023-09-23] MEDS: Pantoprazole Sodium 40 MG Tablet PO (08:58)
[2023-09-23] MEDS: Menthol/Lanolin/Calamine/Znox 113 GM Tube 1 APPLIC TOPICAL (08:59)
[2023-09-23] MEDS: Clopidogrel Bisulfate 75 MG Tablet PO (08:59)
[2023-09-23] MEDS: Nystatin Powder 15gm Bottle 1 APPLIC TOPICAL (08:59)
[2023-09-23] MEDS: Multivitamins,Therapeutic Tablet 1 TABLET PO (09:00)
[2023-09-23] MEDS: Furosemide 20 MG Tablet PO (09:00)
[2023-09-23] MEDS: Polyethylene Glycol 3350 17 GM PACKET PO (09:00)
[2023-09-23] MEDS: Ranolazine 500 MG Tablet 1000 MG PO (09:01)
[2023-09-23] MEDS: Cholecalciferol (VIT D3) 25 MCG TABLET (1,000 UNITS) 50 MCG PO (09:01)
[2023-09-23] MEDS: Ferrous Sulfate 325 MG Tablet PO (09:01)
[2023-09-23 09:02] VITALS: BP 135/55; PULSE 55
[2023-09-23] MEDS: Metoprolol(XL)Succ 25 MG Tablet PO (09:02)
[2023-09-23] MEDS: Ascorbic Acid 500 MG Tablet PO (09:02)
[2023-09-23] MEDS: Sertraline 100 MG Tablet PO (09:02)
[2023-09-23 09:07] VITALS: BP 135/55; PULSE 55; RESP 18; TEMP 36.3; O2SAT 98
--- NOTE | 2023-09-23 10:59 | NURSING ---
portable home wound vac applied. educated pt on use and the booklet if any issues with vac. reviewed charging unit & making sure it is on. pt and verbalized understanding.
== END 2023-09-23 11:20 | disposition home health service (06) | DRG 565 ==
PROVIDERS: Admitting Provider Family Medicine Geriatric Medicine; PCP Nurse Practitioner Family; Visit Provider Family Medicine Geriatric Medicine
DX: T87.43 Infection of amputation stump, right lower extremity (principal); L03.115 Cellulitis of right lower limb; E87.20 Acidosis, unspecified; I13.0 Hypertensive heart and chronic kidney disease with heart failure and stage 1 through stage 4 chronic kidney disease, or unspecified chronic kidney disease; L03.116 Cellulitis of left lower limb; I50.32 Chronic diastolic (congestive) heart failure; Z68.41 Body mass index [BMI] 40.0-44.9, adult; N18.4 Chronic kidney disease, stage 4 (severe); E11.22 Type 2 diabetes mellitus with diabetic chronic kidney disease; E66.01 Morbid (severe) obesity due to excess calories; L97.519 Non-pressure chronic ulcer of other part of right foot with unspecified severity; E11.621 Type 2 diabetes mellitus with foot ulcer; L97.529 Non-pressure chronic ulcer of other part of left foot with unspecified severity; Z79.4 Long term (current) use of insulin; E11.59 Type 2 diabetes mellitus with other circulatory complications; D50.9 Iron deficiency anemia, unspecified; F32.A Depression, unspecified; I25.10 Atherosclerotic heart disease of native coronary artery without angina pectoris; E55.9 Vitamin D deficiency, unspecified; E78.5 Hyperlipidemia, unspecified; K21.9 Gastro-esophageal reflux disease without esophagitis; B95.61 Methicillin susceptible Staphylococcus aureus infection as the cause of diseases classified elsewhere; Z86.73 Personal history of transient ischemic attack (TIA), and cerebral infarction without residual deficits; R33.9 Retention of urine, unspecified; N32.81 Overactive bladder; Z79.02 Long term (current) use of antithrombotics/antiplatelets; Z87.891 Personal history of nicotine dependence; Z79.899 Other long term (current) drug therapy; Y83.5 Amputation of limb(s) as the cause of abnormal reaction of the patient, or of later complication, without mention of misadventure at the time of the procedure; Z79.82 Long term (current) use of aspirin; Z23 Encounter for immunization
CPT/HCPCS: 36415; 71046; 76770; 80048; 80061; 82962; 83036; 85025; 90480; 97110; 97116; 97163; 97166; 97530; 97535; 97802; 91322

== ENCOUNTER 2023-09-24 14:13 | Observation (INO) | payer MEDICARE, SELFPAY ==
[2023-09-24 14:14] VITALS: BP 159/73; PULSE 63; RESP 17; TEMP 35.8; O2SAT 100
--- NOTE | 2023-09-24 15:05 | EX.ED.DYSGE1 ---
HPI History of Present Illness Chief Complaint: Fall Informant: patient Onset/Context/Timing Onset: Today Context: Gradual Onset Timing: Continuous Quality: Unsteady Location: Generalized Worsened by: Weightbearing Relieved by: Nothing Narrative Narrative: Patient presents with frequent falls and unsteady gait. Patient was discharged from the TCU yesterday. Patient states she has fallen 4-5 times since she was discharged home. 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 Patient also has a chronic wound on her right heel. Patient denies any chest pain or shortness of breath. Patient denies any nausea or vomiting. Patient denies any head injury or loss of consciousness. [facility] Medical History Bilateral carotid artery stenosis Chronic heart failure with preserved ejection fraction (HFpEF) Chronic kidney disease, stage 3a Coronary artery disease Debility Elevated troponin Encephalopathy Herpes zoster Hyperlipidemia Hypertension Morbid obesity Overactive bladder Stroke Ulcer of right foot due to type 2 diabetes mellitus 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 Urinary tract infection Weakness Home Medications albuterol sulfate 90 mcg/actuation aerosol inhaler (ProAir HFA) 2 inh inhalation Q4H PRN wheezing/shortness of breath 06/22/23 [History Last Taken Unknown] aspirin 81 mg chewable tablet 1 tab PO DAILY blood thinner 06/22/23 [History Last Taken 08/29/23 09:10] atorvastatin 80 mg tablet 80 mg PO QHS cholesterol 06/22/23 [History Last Taken 08/28/23 21:10] cholecalciferol (vitamin D3) 50 mcg (2,000 unit) capsule 2,000 unit PO DAILY supplement 06/22/23 [History Last Taken Unknown] clopidogrel 75 mg tablet 75 mg PO DAILY blood thinner 06/22/23 [History Last Taken 07/03/23] metoprolol succinate 25 mg tablet,extended release 24 hr 25 mg PO DAILY BP/pulse 06/22/23 [History Last Taken 08/29/23 09:10] multivitamin (Daily Multi-Vitamin tablet) 1 tab PO DAILY supplement 06/22/23 [History Last Taken Unknown] nitroglycerin 0.4 mg sublingual tablet 0.4 mg sublingual Q5M chest pain 06/22/23 [History Last Taken Unknown] ranolazine 1,000 mg tablet,extended release,12 hr 1,000 mg PO Q12H angina 06/22/23 [History Last Taken 08/29/23 09:10] sertraline 100 mg tablet 100 mg PO DAILY mood 06/22/23 [History Last Taken 08/29/23 09:10] ascorbic acid (vitamin C) 500 mg tablet 500 mg PO 1000 health maintenance 30 days #30 tabs 07/18/23 [Rx Last Taken 08/29/23 09:10] furosemide 20 mg tablet 20 mg PO DAILY swelling 30 days #30 tabs 07/18/23 [Rx Last Taken 08/25/23 09:30] pantoprazole 40 mg tablet,delayed release 40 mg PO BID Stomach acid 30 days #60 tabs 07/18/23 [Rx Last Taken 08/29/23 09:10] ferrous sulfate 325 mg (65 mg iron) tablet (Feosol) 325 mg PO QODAY Health maintenance 08/29/23 [History Last Taken 08/28/23 08:00] polyethylene glycol 3350 17 gram/dose oral powder (ClearLax) 17 g PO DAILY constipation 08/29/23 [History Last Taken Unknown] acetaminophen 500 mg tablet 1,000 mg (2 x 500 mg) PO Q6H PRN PRN Pain Score 1-10 #0 tabs 09/19/23 [Rx Last Taken Unknown] arginine 7 gram-glutam 7 gram-CaHMB 1.5 [id number]-fr-min oral pwd pkt (Adryan (with collagen)) 1 packet PO BIDCM 30 days #60 ea 09/19/23 [Rx Last Taken Unknown] insulin glargine-yfgn 100 unit/mL (3 mL) subcutaneous pen 25 unit (0.25 mL) subcut DAILY #0 mL 09/19/23 [Rx Last Taken Unknown] insulin lispro 100 unit/mL subcutaneous pen (Humalog KwikPen (U-100) Insulin) 10 unit (0.1 mL) subcut TIDAC #0 mL 09/19/23 [Rx Last Taken Unknown] tamsulosin 0.4 mg capsule 0.4 mg PO DAILY@1730 30 days #30 caps 09/19/23 [Rx Last Taken Unknown] Allergy/AdvReac Type Severity Reaction Status Date / Time cefaclor [From [facility]] Allergy Unknown Other Verified 07/04/23 05:41 SPEEDY Inhibitors Allergy Other Verified 07/04/23 05:41 Beta-Blockers Allergy Other Verified 07/04/23 05:41 (Beta-Adrenergic Bloc ciprofloxacin Allergy hives Verified 07/04/23 05:41 clindamycin Allergy Rash Verified 07/04/23 05:41 isosorbide [From Imdur] Allergy Other Verified 07/04/23 05:41 Penicillins Allergy Rash Verified 07/04/23 05:41 Family History Mother CVA (cerebral vascular accident) Hyperlipidemia Glaucoma Father CAD (coronary artery disease) Hypertension Hyperlipidemia Renal artery stenosis Aortic aneurysm Brother Glaucoma Daughter Psoriasis Surgical History History of bilateral cataract extraction History of cholecystectomy History of coronary artery bypass graft History of coronary artery stent placement History of dental surgery History of hernia surgery History of hysterectomy Social History household members: spouse Smoking Status: Former smoker alcohol intake: never substance use type: does not use ROS ROS ED Constitutional Constitutional ED: Denies chills or fever(s) Eyes Eyes: Denies blurry vision or change in vision ENT ENT ED: Denies rhinorrhea or sore throat Cardiovascular Cardiovascular: Denies chest pain or palpitations Respiratory/Chest Respiratory/Chest: Denies cough or dyspnea Gastrointestinal Gastrointestinal: Denies nausea or vomiting Genitourinary Genitourinary ED: Denies dysuria or hematuria Musculoskeletal Musculoskeletal: Denies back pain or neck pain Integumentary Denies abscess or rash Neurologic Neurologic: Reports weakness; Denies headache(s) Allergic/Immunologic Allergic/Immunologic ED: Denies mouth swelling or urticaria EXAM Physical Exam Const Vital Signs: 09/24/23 14:14 09/24/23 16:41 Temperature 96.5 F L Temperature Source Temporal Pulse Rate 63 Respiratory Rate 17 Respiratory Effort Normal Respiratory Depth Normal Respiratory Pattern Normal Blood Pressure 159/73 H Blood Pressure Mean 101 Pulse Ox 100 Oxygen Delivery Method Room Air Room Air Positive well nourished and well developed General Appearance ED: well developed and NAD HEENT Reports moist mucous membranes Neck supple and no JVD Resp normal respiratory effort Auscultation: diminished lung sounds diffuse Cardio regular rate and regular rhythm GI non-tender and non-distended Palpation: soft Neuro oriented x3, CN's II-XII intact bilaterally and no sensory deficits noted Sensorium / Orientation: alert Motor Exam: strength 5/5 throughout Psych mental status grossly normal MDM MDM MDM Narrative Medical decision making narrative: Differential diagnosis includes sepsis, urinary tract infection, electrolyte abnormality, cardiac dysrhythmia, cardiac ischemia, congestive heart failure, and anxiety. CBC will be obtained to assess for leukocytosis and anemia. Comprehensive metabolic profile will be obtained to assess for hepatic function, renal function, and electrolyte abnormality. BNP will be obtained to assess for congestive heart failure. High-sensitivity troponin will be obtained to assess for cardiac ischemia. Urinalysis will be obtained to assess for urinary tract infection. EKG will be obtained to assess for cardiac dysrhythmia and cardiac ischemia. Chest x-ray will be obtained to assess for pneumonia and congestive heart failure. Serum lactate will be obtained to assess for sepsis. Urine culture will be obtained to assess for urinary tract infection. Blood cultures will be obtained to assess for sepsis. History & Record Review Additional record(s) reviewed:: Prior labs Lab Data Attestation: I reviewed the patient's lab results. Lab results narrative: CBC was reviewed. There is a mild anemia with a hemoglobin of 9.8 and hematocrit 31.4. This is stable compared to previous results. Platelets were normal. Comprehensive metabolic profile was reviewed. BUN was 57 and creatinine was 1.95. These are consistent with prior results. Glucose was elevated at 391. Anion gap was normal. CO2 was normal. PT was INR and PTT were reviewed. Pro time was 16.4 and INR is 1.4. PTT was normal at 32.4. High-sensitivity troponin was reviewed and was normal at 19. BNP was reviewed and was slightly elevated at 478.8. Urinalysis was reviewed. Leukocyte esterase was 100 with 5-10 white blood cells. There is 1+ bacteria. Labs: Laboratory Results - last 24 hr 09/24/23 09/24/23 15:38 16:15 WBC 6.9 RBC 3.37 L Hgb 9.8 L Hct 31.4 L MCV 93.2 MCH 29.1 MCHC 31.2 L RDW Std Deviation 51.6 H RDW Coeff of Maciej 14.9 H Plt Count 173 MPV 12.8 H Immature Gran % (Auto) 0.300 Neut % (Auto) 71.6 H Lymph % (Auto) 12.4 L [place] % (Auto) 9.0 Eos % (Auto) 6.1 H Baso % (Auto) 0.6 Absolute Neuts (auto) 5.0 Absolute Lymphs (auto) 0.86 Nucleated RBC % 0 PT 16.6 H INR 1.4 APTT 32.4 Sodium 135 L Potassium 4.4 Chloride 107 Carbon Dioxide 22.0 Anion Gap 6 BUN 57 H Creatinine 1.95 H Est GFR (MDRD) Af Amer 33 L Est GFR (MDRD) Non-Af 27 L BUN/Creatinine Ratio 29.2 H Glucose 391 H Lactic Acid 1.2 Calcium 9.1 Total Bilirubin 0.60 AST 28 ALT 31 Alkaline Phosphatase 189 H Troponin I High Sens 19 B-Natriuretic Peptide 478.8 H Total Protein 8.1 Albumin 3.1 L Globulin 5.0 H Albumin/Globulin Ratio 0.6 L Urine Color Yellow Urine Clarity Clear Urine pH 7.0 Ur Specific [place] 1.010 Urine Protein 100 H Urine Glucose (UA) 250 H Urine Ketones Negative Urine Occult Blood 25 H Urine Nitrite Negative Urine Bilirubin Negative Urine Urobilinogen Normal Ur Leukocyte Esterase 100 H Urine RBC 0 SEEN Urine WBC 5-10 SEEN Ur Squamous Epith Cells 0 SEEN Urine Bacteria 1+ Urine Mucus 0 SEEN Radiography Diagnostic Testing: Clinical Impression(s) from Imaging Studies Chest X-Ray 09/24/23 16:25 IMPRESSION: No definite acute or significant abnormality seen. Electronically Signed: Aniket Suarez MD at 16:34 EDT , Portable 1 view chest x-ray was obtained. On my independent interpretation, lung melendez are clear. There is normal cardiac silhouette. Bony thorax is normal. There is no acute process noted. Radiologist also interpreted the x-ray and agrees. EKG Initial EKG: Attestation: I personally reviewed and interpreted this EKG as follows: Interpretation: Sinus Rhythm (With first-degree AV block with a rate of 60) and No Acute Injury Pattern Comments: EKG was obtained. On my independent interpretation, it shows a normal sinus rhythm with a first-degree AV block with a rate of 60. IN interval was prolonged at 284 ms. QRS interval was slightly prolonged at 128 ms. QTc interval was slightly prolonged at 502 ms. [place] was normal. There are no acute ST or T wave changes noted. Prior EKG tracings: not available for review Prior: No Prior Treatment and Re-Evaluation :: Patient was advised of her findings. Patient was given a dose of Bactrim here. Case was discussed with the hospitalist. She will admit the patient to her service. Patient and family understood and were agreeable with the plan. All questions were answered. Discharge Plan Triage Chief Complaint: Fall ED Provider: Chago Moreau Dx/Rx/DC Orders Clinical Impression: Urinary tract infection, Morbid obesity, CKD (chronic kidney disease) stage 3, GFR 30-59 ml/min, Frequent falls, Debility Prescriptions: No Action atorvastatin 80 mg tablet 80 mg PO QHS Patient Comments: TAKE 1 TABLET BY MOUTH EVERYDAY AT BEDTIME clopidogrel 75 mg tablet 75 mg PO DAILY metoprolol succinate 25 mg tablet extended release 24 hr 25 mg PO DAILY Patient Comments: TAKE 1 TABLET BY MOUTH EVERY DAY albuterol sulfate [ProAir HFA] 90 mcg/actuation HFA aerosol inhaler 2 inh inhalation Q4H PRN (Reason: wheezing/shortness of breath) aspirin 81 mg tablet,chewable 1 tab PO DAILY cholecalciferol (vitamin D3) 50 mcg (2,000 unit) capsule 2,000 unit PO DAILY multivitamin [Daily Multi-Vitamin] Tablet 1 tab PO DAILY nitroglycerin 0.4 mg tablet, sublingual 0.4 mg sublingual Q5M Rx Instructions: do not exceed 3 doses per episode ranolazine 1,000 mg tablet extended release 12 hr 1,000 mg PO Q12H sertraline 100 mg tablet 100 mg PO DAILY Patient Comments: TAKE 1 TABLET BY MOUTH EVERY DAY ascorbic acid (vitamin C) 500 mg Tablet 500 mg PO 1000 30 Days Qty: 30 0RF pantoprazole 40 mg Tablet,Delayed Release (Dr/Ec) 40 mg PO BID 30 Days Qty: 60 0RF furosemide 20 mg Tablet 20 mg PO DAILY 30 Days Qty: 30 0RF polyethylene glycol 3350 [ClearLax] 17 gram/dose powder 17 g PO DAILY ferrous sulfate [Feosol] 325 mg (65 mg iron) tablet 325 mg PO QODAY insulin glargine-yfgn 100 unit/mL (3 mL) Insulin Pen 25 unit subcut DAILY Qty: 0 0RF acetaminophen 500 mg Tablet 1,000 mg PO Q6H PRN PRN (Reason: Pain Score 1-10) Qty: 0 0RF insulin lispro [Humalog KwikPen Insulin] 100 unit/mL Insulin Pen 10 unit subcut TIDAC Qty: 0 0RF Adryan (with collagen) 7-7-1.5 gram Powder In Packet 1 packet PO BIDCM 30 Days Qty: 60 0RF tamsulosin 0.4 mg Capsule 0.4 mg PO DAILY@1730 30 Days Qty: 30 0RF Primary Care Provider: Urmila Tong NP Referrals: Urmila Tong NP, [employer] [Primary Care Provider] - Disposition Disposition: Acute Care Hospital [facility]
--- NOTE | 2023-09-24 15:25 | EKG12_ITS ---
Test Reason : FALL Blood Pressure : / mmHG Vent. Rate : 060 BPM Atrial Rate : 060 BPM P-R Int : 284 ms QRS Dur : 128 ms QT Int : 502 ms P-R-T Axes : 001 061 015 degrees QTc Int : 502 ms Sinus rhythm with 1st degree A-V block Non-specific intra-ventricular conduction block Abnormal ECG Confirmed by Colin De Jesus ([id number]), department editor CLAUDIA RAMON ([id number]) on 09/25/2023 10:01:50 AM Referred By: Confirmed By:Colin De Jesus
--- NOTE | 2023-09-24 16:25 | RAD_ITS ---
STUDY: X-RAY CHEST REASON FOR EXAM: Female, 67 years old. Weakness TECHNIQUE: Single AP portable view of the chest. COMPARISON: 09/02/2023. FINDINGS: The lungs are clear and expanded. There is no demonstrated pleural abnormality. Normal size heart. Previous CABG. Normal mediastinum and win. Normal visualized pulmonary arteries. Normal visualized aortic arch and descending thoracic aorta. Normal visualized thoracic spine. Normal visualized ribs, clavicles, and shoulders. There is no demonstrated abnormality of the visualized soft tissue structures of the upper abdomen. RAD/Chest 1 View (Portable) IMPRESSION: No definite acute or significant abnormality seen. Electronically Signed: Aniket Suarez MD at 16:34 EDT ,
[2023-09-24 16:44] LABS: Mucous, Urine 0 SEEN /hpf (<or=2+); Red Blood Cells-Urine 0 SEEN /hpf (0-5); Squamous Epithelial Cells - UA 0 SEEN /hpf (5-10)
[2023-09-24 16:45] LABS: Color, Urine Yellow (Yellow); Glucose, Dipstick 250 mg/dl (Normal); Ketone-Dipstick Negative (Negative); Leukocyte Esterase-Dipstick 100 /ul (Negative); Nitrite-Dipstick Negative (Negative); Occult Blood-Urine 25 /ul (Negative); Protein-Dipstick 100 mg/dl (Negative); Urine Bilirubin Dipstick Negative (Negative); Urine Clarity Clear (Clear); Urine Urobilinogen Normal (Normal)
[2023-09-24 16:47] LABS: Absolute Lymphocyte Count 0.86 X10^3/uL (0.83-4.51); Basophil# 0.04 X10^3/uL; Basophil% 0.6 % (0-1); Eosinophil# 0.42 X10^3/uL; Eosinophils% 6.1 % (0-5); Hematocrit 31.4 % (37-47); Hemoglobin 9.8 g/dL (12.0-15.0); Lymphocyte # 0.86 X10^3/ul (0.83-4.51); Lymphocyte % 12.4 % (19-41); Mean Corp Hgb Conc 31.2 g/dL (32-36); Mean Corpuscular Hgb 29.1 pg (27.0-32.0); Mean Corpuscular Volume 93.2 fL (81-99); Mean Platelet Vol. 12.8 fl (6.2-12.0); Monocyte# 0.62 X10^3/uL; NRBC Flagged by Analyzer 0 % (0-5); Neutrophil # 4.96 X10^3/uL (2.7-7.7); Neutrophil % 71.6 % (47-70); Platelet Count 173 K/mm3 (150-450); RBC Distribution Width CV 14.9 % (11.6-14.6); RBC Distribution Width SD 51.6 fl (35.1-43.9); Red Blood Count 3.37 M/mm3 (4.2-5.4); White Blood Count 6.9 K/mm3 (4.4-11.0)
[2023-09-24 16:53] LABS: Bacteria 1+ /hpf (None Seen); White Blood Cells 5-10 SEEN /hpf (0-5)
[2023-09-24 17:01] LABS: Lactic Acid 1.2 mmol/L (0.4-1.9)
[2023-09-24 17:02] LABS: ALB/GLOB Ratio 0.6 RATIO (0.9-2.4); AST(SGOT) 28 U/L (15-37); Alanine Aminotransfer ALT/SGPT 31 U/L (13-56); Albumin, Serum 3.1 g/dL (3.2-5.0); Alkaline Phosphatase 189 U/L (45-117); Anion Gap 6 (5-15); BUN 57 mg/dL (7-18); BUN/Creat Ratio 29.2 RATIO (10-20); Calcium,Total 9.1 mg/dL (8.5-10.1); Chloride 107 mmol/L (98-107); Creatinine, Serum 1.95 mg/dL (0.55-1.02); EST Glomerular Filtration Rate 27 mL/min (>60); Est Glom Filt Rate - Afr Amer 33 mL/min (>60); Glucose 391 mg/dL (74-106); Potassium 4.4 mmol/L (3.5-5.1); Protein, Total 8.1 g/dL (6.4-8.2); Sodium Level 135 mmol/L (136-145); Troponin-I HS 19 pg/mL (3.0-54.0)
[2023-09-24 17:20] LABS: BNP,B-Type NATRIURETIC PEPTIDE 478.8 pg/mL (0-100)
[2023-09-24 17:22] LABS: International Normalized Ratio 1.4; Prothrombin Time (Protime)PT. 16.6 SECONDS (11.7-14.9)
[2023-09-24 17:23] LABS: Partial Thromboplast Time 32.4 Seconds (24.1-36.2)
[2023-09-24 18:13] VITALS: BP 150/77; PULSE 68; RESP 16; O2SAT 97
--- NOTE | 2023-09-24 18:13 | HP.PCM_ITS ---
HPI - General General Date of Admission: 09/24/23 HPI Narrative TONG PHIPPS, is a 67 F with an extensive past medical history as outlined was admitted through the ED on 09/24/2023 with a complaint of mechanical fall. Patient was discharged from the TCU 2 daysbefore she came into the ED. she had been in the TCU on account of debility and weakness after she had incision and drainage of bilateral diabetic foot ulcers. However says she went home and fell several times. She was just weak and debilitated and could not stay on her feet. She has had recurrent falls and says she did not feel safe at home so she elected to come into the ED. She denied any chest pain, shortness of breath, fever or chills, vomiting or any other symptoms. Review of systems otherwise negative. Vitals in the ED where blood pressure 150/77, pulse rate of 68 and respirate rate of 16 and she was saturating at 97% on room air. CBC showed hemoglobin of 9.8 with WBC of 6.9 and platelets of 173. INR was 1.4 and chemistry showed sodium of 135 with creatinine of 1.95 and glucose of 391. Urinalysis showed 1+ bacteria and leucocyte esterase of 100/HPF. CXR showed no acute cardiopulmonary process. She is being admitted to be managed for debility due to mechanical falls and UTI. She also wants placement. [facility] Medical History Bilateral carotid artery stenosis Chronic heart failure with preserved ejection fraction (HFpEF) Chronic kidney disease, stage 3a Coronary artery disease Debility Elevated troponin Encephalopathy Herpes zoster Hyperlipidemia Hypertension Morbid obesity Overactive bladder Stroke Ulcer of right foot due to type 2 diabetes mellitus 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 Urinary tract infection Weakness Home Medications albuterol sulfate 90 mcg/actuation aerosol inhaler (ProAir HFA) 2 inh inhalation Q4H PRN wheezing/shortness of breath 06/22/23 [History Last Taken Unknown] aspirin 81 mg chewable tablet 1 tab PO DAILY blood thinner 06/22/23 [History Last Taken 08/29/23 09:10] atorvastatin 80 mg tablet 80 mg PO QHS cholesterol 06/22/23 [History Last Taken 08/28/23 21:10] cholecalciferol (vitamin D3) 50 mcg (2,000 unit) capsule 2,000 unit PO DAILY supplement 06/22/23 [History Last Taken Unknown] clopidogrel 75 mg tablet 75 mg PO DAILY blood thinner 06/22/23 [History Last Taken 07/03/23] metoprolol succinate 25 mg tablet,extended release 24 hr 25 mg PO DAILY BP/pulse 06/22/23 [History Last Taken 08/29/23 09:10] multivitamin (Daily Multi-Vitamin tablet) 1 tab PO DAILY supplement 06/22/23 [History Last Taken Unknown] nitroglycerin 0.4 mg sublingual tablet 0.4 mg sublingual Q5M chest pain 06/22/23 [History Last Taken Unknown] ranolazine 1,000 mg tablet,extended release,12 hr 1,000 mg PO Q12H angina 06/22/23 [History Last Taken 08/29/23 09:10] sertraline 100 mg tablet 100 mg PO DAILY mood 06/22/23 [History Last Taken 08/29/23 09:10] ascorbic acid (vitamin C) 500 mg tablet 500 mg PO 1000 health maintenance 30 days #30 tabs 07/18/23 [Rx Last Taken 08/29/23 09:10] furosemide 20 mg tablet 20 mg PO DAILY swelling 30 days #30 tabs 07/18/23 [Rx Last Taken 08/25/23 09:30] pantoprazole 40 mg tablet,delayed release 40 mg PO BID Stomach acid 30 days #60 tabs 07/18/23 [Rx Last Taken 08/29/23 09:10] ferrous sulfate 325 mg (65 mg iron) tablet (Feosol) 325 mg PO QODAY Health maintenance 08/29/23 [History Last Taken 08/28/23 08:00] polyethylene glycol 3350 17 gram/dose oral powder (ClearLax) 17 g PO DAILY constipation 08/29/23 [History Last Taken Unknown] acetaminophen 500 mg tablet 1,000 mg (2 x 500 mg) PO Q6H PRN PRN Pain Score 1-10 #0 tabs 09/19/23 [Rx Last Taken Unknown] arginine 7 gram-glutam 7 gram-CaHMB 1.5 sdny-lmytb-ot-min oral pwd pkt (Adryan (with collagen)) 1 packet PO BIDCM 30 days #60 ea 09/19/23 [Rx Last Taken Unknown] insulin glargine-yfgn 100 unit/mL (3 mL) subcutaneous pen 25 unit (0.25 mL) subcut DAILY #0 mL 09/19/23 [Rx Last Taken Unknown] insulin lispro 100 unit/mL subcutaneous pen (Humalog KwikPen (U-100) Insulin) 10 unit (0.1 mL) subcut TIDAC #0 mL 09/19/23 [Rx Last Taken Unknown] tamsulosin 0.4 mg capsule 0.4 mg PO DAILY@1730 30 days #30 caps 09/19/23 [Rx Last Taken Unknown] Allergy/AdvReac Type Severity Reaction Status Date / Time cefaclor [From Ceclor] Allergy Unknown Other Verified 07/04/23 05:41 SPEEDY Inhibitors Allergy Other Verified 07/04/23 05:41 Beta-Blockers Allergy Other Verified 07/04/23 05:41 (Beta-Adrenergic Bloc ciprofloxacin Allergy hives Verified 07/04/23 05:41 clindamycin Allergy Rash Verified 07/04/23 05:41 isosorbide [From Imdur] Allergy Other Verified 07/04/23 05:41 Penicillins Allergy Rash Verified 07/04/23 05:41 Family History Mother CVA (cerebral vascular accident) Hyperlipidemia Glaucoma Father CAD (coronary artery disease) Hypertension Hyperlipidemia Renal artery stenosis Aortic aneurysm Brother Glaucoma Daughter Psoriasis Surgical History History of bilateral cataract extraction History of cholecystectomy History of coronary artery bypass graft History of coronary artery stent placement History of dental surgery History of hernia surgery History of hysterectomy Social History household members: spouse Smoking Status: Former smoker alcohol intake: never substance use type: does not use ROS Constitutional Constitutional: Reports fatigue, malaise and weakness; Denies anorexia or chills Eyes Eyes: Denies change in vision ENT HEENT: Denies dysphagia Cardiovascular Cardiovascular: Denies chest pain, palpitations or paroxysmal nocturnal dyspnea Respiratory/Chest Respiratory/Chest: Denies hemoptysis, shortness of breath at rest or shortness of breath with exertion Gastrointestinal Gastrointestinal: Denies abdominal pain, nausea or vomiting Genitourinary Genitourinary: Denies dysuria Musculoskeletal Musculoskeletal: Reports extremity pain; Denies back pain or muscle weakness Integumentary Integumentary: Denies dry skin Neurologic Neurologic: Reports weakness; Denies confusion, dizziness, focal weakness, headache(s), lack of coordination, numbness or seizures Psychiatric Psychiatric: Denies anxiety or depression Endocrine Endocrinology: Denies change in body appearance Vital Signs Vital Signs Vital Signs: 09/24/23 14:14 09/24/23 16:41 Temperature 96.5 F L Temperature Source Temporal Pulse Rate 63 Respiratory Rate 17 Respiratory Effort Normal Respiratory Depth Normal Respiratory Pattern Normal Blood Pressure 159/73 H Blood Pressure Mean 101 Pulse Ox 100 Oxygen Delivery Method Room Air Room Air Physical Exam Const alert, oriented x3 and no apparent distress General Appearance: cooperative and well developed HEENT normocephalic, head/scalp atraumatic, EAC's normal, moist oral mucous membranes, oropharynx normal and gingiva normal Eyes PERRL and EOMs intact bilaterally Neck no lymphadenopathy, supple and no JVD Lymph Lymphatic: no lymphadenopathy noted and no lymphedema noted Resp normal respiratory effort, normal air movement and clear to auscultation bilaterally Cardio regular rate, regular rhythm, S1 normal heart sound, S2 normal heart sound and no murmurs GI normal to inspection, nondistended, normoactive bowel sounds, soft to palpation, non-tender and non-distended Extremity normal capillary refill, no clubbing, cyanosis or edema and no calf tenderness General Extremity: no tenderness to palpation of joints or extremities Skin Skin Narrative: both feet wrapped in bandage. Neuro CN's II-XII intact bilaterally, no focal motor deficits, no sensory deficits noted and deep tendon reflexes 2+ bilaterally Motor Exam: strength 5/5 throughout and general weakness Psych thought process normal, cooperative and affect normal Appearance: appropriate Results Lab / Micro Data 09/24/23 16:15 09/24/23 16:15 Labs: Laboratory Results - last 24 hr 09/24/23 15:38: Urine Color Yellow, Urine Clarity Clear, Urine pH 7.0, Ur Specific [place] 1.010, Urine Protein 100 H, Urine Glucose (UA) 250 H, Urine Ketones Negative, Urine Occult Blood 25 H, Urine Nitrite Negative, Urine Bilirubin Negative, Urine Urobilinogen Normal, Ur Leukocyte Esterase 100 H, Urine RBC 0 SEEN, Urine WBC 5-10 SEEN, Ur Squamous Epith Cells 0 SEEN, Urine Bacteria 1+, Urine Mucus 0 SEEN 09/24/23 16:15: WBC 6.9, RBC 3.37 L, Hgb 9.8 L, Hct 31.4 L, MCV 93.2, MCH 29.1, MCHC 31.2 L, RDW Std Deviation 51.6 H, RDW Coeff of Maciej 14.9 H, Plt Count 173, MPV 12.8 H, Immature Gran % (Auto) 0.300, Neut % (Auto) 71.6 H, Lymph % (Auto) 12.4 L, [place] % (Auto) 9.0, Eos % (Auto) 6.1 H, Baso % (Auto) 0.6, Absolute Neuts (auto) 5.0, Absolute Lymphs (auto) 0.86, Nucleated RBC % 0, PT 16.6 H, INR 1.4, APTT 32.4, Sodium 135 L, Potassium 4.4, Chloride 107, Carbon Dioxide 22.0, Anion Gap 6, BUN 57 H, Creatinine 1.95 H, Est GFR (MDRD) Af Amer 33 L, Est GFR (MDRD) Non-Af 27 L, BUN/Creatinine Ratio 29.2 H, Glucose 391 H, Lactic Acid 1.2, Calcium 9.1, Total Bilirubin 0.60, AST 28, ALT 31, Alkaline Phosphatase 189 H, Troponin I High Sens 19, B-Natriuretic Peptide 478.8 H, Total Protein 8.1, Albumin 3.1 L, Globulin 5.0 H, Albumin/Globulin Ratio 0.6 L Imaging Radiology Impression Chest X-Ray 09/24/23 16:25 IMPRESSION: No definite acute or significant abnormality seen. Electronically Signed: Aniket Suarez MD at 16:34 EDT , Assessment & Plan Assessment/Plan (1) Urinary tract infection: (2) Frequent falls: PLAN: Plan #Debility due to recurrent mechanical falls * Patient was admitted to TCU for bilateral diabetic foot infection s/p surgery. She was discharged home from TCU a couple of days before this admission. However she comes back today because she has been having increased falls at home and does not feel safe at home. * Labs showed evidence of UTI. * Admit to [facility]. PT OT consult. Fall precautions. Hydrate gently with IV fluids. * Consult case management to help facilitate placement. #UTI: Urinalysis showed evidence of UTI. Urine cultures ordered. Started on PO bactrim for UTI due to allergies to ciprofloxacin, penicillins and cephalosporins. #History of stroke: On aspirin and Plavix as well as statin #History of type 2 diabetes mellitus: * On Lantus 36 units daily. Insulin sliding scale. Accu-Cheks ACHS. * Recently had diabetic foot infection for which she had I&D by Dr. Haddad on 08/24/2023. She was on p.o. Keflex and she completed the course on 09/07/2023. #History of CAD: On metoprolol and Ranexa as well as statin and aspirin as well as Plavix. Sublingual nitroglycerin as needed. #Hypertension: Blood pressure is 150/77. On metoprolol. IV hydralazine as needed. #Depression: On sertraline #History of urinary retention: On Flomax #History of iron deficiency anemia: On oral iron supplementation #HFpEF: not in exacerbation. ON lasix and metoprolol DVT prophylaxis: Lovenox CODE STATUS: full code * Patient counseled extensively about different types of CODE STATUS including full code, DNR CCA and DNR CCA. Patient elects to be full code. Her is her next of kin and will make decisions for her if she is incapacitated * total snmd-cv-doue time 17 minutes. Charges/Coding Visit Charges Inpatient E&M: 31103 Init Hosp L3 Procedures Hospitalists Procedures: 86783 Advncd Care Plan 30 Min
[2023-09-24] MEDS: Smz/Tmp Ds Tablet 1 TABLET PO ×2 (19:40→22:13)
[2023-09-24 19:44] VITALS: BP 145/81; PULSE 82; RESP 19; TEMP 36.6; O2SAT 98
[2023-09-24 20:00] VITALS: BP 158/70; PULSE 58; RESP 16; TEMP 36.6; O2SAT 99
[2023-09-24 20:11] VITALS: BMI 41.5
[2023-09-24 21:04] LABS: Bedside Glucose 360 mg/dL (74-106)
[2023-09-24] MEDS: Tamsulosin HCl 0.4 MG Capsule PO (22:13)
[2023-09-24] MEDS: Insulin Lispro 100 UNIT/ML INSULN.PEN SC (22:14)
[2023-09-24] MEDS: Atorvastatin Calcium 80 MG Tablet PO (22:14)
[2023-09-24] MEDS: Ranolazine 500 MG Tablet 1000 MG PO (22:15)
[2023-09-24] MEDS: Pantoprazole Sodium 40 MG Tablet PO (22:15)
[2023-09-24] MEDS: 0.9% Saline Lock 10 ML Syringe IV (22:16)
[2023-09-25] VITALS (7 sets, daily range): BP systolic 95–144; BP diastolic 46–58; PULSE 48–56; RESP 16–18; TEMP 36.6–36.7; O2SAT 95–100
--- NOTE | 2023-09-25 07:00 | PN.HOSP_ITS ---
Reason for Visit Reason for Visit: Diagnoses Urinary tract infection, site not specified (09/24/23) Repeated falls (09/24/23) Subjective Subjective Feeling weak. Had been falling at home. Objective Data Objective Data Vital Signs: Vital Signs Temp Pulse Resp BP Pulse Ox O2 Del Method 36.6 C 52 L 16 120/52 L 98 Room Air 09/25/23 02:00 09/25/23 02:00 09/25/23 02:00 09/25/23 02:00 09/25/23 02:00 09/25/23 02:00 Oxygen Delivery Method Room Air Weight: 106.4 kg Body Mass Index (BMI) 41.5 Intake & Output: Intake and Output for Last 24 Hours 09/23/23 09/24/23 09/25/23 23:59 23:59 23:59 Output Total 1650 / 1650 Balance -1650 / -1650 Lab / Micro Data 09/24/23 16:15 09/24/23 16:15 Labs: Laboratory Results - last 24 hr 09/24/23 15:38: Urine Color Yellow, Urine Clarity Clear, Urine pH 7.0, Ur Specific [place] 1.010, Urine Protein 100 H, Urine Glucose (UA) 250 H, Urine Ketones Negative, Urine Occult Blood 25 H, Urine Nitrite Negative, Urine Bilirubin Negative, Urine Urobilinogen Normal, Ur Leukocyte Esterase 100 H, Urine RBC 0 SEEN, Urine WBC 5-10 SEEN, Ur Squamous Epith Cells 0 SEEN, Urine Bacteria 1+, Urine Mucus 0 SEEN 09/24/23 16:15: WBC 6.9, RBC 3.37 L, Hgb 9.8 L, Hct 31.4 L, MCV 93.2, MCH 29.1, MCHC 31.2 L, RDW Std Deviation 51.6 H, RDW Coeff of Maciej 14.9 H, Plt Count 173, MPV 12.8 H, Immature Gran % (Auto) 0.300, Neut % (Auto) 71.6 H, Lymph % (Auto) 12.4 L, [place] % (Auto) 9.0, Eos % (Auto) 6.1 H, Baso % (Auto) 0.6, Absolute Neuts (auto) 5.0, Absolute Lymphs (auto) 0.86, Nucleated RBC % 0, PT 16.6 H, INR 1.4, APTT 32.4, Sodium 135 L, Potassium 4.4, Chloride 107, Carbon Dioxide 22.0, Anion Gap 6, BUN 57 H, Creatinine 1.95 H, Est GFR (MDRD) Af Amer 33 L, Est GFR (MDRD) Non-Af 27 L, BUN/Creatinine Ratio 29.2 H, Glucose 391 H, Lactic Acid 1.2, Calcium 9.1, Total Bilirubin 0.60, AST 28, ALT 31, Alkaline Phosphatase 189 H, Troponin I High Sens 19, B-Natriuretic Peptide 478.8 H, Total Protein 8.1, Albumin 3.1 L, Globulin 5.0 H, Albumin/Globulin Ratio 0.6 L 09/24/23 20:46: POC Glucose 360 H Radiography Diagnostic Testing: Radiology Impression Chest X-Ray 09/24/23 16:25 IMPRESSION: No definite acute or significant abnormality seen. Electronically Signed: Aniket Suarez MD at 16:34 EDT , Physical Exam Const alert and no apparent distress HEENT head/scalp atraumatic and moist oral mucous membranes Resp normal respiratory effort and no retractions Neuro Sensorium / Orientation: awake and alert Assessment & Plan Assessment/Plan (1) Urinary tract infection: (2) Frequent falls: PLAN: Plan Debility * Recently discharged from TCU with bilateral diabetic foot infection s/p surgery. * Since going home, has been having increasing falls and unable to safely care for herself. * PT OT CM evals * Anticipate patient will again require short term placement. However, with recent admission to TCU and prompt return, it is very concerning about Abnormal UA * not consistent with UTI * DC abx. Chronic conditions: * history of stroke: On aspirin and Plavix as well as statin * History of type 2 diabetes mellitus: On Lantus 36 units daily. Insulin sliding scale. Accu-Cheks ACHS. * Recently had diabetic foot infection for which she had I&D by Dr. Haddad on 08/24/2023. She was on p.o. Keflex and she completed the course on 09/07/2023. * CAD: continue metoprolol and ranolazine, statin and clopidogrel. * Hypertension: Blood pressure is 150/77. On metoprolol. IV hydralazine as needed. * Depression: On sertraline * History of iron deficiency anemia: On oral iron supplementation * HFpEF: chronic. compensated. continue furosemide and metoprolol DVT prophylaxis: enoxaparin CODE STATUS: full code Charges/Coding Visit Charges Inpatient E&M: 27765 Subs Hosp L2
[2023-09-25] MEDS: Insulin Lispro 100 UNIT/ML INSULN.PEN 10 UNIT SC ×2 (07:50→11:56)
[2023-09-25] MEDS: Insulin Lispro 100 UNIT/ML INSULN.PEN SC ×3 (07:50→21:28)
[2023-09-25] MEDS: Enoxaparin 30 MG/0.3 ML Syringe SC (07:51)
[2023-09-25] MEDS: Juven (unflavored) Packet 1 PACKET PO ×2 (07:51→16:01)
[2023-09-25] MEDS: Insulin Glargine-YFGN 100 UNIT/ML Pen 18 UNIT SC (07:52)
[2023-09-25] MEDS: Glucerna Shake 120 ML LIQUID PO ×2 (07:59→11:56)
[2023-09-25] MEDS: Aspirin 81 MG TAB.CHEW PO (07:59)
[2023-09-25] MEDS: Cholecalciferol (VIT D3) 25 MCG TABLET (1,000 UNITS) 50 MCG PO (07:59)
[2023-09-25] MEDS: Sertraline 100 MG Tablet PO (08:00)
[2023-09-25] MEDS: Pantoprazole Sodium 40 MG Tablet PO ×2 (08:00→21:29)
[2023-09-25] MEDS: Furosemide 20 MG Tablet PO (08:00)
[2023-09-25] MEDS: Ranolazine 500 MG Tablet 1000 MG PO ×2 (08:00→21:29)
[2023-09-25] MEDS: Polyethylene Glycol 3350 17 GM PACKET PO (08:01)
[2023-09-25] MEDS: Multivitamins,Therapeutic Tablet 1 TABLET PO (08:01)
[2023-09-25] MEDS: Clopidogrel Bisulfate 75 MG Tablet PO (08:01)
[2023-09-25] MEDS: Ascorbic Acid 500 MG Tablet PO (08:01)
[2023-09-25 08:42] LABS: Bedside Glucose 189 mg/dL (74-106)
--- NOTE | 2023-09-25 11:32 | CASEMGMT ---
KJ CM into pt room, pt lying in bed in no distress. Pt states she was dc'd from TCU and had [facility] set up. Pt states she has had multiple falls at home and feels she needs further therapy prior to returning home. Pt goal is to return home after further therapy. Pt lives with her . [facility] updated via careport of pt admission and plan for dc.
--- NOTE | 2023-09-25 11:59 | WOUNDNOTE ---
wound photo: left heel
--- NOTE | 2023-09-25 11:59 | WOUNDNOTE ---
wound photo: right foot
--- NOTE | 2023-09-25 12:00 | WOUNDNOTE ---
wound photo: right heel
[2023-09-25 12:23] LABS: Bedside Glucose 205 mg/dL (74-106)
[2023-09-25] MEDS: Ondansetron 4 MG/2 ML Vial IV (12:26)
[2023-09-25] MEDS: 0.9% Saline Lock 10 ML Syringe IV (12:26)
--- NOTE | 2023-09-25 12:28 | NURSING ---
Pt eatting set up for lunch by this RN. Shortly after RN walked out, P.T walked in and pt was dry heaving, feeling nauseated. This RN just medicated pt for nausea.
--- NOTE | 2023-09-25 12:28 | CHAPLAIN ---
Type of Pastoral Visit _x__ Initial Visit ___ Follow-up Visit ___ On-call Visit ___ General Patient Visit ___ Spiritual Assessment ___ Family Conference ___ Bereavement ___ Rapid Response ___ Code Blue ___ Other (describe below) Pastoral Care Referral From _x__ Patient ___ Family ___ Nurse ___ Physician ___ Grapple Skidder Operator ___ Barrel Maker ___ Other (describe below) Sacrament/Intervention _x__ Active listening ___ Anointing ___ Quaker ___ Bereavement ___ Communion _x__ Amira exploration ___ ___ Life review _x__ Prayer ___ Reconciliation ___ Sacrament of Sick _x__ Supportive presence ___ Wedding ___ Other (describe below) Pastoral Comments patient admitted after a brief return home; pt appears a little slow to speak clearly but enters into conversation; pt acknowledges that she is willing for whatever situation needs to happen next for her and that I can't keep falling; pt indicates family is having discussions; pt speaks of praying and the need for guidance; pt welcomes presence and prayers
--- NOTE | 2023-09-25 14:55 | CASEMGMT ---
Met with patient to complete QUINTERO form. QUINTERO form explained to patient who voiced understanding and signed form. Original form placed in pt?s chart and copy provided to?patient. Rula Vallejo, Discharge Planning Asst
--- NOTE | 2023-09-25 15:08 | CASEMGMT ---
Social Work- A list of SNF providers including quality and resource use data and consistent with the patient?s preferred geographic region, medical needs, and insurance network were provided via the CarePort Guide Link. Pt will review list with spouse and asked SW to check back in tomorrow morning. Pt reports that she has no other needs at this time. AIDA Salas
[2023-09-25] MEDS: Tamsulosin HCl 0.4 MG Capsule PO (16:01)
[2023-09-25 16:35] LABS: Bedside Glucose 98 mg/dL (74-106)
[2023-09-25 21:13] LABS: Bedside Glucose 155 mg/dL (74-106)
[2023-09-25] MEDS: Atorvastatin Calcium 80 MG Tablet PO (21:30)
[2023-09-26 03:26] VITALS: BP 148/55; PULSE 56; RESP 16; TEMP 36.7; O2SAT 99
--- NOTE | 2023-09-26 07:45 | PN.HOSP_ITS ---
Reason for Visit Reason for Visit: Diagnoses Urinary tract infection, site not specified (09/24/23) Repeated falls (09/24/23) Subjective Subjective Feels well. No new complaints. Objective Data Objective Data Vital Signs: Vital Signs Temp Pulse Resp BP Pulse Ox O2 Del Method 36.7 C 56 L 16 148/55 H 99 Room Air 09/26/23 03:26 09/26/23 03:26 09/26/23 03:26 09/26/23 03:26 09/26/23 03:26 09/26/23 03:26 Oxygen Delivery Method Room Air Weight: 106.4 kg Body Mass Index (BMI) 41.5 Intake & Output: Intake and Output for Last 24 Hours 09/24/23 09/25/23 09/26/23 23:59 23:59 23:59 Intake Total 720 / 720 Output Total 1975 / 2275 850 / 850 Balance -1255 / -1555 -850 / -850 Lab / Micro Data 09/24/23 16:15 09/24/23 16:15 Labs: Laboratory Results - last 24 hr 09/25/23 07:45: POC Glucose 189 H 09/25/23 11:47: POC Glucose 205 H 09/25/23 15:59: POC Glucose 98 09/25/23 20:56: POC Glucose 155 H Micro: Microbiology 09/24/23 15:38 Urine Catheter - Rick Urine Culture - Preliminary Gram negative michel Physical Exam Const alert and no apparent distress Constitutional Narrative: up in chair. HEENT head/scalp atraumatic and moist oral mucous membranes Psych affect normal Assessment & Plan Assessment/Plan (1) Frequent falls: PLAN: Plan Debility * Recently discharged from TCU with bilateral diabetic foot infection s/p surgery. * Since going home, has been having increasing falls and unable to safely care for herself. * PT OT CM evals * Anticipate patient will again require short term placement. However, with recent admission to TCU and prompt return, it is very concerning about Abnormal UA * not consistent with UTI, however, UCx positive for P mirabilis >100k. This was positive on 07/03/22, but does not appear to be treated. Pt has chronic Rick catheter. 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 Continue to hold off on abx. Chronic conditions: * prior stroke: On aspirin and Plavix as well as statin * type 2 diabetes mellitus: On Lantus 36 units daily. Prandial insulin 10 units with meals. Insulin sliding scale. Accu-Cheks ACHS. Control is variable. Monitor. * Recently had diabetic foot infection for which she had I&D by Dr. Haddad on 08/24/2023. She was on p.o. Keflex and she completed the course on 09/07/2023. * CAD: continue metoprolol and ranolazine, statin and clopidogrel. * Hypertension: Blood pressure is 150/77. On metoprolol. IV hydralazine as needed. * Depression: On sertraline * History of iron deficiency anemia: On oral iron supplementation * HFpEF: chronic. compensated. continue furosemide and metoprolol * Urinary retention: continue Rick catheter. Follow up with . DVT prophylaxis: enoxaparin CODE STATUS: full code Charges/Coding Visit Charges Inpatient E&M: 37285 Subs Hosp L1
[2023-09-26] MEDS: Ascorbic Acid 500 MG Tablet PO (08:13)
[2023-09-26] MEDS: Multivitamins,Therapeutic Tablet 1 TABLET PO (08:14)
[2023-09-26] MEDS: Ranolazine 500 MG Tablet 1000 MG PO ×2 (08:14→21:30)
[2023-09-26 08:15] VITALS: BP 115/43; PULSE 59; RESP 18; TEMP 36.2; O2SAT 98
[2023-09-26] MEDS: Clopidogrel Bisulfate 75 MG Tablet PO (08:15)
[2023-09-26] MEDS: Cholecalciferol (VIT D3) 25 MCG TABLET (1,000 UNITS) 50 MCG PO (08:15)
[2023-09-26] MEDS: Aspirin 81 MG TAB.CHEW PO (08:15)
[2023-09-26] MEDS: Polyethylene Glycol 3350 17 GM PACKET PO (08:16)
[2023-09-26] MEDS: Enoxaparin 30 MG/0.3 ML Syringe SC (08:16)
[2023-09-26] MEDS: Juven (unflavored) Packet 1 PACKET PO (08:16)
[2023-09-26] MEDS: Pantoprazole Sodium 40 MG Tablet PO ×2 (08:16→21:31)
[2023-09-26] MEDS: Ferrous Sulfate 325 MG Tablet PO (08:16)
[2023-09-26] MEDS: Sertraline 100 MG Tablet PO (08:17)
[2023-09-26] MEDS: Insulin Lispro 100 UNIT/ML INSULN.PEN 10 UNIT SC ×3 (08:18→17:18)
[2023-09-26] MEDS: Insulin Glargine-YFGN 100 UNIT/ML Pen 18 UNIT SC (08:19)
[2023-09-26] MEDS: Furosemide 20 MG Tablet PO (08:19)
[2023-09-26] MEDS: Insulin Lispro 100 UNIT/ML INSULN.PEN SC ×3 (08:19→17:19)
--- NOTE | 2023-09-26 09:55 | CASEMGMT ---
Social Work- SW met with pt who requested a Hdz list of facilities d/t proximity to her surgeon she has been working with. SW generated a list of Hdz facilities which was provided to pt for review with her when he visits later this morning/afternoon. AIDA Salas
[2023-09-26 12:29] LABS: Bedside Glucose 188 mg/dL (74-106)
[2023-09-26 12:40] LABS: Bedside Glucose 245 mg/dL (74-106)
--- NOTE | 2023-09-26 14:32 | CASEMGMT ---
Social Work- Pt chose [facility], [facility], and [facility] for referrals. Referrals to be made and pt updated on status. AIDA Salas
--- NOTE | 2023-09-26 14:43 | CASEMGMT ---
[facility]charge [facility]. Rula Vallejo DC Planning Asst.
--- NOTE | 2023-09-26 14:53 | CASEMGMT ---
Social Work- Pt advised of acceptance at [facility]. Precert to be started. SW will coordinate with pt as authorization is received. AIDA Salas
[2023-09-26 15:40] VITALS: BP 120/44; PULSE 56; RESP 18; TEMP 36.7; O2SAT 100
[2023-09-26] MEDS: Tamsulosin HCl 0.4 MG Capsule PO (17:20)
[2023-09-26 17:21] LABS: Bedside Glucose 250 mg/dL (74-106)
[2023-09-26 21:19] LABS: Bedside Glucose 145 mg/dL (74-106)
[2023-09-26 21:30] VITALS: BP 149/60; PULSE 58; RESP 18; TEMP 36.8; O2SAT 100
[2023-09-26] MEDS: Atorvastatin Calcium 80 MG Tablet PO (21:31)
[2023-09-27] VITALS (7 sets, daily range): BP systolic 106–151; BP diastolic 38–90; PULSE 52–67; RESP 16–18; TEMP 36.4–36.9; O2SAT 96–100
[2023-09-27] MEDS: Acetaminophen 325 MG Tablet 650 MG PO (06:31)
[2023-09-27] MEDS: Insulin Lispro 100 UNIT/ML INSULN.PEN SC ×4 (08:00→21:02)
[2023-09-27] MEDS: Insulin Lispro 100 UNIT/ML INSULN.PEN 10 UNIT SC ×3 (08:00→17:09)
[2023-09-27] MEDS: Multivitamins,Therapeutic Tablet 1 TABLET PO (08:02)
[2023-09-27] MEDS: Ascorbic Acid 500 MG Tablet PO (08:02)
[2023-09-27] MEDS: Aspirin 81 MG TAB.CHEW PO (08:02)
[2023-09-27] MEDS: Cholecalciferol (VIT D3) 25 MCG TABLET (1,000 UNITS) 50 MCG PO (08:02)
[2023-09-27] MEDS: Juven (unflavored) Packet 1 PACKET PO ×2 (08:03→17:10)
[2023-09-27 08:36] LABS: Bedside Glucose 175 mg/dL (74-106)
[2023-09-27] MEDS: Insulin Glargine-YFGN 100 UNIT/ML Pen 18 UNIT SC (09:45)
[2023-09-27] MEDS: Furosemide 20 MG Tablet PO (09:46)
[2023-09-27] MEDS: Clopidogrel Bisulfate 75 MG Tablet PO (09:46)
[2023-09-27] MEDS: Pantoprazole Sodium 40 MG Tablet PO ×2 (09:46→21:09)
[2023-09-27] MEDS: Enoxaparin 30 MG/0.3 ML Syringe SC (09:46)
[2023-09-27] MEDS: Ranolazine 500 MG Tablet 1000 MG PO ×2 (09:47→21:09)
[2023-09-27] MEDS: Metoprolol(XL)Succ 25 MG Tablet PO (09:47)
[2023-09-27] MEDS: Sertraline 100 MG Tablet PO (09:48)
--- NOTE | 2023-09-27 11:42 | CASEMGMT ---
Discharge Planning Updates sent to [facility] via [facility]. Rula Vallejo DC Planning Asst.
[2023-09-27 11:59] LABS: Bedside Glucose 358 mg/dL (74-106)
--- NOTE | 2023-09-27 13:42 | PN.HOSP_ITS ---
Reason for Visit Reason for Visit: Diagnoses Urinary tract infection, site not specified (09/24/23) Repeated falls (09/24/23) Subjective Subjective Feels well. Objective Data Objective Data Vital Signs: Vital Signs Temp Pulse Resp BP Pulse Ox O2 Del Method 36.4 C L 67 16 133/48 H 98 Room Air 09/27/23 07:58 09/27/23 09:52 09/27/23 07:58 09/27/23 09:52 09/27/23 09:52 09/27/23 09:52 Oxygen Delivery Method Room Air Weight: 106.4 kg Body Mass Index (BMI) 41.5 Intake & Output: Intake and Output for Last 24 Hours 09/25/23 09/26/23 09/27/23 23:59 23:59 23:59 Intake Total 720 / 720 800 / 800 Output Total 1975 / 2275 1950 / 1950 850 / 850 Balance -1255 / -1555 -1150 / -1150 -850 / -850 Lab / Micro Data 09/24/23 16:15 09/24/23 16:15 Labs: Laboratory Results - last 24 hr 09/26/23 16:41: POC Glucose 250 H 09/26/23 21:00: POC Glucose 145 H 09/27/23 07:54: POC Glucose 175 H 09/27/23 11:40: POC Glucose 358 H Micro: Microbiology 09/24/23 16:15 Blood Culture (Wb) - Anticubital Right Blood Culture - Preliminary No growth in 48 hours. 09/24/23 16:15 Blood Culture (Wb) - Anticubital Left Blood Culture - Prel iminary No growth in 48 hours. 09/24/23 15:38 Urine Catheter - Rick Urine Culture - Final Proteus mirabilis Physical Exam Const alert and no apparent distress Neuro Sensorium / Orientation: awake and alert Psych affect normal Assessment & Plan Assessment/Plan (1) Frequent falls: PLAN: Plan Debility * Recently discharged from TCU with bilateral diabetic foot infection s/p surgery. * Since going home, has been having increasing falls and unable to safely care for herself. * PT OT CM evals Abnormal UA * not consistent with UTI, however, UCx positive for P mirabilis >100k. This was positive on 07/03/22, but does not appear to be treated. Pt has chronic Rick catheter. 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 Continue to hold off on abx. * [place] to be colonization. Chronic conditions: * prior stroke: On aspirin and Plavix as well as statin * type 2 diabetes mellitus: On Lantus 36 units daily. Prandial insulin 10 units with meals. Insulin sliding scale. Accu-Cheks ACHS. Control is variable. Fantasma charles. * Recently had diabetic foot infection for which she had I&D by Dr. Haddad on 08/24/2023. She was on p.o. Keflex and she completed the course on 09/07/2023. * CAD: continue metoprolol and ranolazine, statin and clopidogrel. * Hypertension: Blood pressure is 150/77. On metoprolol. IV hydralazine as needed. * Depression: On sertraline * History of iron deficiency anemia: On oral iron supplementation * HFpEF: chronic. compensated. continue furosemide and metoprolol * Urinary retention: continue Rick catheter. Follow up with . DVT prophylaxis: enoxaparin CODE STATUS: full code Charges/Coding Visit Charges Inpatient E&M: 52832 Subs Hosp L1
[2023-09-27 17:09] LABS: Bedside Glucose 334 mg/dL (74-106)
[2023-09-27] MEDS: Tamsulosin HCl 0.4 MG Capsule PO (17:11)
[2023-09-27] MEDS: Atorvastatin Calcium 80 MG Tablet PO (21:09)
[2023-09-27 21:30] LABS: Bedside Glucose 288 mg/dL (74-106)
[2023-09-28 03:14] VITALS: BP 110/31; PULSE 53; RESP 18; TEMP 36.7; O2SAT 100
[2023-09-28 08:04] VITALS: BP 123/45; PULSE 52; RESP 18; TEMP 36.4; O2SAT 100
[2023-09-28] MEDS: Insulin Lispro 100 UNIT/ML INSULN.PEN SC ×4 (08:18→19:55)
[2023-09-28] MEDS: Multivitamins,Therapeutic Tablet 1 TABLET PO (08:19)
[2023-09-28] MEDS: Insulin Lispro 100 UNIT/ML INSULN.PEN 10 UNIT SC ×3 (08:19→16:19)
[2023-09-28] MEDS: Enoxaparin 30 MG/0.3 ML Syringe SC (08:19)
[2023-09-28] MEDS: Ferrous Sulfate 325 MG Tablet PO (08:19)
[2023-09-28] MEDS: Juven (unflavored) Packet 1 PACKET PO ×2 (08:19→16:19)
[2023-09-28] MEDS: Aspirin 81 MG TAB.CHEW PO (08:19)
[2023-09-28] MEDS: Pantoprazole Sodium 40 MG Tablet PO ×2 (08:20→19:54)
[2023-09-28] MEDS: Ranolazine 500 MG Tablet 1000 MG PO ×2 (08:20→22:16)
[2023-09-28] MEDS: Ascorbic Acid 500 MG Tablet PO (08:20)
[2023-09-28] MEDS: Cholecalciferol (VIT D3) 25 MCG TABLET (1,000 UNITS) 50 MCG PO (08:20)
[2023-09-28] MEDS: Furosemide 20 MG Tablet PO (08:20)
[2023-09-28] MEDS: Sertraline 100 MG Tablet PO (08:20)
[2023-09-28] MEDS: Clopidogrel Bisulfate 75 MG Tablet PO (08:20)
[2023-09-28] MEDS: Polyethylene Glycol 3350 17 GM PACKET PO (08:23)
[2023-09-28 09:33] VITALS: PULSE 52
[2023-09-28 09:54] LABS: Bedside Glucose 186 mg/dL (74-106)
[2023-09-28] MEDS: Insulin Glargine-YFGN 100 UNIT/ML Pen 18 UNIT SC (10:12)
[2023-09-28 11:00] VITALS: PULSE 55
[2023-09-28 11:40] LABS: Bedside Glucose 263 mg/dL (74-106)
--- NOTE | 2023-09-28 13:17 | CASEMGMT ---
Social Work- RADHA called [facility] to follow up with referral. RADHA left a message for Mariela, director community center, at [phone]. RADHA Salas
--- NOTE | 2023-09-28 14:22 | PCM.TXEXTCAR ---
Diet Diet Order/Speech Therapy: 09/24/23 19:57 Diet: Consistent Carb - Calorie Controlled Food consistency:: Regular Liquid Consistency:: Regular/Thin Dietary Modifications:: Cardiac / Heart Healthy Sodium Restricted Type of Dietary Supplement:: 4oz Glucerna w/ breakfast Diet Comments: 2 oz extra lean meat/protein with lunch and dinner How many daily calories?: 1800 calorie Routine Orders/Code Status Code Status: Full Code Wound(s) left heel: Wound Type: Pressure Injury Dressing Change: Adaptic right heel: Wound Type: Pressure Injury Dressing Change: KCI wound VAC Therapies Weight Bearing: Weight bearing as tolerated Extremity Affected:: Bilateral Lower Physical Therapy: Eval and Treat Occupational Therapy: Eval and Treat Problem/Diagnosis (1) Frequent falls: Status: Acute Code(s): R29.6 - Repeated falls Plan Debility Recently discharged from TCU with bilateral diabetic foot infection s/p surgery. Since going home, has been having increasing falls and unable to safely care for herself. PT OT CM evals Abnormal UA not consistent with UTI, however, UCx positive for P mirabilis >100k. This was positive on 07/03/22, but does not appear to be treated. Pt has chronic Rick catheter. 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 Continue to hold off on abx. [place] to be colonization. Chronic conditions: prior stroke: On aspirin and Plavix as well as statin type 2 diabetes mellitus: On Lantus 36 units daily. Prandial insulin 10 units with meals. Insulin sliding scale. Accu-Cheks ACHS. Control is variable. Monitor. Recently had diabetic foot infection for which she had I&D by Dr. Haddad on 08/24/2023. She was on p.o. Keflex and she completed the course on 09/07/2023. Follow up with Catie. Continue wound vac for now. CAD: continue metoprolol and ranolazine, statin and clopidogrel. Hypertension: Blood pressure is 150/77. On metoprolol. IV hydralazine as needed. Depression: On sertraline History of iron deficiency anemia: On oral iron supplementation HFpEF: chronic. compensated. continue furosemide and metoprolol Urinary retention: continue Rick catheter. Follow up with . DVT prophylaxis: enoxaparin CODE STATUS: full code Allergies/Procedures Done in Hospital Allergies cefaclor [From [facility]] Allergy (Unknown, Verified 07/04/23 05:41) Other patient unsure SPEEDY Inhibitors Allergy (Verified 07/04/23 05:41) Other patient unsure Beta-Blockers (Beta-Adrenergic Bloc Allergy (Verified 07/04/23 05:41) Other patient unsure ciprofloxacin Allergy (Verified 07/04/23 05:41) hives clindamycin Allergy (Verified 07/04/23 05:41) Rash isosorbide [From Imdur] Allergy (Verified 07/04/23 05:41) Other patient unsure Penicillins Allergy (Verified 07/04/23 05:41) Rash Type of Care/Length of Stay Estimated LOS: Convalescent Care Less Than 30 days Type of Care Needed: Skilled Rehab Potential: Good Prognosis: Good Additional Orders/Day of Discharge Day of Discharge: 09/28/23 Dietary and Speech Recommendations Dietitian Recommendations/Changes: Will adjust diet to 1800 calorie/consistent carbohydrate; cardiac/sodium-restricted. Fluid restriction as needed per physician. Continue Adryan BID for wound healing. Will d/c 120mL glucerna shake 3 times per day w/ medpass. Will add 120mL glucerna shake w/ breakfast and extra 1 oz protein/lean meat w/ lunch and dinner meals. Discharge Plan Admission Admit Date/Time: 09/24/23 18:27 Primary Reason for Your Visit: Debility Attending Provider: Chago De Primary Care Provider: Urmila Tong NP Consulting Providers: Ronda Sun Discharge Orders/Prescriptions Prescriptions: Continued atorvastatin 80 mg tablet 80 mg PO QHS Patient Comments: TAKE 1 TABLET BY MOUTH EVERYDAY AT BEDTIME clopidogrel 75 mg tablet 75 mg PO DAILY metoprolol succinate 25 mg tablet extended release 24 hr 25 mg PO DAILY Patient Comments: TAKE 1 TABLET BY MOUTH EVERY DAY albuterol sulfate [ProAir HFA] 90 mcg/actuation HFA aerosol inhaler 2 inh inhalation Q4H PRN (Reason: wheezing/shortness of breath) aspirin 81 mg tablet,chewable 1 tab PO DAILY cholecalciferol (vitamin D3) 50 mcg (2,000 unit) capsule 2,000 unit PO DAILY multivitamin [Daily Multi-Vitamin] Tablet 1 tab PO DAILY nitroglycerin 0.4 mg tablet, sublingual 0.4 mg sublingual Q5M Rx Instructions: do not exceed 3 doses per episode ranolazine 1,000 mg tablet extended release 12 hr 1,000 mg PO Q12H sertraline 100 mg tablet 100 mg PO DAILY Patient Comments: TAKE 1 TABLET BY MOUTH EVERY DAY ascorbic acid (vitamin C) 500 mg Tablet 500 mg PO 1000 30 Days Qty: 30 0RF pantoprazole 40 mg Tablet,Delayed Release (Dr/Ec) 40 mg PO BID 30 Days Qty: 60 0RF furosemide 20 mg Tablet 20 mg PO DAILY 30 Days Qty: 30 0RF polyethylene glycol 3350 [ClearLax] 17 gram/dose powder 17 g PO DAILY ferrous sulfate [Feosol] 325 mg (65 mg iron) tablet 325 mg PO QODAY insulin glargine-yfgn 100 unit/mL (3 mL) Insulin Pen 25 unit subcut DAILY Qty: 0 0RF acetaminophen 500 mg Tablet 1,000 mg PO Q6H PRN PRN (Reason: Pain Score 1-10) Qty: 0 0RF insulin lispro [Humalog KwikPen Insulin] 100 unit/mL Insulin Pen 10 unit subcut TIDAC Qty: 0 0RF Adryan (with collagen) 7-7-1.5 gram Powder In Packet 1 packet PO BIDCM 30 Days Qty: 60 0RF tamsulosin 0.4 mg Capsule 0.4 mg PO DAILY@1730 30 Days Qty: 30 0RF Referrals / Follow Up: Angela Haddad DPM [Non-Staff] - Within 1 Week Urmila Tong NP, RAIL MAINTENANCE WORKER-C [Primary Care Provider] - Within 2 Weeks Disposition Disposition (needs filled in before D/C Order can be placed): Nursing Home Facility
--- NOTE | 2023-09-28 14:30 | DS.PCM_ITS ---
Providers Date of Admission: 09/24/23 Primary Care Physician: YUE Ny Consultations 09/24/23 20:37 Consult: Onc/Wound/welder apprentice combination Routine Comment: Reason for Consult:: toe amp w wound vac. was in tcu Reason For Visit: UTI, FREQUENT FALLS Diagnosis Discharge Diagnosis (1) Frequent falls: Status: Acute Code(s): R29.6 - Repeated falls Plan Debility * Recently discharged from TCU with bilateral diabetic foot infection s/p surgery. * Since going home, has been having increasing falls and unable to safely care for herself. * PT OT CM cristopher * Patient is limited because of her recent surgery and having a wound VAC. Generally, I feel the patient is motivated to get better though her progress may be slow given her multitude of ailments and inability to walk adequately g iven her recent surgeries and the wound VAC. I did do a bpns-rr-clbe today to discuss my concerns with the insurance physician. The insurance physician did approve her to go to skilled care. Abnormal UA * not consistent with UTI, however, UCx positive for P mirabilis >100k. This was positive on 07/03/22, but does not appear to be treated. Pt has chronic Rick catheter. 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 Continue to hold off on abx. * [place] to be colonization. Chronic conditions: * prior stroke: On aspirin and Plavix as well as statin * type 2 diabetes mellitus: On Lantus 36 units daily. Prandial insulin 10 units with meals. Insulin sliding scale. Accu-Cheks ACHS. Control is variable. Monitor. * Recently had diabetic foot infection for which she had I&D by Dr. Haddad on 08/24/2023. She was on p.o. Keflex and she completed the course on 09/07/2023. Follow up with Catie. Continue wound vac for now. * CAD: continue metoprolol and ranolazine, statin and clopidogrel. * Hypertension: Blood pressure is 150/77. On metoprolol. IV hydralazine as needed. * Depression: On sertraline * History of iron deficiency anemia: On oral iron supplementation * HFpEF: chronic. compensated. continue furosemide and metoprolol * Urinary retention: continue Rick catheter. Follow up with . DVT prophylaxis: enoxaparin CODE STATUS: full code Medications at Discharge Home Medications albuterol sulfate 90 mcg/actuation aerosol inhaler (ProAir HFA) 2 inh inhalation Q4H PRN wheezing/shortness of breath 06/22/23 aspirin 81 mg chewable tablet 1 tab PO DAILY blood thinner 06/22/23 atorvastatin 80 mg tablet 80 mg PO QHS cholesterol 06/22/23 cholecalciferol (vitamin D3) 50 mcg (2,000 unit) capsule 2,000 unit PO DAILY supplement 06/22/23 clopidogrel 75 mg tablet 75 mg PO DAILY blood thinner 06/22/23 metoprolol succinate 25 mg tablet,extended release 24 hr 25 mg PO DAILY BP/pulse 06/22/23 multivitamin (Daily Multi-Vitamin tablet) 1 tab PO DAILY supplement 06/22/23 nitroglycerin 0.4 mg sublingual tablet 0.4 mg sublingual Q5M chest pain 06/22/23 ranolazine 1,000 mg tablet,extended release,12 hr 1,000 mg PO Q12H angina 06/22/23 sertraline 100 mg tablet 100 mg PO DAILY mood 06/22/23 ascorbic acid (vitamin C) 500 mg tablet 500 mg PO 1000 health maintenance 30 days #30 tabs 07/18/23 furosemide 20 mg tablet 20 mg PO DAILY swelling 30 days #30 tabs 07/18/23 pantoprazole 40 mg tablet,delayed release 40 mg PO BID Stomach acid 30 days #60 tabs 07/18/23 ferrous sulfate 325 mg (65 mg iron) tablet (Feosol) 325 mg PO QODAY Health maintenance 08/29/23 polyethylene glycol 3350 17 gram/dose oral powder (ClearLax) 17 g PO DAILY constipation 08/29/23 acetaminophen 500 mg tablet 1,000 mg (2 x 500 mg) PO Q6H PRN PRN Pain Score 1-10 #0 tabs 09/19/23 arginine 7 gram-glutam 7 gram-CaHMB 1.5 rwbu-[id number]-rn-min oral pwd pkt (Adryan (with collagen)) 1 packet PO BIDCM 30 days #60 ea 09/19/23 insulin glargine-yfgn 100 unit/mL (3 mL) subcutaneous pen 25 unit (0.25 mL) subcut DAILY #0 mL 09/19/23 insulin lispro 100 unit/mL subcutaneous pen (Humalog KwikPen (U-100) Insulin) 10 unit (0.1 mL) subcut TIDAC #0 mL 09/19/23 tamsulosin 0.4 mg capsule 0.4 mg PO DAILY@1730 30 days #30 caps 09/19/23 Hospital Course Operations None Procedures None Summary of Care Provided Minutes Spent on Discharge: 40 Weight / BMI Weight Weight: 106.4 kg Body Mass Index (BMI) 41.5 ABG / Lab / Microbiology Data 09/24/23 16:15 09/24/23 16:15 Laboratory: Laboratory Results - last 24 hr 09/27/23 16:34: POC Glucose 334 H 09/27/23 21:02: POC Glucose 288 H 09/28/23 08:09: POC Glucose 186 H 09/28/23 11:18: POC Glucose 263 H Microbiology: Microbiology 09/24/23 16:15 Blood Culture (Wb) - Anticubital Right Blood Culture - Preliminary No growth in 48 hours. 09/24/23 16:15 Blood Culture (Wb) - Anticubital Left Blood Culture - Preliminary No growth in 48 hours. 09/24/23 15:38 Urine Catheter - Rick Urine Culture - Final Proteus mirabilis Meaningful Use Info Meaningful Use Meaningful Use Diagnoses (Choose all that apply): None applicable Ischemic Stroke Statin Dosing Therapy Reference: STATIN DOSE THERAPY REFERENCE: * Patients > 75 years receive moderate or high dose statin therapy. * Patients 75 years or YOUNGER should receive HIGH intensity statin dose unless contraindicated. You will be required to document reason for non-treatment if statin daily dose does not meet guidelines. HIGH DOSE STATIN THERAPY DAILY Atorvastatin > than or = to 40 mg Rosuvastatin > than or = to 20 mg Amlodipine + Atorvastatin > than or = to 2.5/40 mg Ezetimibe + Simvastatin 10/80 mg Simvastatin 80mg Discharge Plan Admission Admit Date/Time: 09/24/23 18:27 Primary Reason for Your Visit: Debility Attending Provider: Chago De Primary Care Provider: Urmila Tong NP Consulting Providers: Ronda Sun Discharge Orders/Prescriptions Prescriptions: Continued atorvastatin 80 mg tablet 80 mg PO QHS Patient Comments: TAKE 1 TABLET BY MOUTH EVERYDAY AT BEDTIME clopidogrel 75 mg tablet 75 mg PO DAILY metoprolol succinate 25 mg tablet extended release 24 hr 25 mg PO DAILY Patient Comments: TAKE 1 TABLET BY MOUTH EVERY DAY albuterol sulfate [ProAir HFA] 90 mcg/actuation HFA aerosol inhaler 2 inh inhalation Q4H PRN (Reason: wheezing/shortness of breath) aspirin 81 mg tablet,chewable 1 tab PO DAILY cholecalciferol (vitamin D3) 50 mcg (2,000 unit) capsule 2,000 unit PO DAILY multivitamin [Daily Multi-Vitamin] Tablet 1 tab PO DAILY nitroglycerin 0.4 mg tablet, sublingual 0.4 mg sublingual Q5M Rx Instructions: do not exceed 3 doses per episode ranolazine 1,000 mg tablet extended release 12 hr 1,000 mg PO Q12H sertraline 100 mg tablet 100 mg PO DAILY Patient Comments: TAKE 1 TABLET BY MOUTH EVERY DAY ascorbic acid (vitamin C) 500 mg Tablet 500 mg PO 1000 30 Days Qty: 30 0RF pantoprazole 40 mg Tablet,Delayed Release (Dr/Ec) 40 mg PO BID 30 Days Qty: 60 0RF furosemide 20 mg Tablet 20 mg PO DAILY 30 Days Qty: 30 0RF polyethylene glycol 3350 [ClearLax] 17 gram/dose powder 17 g PO DAILY ferrous sulfate [Feosol] 325 mg (65 mg iron) tablet 325 mg PO QODAY insulin glargine-yfgn 100 unit/mL (3 mL) Insulin Pen 25 unit subcut DAILY Qty: 0 0RF acetaminophen 500 mg Tablet 1,000 mg PO Q6H PRN PRN (Reason: Pain Score 1-10) Qty: 0 0RF insulin lispro [Humalog KwikPen Insulin] 100 unit/mL Insulin Pen 10 unit subcut TIDAC Qty: 0 0RF Adryan (with collagen) 7-7-1.5 gram Powder In Packet 1 packet PO BIDCM 30 Days Qty: 60 0RF tamsulosin 0.4 mg Capsule 0.4 mg PO DAILY@1730 30 Days Qty: 30 0RF Referrals / Follow Up: Angela Haddad DPM [Non-Staff] - Within 1 Week Urmila Tong NP, PLASTIC SHEETING CUTTER-C [Primary Care Provider] - Within 2 Weeks Disposition Disposition (needs filled in before D/C Order can be placed): Residential Facility Charges/Coding Visit Charges Inpatient E&M: 15924 Disch Hosp >30min
[2023-09-28 14:51] VITALS: BP 128/52; PULSE 55; RESP 18; TEMP 36.1; O2SAT 100
--- NOTE | 2023-09-28 15:24 | CASEMGMT ---
Social Work Physician completed peer to peer, pt was accepted, and pt is ready for discharge today.? PASSR form completed in [facility] and sent along with discharge orders to [facility] via [facility]. SW met with pt and they are agreeable to discharge plan as stated above.? Bedside nurse notified of discharge. Disposition:? [facility]??, skilled level of care under convalescent stay. AIDA Salas
--- NOTE | 2023-09-28 15:38 | CASEMGMT ---
Discharge Planning Discharge orders, signed med list, and transport time sent to [facility] [place] via [facility]. Physicians will transport patient by cot at 7:30p. SW updated. Rula Vallejo, Discharge Planning Asst.
[2023-09-28] MEDS: Tamsulosin HCl 0.4 MG Capsule PO (16:24)
[2023-09-28 16:45] LABS: Bedside Glucose 286 mg/dL (74-106)
--- NOTE | 2023-09-28 17:04 | NURSING ---
Called report to [facility] [place] at [phone] to Paige. Pt to be picked up at 19:30.
[2023-09-28 19:39] VITALS: BP 145/49; PULSE 53; RESP 18; TEMP 36.6; O2SAT 100
[2023-09-28] MEDS: Atorvastatin Calcium 80 MG Tablet PO (19:54)
[2023-09-28 20:46] LABS: Bedside Glucose 204 mg/dL (74-106)
--- NOTE | 2023-10-01 10:08 | CASEMGMT ---
KJ PARSONS updated [facility] in [facility] of discharge to [facility] in [place].
== END 2023-09-29 00:37 | disposition skilled nursing facility (03) ==
LOC: ED 18:21 → MS3 19:24
PROVIDERS: Admitting Provider Student in an Organized Health Care Education/Training Program; Emergency Provider Emergency Medicine; PCP Nurse Practitioner Family
DX: R53.81 Other malaise (principal); E11.621 Type 2 diabetes mellitus with foot ulcer; L97.529 Non-pressure chronic ulcer of other part of left foot with unspecified severity; L97.419 Non-pressure chronic ulcer of right heel and midfoot with unspecified severity; I13.0 Hypertensive heart and chronic kidney disease with heart failure and stage 1 through stage 4 chronic kidney disease, or unspecified chronic kidney disease; I50.32 Chronic diastolic (congestive) heart failure; E66.01 Morbid (severe) obesity due to excess calories; Z68.41 Body mass index [BMI] 40.0-44.9, adult; Z79.4 Long term (current) use of insulin; E11.22 Type 2 diabetes mellitus with diabetic chronic kidney disease; N18.31 Chronic kidney disease, stage 3a; E78.5 Hyperlipidemia, unspecified; R26.81 Unsteadiness on feet; I25.10 Atherosclerotic heart disease of native coronary artery without angina pectoris; Z87.891 Personal history of nicotine dependence; R29.6 Repeated falls; Z79.899 Other long term (current) drug therapy; Z79.02 Long term (current) use of antithrombotics/antiplatelets; F32.A Depression, unspecified; D50.9 Iron deficiency anemia, unspecified; R33.9 Retention of urine, unspecified; Z86.73 Personal history of transient ischemic attack (TIA), and cerebral infarction without residual deficits; Z89.421 Acquired absence of other right toe(s)
CPT/HCPCS: 71045; 80053; 81001; 82962; 83605; 83880; 84484; 85025; 85610; 85730; 87040; 87077; 87086; 87088; 87186; 93005; 96372; 96374; 97162; 97166; 97530; 97535; 97802; 99221; 99285; A4216; G0378; J2405